=== PATIENT | female | born 1940 | race Caucasian/White ===

== ENCOUNTER 2025-02-13 10:28 | Inpatient (IN) | payer MEDICARE, SELFPAY ==
[2025-02-13 10:29] VITALS: BP 185/101; PULSE 66; TEMP 36.5; O2SAT 99; BMI 42.1
--- NOTE | 2025-02-13 10:40 | XR_ITS ---
The [address] [address] Patient Name: PIEDAD TA MRN: [id number] date: 1940 Sex: F Assigned Patient Location: ER Current Patient Location: Accession/Order Number: [id number] Exam Date: 02/13/2025 10:50 Report Date: 02/13/2025 11:28 At the request of: DERICK KIM DO Procedure: XR elbow LT min 3V CLINICAL DATA: Patient fell today. Pain, bruising and deformity at the left shoulder. LEFT SHOULDER - 2 views COMPARISON: None AP and Y views were obtained. Evaluation is slightly limited by large body habitus and positioning. The bony structures are osteopenic. A comminuted displaced fracture is seen at the head/neck of the humerus. There is no obvious dislocation. There is mild degenerative change at the acromioclavicular joint. No soft tissue abnormalities are seen. XR/XR shoulder LT min 2V IMPRESSION: PROXIMAL HUMERUS FRACTURE. BILATERAL HUMERUS - 2 views each COMPARISON: None AP and lateral views were obtained. Assessment is slightly limited by large body habitus. On the right, no fracture or dislocation is identified. On the left, there is a comminuted displaced fracture at the head/neck of the humerus. The remainder of the left humerus is intact. There is no obvious dislocation. Degenerative change is present at the acromioclavicular joint on both sides. No soft tissue abnormalities are seen. IMPRESSION: COMMINUTED DISPLACED PROXIMAL LEFT HUMERUS FRACTURE. NO ACUTE BONY FINDINGS ON THE RIGHT. LEFT ELBOW - 3 views COMPARISON: None AP, lateral and oblique views were obtained. No acute fracture or dislocation is identified. Minor soft tissue calcification is seen near at the radial humeral joint. There is no elbow effusion or significant soft tissue swelling. IMPRESSION: NO ACUTE BONY INJURY. Impression dictated by: Henny Wheatley M.D. 02/13/2025 11:28 AM Dictation Location: [facility] Electronically authenticated by: [id number] Y Date: 02/13/2025 11:28
--- NOTE | 2025-02-13 10:40 | XR_ITS ---
The [place] [id number] Patient Name: PIEDAD TA MRN: [id number] date: 1940 Sex: F Assigned Patient Location: ER Current Patient Location: ER Accession/Order Number: [id number] Exam Date: 02/13/2025 10:50 Report Date: 02/13/2025 11:21 At the request of: DERICK KIM DO Procedure: XR chest 1V AP CHEST: CLINICAL HISTORY: Patient fell this morning. Deformity and bruising at the left shoulder. COMPARISON: None Assessment is slightly limited by patient's large body habitus. The heart is at least borderline enlarged. The lungs, as visualized are clear. No focal consolidation, sizable effusion or pneumothorax is seen. A displaced left proximal humerus fracture is visualized. XR/XR chest 1V IMPRESSION: BORDERLINE CARDIOMEGALY. NO DEFINITE ACUTE PULMONARY FINDINGS. LEFT PROXIMAL HUMERUS FRACTURE. Impression dictated by: Henny Wheatley M.D. 02/13/2025 11:21 AM Dictation Location: [facility] Electronically authenticated by: [id number] Y Date: 02/13/2025 11:21
--- NOTE | 2025-02-13 10:40 | XR_ITS ---
The [address] [address] Patient Name: PIEDAD TA MRN: [id number] date: 1940 Sex: F Assigned Patient Location: ER Current Patient Location: Accession/Order Number: [id number] Exam Date: 02/13/2025 10:50 Report Date: 02/13/2025 11:28 At the request of: DERICK KIM DO Procedure: XR elbow LT min 3V CLINICAL DATA: Patient fell today. Pain, bruising and deformity at the left shoulder. LEFT SHOULDER - 2 views COMPARISON: None AP and Y views were obtained. Evaluation is slightly limited by large body habitus and positioning. The bony structures are osteopenic. A comminuted displaced fracture is seen at the head/neck of the humerus. There is no obvious dislocation. There is mild degenerative change at the acromioclavicular joint. No soft tissue abnormalities are seen. XR/XR humerus FIGUEROA IMPRESSION: PROXIMAL HUMERUS FRACTURE. BILATERAL HUMERUS - 2 views each COMPARISON: None AP and lateral views were obtained. Assessment is slightly limited by large body habitus. On the right, no fracture or dislocation is identified. On the left, there is a comminuted displaced fracture at the head/neck of the humerus. The remainder of the left humerus is intact. There is no obvious dislocation. Degenerative change is present at the acromioclavicular joint on both sides. No soft tissue abnormalities are seen. IMPRESSION: COMMINUTED DISPLACED PROXIMAL LEFT HUMERUS FRACTURE. NO ACUTE BONY FINDINGS ON THE RIGHT. LEFT ELBOW - 3 views COMPARISON: None AP, lateral and oblique views were obtained. No acute fracture or dislocation is identified. Minor soft tissue calcification is seen near at the radial humeral joint. There is no elbow effusion or significant soft tissue swelling. IMPRESSION: NO ACUTE BONY INJURY. Impression dictated by: Henny Wheatley M.D. 02/13/2025 11:28 AM Dictation Location: [facility] Electron[facility] authenticated by: [id number] Y Date: 02/13/2025 11:28
--- NOTE | 2025-02-13 10:40 | XR_ITS ---
The [address] [address] Patient Name: PIEDAD TA MRN: [id number] date: 1940 Sex: F Assigned Patient Location: ER Current Patient Location: Accession/Order Number: [id number] Exam Date: 02/13/2025 10:50 Report Date: 02/13/2025 11:28 At the request of: DERICK KIM DO Procedure: XR elbow LT min 3V CLINICAL DATA: Patient fell today. Pain, bruising and deformity at the left shoulder. LEFT SHOULDER - 2 views COMPARISON: None AP and Y views were obtained. Evaluation is slightly limited by large body habitus and positioning. The bony structures are osteopenic. A comminuted displaced fracture is seen at the head/neck of the humerus. There is no obvious dislocation. There is mild degenerative change at the acromioclavicular joint. No soft tissue abnormalities are seen. XR/XR elbow LT min 3V IMPRESSION: PROXIMAL HUMERUS FRACTURE. BILATERAL HUMERUS - 2 views each COMPARISON: None AP and lateral views were obtained. Assessment is slightly limited by large body habitus. On the right, no fracture or dislocation is identified. On the left, there is a comminuted displaced fracture at the head/neck of the humerus. The remainder of the left humerus is intact. There is no obvious dislocation. Degenerative change is present at the acromioclavicular joint on both sides. No soft tissue abnormalities are seen. IMPRESSION: COMMINUTED DISPLACED PROXIMAL LEFT HUMERUS FRACTURE. NO ACUTE BONY FINDINGS ON THE RIGHT. LEFT ELBOW - 3 views COMPARISON: None AP, lateral and oblique views were obtained. No acute fracture or dislocation is identified. Minor soft tissue calcification is seen near at the radial humeral joint. There is no elbow effusion or significant soft tissue swelling. IMPRESSION: NO ACUTE BONY INJURY. Impression dictated by: Henny Wheatley M.D. 02/13/2025 11:28 AM Dictation Location[facility] Electron[facility] authenticated by: [id number] Y Date: 02/13/2025 11:28
[2025-02-13 10:50] VITALS: PULSE 66; O2SAT 99
[2025-02-13] MEDS: MORPHINE SULFATE 4 MG/ML VIAL IV (12:23)
--- NOTE | 2025-02-13 12:25 | ED_ITS ---
HPI HPI - General Adult General Chief complaint: Extremity Injury, Upper Stated complaint: SHOULDER INJURY Time Seen by Provider: 02/13/25 10:34 Source: patient Mode of arrival: ambulance History of Present Illness HPI narrative: Patient is an 84-year-old female presenting to the emergency department for evaluation of left arm injury. Patient states she tripped and fell in the bathroom earlier today. She landed on her left shoulder and has had persistent pain since then. Other than pain in left shoulder, she has mild pain in the right arm. She denies any other injuries. She denies hitting her head or lo sing consciousness. She denies any neck or back pain. No chest pain or shortness of breath. No abdominal pain, nausea, or vomiting. No numbness/tingling/weakness in the upper extremities. She is not on anticoagulation. Patient lives at home with her . She uses a walker to get around. Related Data Allergies Allergy/AdvReac Type Severity Reaction Status Date / Time Penicillins Allergy Mild Unknown Verified 02/13/25 11:41 cefuroxime Allergy Unknown Verified 02/13/25 11:41 ciprofloxacin (From Cipro) Allergy Unknown Verified 02/13/25 11:41 lisinopril Allergy Unknown Verified 02/13/25 11:41 nitrofurantoin Allergy Unknown Verified 02/13/25 11:41 Sulfa (Sulfonamide Allergy Unknown Verified 02/13/25 11:41 Antibiotics) Opioid HPI Opioid Management Most Recent Opioid Data: Last Pain Scale 8 Today, 12:23 Last ED Pain Assessment Today, 10:50 Last MAR Pain Assessment Today, 12:23 Review of Systems ROS Status of ROS 10 or more systems reviewed and unremark able except as noted in history and below PFSH PFSH Social History Little interest or pleasure in doing things: not at all Feeling down, depressed, or hopeless: not at all Exam Narrative Exam Narrative: CONSTITUTIONAL: Patient appears to be in moderate amount of pain. She is awake and alert and answering questions appropriately. SKIN: Was warm and dry. HEAD: Atraumatic, normocephalic EYES: Sclerae white. EARS, NOSE, THROAT: Moist oral mucosa. RESPIRATORY: Clear to auscultation bilaterally, no wheezes, crackles, or stridor, no use of accessory muscles CARDIOVASCULAR: Normal rate and regular rhythm. There is no S3, S4, murmur, rub. 2+ radial pulses bilaterally. GASTROINTESTINAL: Abdomen is soft, nondistended, nontender. MUSCULOSKELETAL: There is tenderness to palpation at the left proximal humerus. Limited range of motion of the left shoulder secondary to pain. Full range of motion of the left elbow/wrist/fingers. No bony tenderness of the elbow, radius/ulna/wrist bilaterally. Able to make an okay sign, peace sign, and cross her fingers on the left. No tenderness at the lower extremities/hips/pelvis. No T/C/L-spine tenderness to NEUROLOGIC: Patient is awake and alert. Good strength and sensation to light touch in the bilateral upper extremities. Good sensation over the deltoids bilaterally. Constitutional Vital Signs, click to edit/add: Last Vital Signs Temp 97.7 F 02/13/25 10:29 Pulse 66 02/13/25 10:50 Resp 18 02/13/25 10:29 BP 185/101 H 02/13/25 10:29 Pulse Ox 99 02/13/25 10:50 O2 Del Method Room Air 02/13/25 10:50 Course Vital Signs Vital signs: Vital Signs Temperature 97.7 F 02/13/25 10:29 Pulse Rate 66 02/13/25 10:29 Respiratory Rate 18 02/13/25 10:29 Blood Pressure 185/101 H 02/13/25 10:29 Pulse Oximetry 99 02/13/25 10:29 Oxygen Delivery Method Room Air 02/13/25 10:29 Temperature 97.7 F 02/13/25 10:29 Pulse Rate 66 02/13/25 10:50 Respiratory Rate 18 02/13/25 10:29 Blood Pressure 185/101 H 02/13/25 10:29 Pulse Oximetry 99 02/13/25 10:50 Oxygen Delivery Method Room Air 02/13/25 10:50 Medical Decision Making MDM Narrative Medical decision making narrative: Patient is a 84-year-old female presenting to the emergency department for evaluation of left shoulder injury s/p mechanical fall from standing height earlier today. Vital signs are significant for hypertension, likely secondary to pain. She is afebrile and hemodynamically stable. Examination is notable, however is notable for tenderness palpation of the left proximal humerus. She is neurovascularly intact distal to the injury. She has limited range of motion left upper extremity secondary to pain. She has no other acute injuries. Differential diagnose includes left proximal humerus fracture, left shoulder dislocation, right humerus fracture, left elbow contusion, or other osseous abnormalities. X-rays were obtained. She was given 4 mg IV morphine for pain. Chest x-ray independently reviewed/interpreted by myself demonstrated no acute cardiopulmonary process. X-rays of the left elbow, shoulder, and humerus demonstrated comminuted displaced proximal left humerus fracture. X-rays of the right humerus demonstrate no acute osseous abnormalities. It appears that the patient suffered from a left proximal humerus fracture without any other identifiable injuries. Given that she is elderly and uses a walker at baseline, I did offer her admission to the hospital for placement to a subacute rehab. However, the patient adamantly declines and would rather go home. I did explain that her broken arm is going to severely limit her ability to achieve ADLs. Additionally, given that she is a walker, she is a fall risk. Despite the risks of going home, she remains firm that she is not placed into rehab. Her sons are at the bedside, who is a part of this shared decision making conversation. They state that if the patient is starting to have difficulty taking care of herself at home that they will reach out to their PCP for placement to a [facility]. At this time, the patient was placed in a sling and swath for immobilization. She is instructed to follow-up with orthopedic surgery clinic within 1 week for further care - though she mentioned twice that she does not want surgery performed on her arm. Return precautions were given including any new or concerning symptoms. Patient understands and agrees to the plan. FINAL IMPRESSION: #Acute left proximal humerus fracture DISPOSITION: Discharged home CONDITION: Fair Imaging Data left humerus xray: Attestation: I personally reviewed and interpreted this imaging study as follows: Radiologist's impression: ITS Impressions Chest X-Ray 02/13/25 10:40 IMPRESSION: BORDERLINE CARDIOMEGALY. NO DEFINITE ACUTE PULMONARY FINDINGS. LEFT PROXIMAL HUMERUS FRACTURE. Impression dictated by: Henny Wheatley M.D. 02/13/2025 11:21 AM Dictation Location: [employer] Electronically authenticated by: [id number] Y Date: 02/13/2025 11:21 Elbow X-Ray 02/13/25 10:40 IMPRESSION: PROXIMAL HUMERUS FRACTURE. BILATERAL HUMERUS - 2 views each COMPARISON: None AP and lateral views were obtained. Assessment is slightly limited by large body habitus. On the right, no fracture or dislocation is identified. On the left, there is a comminuted displaced fracture at the head/neck of the humerus. The remainder of the left humerus is intact. There is no obvious dislocation. Degenerative change is present at the acromioclavicular joint on both sides. No soft tissue abnormalities are seen. IMPRESSION: COMMINUTED DISPLACED PROXIMAL LEFT HUMERUS FRACTURE. NO ACUTE BONY FINDINGS ON THE RIGHT. LEFT ELBOW - 3 views COMPARISON: None AP, lateral and oblique views were obtained. No acute fracture or dislocation is identified. Minor soft tissue calcification is seen near at the radial humeral joint. There is no elbow effusion or significant soft tissue swelling. IMPRESSION: NO ACUTE BONY INJURY. Impression dictated by: Henny Wheatley M.D. 02/13/2025 11:28 AM Dictation Location: [employer] Electronically authenticated by: [id number] Y Date: 02/13/2025 11:28 Humerus X-Ray 02/13/25 10:40 IMPRESSION: PROXIMAL HUMERUS FRACTURE. BILATERAL HUMERUS - 2 views each COMPARISON: None AP and lateral views were obtained. Assessment is slightly limited by large body habitus. On the right, no fracture or dislocation is identified. On the left, there is a comminuted displaced fracture at the head/neck of the humerus. The remainder of the left humerus is intact. There is no obvious dislocation. Degenerative change is present at the acromioclavicular joint on both sides. No soft tissue abnormalities are seen. IMPRESSION: COMMINUTED DISPLACED PROXIMAL LEFT HUMERUS FRACTURE. NO ACUTE BONY FINDINGS ON THE RIGHT. LEFT ELBOW - 3 views COMPARISON: None AP, lateral and oblique views were obtained. No acute fracture or dislocation is identified. Minor soft tissue calcification is seen near at the radial humeral joint. There is no elbow effusion or significant soft tissue swelling. IMPRESSION: NO ACUTE BONY INJURY. Impression dictated by: Henny Wheatley M.D. 02/13/2025 11:28 AM Dictation Location: [employer] Electronically authenticated by: [id number] Y Date: 02/13/2025 11:28 Shoulder X-Ray 02/13/25 10:40 IMPRESSION: PROXIMAL HUMERUS FRACTURE. BILATERAL HUMERUS - 2 views each COMPARISON: None AP and lateral views were obtained. Assessment is slightly limited by large body habitus. On the right, no fracture or dislocation is identified. On the left, there is a comminuted displaced fracture at the head/neck of the humerus. The remainder of the left humerus is intact. There is no obvious dislocation. Degenerative change is present at the acromioclavicular joint on both sides. No soft tissue abnormalities are seen. IMPRESSION: COMMINUTED DISPLACED PROXIMAL LEFT HUMERUS FRACTURE. NO ACUTE BONY FINDINGS ON THE RIGHT. LEFT ELBOW - 3 views COMPARISON: None AP, lateral and oblique views were obtained. No acute fracture or dislocation is identified. Minor soft tissue calcification is seen near at the radial humeral joint. There is no elbow effusion or significant soft tissue swelling. IMPRESSION: NO ACUTE BONY INJURY. Impression dictated by: Henny Wheatley M.D. 02/13/2025 11:28 AM Dictation Location: [employer] Electronically authenticated by: [id number] Y Date: 02/13/2025 11:28 Discharge Plan Discharge Chief Complaint: Extremity Injury, Upper Clinical Impression: Closed left humeral fracture Patient Disposition: Home, Self-Care Time of Disposition Decision: 12:13 Condition: Fair Mode of Transportation: Private Vehicle Print Language: German Instructions: Arm Fracture in Adults (ED), How to Use a Sling (ED) Referrals: Cayden Banda DO [Physician, Orthopedics] - 1 week JESSICA STOCK [Primary Care Provider, Family Practice] - 1 week
[2025-02-13 13:06] VITALS: BP 179/84; PULSE 68; O2SAT 97
--- NOTE | 2025-02-13 13:06 | PM.IMHP1 ---
Internal Medicine - H&P: HPI History of Present Illness Chief complaint: SHOULDER INJURY Narrative: Miss Sprague is an 84-year-old female with a past medical history notable for diabetes and hypertension who presents to the hospital today with a chief complaint of left shoulder pain. Earlier this morning the patient was attempting to stand up in the bathroom and change her underwear, she lost balance while doing this and subsequently fell onto her knees and then down to her left arm. She felt pain immediately. She was separately brought to emergency room. She denied losing consciousness or hitting her head while she fell, she does not have a history of falls. She is from home alone with her son who does help out a little bit but she is fairly independent as well. Review of Systems ROS Status of ROS 10 or more systems reviewed and unremarkable except as noted in history and below PFSH PFSH Social History Little interest or pleasure in doing things: not at all Feeling down, depressed, or hopeless: not at all Meds Home Medications and Allergies Home Medications ?Medication ?Instructions ?Recorded ?Confirmed ?Type citalopram 40 mg tablet 40 mg PO HS 02/13/25 02/13/25 History furosemide 40 mg tablet 40 mg PO DAILY 02/13/25 02/13/25 History glipizide 10 mg tablet 10 mg PO DAILY 02/13/25 02/13/25 History indapamide 2.5 mg tablet 2.5 mg PO DAILY 02/13/25 02/13/25 History insulin glargine 100 unit/mL (3 38 unit subcut HS 02/13/25 02/13/25 History mL) subcutaneous pen (Lantus Solostar U-100 Insulin) meloxicam 7.5 mg tablet 7.5 mg PO BID 02/13/25 02/13/25 History metformin 1,000 mg tablet 1,000 mg PO BID 02/13/25 02/13/25 History montelukast 10 mg tablet 10 mg PO HS 02/13/25 02/13/25 History potassium chloride 20 mEq 20 meq PO DAILY 02/13/25 02/13/25 History tablet,extended release(part/cryst) propranolol 20 mg tablet 20 mg PO BID 02/13/25 02/13/25 History Allergies Allergy/AdvReac Type Severity Reaction Status Date / Time Penicillins Allergy Mild Unknown Verified 02/13/25 11:41 cefuroxime Allergy Unknown Verified 02/13/25 11:41 ciprofloxacin (From Cipro) Allergy Unknown Verified 02/13/25 11:41 lisinopril Allergy Unknown Verified 02/13/25 11:41 nitrofurantoin Allergy Unknown Verified 02/13/25 11:41 Sulfa (Sulfonamide Allergy Unknown Verified 02/13/25 11:41 Antibiotics) Exam Narrative Exam Narrative: General: Awake and alert, no acute distress HEENT: Normocephalic, atraumatic, no scleral icterus noted Lungs: Clear to auscultation bilaterally Cardiac: Regular rate and rhythm, no murmurs appreciated GI: Soft, nontender, regular bowel sounds. Extremities: Active and passive range of motion intact throughout her bilateral lower extremities and right upper extremity. The right upper extremity does have some hematomas noted already, she has pain directly over the lateral aspect of the shoulder. She is neurovascularly intact distal to the fracture. Neuro: Cranial nerves II through XII intact, no focal deficits noted Skin: No rashes or lesions, no signs of jaundice Constitutional Vital Signs, click to edit/add: Last Vital Signs Temp 97.7 F 02/13/25 10:29 Pulse 66 02/13/25 10:50 Resp 18 02/13/25 10:29 BP 185/101 H 02/13/25 10:29 Pulse Ox 99 02/13/25 10:50 O2 Del Method Room Air 02/13/25 10:50 Assessment and Plan Assessment and Plan (1) Closed left humeral fracture: Assessment and Plan: ? Admit to the hospital, inpatient status, no telemetry ? Pain control with Tylenol, [place], morphine ? Bowel regimen with sennosides nightly scheduled ? PT OT ? Patient was fairly independent at home prior to this mechanical fall, she did not lose consciousness and denies hitting her head. She will likely require SNF upon discharge for a safe disposition. ? Orthopedic surgery was consulted ?This is likely a nonop management however if there is a surgical intervention the patient is currently declining any surgeries. They are okay with being evaluated by the surgery though for completeness sake for discussion on long-term outcomes of this. (2) Fall: Assessment and Plan: See above
--- NOTE | 2025-02-13 13:19 | SWNOTE1 ---
SW received a message from physician that pt will be admitted and need placement at SNF. SW to speak with pt and family.
--- NOTE | 2025-02-13 13:40 | SWNOTE1 ---
SW went down to speak with pt and pt's family. Pt's son and were in waiting area. Pt's other son came to waiting area as well. ADILIA did discuss SNF with all of them. They are all in agreement for pt to go to rehab for a short time. Prior to this fall pt was ambulating with walker and pt's also stated she had a wheelchair. ADILIA provided them with a lsit from [employer]are[employer] with star ratings. They initially wanted [facility], but [facility] does not have rehab anymore, only assisted living. They would like SW to look in to [facility]. If [facility] has no beds, then they would like one of the facilities in [place]. SW to check with [facility] and get back to family. ADILIA called [facility], but Katar[facility] or [facility] did not answer. ADILIA emailed both of them. Katarzyna did reply and they do have opening. SW to send referral.
--- NOTE | 2025-02-13 13:55 | SWNOTE1 ---
Referral sent to [facility]. Referral included face sheet, ED note, H&P, case management report, nursing notes, diagnostic imaging, and med list. SW to send PT/OT once evaluated.
[2025-02-13 14:31] VITALS: BP 137/64; PULSE 76; TEMP 36.4; O2SAT 93; BMI 46.4
--- NOTE | 2025-02-13 14:42 | PC.NURSE ---
bedside nursing report given to [facility] RNs. all questions answered.
--- NOTE | 2025-02-13 14:54 | SWNOTE1 ---
[facility] is able to accept and will start precert once they have PT/OT.
[2025-02-13 15:18] VITALS: BMI 10.0
[2025-02-13] MEDS: SENNOSIDES 8.6 MG TABLET PO (15:19)
[2025-02-13] MEDS: OXYCODONE HCL/ACETAMINOPHEN 5MG/325MG 1 TAB PO ×2 (15:19→22:40)
--- NOTE | 2025-02-13 15:31 | SWNOTE1 ---
PT/OT completed evals. SW faxed evals to Delvin at [facility] and they will submit to insurance and start precert today.
[2025-02-13] MEDS: METFORMIN HCL 500 MG TABLET 1000 MG PO (16:23)
[2025-02-13 19:42] VITALS: BP 108/57; PULSE 73; TEMP 36.4; O2SAT 90
[2025-02-13] MEDS: INSULIN GLARGINE 300 UNIT/3 ML INSULN.PEN 38 UNIT SQ (21:28)
[2025-02-13] MEDS: PROPRANOLOL HCL 20 MG TABLET PO (21:28)
[2025-02-13] MEDS: CITALOPRAM HYDROBROMIDE 20 MG TABLET 40 MG PO (21:28)
[2025-02-13] MEDS: MONTELUKAST SODIUM 10 MG TABLET PO (21:28)
[2025-02-14 04:00] VITALS: BP 121/71; PULSE 70; TEMP 36.7; O2SAT 90
[2025-02-14] MEDS: OXYCODONE HCL/ACETAMINOPHEN 5MG/325MG 1 TAB PO ×2 (05:51→21:15)
[2025-02-14 07:52] VITALS: BP 103/44; PULSE 71; TEMP 36.6; O2SAT 90
[2025-02-14] MEDS: GLIPIZIDE 5 MG TAB.ER.24 10 MG PO (09:05)
[2025-02-14] MEDS: SENNOSIDES 8.6 MG TABLET PO ×3 (09:05→21:12)
[2025-02-14] MEDS: METFORMIN HCL 500 MG TABLET 1000 MG PO (09:05)
--- NOTE | 2025-02-14 11:04 | PT.DAILY ---
Physical Therapy Daily Note PT Daily Note/Assess Start: 02/14/25 10:58 Freq: Status: Active Protocol: Document 02/14/25 10:30 YANDY (Rec: 02/14/25 11:03 KURTISHUHERNAN [id number]) Physical Therapy Daily Note/Assessment Time In/Time Out Time In 10:29 Time Out 10:54 Subjective Subjective Pain 4/10 in L shoulder reports that nursing was able to just get sling adjusted just right so pain is decreased and she is more comfortable. Willing to work with PT. Therapeutic Exercise Time Therapeutic Exercise 10 Minutes (minutes) Therapeutic Exercise 1 Units Therapeutic Exercise Treatment Therapeutic Exercise Supine exercises with isometrics, AAROM and AROM 10 Treatment reps each to improve strength. Therapeutic Activity Time Therapeutic Activity 15 Minutes (minutes) Therapeutic Activity 1 Units Therapeutic Activity Treatment Bed Mobility Ability Maximum Assist Therapeutic Activity Attempted to sit EOB 2x with max assist x1, patient Comments works hard but is unable to safely get to edge of bed with max assist x1. with position of bed and max assist of patient was able to work on coming up into unsupported long sitting with 5 sec hold 7x. Max assist to re-position patient post RX. Total Physical Therapy Time Total Therapy 25 Minutes Total Physical 2 Therapy Units Summary Daily Note Summary Patient works hard with PT. Requires max assist due to weakness and NWB to L UE with increased pain during activity. Completed B LE strengthening program with tolerance of 10 reps each. Patient will benefit from SNF stay at [place] to regain strength and learn how to safely transfer allowing her to return to [facility].
--- NOTE | 2025-02-14 12:09 | P.PN_ITS ---
Progress Note: Subjective Subjective Interval history: This patient was admitted yesterday by my colleague. She had come to the ER with a left-sided proximal humerus fracture. Originally she wanted to go home. She was not agreeable to SNF placement. But her family members talked her into it. The patient and her family members admit that she is looking a lot better today. Pain has been manageable. She had a hard night and did not sleep because the sling got caught underneath her and so her arm was in a strange position. But the sling is been put back into normal position today. She can wiggle her fingers and has sensation and motion intact throughout the left arm. Her family explains that at home she uses a wheeled walker that she drives with both hands. She has limited mobility at home but with some assistance from the family they can get her from the bedroom to the bathroom and to the kitchen. She does use a lift chair. She got some gluteal irritation on the bottom of her skin in both gluteal region she believes from scooting herself on the lift chair at home. They had been seeing dermatology. Dermatology apparently had told the family members to put coconut oil on these areas. Last week she was in the dermatology office and it seems like she has some skin lesions that will need to be removed next week. She also got an unspecified vascular surgery procedure on the veins in her legs in [place] about a week ago. Her BMI is 46.4. Her age is advanced at 84. She has very limited mobility at home at baseline due to all of this. Therefore hospital stay for stabilization of the pain and getting her on a stable pain and bowel regimen is appropriate and she does require a assisted facility until the left arm is healed and she can do her activities of daily living again. Exam Narrative Exam Narrative: General: In bed. Head of bed elevated about 60 degrees. Looking around. Once her family members do most of the talking. Cardio: Auscultating anteriorly I do not hear any rubs or gallops. Heart rate is regular. Pulmonary: Auscultating anteriorly her lung sounds are clear. Respirations are calm and easy. GI: Abdomen soft, normal bowel sounds to auscultation throughout. Lower extremities: She has some dry skin on her legs but these little areas that are about 1 or 2 mm of blisters that the family members were taking her to dermatology for look better, most likely due to leg elevation. Left arm: There is some bruising around the left shoulder. She can wiggle her fingers. Wrist and elbow do not seem to have any pain. Constitutional Vital Signs, click to edit/add: Last Vital Signs Temp 97.9 F 02/14/25 07:52 Pulse 71 02/14/25 07:52 Resp 20 02/14/25 07:52 BP 103/44 L 02/14/25 07:52 Pulse Ox 90 L 02/14/25 07:52 O2 Del Method Room Air 02/14/25 07:52 Progress Note: A&P Assessment and Plan (1) Closed left humeral fracture: Qualifiers: Encounter type: subsequent encounter Humerus Location: proximal Fracture morphology: other fracture Fracture alignment: nondisplaced Fracture healing: with routine healing Qualified Code(s): S42.295D - Other nondisplaced fracture of upper end of left humerus, subsequent encounter for fracture with routine healing (2) Fall: Qualifiers: Encounter type: subsequent encounter Qualified Code(s): W19.XXXD - Unspecified fall, subsequent encounter (3) BMI 45.0-49.9, adult: (4) Diabetes mellitus: Qualifiers: Diabetes mellitus type: type 2 Diabetes mellitus watermaster insulin use: without [place] [facility] use Diabetes mellitus complication status: without complication Qualified Code(s): E11.9 - Type 2 diabetes mellitus without complications (5) Hypertension: Qualifiers: Hypertension type: primary hypertension Qualified Code(s): I10 - Essential (primary) hypertension (6) Anxiety: (7) Impaired mobility and ADLs: Plan Closed left proximal humerus fracture. Mechanical fall at home. BMI 46.4. Diabetes mellitus type 2. Impaired activities of daily living. Stage II pressure ulcers on both gluteus gisselle region. Plan: Ongoing hospital care with the inpatient status. Physical therapy did see the patient today. I discussed today with the patient and family I want her on calcium and vitamin D and vitamin C for bone healing Starting strong bowel regimen with Metamucil and medium strength stimulant laxatives to prevent constipation. Checking a set of routine labs. Urinary Catheter Management Urinary Catheter Management Pure Wick: Cath placed during this visit: yes Urethral indwelling: No Insertion date: 02/14/25 Insertion time: 05:00
[2025-02-14 12:36] LABS: Hematocrit 32.3 % (36.0-48.0); Hemoglobin 10.6 g/dL (12.0-16.0); Immature Granulocytes Abs Auto 0.06 10^3/uL (0.00-0.03); Immature Granulocytes Pct Auto 0.5 % (0.0-0.5); Lymphocytes Absolute Auto 4.0 10^3/uL (1.2-3.8); Mean Corpuscular HGB Conc 32.8 g/dL (29.9-35.2); Mean Corpuscular Hemoglobin 30.4 pg (26.7-34.0); Mean Corpuscular Volume 92.6 fL (81.0-99.0); Platelet Count 162 10^3/uL (150-450); Red Blood Count 3.49 10^6/uL (4.20-5.40); White Blood Count 12.1 10^3/uL (4.0-11.0)
[2025-02-14 12:53] LABS: INR 0.99; Partial Thromboplastin Time 25.6 sec (22.3-36.2); Prothrombin Time 10.5 sec (9.0-11.6)
[2025-02-14 12:54] LABS: Alanine Aminotransferase 15 U/L (14-59); Albumin Globulin Ratio 0.7; Albumin Level 2.7 g/dL (3.4-5.0); Alkaline Phosphatase 54 U/L (46-116); Anion Gap 15.0; Aspartate Amino Transferase 16 U/L (15-37); Blood Urea Nitrogen 65.0 mg/dL (7.0-18.0); Calcium 9.0 mg/dL (8.5-10.1); Carbon Dioxide 24.1 mmol/L (21.0-32.0); Chloride 101 mmol/L (98-107); Estimated GFR (African America 19 (>=60 mL/min/1.73m^2); Estimated GFR (Non-African Ame 16 (>=60 mL/min/1.73m^2); Globulin 3.8 g/dL; Glucose 164 mg/dL (74-106); Potassium 5.1 mmol/L (3.5-5.1); Sodium 135 mmol/L (136-145); Total Protein 6.5 g/dL (6.4-8.2)
[2025-02-14 13:24] LABS: Iron 78.0 ug/dL (50.0-170.0); Percent Iron Saturation 26.9 %; Total Iron Binding Capacity 290.0 ug/dL (250.0-450.0)
[2025-02-14 13:48] LABS: Ferritin 66.0 ng/mL (8.0-252.0); Folate 15.40 ng/mL (8.60-58.90)
[2025-02-14 15:16] VITALS: BP 110/53; PULSE 82; TEMP 36.8; O2SAT 90
[2025-02-14] MEDS: ASCORBIC ACID 500 MG TABLET PO (17:12)
[2025-02-14] MEDS: CALCIUM CARBONATE 600 MG/VITAMIN D3 400 IU TABLET 1 TAB PO (17:12)
[2025-02-14 19:49] VITALS: BP 139/81; PULSE 78; TEMP 36.8; O2SAT 92
[2025-02-14] MEDS: INSULIN GLARGINE 300 UNIT/3 ML INSULN.PEN 38 UNIT SQ (21:10)
[2025-02-14] MEDS: PROPRANOLOL HCL 20 MG TABLET PO (21:11)
[2025-02-14] MEDS: PSYLLIUM SUGAR FREE 5.8 GM POWDER PACKET PO (21:11)
[2025-02-14] MEDS: CITALOPRAM HYDROBROMIDE 20 MG TABLET 40 MG PO (21:11)
[2025-02-14] MEDS: ENOXAPARIN SODIUM 30 MG/0.3 ML SYRINGE SUBQ (21:11)
[2025-02-14] MEDS: MONTELUKAST SODIUM 10 MG TABLET PO (21:12)
[2025-02-15 04:00] VITALS: BP 107/63; PULSE 72; TEMP 36.4; O2SAT 90
[2025-02-15] MEDS: SENNOSIDES 8.6 MG TABLET PO (05:27)
[2025-02-15 08:00] VITALS: BP 110/73; PULSE 74; TEMP 36.7; O2SAT 90
[2025-02-15] MEDS: PSYLLIUM SUGAR FREE 5.8 GM POWDER PACKET PO (09:11)
[2025-02-15] MEDS: PROPRANOLOL HCL 20 MG TABLET PO (09:11)
[2025-02-15] MEDS: CALCIUM CARBONATE 600 MG/VITAMIN D3 400 IU TABLET 1 TAB PO (09:11)
[2025-02-15] MEDS: ENOXAPARIN SODIUM 30 MG/0.3 ML SYRINGE SUBQ (09:11)
[2025-02-15] MEDS: GLIPIZIDE 5 MG TAB.ER.24 10 MG PO (09:11)
[2025-02-15] MEDS: METFORMIN HCL 500 MG TABLET 1000 MG PO (09:11)
[2025-02-15] MEDS: ASCORBIC ACID 500 MG TABLET PO (09:11)
--- NOTE | 2025-02-15 11:31 | PM.DS1 ---
DS: Providers Provider Date of admission: 02/13/25 14:18 Primary care physician: JESSICA STOCK Admitting clinician: ADRIANA COREAS Attending physician on admission: ADRIANA COREAS Consults: 02/13/25 12:58 Consult to Orthopedic Surgery Routine Consulting Provider: Cayden Banda Reason For Exam: Reason for consultation: proximal humerus fx Occupational Therapy Eval and Treat Routine Reason for consultation: proximal humerus fx Physical Therapy Eval and Treat Routine Reason for consultation: proximal humerus fx Attending physician on discharge: DEX PROCTOR Discharging clinician: DEX PROCTOR Anticipated date of discharge: 02/15/25 DS: Diagnosis Discharge Diagnosis (1) Closed left humeral fracture: Qualifiers: Encounter type: subsequent encounter Fracture alignment: nondisplaced Fracture healing: with routine healing Fracture morphology: other fracture Humerus Location: proximal Qualified Code(s): S42.295D - Other nondisplaced fracture of upper end of left humerus, subsequent encounter for fracture with routine healing (2) Fall: Qualifiers: Encounter type: subsequent encounter Qualified Code(s): W19.XXXD - Unspecified fall, subsequent encounter (3) BMI 45.0-49.9, adult: (4) Diabetes mellitus: Qualifiers: Diabetes mellitus complication status: without complication 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 She came to the ER and was found to have a comminuted displaced fracture of the head/neck of the humerus. In the ER if first she did not want to be admitted to the hospital and she wanted to go home. However she has a number of things that make getting her activities of daily living accomplished particularly challenging. Her weight is 115 kg. Her BMI is 46.4 kg she normally ambulates with a wheeled walker at home that she drives with both arms. She will be nonweightbearing of the left upper extremity until this fracture is healed. So eventually with the help of her family members a decision was made to place her in the hospital. For the first 24 hours in the hospital she had a tremendous amount of left shoulder pain and did need IV opiates. Ice was used. The patient was able to gradually improve this on to oral oxycodone. She had physical therapy and Occupational Therapy evaluations. On laboratory testing she was found to have pretty severe vitamin D deficiency with vitamin D very low at 7.5. Her hemoglobin A1c is fairly good for her age and condition at 7.2. Over the weekend of February 14 the paperwork to go through for her to be able to go to a fpc facility. She will need multimodal physical therapy and Occupational Therapy, and office based orthopedic follow-up. She is being discharged to the fpc facility on a bone healing protocol of calcium, vitamin D, and vitamin C and also a bowel regimen with Senokot and use of to prevent constipation. DS: Summary Status at Discharge Functional status at discharge: bed bound Overall status at discharge: patient is progressing back to baseline Time Spent with Patient Time attestation: Total time spent providing and/or coordinating discharge services: 33 minutes. - KL. Time spent: greater than 30 minutes Exam Narrative Exam Narrative: General: In bed. Head of bed elevated at about 60 degrees. Left shoulder: Sling is in place. Moderate amount of edema from bruising deeper in the shoulders present. She is able to wiggle her left fingers and has sensation and motor intact in her left hand. Lower extremities: Sleeve compression vices are on and in good position bilaterally. No cords or calves are soreness in the area behind her knees on both of her legs. Cardiac: Regular rate and rhythm. No murmurs. Pulmonary: Clear to auscultation anteriorly. Respirations calm and easy. No wheezing. GI: Abdomen soft, normal bowel sounds to auscultation. Constitutional Vital Signs, click to edit/add: Last Vital Signs Temp 98.1 F 02/15/25 08:00 Pulse 74 02/15/25 08:00 Resp 16 02/15/25 08:00 BP 110/73 02/15/25 08:00 Pulse Ox 90 L 02/15/25 08:00 O2 Del Method Room Air 02/15/25 08:00 DS: Data Data Completed and Pending Labs on day of discharge: Labs from last 24 hours 02/14/25 12:23 WBC 12.1 H RBC 3.49 L Hgb 10.6 L Hct 32.3 L MCV 92.6 MCH 30.4 MCHC 32.8 RDW 13.2 Plt Count 162 MPV 9.5 Neut % (Auto) 51.6 Lymph % (Auto) 33.1 [place] % (Auto) 11.4 Eos % (Auto) 2.6 Baso % (Auto) 0.8 Neut # (Auto) 6.3 Lymph # (Auto) 4.0 H [place] # (Auto) 1.4 H Eos # (Auto) 0.3 Baso # (Auto) 0.1 Abs Immat Gran (auto) 0.06 H Imm/Tot Granulo (auto) 0.5 PT 10.5 INR 0.99 APTT 25.6 Sodium 135 L Potassium 5.1 Chloride 101 Carbon Dioxide 24.1 Anion Gap 15.0 BUN 65.0 H Creatinine 2.84 H Est GFR ( Amer) 19 L Est GFR (Non-Af Amer) 16 L BUN/Creatinine Ratio 22.9 Glucose 164 H Estimat Average Glucose 160 Hemoglobin A1c 7.2 H Calcium 9.0 Iron 78.0 TIBC 290.0 % Saturation 26.9 Ferritin 66.0 Total Bilirubin 0.6 AST 16 ALT 15 Alkaline Phosphatase 54 Total Protein 6.5 Albumin 2.7 L Globulin 3.8 Albumin/Globulin Ratio 0.7 Vitamin D Level 7.5 Folate 15.40 Discharge Plan Discharge Disposition: er SNF Condition: Good Plan of Treatment: Turn and reposition Q 2 hours. Monitor bilateral gluteal wounds, pressure injuries (from home) stage II. Shoulder sling to left arm. Ice pack to left shoulder PRN. Physical Therapy Eval and Treat Occupational Therapy Eval and Treat Obtain X-Rays of the left shoulder and left humerus in 10 days. Obtain orthopedic Surgery office appointment. Pt has appointments with dermatology: likely on February 19. Discharge Medications: New acetaminophen [Tylenol] 325 mg Tablet 650 mg PO Q4H PRN (Reason: Pain) Qty: 0 0RF sennosides-docusate sodium [Senna Plus] 8.6-50 mg Tablet 1 tab-cap PO TID Qty: 90 0RF ascorbic acid (vitamin C) [Vitamin C] 500 mg Tablet 500 mg PO BIDWM Qty: 0 0RF enoxaparin 30 mg/0.3 mL Syringe 30 mg subcut BID 28 Days Qty: 0 0RF calcium carbonate-vitamin D3 600 mg-10 mcg (400 unit) Tablet 1 tab PO BIDWM Qty: 0 0RF psyllium husk (bulk) 100 % Powder 1 ea PO QD Qty: 1000 0RF oxycodone 5 mg tablet 5 mg PO Q4H PRN (Reason: left shoulder pain) 5 Days Qty: 20 0RF Rx Instructions: Further refills while at the [facility] are to come from the SNF providers. cholecalciferol (vitamin D3) 62.5 mcg (2,500 unit) capsule 62.5 mcg PO BIDWM 28 Days Qty: 28 0RF Continued citalopram 40 mg tablet 40 mg PO HS furosemide 40 mg tablet 40 mg PO DAILY glipizide 10 mg tablet 10 mg PO DAILY insulin glargine [Lantus Solostar U-100 Insulin] 100 unit/mL (3 mL) insulin pen 38 unit SUBCUT HS meloxicam 7.5 mg tablet 7.5 mg PO BID metformin 1,000 mg tablet 1,000 mg PO BID indapamide 2.5 mg tablet 2.5 mg PO DAILY montelukast 10 mg tablet 10 mg PO HS potassium chloride 20 mEq tablet,ER particles/crystals 20 meq PO DAILY propranolol 20 mg tablet 20 mg PO BID Print Language: Korean Activity Restrictions/Additional Instructions: Turn and reposition Q 2 hours. Monitor bilateral gluteal wounds, pressure injuries (from home) stage II. Shoulder sling to left arm. Ice pack to left shoulder PRN. Physical Therapy Eval and Treat Occupational Therapy Eval and Treat Obtain X-Rays of the left shoulder and left humerus in 10 days. Obtain orthopedic Surgery office appointment. Pt has appointments with dermatology: likely on February 19. Forms: Portal Instructions
[2025-02-15] MEDS: OXYCODONE HCL/ACETAMINOPHEN 5MG/325MG 1 TAB PO (13:00)
--- NOTE | 2025-02-16 12:50 | SWNOTE1 ---
Pt was approved to go to [facility] on 02/15/25. ADILIA received a message from Reshma at [employer] requesting SW complete HENS 7000/PASRR. SW completed 7000 online.
[2025-02-16 13:08] LABS: Vitamin B12 150 pg/mL (232-1245)
== END 2025-02-15 15:55 | DRG 563 ==
LOC: ER 12:57 → MS 14:25
PROVIDERS: Hospitalist; Admitting Provider Internal Medicine; Emergency Provider Student in an Organized Health Care Education/Training Program; PCP Family Medicine; Visit Provider Internal Medicine
DX: S42.202A Unspecified fracture of upper end of left humerus, initial encounter for closed fracture (principal); Z68.42 Body mass index [BMI] 45.0-49.9, adult; W01.0XXA Fall on same level from slipping, tripping and stumbling without subsequent striking against object, initial encounter; Y92.002 Bathroom of unspecified non-institutional (private) residence as the place of occurrence of the external cause; Z79.84 Long term (current) use of oral hypoglycemic drugs; Z79.4 Long term (current) use of insulin; Z79.899 Other long term (current) drug therapy; F41.9 Anxiety disorder, unspecified; L89.322 Pressure ulcer of left buttock, stage 2; L89.312 Pressure ulcer of right buttock, stage 2; E11.22 Type 2 diabetes mellitus with diabetic chronic kidney disease; I12.9 Hypertensive chronic kidney disease with stage 1 through stage 4 chronic kidney disease, or unspecified chronic kidney disease; N18.32 Chronic kidney disease, stage 3b; E55.9 Vitamin D deficiency, unspecified; E66.01 Morbid (severe) obesity due to excess calories
CPT/HCPCS: 36415; 71045; 73030; 73060; 73080; 80053; 82306; 82607; 82728; 82746; 82948; 83036; 83540; 83550; 85025; 85610; 85730; 96374; 97110; 97162; 97166; 97530; 99285; J1650; J2270

== ENCOUNTER 2025-02-16 16:45 | Inpatient (IN) | payer MEDICARE, SELFPAY ==
[2025-02-16] VITALS (17 sets, daily range): BP systolic 125–155; BP diastolic 74–78; PULSE 67–87; TEMP 36.5–37.1; O2SAT 91–96; BMI 43.9; BMI 47.3
--- NOTE | 2025-02-16 16:57 | ECG_ITS ---
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
--- NOTE | 2025-02-16 17:00 | ED.GENADUL1 ---
HPI HPI - General Adult General Chief complaint: Recheck/Abnormal Lab/Rx Stated complaint: ABNORMAL LABS Time Seen by Provider: 02/16/25 16:52 Source: patient Mode of arrival: ambulance Limitations: no limitations History of Present Illness HPI narrative: 84-year-old female presents to the emergency department for abnormal blood tests. She had fallen on February 13 and had fractured her proximal humerus. She was admitted to the hospital and 2 days later, yesterday she was discharged to [facility]. Today she had blood work performed and her reported BUN is 83, creatinine 3.7, and potassium 6.0. She was sent here for this issue. She does not seem to have any complaints other than this ongoing pain in her left shoulder from the fracture from 3 days ago. She states her appetite has not been good but she has been drinking liquids. She admits that she could drink more. Related Data Home Medications ?Medication ?Instructions ?Recorded ?Confirmed citalopram 40 mg tablet 40 mg PO HS 02/13/25 02/16/25 furosemide 40 mg tablet 40 mg PO DAILY 02/13/25 02/16/25 glipizide 10 mg tablet 10 mg PO DAILY 02/13/25 02/16/25 indapamide 2.5 mg tablet 2.5 mg PO DAILY 02/13/25 02/16/25 insulin glargine 100 unit/mL (3 38 unit subcut HS 02/13/25 02/16/25 mL) subcutaneous pen (Lantus Solostar U-100 Insulin) meloxicam 7.5 mg tablet 7.5 mg PO BID 02/13/25 02/16/25 metformin 1,000 mg tablet 1,000 mg PO BID 02/13/25 02/16/25 montelukast 10 mg tablet 10 mg PO HS 02/13/25 02/16/25 potassium chloride 20 mEq 20 meq PO DAILY 02/13/25 02/16/25 tablet,extended release(part/cryst) propranolol 20 mg tablet 20 mg PO BID 02/13/25 02/16/25 psyllium husk (bulk) 100 % powder 2.6 ea PO QD 02/16/25 02/16/25 Previous Rx's ?Medication ?Instructions ?Recorded acetaminophen 325 mg tablet 650 mg (2 x 325 mg) PO Q4H PRN 02/14/25 (Tylenol) Pain #0 tabs ascorbic acid (vitamin C) 500 mg 500 mg PO BIDWM #0 tabs 02/14/25 tablet (Vitamin C) calcium 600 mg (as 1 tab PO BIDWM #0 tabs 02/14/25 carbonate)-vitamin D3 10 mcg (400 unit) tablet enoxaparin 30 mg/0.3 mL 30 mg (0.3 mL) subcut BID 28 days 02/14/25 subcutaneous syringe #0 mL oxycodone 5 mg tablet 5 mg PO Q4H PRN left shoulder pain 02/14/25 5 days #20 tabs sennosides 8.6 mg-docusate sodium 1 tab-cap PO TID #90 tabs 02/14/25 50 mg tablet (Senna Plus) cholecalciferol (vitamin D3) 62.5 62.5 mcg PO BIDWM 28 days #28 caps 02/15/25 mcg (2,500 unit) capsule Allergies Allergy/AdvReac Type Severity Reaction Status Date / Time Penicillins Allergy Mild Unknown Verified 02/13/25 11:41 cefuroxime Allergy Unknown Verified 02/13/25 11:41 ciprofloxacin (From Cipro) Allergy Unknown Verified 02/13/25 11:41 lisinopril Allergy Unknown Verified 02/13/25 11:41 nitrofurantoin Allergy Unknown Verified 02/13/25 11:41 Sulfa (Sulfonamide Allergy Unknown Verified 02/13/25 11:41 Antibiotics) Opioid HPI Opioid Management Most Recent Opioid Data: Last Pain Scale 4 Today, 16:47 Last Pain Assessment 02/13/25, 15:00 Last ED Pain Assessment 02/13/25, 10:50 Last MAR Pain Assessment 02/13/25, 12:23 Last ORT Total Score 0 02/13/25, 14:31 Last ORT Risk Category Low Risk 02/13/25, 14:31 Review of Systems ROS Narrative A ten point review of systems is negative except as noted above. PFSH PFSH Social History Highest level of school completed/degree received: 12th grade, no diploma Little interest or pleasure in doing things: not at all Feeling down, depressed, or hopeless: not at all Exam Narrative Exam Narrative: Nurses note and vital signs reviewed and patient is not hypoxic. General: The patient appears well and in no apparent distress. Patient is resting comfortably on cart. Skin: Warm, dry, no pallor noted. There is no rash noted. Head: Normocephalic, atraumatic Eye: Normal conjunctiva, no drainage Ears, Nose, Mouth, and Throat: oral mucosa is moist. Nares patent. Cardiovascular: Regular Rate and Rhythm Respiratory: Patient is in no distress, no accessory muscle use, lungs are clear to auscultation, no wheezing, rales or rhonchi Back: non-tender GI: Obese and nontender Musculoskeletal: Left arm is in a sling Neurological: A&O x4, normal speech Psychiatric: Cooperative Constitutional Vital Signs, click to edit/add: Last Vital Signs Temp 98.7 F 02/16/25 16:47 Pulse 74 02/16/25 18:20 Resp 24 H 02/16/25 18:20 BP 155/74 H 02/16/25 16:49 Pulse Ox 95 02/16/25 18:20 O2 Del Method Room Air 02/16/25 16:47 Course Vital Signs Vital signs: Vital Signs Temperature 98.7 F 02/16/25 16:47 Pulse Rate 87 02/16/25 16:47 Respiratory Rate 20 02/16/25 16:47 Blood Pressure 155/74 H 02/16/25 16:47 Pulse Oximetry 96 02/16/25 16:47 Oxygen Delivery Method Room Air 02/16/25 16:47 Temperature 98.7 F 02/16/25 16:47 Pulse Rate 74 02/16/25 18:20 Respiratory Rate 24 H 02/16/25 18:20 Blood Pressure 155/74 H 02/16/25 16:49 Pulse Oximetry 95 02/16/25 18:20 Oxygen Delivery Method Room Air 02/16/25 16:47 Medical Decision Making MDM Narrative Medical decision making narrative: Labs are reviewed and discussed with Dr. Carrillo. The patient will be admitted for IV hydration. Treatment diagnosis and disposition were discussed with the patient. The potassium will likely improv with IV fluids. Differential Diagnosis Differential Diagnosis: Acute kidney injury, hyperkalemia Lab Data Lab results reviewed: Yes I reviewed the patient's lab results Labs: Lab Results 02/16/25 Range/Units 17:04 WBC 13.5 H (4.0-11.0) 10^3/uL RBC 3.11 L (4.20-5.40) 10^6/uL Hgb 9.8 L (12.0-16.0) g/dL Hct 28.6 L (36.0-48.0) % MCV 92.0 (81.0-99.0) fL MCH 31.5 (26.7-34.0) pg MCHC 34.3 (29.9-35.2) g/dL RDW 13.2 (11.0-15.0) % Plt Count 159 (150-450) 10^3/uL MPV 9.8 (9.5-13.5) fL Seg Neuts % (Manual) 62.0 (43.0-75.0) Lymphocytes % (Manual) 26.0 (20.5-60.0) % Monocytes % (Manual) 10.0 (1.7-12.0) % Eosinophils % (Manual) 2.0 (0.9-7.0) % Basophils % (Manual) 0.0 L (0.2-2.0) % Neutrophils # (Manual) 8.37 H (1.4-6.5) 10^3/uL Lymphocytes # (Manual) 3.51 (1.20-3.80) 10^3/uL Monocytes # (Manual) 1.35 H (0.30-0.80) 10^3/uL Eosinophils # (Manual) 0.27 (0.00-0.70) 10^3/uL Basophils # (Manual) 0.00 (0.00-0.10) 10^3/uL Sodium 133 L (136-145) mmol/L Potassium 5.4 H (3.5-5.1) mmol/L Chloride 100 (98-107) mmol/L Carbon Dioxide 24.0 (21.0-32.0) mmol/L Anion Gap 14.4 BUN 93.0 H* (7.0-18.0) mg/dL Creatinine 4.04 H (0.55-1.02) mg/dL Est GFR ( Amer) 13 L (>=60 mL/min/1.73m^2) Est GFR (Non-Af Amer) 11 L (>=60 mL/min/1.73m^2) BUN/Creatinine Ratio 23.0 Glucose 150 H (74-106) mg/dL Calcium 8.7 (8.5-10.1) mg/dL ECG Data Attestation: I personally reviewed and interpreted this ECG as follows: (EKG on my interpretation shows sinus rhythm with rate of 69 and no acute change. No hyperacute T waves present) Discharge Plan Discharge Chief Complaint: Recheck/Abnormal Lab/Rx Clinical Impression: Acute kidney injury Patient Disposition: Admitted As Inpatient Time of Disposition Decision: 18:38 Condition: Fair
[2025-02-16 17:16] LABS: Hematocrit 28.6 % (36.0-48.0); Hemoglobin 9.8 g/dL (12.0-16.0); Mean Corpuscular HGB Conc 34.3 g/dL (29.9-35.2); Mean Corpuscular Hemoglobin 31.5 pg (26.7-34.0); Mean Corpuscular Volume 92.0 fL (81.0-99.0); Platelet Count 159 10^3/uL (150-450); Red Blood Count 3.11 10^6/uL (4.20-5.40); White Blood Count 13.5 10^3/uL (4.0-11.0)
[2025-02-16] MEDS: 0.9 % SODIUM CHLORIDE 1,000 ML 125 ML IV (17:18)
[2025-02-16 17:22] LABS: Anion Gap 14.4; Calcium 8.7 mg/dL (8.5-10.1); Carbon Dioxide 24.0 mmol/L (21.0-32.0); Chloride 100 mmol/L (98-107); Estimated GFR (African America 13 (>=60 mL/min/1.73m^2); Estimated GFR (Non-African Ame 11 (>=60 mL/min/1.73m^2); Glucose 150 mg/dL (74-106); Potassium 5.4 mmol/L (3.5-5.1); Sodium 133 mmol/L (136-145)
[2025-02-16 17:24] LABS: Blood Urea Nitrogen 93.0 mg/dL (7.0-18.0)
[2025-02-16 17:48] LABS: Basophils Abs Manual 0.00 10^3/uL (0.00-0.10); Basophils Percent Manual 0.0 % (0.2-2.0); Eosinophils Absolute Manual 0.27 10^3/uL (0.00-0.70); Eosinophils Percent Manual 2.0 % (0.9-7.0); Lymphocytes Absolute Manual 3.51 10^3/uL (1.20-3.80); Lymphocytes Percent Manual 26.0 % (20.5-60.0); Monocytes Absolute Manual 1.35 10^3/uL (0.30-0.80); Monocytes Percent Manual 10.0 % (1.7-12.0); Segmented Neut Absolute Manual 8.37 10^3/uL (1.4-6.5); Segmented Neutrophils % Manual 62.0 (43.0-75.0)
--- NOTE | 2025-02-16 19:56 | US_ITS ---
The [address] [address] Patient Name: PIEDAD TA MRN: [id number] date: 1940 Sex: F Assigned Patient Location: [place] Current Patient Location: [place] Accession/Order Number: [id number] Exam Date: 02/16/2025 20:56 Report Date: 02/17/2025 11:01 At the request of: CARLOS SMITH MD Procedure: US renal BI BILATERAL RENAL AND BLADDER ULTRASOUND CLINICAL HISTORY: WILLIAM r/o obstructive uropathy COMPARISON: None Assessment is slightly limited by large body habitus. Estimation of renal size is approximately 10.8 cm on the right and 9.7 cm on the left. No shadowing calculi or hydronephrosis are identified. No renal mass lesions were imaged. There is no perinephric fluid. The urinary bladder is partially distended with a volume of 182 mL. No contour or intraluminal abnormalities are seen. US/US renal BI IMPRESSION: NO OBSTRUCTIVE UROPATHY. Impression dictated by: Henny Wheatley M.D. 02/17/2025 11:01 AM Dictation Location: [place] [address] Electronically authenticated by: [id number] Y Date: 02/17/2025 11:01
--- NOTE | 2025-02-16 20:19 | XR_ITS ---
The [address] [address] Patient Name: PIEDAD TA MRN: [id number] date: 1940 Sex: F Assigned Patient Location: [place] Current Patient Location: Accession/Order Number: [id number] Exam Date: 02/16/2025 20:40 Report Date: 02/17/2025 11:00 At the request of: CARLOS SMITH MD Procedure: XR humerus LT LEFT HUMERUS - 2 views CLINICAL HISTORY: Follow up humerus fracture COMPARISON: 02/13/2025 Portable AP and lateral views were obtained. There is osteopenia. There is redemonstration of a comminuted , displaced fracture at the head/neck of the humerus. Appearance is similar to the prior when allowing for differences in positioning. There is no obvious dislocation. Degenerative changes are seen at the shoulder. XR/XR humerus LT IMPRESSION: PROXIMAL HUMERUS FRACTURE, PROBABLY NOT SIGNIFICANTLY CHANGED WHEN ALLOWING FOR DIFFERENCES IN POSITIONING Impression dictated by: Henny Wheatley M.D. 02/17/2025 11:00 AM Dictation Location: [facility] Electronically authenticated by: [id number] Y Date: 02/17/2025 11:00
[2025-02-16] MEDS: 0.9 % SODIUM CHLORIDE 1,000 ML 75 ML IV (21:28)
[2025-02-16] MEDS: SODIUM ZIRCONIUM CYCLOSILICATE 10 GM POWD.PACK PO (21:29)
[2025-02-16] MEDS: METOPROLOL TARTRATE 25 MG TABLET 12.5 MG PO (21:30)
[2025-02-16] MEDS: HEPARIN SODIUM (PORCINE) 5,000 UNIT/ML VIAL 5000 UNIT SUBQ (21:31)
[2025-02-16] MEDS: MONTELUKAST SODIUM 10 MG TABLET PO (21:31)
[2025-02-16] MEDS: CITALOPRAM HYDROBROMIDE 20 MG TABLET 10 MG PO (21:31)
[2025-02-16] MEDS: OXYCODONE HCL 5 MG TABLET 2.5 MG PO (22:31)
--- NOTE | 2025-02-16 23:57 | PC.NURSE ---
Depressed ST Noted
[2025-02-17] VITALS (19 sets, daily range): BP systolic 129–159; BP diastolic 47–80; PULSE 70–87; TEMP 36.4–37.1; O2SAT 90–93
[2025-02-17 05:42] LABS: Hematocrit 27.7 % (36.0-48.0); Hemoglobin 9.2 g/dL (12.0-16.0); Immature Granulocytes Abs Auto 0.07 10^3/uL (0.00-0.03); Immature Granulocytes Pct Auto 0.7 % (0.0-0.5); Lymphocytes Absolute Auto 2.1 10^3/uL (1.2-3.8); Mean Corpuscular HGB Conc 33.2 g/dL (29.9-35.2); Mean Corpuscular Hemoglobin 30.9 pg (26.7-34.0); Mean Corpuscular Volume 93.0 fL (81.0-99.0); Platelet Count 154 10^3/uL (150-450); Red Blood Count 2.98 10^6/uL (4.20-5.40); White Blood Count 10.6 10^3/uL (4.0-11.0)
[2025-02-17] MEDS: HEPARIN SODIUM (PORCINE) 5,000 UNIT/ML VIAL 5000 UNIT SUBQ ×3 (05:52→21:55)
[2025-02-17 06:00] LABS: Alanine Aminotransferase 15 U/L (14-59); Albumin Globulin Ratio 0.6; Albumin Level 2.4 g/dL (3.4-5.0); Alkaline Phosphatase 48 U/L (46-116); Anion Gap 16.7; Aspartate Amino Transferase 22 U/L (15-37); Calcium 8.4 mg/dL (8.5-10.1); Carbon Dioxide 22.1 mmol/L (21.0-32.0); Chloride 101 mmol/L (98-107); Estimated GFR (African America 15 (>=60 mL/min/1.73m^2); Estimated GFR (Non-African Ame 12 (>=60 mL/min/1.73m^2); Globulin 3.9 g/dL; Glucose 116 mg/dL (74-106); Potassium 4.8 mmol/L (3.5-5.1); Sodium 135 mmol/L (136-145); Total Protein 6.3 g/dL (6.4-8.2)
[2025-02-17 06:17] LABS: Blood Urea Nitrogen 85.0 mg/dL (7.0-18.0)
[2025-02-17] MEDS: OXYCODONE HCL 5 MG TABLET 2.5 MG PO ×2 (06:37→17:48)
--- NOTE | 2025-02-17 08:00 | ECG_ITS ---
[facility] Test Date: 2025-02-17 Pat Name: PIEDAD TA Department: Room: 2171 Gender: Female Tong Carrier: SNEHA: 1940 Requested By: [id number] Order Number: [id number] Reading MD: ALONDRA COLLINS Measurements Intervals [place] Rate: 77 P: 72 DC: 213 QRS: 38 QRSD: 92 T: 87 QT: 410 QTc: 464 Interpretive Statements SINUS RHYTHM WITH FIRST DEGREE AV BLOCK WITH OCCASIONAL VENTRICULAR PREMATURE COMPLEXES Septal infarct age indeterminate LOW QRS VOLTAGE IN PRECORDIAL LEADS [QRS DEFLECTION < 1.0 mV IN CHEST LEADS] NONSPECIFIC ST & T-WAVE ABNORMALITY Compared to ECG 02/16/2025 16:54:46 Ventricular premature complex(es) now present Septal infarct age indeterminate now present First degree AV block now present Low QRS voltage now present T-wave abnormality now present ST (T wave) deviation no longer present Electronically Signed On 02-19-2025 13:32:29 EDT by ALONDRA COLLINS
[2025-02-17] MEDS: METOPROLOL TARTRATE 25 MG TABLET 12.5 MG PO ×2 (08:33→21:52)
[2025-02-17] MEDS: CYANOCOBALAMIN 1,000 MCG/ML VIAL 1000 MCG IM (08:33)
[2025-02-17] MEDS: CHOLECALCIFEROL (VITAMIN D3) 125 MCG/5,000 UNIT TABLET 62.5 MCG PO ×2 (08:33→16:52)
[2025-02-17] MEDS: 0.9 % SODIUM CHLORIDE 1,000 ML 75 ML IV (08:34)
[2025-02-17 09:01] LABS: Glucose Urine UA NEGATIVE (NEGATIVE)
--- NOTE | 2025-02-17 09:05 | CM.NOTE ---
Rounds made with Dr. Carrillo, discussed with pt reason for hospital admission and plan of care. No discharge today.
[2025-02-17 09:07] LABS: Cast Seen? NONE SEEN #/LPF (NONE SEEN); Crystals Seen? None Seen #/HPF (None Seen); Urine Culture Indicated YES-FRMC
--- NOTE | 2025-02-17 09:16 | SWNOTE1 ---
Pt came from [facility], she is a precert to return.
--- NOTE | 2025-02-17 10:09 | SWNOTE1 ---
SW stopped in to speak with pt in room. Nurse in room as well, pt just got done working with physical therapy. Pt was at [facility] skilled, only for a day. SW did ask if her plan was to return to [facility]? Pt voiced that is her plan. SW attempted to review IMM form with pt, but pt started falling asleep. SW to stop back in room later today to see if family is present.
--- NOTE | 2025-02-17 10:16 | SWNOTE1 ---
SW received email from Katarzyna at [facility] and family did not pay to hold her bed. They will try to get her back in, depending on bed situation.
--- NOTE | 2025-02-17 10:17 | CM.NOTE ---
Called Dr. Emerson's office for recent lab work and H&P. Awaiting fax. Spoke with pt's son regarding questions about pt's return to [facility]. Family has decided not to hold bed at [facility] d/t expense. Updated SW on family decision.
--- NOTE | 2025-02-17 11:13 | CM.NOTE ---
Lab work received from primary PCP and given to Dr. Carrillo.
--- NOTE | 2025-02-17 11:17 | SWNOTE1 ---
Important Message from [employer] reviewed and discussed with patient's 2 sons, Meir and Eliazar. They verbalized understanding and Meir signed the form. Original given to Meir and copy placed in patient?s chart.
--- NOTE | 2025-02-17 11:17 | SWNOTE1 ---
ADILIA met with pt's 2 sons, Meir and Eliazar. They spoke to Katarzyna at [facility] yesterday evening in regards to holding the bed. They decided to not pay to hold the bed as it was too expensive. Meir and Eliazar would like pt to return to [facility] if possible, pt would like to return as well. Pt is not ready for discharge today. SW to speak with Katarzyna and let her know that no discharge today, but possibly in the next few days.
--- NOTE | 2025-02-17 12:27 | CA_ITS ---
Patient Name: PIEDAD TA MR#: [id number] : 1940 Exam Date: 02/17/2025 Ordering Doctor: CARLOS SMITH ECHOCARDIOGRAM REPORT PROCEDURE: CA ECHO DOPPLER COMPLETE INDICATIONS: Assess function COMPARISON: None. DESCRIPTION: COMPLETE ECHOCARDIOGRAM Real-time transthoracic echocardiography with 2D, M-mode, spectral and color flow Doppler performed. QUALITY: Technical quality was limited due to patient condition and suboptimal positioning. LEFT VENTRICLE: Normal chamber size. Sigmoid septum. Left ventricular wall thickness is increased. LV EF: Global left ventricular systolic function is difficult to assess but appears preserved; visually estimated ejection fraction is 55%. Unable to assess regional wall motion abnormality; consider contrast study for better delineation of endocardial borders. DIASTOLIC: Grade 2 diastolic dysfunction. E/E' suggests volume overload. ATRIAL SEPTUM: Inadequately seen. LEFT ATRIUM: Moderate dilatation. RIGHT ATRIUM: Mild dilatation. RIGHT VENTRICLE: Normal chamber size. Normal right ventricular systolic function. TRICUSPID VALVE: Normal mobility and thickness. No stenosis with mild to moderate regurgitation. Moderate pulmonary hypertension. RVSP 53mmHg. MITRAL VALVE: Moderately thickened with decreased mobility. Mild mitral valve stenosis. Severe mitral annular calcification. Trivial mitral regurgitation. MVA 2.0cm2, mean gradient 4 mmHg. Gradients likely overestimated due to volume overload. AORTIC VALVE: Normal trileaflet appearance. Mildly calcified aortic valve with diminished mobility. Doppler velocity suggests mild aortic valve stenosis. DVI 0.48, Vmax 2.56 m/s, peak/mean gradients 26/15mmHg. Mild aortic regurgitation. AORTIC ROOT: Normal diameter and appearance. PULMONIC VALVE: Normal thickness and mobility. No stenosis. No regurgitation. PERICARDIUM: No evidence of pericardial effusion. IVC: Mild dilatation. Measuring 2.2cm with no collapse. CONCLUSION: 1. Global left ventricular systolic function is difficult to assess but appears preserved; visually estimated ejection fraction is 55% 2. Normal right ventricular size and systolic function 3. Grade 2 diastolic dysfunction 4. E/E' suggests volume overload 5. Biatrial dilatation 6. Mild to moderate tricuspid regurgitation 7. Moderately elevated right ventricular systolic pressure; RVSP 53 mmHg 8. Mild mitral valve stenosis 9. Mild aortic valve stenosis; mild aortic valve regurgitation Adult Echocardiography Procedure Report Left Ventricle LVEDD (3.7 - 5.6 cm): 4.26 cm LVESD (2.2 - 4.0 cm): 2.93 cm LVIVS thickness (0.6 - 1.2 cm): 1.73 cm LVPW thickness (0.5 - 1.0 cm): 1.08 cm e': 0.05 m/s E - e': 28.09 LVOT Max Gradient: 6.09 mm[Hg] LVOT Area (cm2): 1.23 m/s Peak Velocity (LVOT): 1.23 m/s Mean Velocity (LVOT): 0.85 m/s LVOT Diameter 2.18 cm Left Ventricular Ejection Fraction: 55.03 % Left Atrium LA Volume Index (2D A2C): 47.63 ml/m2 Left Atrium Systolic Dimension: 4.11 cm Mitral Valve MV E to A Ratio: 0.89 Mitral Valve A-Wave Peak Velocity: 1.44 m/s Mitral Valve E-Wave Peak Velocity: 1.28 m/s Right Ventricle RV Internal Diastolic Dimension: 2.62 cm Aorta AO Root Diam: 2.99 cm Ascending Ao Diam: 3.33 cm Aortic Valve AoV Area (Peak Ray): 1.81 cm2, 1.81 cm2 AoV Area (VTI): 1.54 cm2, 1.54 cm2 Peak Velocity(Antegrade Flow): 2.56 m/s Peak Gradient(Antegrade Flow): 26.13 mm[Hg] Mean Velocity(Antegrade Flow): 1.83 m/s Mean Gradient(Antegrade Flow): 15.18 mm[Hg] Velocity Time Integral: 62.37 cm Tricuspid Valve Peak Velocity (Regurgitant Flow): 3.08 m/s, 3.14 m/s, 2.71 m/s Pulmonic Valve Peak Velocity: 0.85 m/s Peak Gradient: 3.26 mm[Hg], 2.53 mm[Hg] Right Atrium Right Atrium Systolic Pressure: 74.80 ml, 74.80 ml Dictated by: Lexa Herrera M.D. on 02/17/2025 at 17:17 Approved by: Lexa Herrera M.D. on 02/17/2025 at 17:24
--- NOTE | 2025-02-17 12:36 | SWNOTE1 ---
ADILIA reached out to Delvin at and they would like SW to send referral over and they will start precert. SW to send referral once H&P completed.
--- NOTE | 2025-02-17 12:38 | PM.HP ---
HPI H&P: HPI History of Present Illness Chief complaint: labs, WILLIAM, Narrative: Mrs. Sprague is an 84-year-old female who was discharged to the [place] [facility] ago after she had suffered a left proximal humeral fracture and recommended to have skilled care. Patient also was noted to have kidney failure. Unknown duration. Routine blood work done at the nursing facility showed that creatinine had increased and that her potassium is elevated above 6. She was sent to the emergency room for an evaluation. Potassium was 5.4, BUN was 93 and creatinine was 4.4. Prior to discharge her BUN was 65 and the creatinine was 2.84 patient denies any other symptoms. Opioid HPI Opioid Management Most Recent Pain and Opioid Data: Last Pain Scale 5 Today, 08:44 Last Pain Assessment 02/16/25, 21:00 Last ED Pain Assessment 02/13/25, 10:50 Last MAR Pain Assessment 02/13/25, 12:23 Last ORT Total Score 0 02/16/25, 19:44 Last ORT Risk Category Low Risk 02/16/25, 19:44 Review of Systems ROS Narrative Weakness, fatigue, loss of energy, no chest pain, no shortness of breath. No cough or congestion PFSH PFSH Medical History (Updated 02/17/25 @ 12:42 by Joy Carrillo MD) Skin cancer ?C44.90 - Unspecified malignant neoplasm of skin, unspecified (ICD-10) Surgical History (Updated 02/16/25 @ 19:58 by Chhaya Solomon, [place]) Hx of fusion of cervical spine ?Z98.1 - Arthrodesis status (ICD-10) Hx of cholecystectomy ?Z90.49 - Acquired absence of other specified parts of digestive tract (ICD-10) Hx of left mastectomy ?Z90.12 - Acquired absence of left breast and nipple (ICD-10) Family History (Updated 02/16/25 @ 19:59 by Chhaya Solomon RN) Father Family history of COPD (chronic obstructive pulmonary disease) Mother Family history of COPD (chronic obstructive pulmonary disease) Social History (Updated 02/16/25 @ 20:00 by Chhaya Solomon, [place]) Within the past year, how often did you have a drink containing alcohol: never Score interpretation: A score less than 3 is consistent with normal alcohol consumption. Smoking status: Never smoker Non-prescribed substance use: denies use Known occupational exposures/hazards: No Highest level of school completed/degree received: 12th grade, no diploma Are you now , , , , never or living with a partner: In a typical week, how many times do you talk on the telephone with family, friends, or neighbors: 3 or more times per week How often do you get together with friends or relatives: 3 or more times per week Little interest or pleasure in doing things: not at all Feeling down, depressed, or hopeless: not at all Feel stressed/tense/nervous/anxious/difficulty sleeping: not at all Do you think of yourself as: straight/heterosexual Gender Identity: male Meds Home Medications and Allergies Home Medications ?Medication ?Instructions ?Recorded ?Confirmed ?Type citalopram 40 mg tablet 40 mg PO HS 02/13/25 02/16/25 History furosemide 40 mg tablet 40 mg PO DAILY 02/13/25 02/16/25 History glipizide 10 mg tablet 10 mg PO DAILY 02/13/25 02/16/25 History indapamide 2.5 mg tablet 2.5 mg PO DAILY 02/13/25 02/16/25 History insulin glargine 100 unit/mL (3 38 unit subcut HS 02/13/25 02/16/25 History mL) subcutaneous pen (Lantus Solostar U-100 Insulin) meloxicam 7.5 mg tablet 7.5 mg PO BID 02/13/25 02/16/25 History metformin 1,000 mg tablet 1,000 mg PO BID 02/13/25 02/16/25 History montelukast 10 mg tablet 10 mg PO HS 02/13/25 02/16/25 History potassium chloride 20 mEq 20 meq PO DAILY 02/13/25 02/16/25 History tablet,extended release(part/cryst) propranolol 20 mg tablet 20 mg PO BID 02/13/25 02/16/25 History acetaminophen 325 mg tablet 650 mg (2 x 325 mg) PO Q4H PRN 02/14/25 02/16/25 Rx (Tylenol) Pain #0 tabs ascorbic acid (vitamin C) 500 mg 500 mg PO BIDWM #0 tabs 02/14/25 02/16/25 Rx tablet (Vitamin C) calcium 600 mg (as 1 tab PO BIDWM #0 tabs 02/14/25 02/16/25 Rx carbonate)-vitamin D3 10 mcg (400 unit) tablet enoxaparin 30 mg/0.3 mL 30 mg (0.3 mL) subcut BID 28 days 02/14/25 02/16/25 Rx subcutaneous syringe #0 mL oxycodone 5 mg tablet 5 mg PO Q4H PRN left shoulder pain 02/14/25 02/16/25 Rx 5 days #20 tabs sennosides 8.6 mg-docusate sodium 1 tab-cap PO TID #90 tabs 02/14/25 02/16/25 Rx 50 mg tablet (Senna Plus) cholecalciferol (vitamin D3) 62.5 62.5 mcg PO BIDWM 28 days #28 caps 02/15/25 02/16/25 Rx mcg (2,500 unit) capsule psyllium husk (bulk) 100 % powder 2.6 ea PO QD 02/16/25 02/16/25 History nystatin 100,000 unit/gram topical 1 applic topical BID 02/17/25 02/17/25 History powder Allergies Allergy/AdvReac Type Severity Reaction Status Date / Time Penicillins Allergy Mild Unknown Verified 02/13/25 11:41 cefuroxime Allergy Unknown Verified 02/13/25 11:41 ciprofloxacin (From Cipro) Allergy Unknown Verified 02/13/25 11:41 lisinopril Allergy Unknown Verified 02/13/25 11:41 nitrofurantoin Allergy Unknown Verified 02/13/25 11:41 Sulfa (Sulfonamide Allergy Unknown Verified 02/13/25 11:41 Antibiotics) Exam Narrative Exam Narrative: [pt is awake and alert. oriented to place, time and person, video-based HEENT: [place] conjunctiva and NL buccal mucosa Neck: Supple, no tenderness Endocrine: No Thyromegaly. Vascular: No JVD or carotid bruit. Lymphatic: No cervical lymphadenopathy. Chest: CTA no DTP. Heart RRR, no extra sound or murmur. Abd: Soft, no tenderness, no rebound and no rigidity. Increase abd girth therefore clinically I could not exclude the possibility of intra abd mass or organomegaly. Extremities: Left arm is in a sling. Patient has +2 pitting edema in both legs from the knee down to the ankle Neuro: Awake, oriented to place and person. Able to answer simple questions. Unable to answer complex questions. Unable to engage in complex conversation. Able to lift upper legs against gravity but unable to support her body []] Constitutional Vital Signs, click to edit/add: Last Vital Signs Temp 97.6 F 02/17/25 11:15 Pulse 74 02/17/25 11:51 Resp 16 02/17/25 11:15 BP 131/72 02/17/25 11:15 Pulse Ox 92 L 02/17/25 11:15 O2 Del Method Room Air 02/17/25 07:56 Results Labs Labs: Short CBC 02/16/25 02/17/25 Range/Units 17:04 05:30 WBC 13.5 H 10.6 (4.0-11.0) 10^3/uL Hgb 9.8 L 9.2 L (12.0-16.0) g/dL Hct 28.6 L 27.7 L (36.0-48.0) % Plt Count 159 154 (150-450) 10^3/uL BMP 02/16/25 02/17/25 17:04 05:30 Sodium 133 L 135 L Potassium 5.4 H 4.8 Chloride 100 101 Carbon Dioxide 24.0 22.1 BUN 93.0 H* 85.0 H* Creatinine 4.04 H 3.50 H Glucose 150 H 116 H Calcium 8.7 8.4 L Liver Function 02/17/25 Range/Units 05:30 Total Bilirubin 0.8 (0.2-1.0) mg/dL AST 22 (15-37) U/L ALT 15 (14-59) U/L Alkaline Phosphatase 48 (46-116) U/L Albumin 2.4 L (3.4-5.0) g/dL Urine 02/17/25 Range/Units 08:45 Urine Color Lt. yellow (YELLOW) Urine Clarity Clear (CLEAR) Urine pH 6.0 (5.0-9.0) Ur Specific [place] 1.010 (1.005-1.025) Urine Protein 30 A (NEG/TRACE) mg/dL Urine Glucose (UA) Negative (NEGATIVE) mg/dL Assessment and Plan Assessment and Plan (1) Acute kidney injury: (2) Vitamin D deficiency: (3) Impaired mobility and ADLs: (4) Hypertension: Qualifiers: Hypertension type: primary hypertension Qualified Code(s): I10 - Essential (primary) hypertension (5) Diabetes mellitus: Qualifiers: Diabetes mellitus type: type 2 Diabetes mellitus jail insulin use: without jail use Diabetes mellitus complication status: without complication Qualified Code(s): E11.9 - Type 2 diabetes mellitus without complications (6) Closed left humeral fracture: Qualifiers: Encounter type: subsequent encounter Fracture alignment: nondisplaced Fracture healing: with routine healing Fracture morphology: other fracture Humerus Location: proximal Qualified Code(s): S42.295D - Other nondisplaced fracture of upper end of left humerus, subsequent encounter for fracture with routine healing (7) B12 deficiency: (8) CKD (chronic kidney disease): (9) Edema: (10) Anemia: Plan Acute kidney failure with hyperkalemia Her BUN was 93, potassium 5.4 and creatinine 4.04. Prior to discharge on 02/14, her BUN was 65, creatinine 2.84 and a potassium 5.1 No old kidney function available in the system. I was able to get record from [facility] showing that her creatinine was 1.38 in 2020 and record from [facility] showing that her creatinine 1.12 in November 2023. Certainly there is significant deterioration of kidney function compared to baseline creatinine of 1.12 in 2023 Patient receiving Lasix, Mobic, metformin and potassium I held offensive medication plan I started patient on IV fluid infusion I requested renal ultrasound rule out obstructive uropathy and that came back negative I requested the bladder scan rule out urinary retention Avoid further nephrotoxic drug use Her UA is bland. No significant RBC or proteinuria to suspect acute glomerulonephritis Edema in both legs. Likely caused by low albumin level and third spacing Requested venous study rule out DVT specifically given her diminished mobility over the last several weeks I also requested echocardiogram rule out any diastolic dysfunction. Left proximal humeral fracture. Patient was sent on sling to follow-up with orthopedic. Requested repeat x-ray which showed no change from before. Requested orthopedic consultation to evaluate her fracture type and provide further advice and recommendation relative to operative versus nonoperative approach Diabetes. Patient had been on insulin, glipizide and metformin Given the significant decline in her kidney function I would avoid using sulfonylurea and metformin. I discontinued both. I significantly reduced the long-acting insulin dose to prevent hypoglycemia and started patient on sliding scale coverage Recent A1c was 7.4. B12 and vitamin D deficiency I started patient on B12 and vitamin D supplementation Anemia, no evidence of acute blood loss. Could be related to B12 deficiency. I started patient on B12 supplementation. Could be related to CKD. Patient may benefit from erythropoietin if her hemoglobin drops below 8.5. Her folate level was acceptable. Iron study did not show any significant iron deficiency. Patient will likely require to have anemia workup to be done in the outpatient setting to be handled by PCP in collaboration with other needed outpatient providers. This may include but not limited to EGD, colonoscopy, referral to see hematology and other needed age-appropriate cancer screening. Functional cognitive impairment. Unknown baseline state Suspected that patient may have a degree of neurodegenerative disorder, senile degeneration of the brain versus vascular dementia Consider imaging of the brain. Nonacute. Functional decline could be related to advanced age, morbid obesity, osteoarthritis and lower extremities edema putting patient in a vicious cycle of declining activity level leading to worsening functional decline. PT OT eval and treatment. Chronic medical conditions not listed above, incidental findings seen on labs and imaging. These would need to be addressed. Could be addressed when time and condition are appropriate. Could be addressed in the outpatient setting by PCP collaboration with other needed outpatient providers.
--- NOTE | 2025-02-17 13:08 | PM.EN ---
Event Note Event Note: Advance care planning and goals of care discussion. Conversation lasted for about 20 minutes. I had a meeting with her 2 sons Rossana I provided them information about her disease, prognosis, expectation and trajectory. I answered all of their questions Furthermore we discussed her living well and wishes. I explained in simple terms the process of CPR in case of a cardiac or respiratory arrest. I explained in layman's terms the difference between full code, CCA and CC. Both sons stated that they want everything to be done for their mom in terms of resuscitative effort. Full code at this time based on patient's wishes as relayed to me by her 2 sons
--- NOTE | 2025-02-17 14:15 | SWNOTE1 ---
SW faxed PT and H&P to Delvin at [facility] for precert.
[2025-02-17] MEDS: CALCIUM ACETATE 667 MG CAPSULE 1334 MG PO (16:52)
[2025-02-17] MEDS: CITALOPRAM HYDROBROMIDE 20 MG TABLET 10 MG PO (21:53)
[2025-02-17] MEDS: MONTELUKAST SODIUM 10 MG TABLET PO (21:54)
[2025-02-17] MEDS: INSULIN ASPART 300 UNIT/3 ML PEN SUBQ (21:58)
[2025-02-18] VITALS (17 sets, daily range): BP systolic 125–144; BP diastolic 69–80; PULSE 71–89; TEMP 36.4–37.4; O2SAT 90–93
[2025-02-18] MEDS: OXYCODONE HCL 5 MG TABLET 2.5 MG PO ×2 (05:18→13:48)
[2025-02-18] MEDS: HEPARIN SODIUM (PORCINE) 5,000 UNIT/ML VIAL 5000 UNIT SUBQ ×3 (05:20→22:18)
[2025-02-18 06:02] LABS: Anion Gap 15.9; Calcium 8.6 mg/dL (8.5-10.1); Carbon Dioxide 22.9 mmol/L (21.0-32.0); Chloride 100 mmol/L (98-107); Estimated GFR (African America 19 (>=60 mL/min/1.73m^2); Estimated GFR (Non-African Ame 16 (>=60 mL/min/1.73m^2); Glucose 114 mg/dL (74-106); Potassium 4.8 mmol/L (3.5-5.1); Sodium 134 mmol/L (136-145)
[2025-02-18 06:19] LABS: Blood Urea Nitrogen 77.0 mg/dL (7.0-18.0)
--- NOTE | 2025-02-18 07:55 | CM.NOTE ---
Rounds made with Dr. Carrillo, discussed plan of care and AM labs with pt. No discharge today.
--- NOTE | 2025-02-18 09:09 | P.PN_ITS ---
Progress Note: Subjective Subjective Interval history: Uneventful night. No chest pain or palpitation. No confusion or disorientation. No fever or chills. No nausea or vomiting. Exam Narrative Exam Narrative: [pt is awake and alert. oriented to place, time and person, video-based HEENT: Elizabeth conjunctiva and NL buccal mucosa Neck: Supple, no tenderness Endocrine: No Thyromegaly. Vascular: No JVD or carotid bruit. Lymphatic: No cervical lymphadenopathy. Chest: CTA no DTP. Heart RRR, no extra sound or murmur. Abd: Soft, no tenderness, no rebound and no rigidity. Increase abd girth therefore clinically I could not exclude the possibility of intra abd mass or organomegaly. Extremities: Left arm is in a sling. Patient has +2 pitting edema in both legs from the knee down to the ankle Neuro: Awake, oriented to place and person. Able to answer simple questions. Unable to answer complex questions. Unable to engage in complex conversation. Able to lift upper legs against gravity but unable to support her body []] Constitutional Vital Signs, click to edit/add: Last Vital Signs Temp 98.2 F 02/18/25 07:39 Pulse 85 02/18/25 08:00 Resp 18 02/18/25 07:39 BP 144/80 H 02/18/25 07:39 Pulse Ox 92 L 02/18/25 07:39 O2 Del Method Room Air 02/18/25 07:39 Progress Note: Objective Labs Labs: [facility] 02/18/25 05:11 Sodium 134 L Potassium 4.8 Chloride 100 Carbon Dioxide 22.9 BUN 77.0 H* Creatinine 2.84 H Glucose 114 H Calcium 8.6 Progress Note: A&P Assessment and Plan (1) Acute kidney injury: (2) Vitamin D deficiency: (3) Impaired mobility and ADLs: (4) Hypertension: Qualifiers: Hypertension type: primary hypertension Qualified Code(s): I10 - Essential (primary) hypertension (5) Diabetes mellitus: Qualifiers: Diabetes mellitus type: type 2 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 Diabetes mellitus complication status: without complication Qualified Code(s): E11.9 - Type 2 diabetes mellitus without complications (6) Closed left humeral fracture: Qualifiers: Encounter type: subsequent encounter Fracture alignment: nondisplaced Fracture healing: with routine healing Fracture morphology: other fracture Humerus Location: proximal Qualified Code(s): S42.295D - Other nondisplaced fracture of upper end of left humerus, subsequent encounter for fracture with routine healing (7) B12 deficiency: (8) CKD (chronic kidney disease): (9) Edema: (10) Anemia: Plan Acute kidney failure with hyperkalemia Her BUN was 93, potassium 5.4 and creatinine 4.04. Prior to discharge on 02/14, her BUN was 65, creatinine 2.84 and a potassium 5.1 No old kidney function available in the system. I was able to get record from [facility] showing that her creatinine was 1.38 in 2020 and record from [facility] showing that her creatinine 1.12 in November 2023. Certainly there is significant deterioration of kidney function compared to baseline creatinine of 1.12 in 2023 Patient receiving Lasix, Mobic, metformin and potassium I held offensive medication plan I started patient on IV fluid infusion I requested renal ultrasound rule out obstructive uropathy and that came back negative I requested the bladder scan rule out urinary retention Avoid further nephrotoxic drug use Her UA is bland. No significant RBC or proteinuria to suspect acute g lomerulonephritis Edema in both legs. Likely caused by low albumin level and third spacing Requested venous study rule out DVT specifically given her diminished mobility over the last several weeks. Ultrasound is negative for DVT. 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 This came back positive for diastolic heart failure Diastolic heart failure. Patient had received IV fluid infusion on presentation due to WILLIAM. Blood pressure had improved. Hold off on additional IV fluid infusion to prevent fluid overload or pulmonary edema specifically given her low albumin level Left proximal humeral fracture. Patient was sent on sling to follow-up with orthopedic. Requested repeat x-ray which showed no change from before. Requested orthopedic consultation to evaluate her fracture type and provide further advice and recommendation relative to operative versus nonoperative approach I was informed that Dr. Banda looked at the imaging and recommending nonoperative approach. Continue sling and follow-up with Dr. Banda in the outpatient setting Diabetes. Patient had been on insulin, glipizide and metformin Given the significant decline in her kidney function I would avoid using sulfonylurea and metformin. I discontinued both. I significantly reduced the long-acting insulin dose to prevent hypoglycemia and started patient on sliding scale coverage Recent A1c was 7.4. B12 and vitamin D deficiency I started patient on B12 and vitamin D supplementation Anemia, no evidence of acute blood loss. Could be related to B12 deficiency. I started patient on B12 supplementation. Could be related to CKD. Patient may benefit from erythropoietin if her hemoglobin drops below 8.5. Her folate level was acceptable. Iron study did not show any significant iron deficiency. Patient will likely require to have anemia workup to be done in the outpatient setting to be handled by PCP in collaboration with other needed outpatient providers. This may include but not limited to EGD, colonoscopy, referral to see hematology and other needed age-appropriate cancer screening. Functional cognitive impairment. I had discussed this with her 2 sons yesterday Meir and Robb. Both stated that mom is not far from baseline in terms of her cognition and function Suspected that patient may have a degree of neurodegenerative disorder, senile degeneration of the brain versus vascular dementia Consider imaging of the brain. Nonacute. Functional decline could be related to advanced age, morbid obesity, osteoarthritis and lower extremities edema putting patient in a vicious cycle of declining activity level leading to worsening functional decline. PT OT eval and treatment. Patient will go back to a skilled facility on discharge Chronic medical conditions not listed above, incidental findings seen on labs and imaging. These would need to be addressed. Could be addressed when time and condition are appropriate. Could be addressed in the outpatient setting by PCP collaboration with other needed outpatient providers. Urinary Catheter Management Urinary Catheter Management Pure Wick: Cath placed during this visit: no
[2025-02-18] MEDS: SENNOSIDES/DOCUSATE SODIUM 1 TAB TABLET PO (09:23)
[2025-02-18] MEDS: CALCIUM ACETATE 667 MG CAPSULE 1334 MG PO ×3 (09:24→17:26)
[2025-02-18] MEDS: METOPROLOL TARTRATE 25 MG TABLET 12.5 MG PO ×2 (09:25→22:16)
[2025-02-18] MEDS: CHOLECALCIFEROL (VITAMIN D3) 125 MCG/5,000 UNIT TABLET 62.5 MCG PO ×2 (09:27→17:23)
[2025-02-18] MEDS: 0.9 % SODIUM CHLORIDE 1,000 ML 60 ML IV (09:30)
[2025-02-18] MEDS: INSULIN GLARGINE 300 UNIT/3 ML INSULN.PEN 15 UNIT SQ (09:30)
--- NOTE | 2025-02-18 09:51 | PC.NURSE ---
bladder scan completed, 817ml read Dr. Carrillo notified
--- NOTE | 2025-02-18 10:36 | SWNOTE1 ---
ADILIA stopped in and spoke with pt and her 2 sons in room. SW let them know pt is not going to be discharged today, but precert to return to [facility] has been started. They did request to speak with Dr. Carrillo for a medical update if possible. SW to send message to Dr. Carrillo. ADILIA let Reshma at [facility] know that pt is not medically stable for discharge today.
--- NOTE | 2025-02-18 11:56 | PT.DAILY ---
Physical Therapy Daily Note PT Daily Note/Assess Start: 02/17/25 10:46 Freq: Status: Active Protocol: Document 02/18/25 11:48 [id number] (Rec: 02/18/25 11:56 [id number]) Physical Therapy Daily Note/Assessment Time In/Time Out Time In 11:15 Time Out 11:45 Pain In Pain N/A Pain Out Pain N/A Subjective Subjective Supine upon arrival. Asks to use bed garces. Therapeutic Activity Time Therapeutic Activity 23 Minutes (minutes) Therapeutic Activity 1 Units Therapeutic Activity Treatment Bed Mobility Ability Maximum Assist,2 Person Assist Chair Transfer Moderate Assist Ability Therapeutic Activity S-S rolling to place bed garces - MaxA+2. Uncomfortable on Comments bed garces. Agrees to attempt bedside commode for comfort . S-S roll off of bed garces MaxA+2. Supine>sit MaxA+2 to advance bilat LE and trunk - avoiding L UE. Pt sits EOB 3 min to get bearings. c/o min dizziness today. Sit> stand to hemicane with ModA. Attempts to pivot to BS commode but unable to advance R foot. Bed is unlocked and commode is brought behind her. SIt>stand from commode to hemicane ModA. Static standing while pericare is performed by nursing and cream is applied. Commode is removed and bed is brought under her. Pt sits EOB 4 min to converse and to regain bearings - pt anxious and is advised to take deep breaths in through nose and out through mouth. Pt seems to calm down. Performs sit>supine with MaxA+2. Pt left under OT care. Total Physical Therapy Time Total Therapy 23 Minutes Total Physical 1 Therapy Units Summary Daily Note Summary Increased assistance needed for transfers today. Unable to advance feet with side stepping/pivot. Pt has an understandable fear of falling.
[2025-02-18] MEDS: CYANOCOBALAMIN 1,000 MCG/ML VIAL 1000 MCG IM (12:27)
[2025-02-18] MEDS: INSULIN ASPART 300 UNIT/3 ML PEN SUBQ ×3 (12:33→22:18)
[2025-02-18] MEDS: ACETAMINOPHEN 325 MG TABLET 650 MG PO (13:40)
--- NOTE | 2025-02-18 14:23 | SWNOTE1 ---
SW faxed Progress note, PT/OT, vitals, labs, and diagnostic imaging to Sidney at [facility] for precert.
--- NOTE | 2025-02-18 16:05 | PC.NURSE ---
patient assisted into chair with the claudia garcia
[2025-02-18] MEDS: CITALOPRAM HYDROBROMIDE 20 MG TABLET 10 MG PO (22:17)
[2025-02-18] MEDS: MONTELUKAST SODIUM 10 MG TABLET PO (22:18)
[2025-02-19] VITALS (19 sets, daily range): BP systolic 131–157; BP diastolic 58–81; PULSE 69–88; TEMP 36.7–37.1; O2SAT 91–94
[2025-02-19 06:19] LABS: Hematocrit 27.1 % (36.0-48.0); Hemoglobin 9.3 g/dL (12.0-16.0); Mean Corpuscular HGB Conc 34.3 g/dL (29.9-35.2); Mean Corpuscular Hemoglobin 31.3 pg (26.7-34.0); Mean Corpuscular Volume 91.2 fL (81.0-99.0); Platelet Count 194 10^3/uL (150-450); Red Blood Count 2.97 10^6/uL (4.20-5.40); White Blood Count 10.2 10^3/uL (4.0-11.0)
[2025-02-19 06:37] LABS: Anion Gap 14.9; Blood Urea Nitrogen 69.0 mg/dL (7.0-18.0); Calcium 8.7 mg/dL (8.5-10.1); Carbon Dioxide 23.5 mmol/L (21.0-32.0); Chloride 99 mmol/L (98-107); Estimated GFR (African America 24 (>=60 mL/min/1.73m^2); Estimated GFR (Non-African Ame 20 (>=60 mL/min/1.73m^2); Glucose 158 mg/dL (74-106); Potassium 4.4 mmol/L (3.5-5.1); Sodium 133 mmol/L (136-145)
[2025-02-19] MEDS: HEPARIN SODIUM (PORCINE) 5,000 UNIT/ML VIAL 5000 UNIT SUBQ ×3 (06:48→21:06)
--- NOTE | 2025-02-19 08:20 | CM.NOTE ---
Rounds made with Dr. Carrillo, discussed plan of care with pt. No discharge today, BUN and Creat continue to trend down. Pt will discharge to [facility] when medically stable.
--- NOTE | 2025-02-19 09:00 | CM.NOTE ---
Dr. Carrillo given pt's urine culture positive for E-coli.
[2025-02-19] MEDS: CYANOCOBALAMIN 1,000 MCG/ML VIAL 1000 MCG IM (09:08)
[2025-02-19] MEDS: CHOLECALCIFEROL (VITAMIN D3) 125 MCG/5,000 UNIT TABLET 62.5 MCG PO ×2 (09:08→16:37)
[2025-02-19] MEDS: CALCIUM ACETATE 667 MG CAPSULE 1334 MG PO (09:10)
[2025-02-19] MEDS: METOPROLOL TARTRATE 25 MG TABLET 12.5 MG PO ×2 (09:10→21:06)
[2025-02-19] MEDS: INSULIN GLARGINE 300 UNIT/3 ML INSULN.PEN 15 UNIT SQ (09:14)
--- NOTE | 2025-02-19 10:07 | PM.ORCN ---
History of Present Illness HPI Consult date: 02/19/25 Consult reason: fracture Chief complaint: labs, WILLIAM, Narrative: Carlita is a 84 year old female who sustained a left proximal humerus fracture. Pain in left shoulder only. No numbness or tingling. No systemic symptoms. Lives at home with . 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 Smoking status: Never smoker Non-prescribed substance use: denies use Known occupational exposures/hazards: No Highest level of school completed/degree received: 12th grade, no diploma Are you now , , , , never or living with a partner: In a typical week, how many times do you talk on the telephone with family, friends, or neighbors: 3 or more times per week How often do you get together with friends or relatives: 3 or more times per week Little interest or pleasure in doing things: not at all Feeling down, depressed, or hopeless: not at all Feel stressed/tense/nervous/anxious/difficulty sleeping: not at all Do you think of yourself as: straight/heterosexual Gender Identity: male Meds Home Medications and Allergies Home Medications ?Medication ?Instructions ?Recorded ?Confirmed ?Type citalopram 40 mg tablet 40 mg PO HS 02/13/25 02/16/25 History furosemide 40 mg tablet 40 mg PO DAILY 02/13/25 02/16/25 History glipizide 10 mg tablet 10 mg PO DAILY 02/13/25 02/16/25 History indapamide 2.5 mg tablet 2.5 mg PO DAILY 02/13/25 02/16/25 History insulin glargine 100 unit/mL (3 38 unit subcut HS 02/13/25 02/16/25 History mL) subcutaneous pen (Lantus Solostar U-100 Insulin) meloxicam 7.5 mg tablet 7.5 mg PO BID 02/13/25 02/16/25 History metformin 1,000 mg tablet 1,000 mg PO BID 02/13/25 02/16/25 History montelukast 10 mg tablet 10 mg PO HS 02/13/25 02/16/25 History potassium chloride 20 mEq 20 meq PO DAILY 02/13/25 02/16/25 History tablet,extended release(part/cryst) propranolol 20 mg tablet 20 mg PO BID 02/13/25 02/16/25 History acetaminophen 325 mg tablet 650 mg (2 x 325 mg) PO Q4H PRN 02/14/25 02/16/25 Rx (Tylenol) Pain #0 tabs ascorbic acid (vitamin C) 500 mg 500 mg PO BIDWM #0 tabs 02/14/25 02/16/25 Rx tablet (Vitamin C) calcium 600 mg (as 1 tab PO BIDWM #0 tabs 02/14/25 02/16/25 Rx carbonate)-vitamin D3 10 mcg (400 unit) tablet enoxaparin 30 mg/0.3 mL 30 mg (0.3 mL) subcut BID 28 days 02/14/25 02/16/25 Rx subcutaneous syringe #0 mL oxycodone 5 mg tablet 5 mg PO Q4H PRN left shoulder pain 02/14/25 02/16/25 Rx 5 days #20 tabs sennosides 8.6 mg-docusate sodium 1 tab-cap PO TID #90 tabs 02/14/25 02/16/25 Rx 50 mg tablet (Senna Plus) cholecalciferol (vitamin D3) 62.5 62.5 mcg PO BIDWM 28 days #28 caps 02/15/25 02/16/25 Rx mcg (2,500 unit) capsule psyllium husk (bulk) 100 % powder 2.6 ea PO QD 02/16/25 02/16/25 History nystatin 100,000 unit/gram topical 1 applic topical BID 02/17/25 02/17/25 History powder Allergies Allergy/AdvReac Type Severity Reaction Status Date / Time Penicillins Allergy Mild Unknown Verified 02/13/25 11:41 cefuroxime Allergy Unknown Verified 02/13/25 11:41 ciprofloxacin (From Cipro) Allergy Unknown Verified 02/13/25 11:41 lisinopril Allergy Unknown Verified 02/13/25 11:41 nitrofurantoin Allergy Unknown Verified 02/13/25 11:41 Sulfa (Sulfonamide Allergy Unknown Verified 02/13/25 11:41 Antibiotics) Exam Narrative Exam Narrative: Left shoulder with diffuse tenderness. Pain with diffuse ROM. NVI Constitutional Vital Signs, click to edit/add: Last Vital Signs Temp 98.7 F 02/19/25 07:45 Pulse 80 02/19/25 09:54 Resp 20 02/19/25 07:45 BP 157/81 H 02/19/25 07:45 Pulse Ox 91 L 02/19/25 07:45 O2 Del Method Room Air 02/19/25 07:45 Results Labs Labs: Abnormal lab results 02/18/25 02/18/25 02/18/25 Range/Units 11:29 16:36 21:20 RBC (4.20-5.40) 10^6/uL Hgb (12.0-16.0) g/dL Hct (36.0-48.0) % Sodium (136-145) mmol/L BUN (7.0-18.0) mg/dL Creatinine (0.55-1.02) mg/dL Est GFR ( Amer) (>=60 mL/min/1.73m^2) Est GFR (Non-Af Amer) (>=60 mL/min/1.73m^2) Glucose (74-106) mg/dL POC Glucose 162 H 207 H 219 H (74-106) mg/dL 02/19/25 Range/Units 05:32 RBC 2.97 L (4.20-5.40) 10^6/uL Hgb 9.3 L (12.0-16.0) g/dL Hct 27.1 L (36.0-48.0) % Sodium 133 L (136-145) mmol/L BUN 69.0 H (7.0-18.0) mg/dL Creatinine 2.31 H (0.55-1.02) mg/dL Est GFR ( Amer) 24 L (>=60 mL/min/1.73m^2) Est GFR (Non-Af Amer) 20 L (>=60 mL/min/1.73m^2) Glucose 158 H (74-106) mg/dL POC Glucose (74-106) mg/dL H & H 02/16/25 02/17/25 02/19/25 Range/Units 17:04 05:30 05:32 Hgb 9.8 L 9.2 L 9.3 L (12.0-16.0) g/dL Hct 28.6 L 27.7 L 27.1 L (36.0-48.0) % All other labs normal. 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 Patient wants to treat without surgery. Sling for comfort. ROM starting around 4 weeks. F/u in office in 4-6 weeks for repeat xray and PT order Qualifiers: Encounter type: subsequent encounter Fracture alignment: nondisplaced Fracture healing: with routine healing Fracture morphology: other fracture Humerus Location: proximal Qualified Code(s): S42.295D - Other nondisplaced fracture of upper end of left humerus, subsequent encounter for fracture with routine healing (7) B12 deficiency: (8) CKD (chronic kidney disease): (9) Edema: (10) Anemia:
--- NOTE | 2025-02-19 11:26 | SWNOTE1 ---
ADILIA received an email from Katarzyna at [facility] and pt is approved to go skilled. Pt is not medically stable for discharge today. ADILIA let Katarzyna and Reshma at [facility] know that pt is not stable for discharge today, but possibly tomorrow. Katarzyna did respond to ADILIA email and she stated she is reaching out to the son about a bed hold since pt is lingering. ADILIA stopped in to speak with pt. Pt's and son are in room. Pt's son voiced he just spoke to his brother, Meir, and he spoke with [facility] and they are going to give her one more day and if no discharge tomorrow then they will have to pay to hold the bed. ADILIA did let pt, pt's , and pt's son know that her insurance did approved her to go today and that approval is good through the . ADILIA advised if she does not discharge tomorrow, then we will see if [facility] can restart precert or if we need to look at other facilities. Pt and family in agreement. ADILIA to call pt's other son Meir. (There are 4 sons and 1 daughter). ADILIA called Meir and updated him. He has spoke to [facility] already. ADILIA did let him know that the approval is good through tomorrow. He is in agreement that if she is not medically stable for discharge tomorrow, they can look at other facilities if needed. There first choice would be [facility] if pt can not get in to [facility].
--- NOTE | 2025-02-19 11:32 | P.PN_ITS ---
Progress Note: Subjective Subjective Interval history: Uneventful night. No chest pain or palpitation. No confusion or disorientation. No fever or chills. No nausea or vomiting. Exam Narrative Exam Narrative: [pt is awake and alert. oriented to place, time and person, video-based HEENT: [place] conjunctiva and NL buccal mucosa Neck: Supple, no tenderness Endocrine: No Thyromegaly. Vascular: No JVD or carotid bruit. Lymphatic: No cervical lymphadenopathy. Chest: CTA no DTP. Heart RRR, no extra sound or murmur. Abd: Soft, no tenderness, no rebound and no rigidity. Increase abd girth therefore clinically I could not exclude the possibility of intra abd mass or organomegaly. Extremities: Left arm is in a sling. Patient has +2 pitting edema in both legs from the knee down to the ankle Neuro: Awake, oriented to place and person. Able to answer simple questions. Unable to answer complex questions. Unable to engage in complex conversation. Able to lift upper legs against gravity but unable to support her body []] Patient has centimeter size stage II ulceration on both side of the gluteal area. No infection. No pus. Constitutional Vital Signs, click to edit/add: Last Vital Signs Temp 98.7 F 02/19/25 07:45 Pulse 80 02/19/25 09:54 Resp 20 02/19/25 07:45 BP 157/81 H 02/19/25 07:45 Pulse Ox 91 L 02/19/25 07:45 O2 Del Method Room Air 02/19/25 07:45 Progress Note: Objective Labs Labs: Short CBC 02/19/25 Range/Units 05:32 WBC 10.2 (4.0-11.0) 10^3/uL Hgb 9.3 L (12.0-16.0) g/dL Hct 27.1 L (36.0-48.0) % Plt Count 194 (150-450) 10^3/uL BMP 02/19/25 05:32 Sodium 133 L Potassium 4.4 Chloride 99 Carbon Dioxide 23.5 BUN 69.0 H Creatinine 2.31 H Glucose 158 H Calcium 8.7 Progress Note: A&P Assessment and Plan (1) Acute kidney injury: (2) Vitamin D deficiency: (3) Impaired mobility and ADLs: (4) Hypertension: Qualifiers: Hypertension type: primary hypertension Qualified Code(s): I10 - Essential (primary) hypertension (5) Diabetes mellitus: Qualifiers: Diabetes mellitus type: type 2 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: without detention use Diabetes mellitus complication status: without complication Qualified Code(s): E11.9 - Type 2 diabetes mellitus without complications (6) Closed left humeral fracture: Qualifiers: Encounter type: subsequent encounter Fracture alignment: nondisplaced Fracture healing: with routine healing Fracture morphology: other fracture Humerus Location: proximal Qualified Code(s): S42.295D - Other nondisplaced fracture of upper end of left humerus, subsequent encounter for fracture with routine healing (7) B12 deficiency: (8) CKD (chronic kidney disease): (9) Edema: (10) Anemia: Plan Acute kidney failure with hyperkalemia and hyperphosphatemia Resolution of hyperkalemia and hyperphosphatemia Much improved WILLIAM. Her BUN was 93, potassium 5.4 and creatinine 4.04. Prior to discharge on 02/14, her BUN was 65, creatinine 2.84 and a potassium 5.1 No old kidney function available in the system. I was able to get record from [facility] showing that her creatinine was 1.38 in 2020 and record from [email or web address] showing that her creatinine 1.12 in November 2023. Certainly there is significant deterioration of kidney function compared to baseline creatinine of 1.12 in 2023 Patient receiving Lasix, Mobic, metformin and potassium I held offensive medication plan I started patient on IV fluid infusion I requested renal ultrasound rule out obstructive uropathy and that came back negative I requested the bladder scan rule out urinary retention Avoid further nephrotoxic drug use Her UA is bland. No significant RBC or proteinuria to suspect acute glomerulonephritis Edema in both legs. Likely caused by low albumin level and third spacing Requested venous study rule out DVT specifically given her diminished mobility over the last several weeks. Ultrasound is negative for DVT. 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 This came back positive for diastolic heart failure Diastolic heart failure. Patient had received IV fluid infusion on presentation due to WILLIAM. Blood pressure had improved. Hold off on additional IV fluid infusion to prevent fluid overload or pulmonary edema specifically given her low albumin level Left proximal humeral fracture. Patient was sent on sling to follow-up with orthopedic. Requested repeat x-ray which showed no change from before. Requested orthopedic consultation to evaluate her fracture type and provide further advice and recommendation relative to operative versus nonoperative approach I was informed that Dr. Banda looked at the imaging and recommending nonoperative approach. Continue sling and follow-up with Dr. Banda in the outpatient setting Diabetes. Patient had been on insulin, glipizide and metformin Given the significant decline in her kidney function I would avoid using sulfonylurea and metformin. I discontinued both. I significantly reduced the long-acting insulin dose to prevent hypoglycemia and started patient on sliding scale coverage Recent A1c was 7.4. Bacteriuria. UA does not show significant cystitis or UTI. Patient is at risk having urinary infection. You cultures positive for 100,000 E. coli and 10,000 Pseudomonas I started patient on Levaquin to 50 mg daily. Unknown allergy to Cipro B12 and vitamin D deficiency I started patient on B12 and vitamin D supplementation Anemia, no evidence of acute blood loss. Could be related to B12 deficiency. I started patient on B12 supplementation. Could be related to CKD. Patient may benefit from erythropoietin if her hemoglobin drops below 8.5. Her folate level was acceptable. Iron study did not show any significant iron deficiency. Patient will likely require to have anemia workup to be done in the outpatient setting to be handled by PCP in collaboration with other needed outpatient providers. This may include but not limited to EGD, colonoscopy, referral to see hematology and other needed age-appropriate cancer screening. Functional cognitive impairment. I had discussed this with her 2 sons yesterday Meir and Robb. Both stated that mom is not far from baseline in terms of her cognition and function Suspected that patient may have a degree of neurodegenerative disorder, senile degeneration of the brain versus vascular dementia Consider imaging of the brain. Nonacute. Functional decline could be related to advanced age, morbid obesity, osteoarthritis and lower extremities edema putting patient in a vicious cycle of declining activity level leading to worsening functional decline. PT OT eval and treatment. Patient will go back to a skilled facility on discharge Chronic medical conditions not listed above, incidental findings seen on labs and imaging. These would need to be addressed. Could be addressed when time and condition are appropriate. Could be addressed in the outpatient setting by PCP collaboration with other needed outpatient providers. Likely discharge to the snf tomorrow Urinary Catheter Management Urinary Catheter Management Pure Wick: Cath placed during this visit: no Urethral: Cath placed during this visit: yes Urethral indwelling: No Insertion date: 02/18/25 Insertion time: 10:14
[2025-02-19] MEDS: INSULIN ASPART 300 UNIT/3 ML PEN SUBQ ×3 (11:33→21:07)
[2025-02-19] MEDS: LEVOFLOXACIN 500 MG TABLET 250 MG PO (11:58)
--- NOTE | 2025-02-19 13:13 | SWNOTE1 ---
ADILIA faxed updated physician note, PT/OT, nursing notes, vitals, and labs to [facility] at [place].
--- NOTE | 2025-02-19 13:56 | CM.NOTE ---
2nd Important Message From Medicare discussed with pt, pt denies any questions or concerns.
--- NOTE | 2025-02-19 17:21 | PC.NURSE ---
Pt describes feeling pressure in her bladder
[2025-02-19] MEDS: ACETAMINOPHEN 325 MG TABLET 650 MG PO (18:49)
[2025-02-19] MEDS: CITALOPRAM HYDROBROMIDE 20 MG TABLET 10 MG PO (21:06)
[2025-02-19] MEDS: MONTELUKAST SODIUM 10 MG TABLET PO (21:06)
[2025-02-20] VITALS (11 sets, daily range): BP systolic 132–156; BP diastolic 71–84; PULSE 67–83; TEMP 36.4–36.6; O2SAT 91–95
[2025-02-20] MEDS: HEPARIN SODIUM (PORCINE) 5,000 UNIT/ML VIAL 5000 UNIT SUBQ (05:18)
[2025-02-20 06:15] LABS: Anion Gap 12.6; Blood Urea Nitrogen 58.0 mg/dL (7.0-18.0); Calcium 8.7 mg/dL (8.5-10.1); Carbon Dioxide 25.4 mmol/L (21.0-32.0); Chloride 100 mmol/L (98-107); Estimated GFR (African America 31 (>=60 mL/min/1.73m^2); Estimated GFR (Non-African Ame 25 (>=60 mL/min/1.73m^2); Glucose 193 mg/dL (74-106); Potassium 4.0 mmol/L (3.5-5.1); Sodium 134 mmol/L (136-145)
--- NOTE | 2025-02-20 08:05 | CM.NOTE ---
Rounds made with Dr. Carrillo, pt will discharge to [facility] for skilled therapy.
[2025-02-20] MEDS: INSULIN GLARGINE 300 UNIT/3 ML INSULN.PEN 15 UNIT SQ (08:23)
[2025-02-20] MEDS: INSULIN ASPART 300 UNIT/3 ML PEN SUBQ ×2 (08:23→12:05)
[2025-02-20] MEDS: LEVOFLOXACIN 500 MG TABLET 250 MG PO (08:24)
[2025-02-20] MEDS: METOPROLOL TARTRATE 25 MG TABLET 12.5 MG PO (08:24)
[2025-02-20] MEDS: CHOLECALCIFEROL (VITAMIN D3) 125 MCG/5,000 UNIT TABLET 62.5 MCG PO (08:24)
--- NOTE | 2025-02-20 09:21 | P.DS_ITS ---
DS: Providers Provider Date of admission: 02/16/25 19:14 Primary care physician: JESSICA STOCK Consults: 02/16/25 19:56 Occupational Therapy Eval and Treat Routine Reason for consultation: Weakness Physical Therapy Eval and Treat Routine Reason for consultation: Weakness 02/17/25 12:27 Consult to Orthopedics Routine Consulting Provider: Keon Mcpherson Reason for consultation: Proximal humeral fx 02/17/25 12:34 Occupational Therapy Eval and Treat Routine Reason for consultation: Weakness Physical Therapy Eval and Treat Routine Reason for consultation: Weakness DS: Diagnosis Discharge Diagnosis (1) Acute kidney injury: (2) Vitamin D deficiency: (3) Impaired mobility and ADLs: (4) Hypertension: Qualifiers: Hypertension type: primary hypertension Qualified Code(s): I10 - Essential (primary) hypertension (5) Diabetes mellitus: Qualifiers: Diabetes mellitus type: type 2 Diabetes mellitus long-term insulin use: without backup operator use Diabetes mellitus complication status: without complication Qualified Code(s): E11.9 - Type 2 diabetes mellitus without complications (6) Closed left humeral fracture: Qualifiers: Encounter type: subsequent encounter Fracture alignment: nondisplaced Fracture healing: with routine healing Fracture morphology: other fracture Humerus Location: proximal Qualified Code(s): S42.295D - Other nondisplaced fracture of upper end of left humerus, subsequent encounter for fracture with routine healing (7) B12 deficiency: (8) CKD (chronic kidney disease): (9) Edema: (10) Anemia: Plan As listed above, below and others that are not listed DS: Summary Hospital Course Hospital Course: Mrs. Sprague is an 84-year-old female who was [facility] for further evaluation and treatment of worsening kidney failure and hyperkalemia. Acute kidney failure with hyperkalemia and hyperphosphatemia, resolved Her BUN was 93, potassium 5.4 and creatinine 4.04. Prior to discharge on 02/14, her BUN was 65, creatinine 2.84 and a potassium 5.1 No old kidney function available in the system. I was able to get record from [facility] showing that her creatinine was 1.38 in 2020 and record from [facility] showing that her creatinine 1.12 in November 2023. Certainly there is significant deterioration of kidney function compared to baseline creatinine of 1.12 in 2023 Patient receiving Lasix, Mobic, metformin and potassium I held offensive medication plan I started patient on IV fluid infusion I requested renal ultrasound rule out obstructive uropathy and that came back negative I requested the bladder scan rule out urinary retention. Patient retained more than 1000 mL of urine after trial Alegre removal therefore Alegre catheter was reinserted back. Avoided further nephrotoxic drug use Her UA is bland. No significant RBC or proteinuria to suspect acute glomerulonephritis Patient has baseline CKD. Baseline creatinine is around 1.4. Patient will be started on gentle diuresis to keep her in euvolemic state. I requested that [facility]entiary providers order a BMP every Sunday and for 2 weeks to monitor her kidney function, electrolytes. If stable reduce frequency to weekly BMP. I requested that [facility]itentiary providers adjust her diuretics and BP meds to keep her systolic between 140 and 155 and to keep her in euvolemic state. Edema in both legs. Likely caused by low albumin level and third spacing Requested venous study rule out DVT specifically given her diminished mobility over the last several weeks. Ultrasound is negative for DVT. 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 This came back positive for diastolic heart failure Patient will be started on gentle diuresis. I recommended that penitentiary repeat venous study of the legs in 7 days to exclude progression of superficial vein thrombosis into the deep system. Meanwhile I will discharge the patient on pharmacological DVT prophylaxis. Urinary retention More than 400 mL retention. Alegre catheter was inserted for a few days. Alegre catheter was removed unfortunately patient continues to retain. Last check was 1000 mL. Alegre catheter was reinserted. Patient will be started on Flomax. Patient will be arranged to follow-up with urology team. 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 I instructed penitentiary providers to have another Alegre catheter removal trial in 7 to 10 days and to continue to check bladder scan post Alegre removal to ensure that patient is not retaining further. Diastolic heart failure. Patient had received IV fluid infusion on presentation due to WILLIAM. Blood pressure had improved. Hold off on additional IV fluid infusion to prevent fluid overload or pulmonary edema specifically given her low albumin level Discharge patient on gentle diuresis Left proximal humeral fracture. Patient was sent on sling to follow-up with orthopedic. Requested repeat x-ray which showed no change from before. Requested orthopedic consultation to evaluate her fracture type and provide further advice and recommendation relative to operative versus nonoperative approach Patient was seen by Dr. Banda who recommended nonoperative approach. Continue sling, gentle range of motion exercises. Diabetes. Patient had been on insulin, glipizide and metformin Given the significant decline in her kidney function I would avoid using sulfonylurea and metformin. I discontinued both. I significantly reduced the long-acting insulin dose to prevent hypoglycemia and started patient on sliding scale coverage Recent A1c was 7.4. Bacteriuria. UA does not show significant cystitis or UTI. Patient is at risk having urinary infection. You cultures positive for 100,000 E. coli and 10,000 Pseudomonas I started patient on Levaquin to 50 mg daily. Unknown allergy to Cipro Patient had received Levaquin without any adverse reaction. B12 and vitamin D deficiency I started patient on B12 and vitamin D supplementation Anemia, no evidence of acute blood loss. Could be related to B12 deficiency. I started patient on B12 supplementation. Could be related to CKD. Patient may benefit from erythropoietin if her hemoglobin drops below 8.5. Her folate level was acceptable. Iron study did not show any significant iron deficiency. Patient will likely require to have anemia workup to be done in the outpatient setting to be handled by PCP in collaboration with other needed outpatient providers. This may include but not limited to EGD, colonoscopy, referral to see hematology and other needed age-appropriate cancer screening. Functional cognitive impairment. I had discussed this with her 2 sons yesterday Meir and Robb. Both stated that mom is not far from baseline in terms of her cognition and function Suspected that patient may have a degree of neurodegenerative disorder, senile degeneration of the brain versus vascular dementia Consider imaging of the brain. Nonacute. Functional decline could be related to advanced age, morbid obesity, osteoarthritis and lower extremities edema putting patient in a vicious cycle of declining activity level leading to worsening functional decline. PT OT eval and treatment. Patient will go back to a skilled facility on discharge Chronic medical conditions not listed above, incidental findings seen on labs and imaging. These would need to be addressed. Could be addressed when time and condition are appropriate. Could be addressed in the outpatient setting by PCP collaboration with other needed outpatient providers. I had discussed her case with her 3 sons and almost on a daily basis. Patient has multiple complex medical issues as listed above and others that are not listed. All appear to be stable. I do not have any clear or strong clinical justification to extend inpatient hospitalization. Patient however will require close and frequent monitoring as well as additional work-up, investigation and therapeutic intervention that could take place from this point on post discharge. That is to prevent relapse, decompensation, rehospitalization and other medical implications. I instructed patient to ask her primary care doctor to obtain [facility] record entirely to address abnormalities seen on labs and imaging that I have and have not addressed during this hospitalization, follow-up on pending blood work, imaging and pathology is if available and to follow-up on needed medical care in the outpatient setting. Time Spent with Patient Time attestation: Total time spent providing and/or coordinating discharge services: Exam Narrative Exam Narrative: [pt is awake and alert. oriented to place, time and person, video-based HEENT: [place] conjunctiva and NL buccal mucosa Neck: Supple, no tenderness Endocrine: No Thyromegaly. Vascular: No JVD or carotid bruit. Lymphatic: No cervical lymphadenopathy. Chest: CTA no DTP. Heart RRR, no extra sound or murmur. Abd: Soft, no tenderness, no rebound and no rigidity. Increase abd girth therefore clinically I could not exclude the possibility of intra abd mass or organomegaly. Extremities: Left arm is in a sling. Patient has +1 pitting edema in both legs from the knee down to the ankle Neuro: Awake, oriented to place and person. Able to answer simple questions. Unable to answer complex questions. Unable to engage in complex conversation. Able to lift upper legs against gravity but unable to support her body []] Patient has centimeter size stage II ulceration on both side of the gluteal area. No infection. No pus. Constitutional Vital Signs, click to edit/add: Last Vital Signs Temp 97.8 F 02/20/25 07:39 Pulse 82 02/20/25 07:57 Resp 18 02/20/25 07:39 BP 156/84 H 02/20/25 07:39 Pulse Ox 95 02/20/25 07:39 O2 Del Method Room Air 02/20/25 07:39 DS: Data Data Completed and Pending Labs on day of discharge: Labs from last 24 hours 02/20/25 02/20/25 07:42 05:43 Sodium 134 L Potassium 4.0 Chloride 100 Carbon Dioxide 25.4 Anion Gap 12.6 BUN 58.0 H Creatinine 1.89 H Est GFR ( Amer) 31 L Est GFR (Non-Af Amer) 25 L BUN/Creatinine Ratio 30.7 Glucose 193 H Calcium 8.7 POC Glucose 185 H Discharge Plan Discharge Disposition: Xfer SNF Condition: Fair Discharge Medications: New oxycodone 5 mg Tablet 2.5 mg PO Q4H PRN (Reason: left shoulder pain) Qty: 15 0RF levofloxacin 250 mg tablet 250 mg PO DAILY 7 Days Qty: 7 0RF Rx Instructions: Patient is not allergic to Levaquin. She had received a dose without any reaction tamsulosin [Flomax] 0.4 mg capsule 0.4 mg PO DAILY Qty: 30 0RF metoprolol tartrate 25 mg tablet 12.5 mg PO TID Qty: 60 0RF citalopram [Celexa] 10 mg tablet 10 mg PO DAILY Qty: 30 0RF docusate sodium 100 mg Capsule 100 mg PO BID PRN (Reason: Constipation) Qty: 0 0RF sennosides-docusate sodium [Senna Plus] 8.6-50 mg Tablet 1 tab PO QD PRN (Reason: Constipation) Qty: 0 0RF cyanocobalamin (vitamin B-12) 1,000 mcg/mL Solution 1,000 mcg IM Q30D Qty: 0 0RF acetaminophen [Tylenol] 325 mg Tablet 650 mg PO Q6H PRN (Reason: Pain or fever) Qty: 0 0RF Insta-Glucose (with dextrin) 24 gram/31 gram Gel 31 g PO Q15M PRN (Reason: Hypoglycemia) Qty: 0 0RF Glucagon Emergency Kit (human) 1 mg Recon Soln 1 mg IV Q15M PRN (Reason: Hypoglycemia) Qty: 0 0RF insulin aspart U-100 [Novolog FlexPen U-100 Insulin] 100 unit/mL (3 mL) Insulin Pen 2 - 10 unit subcut ACHS Qty: 0 0RF enoxaparin 40 mg/0.4 mL Syringe 40 mg subcut QD Qty: 0 0RF Continued furosemide 40 mg tablet 40 mg PO DAILY montelukast 10 mg tablet 10 mg PO HS calcium carbonate-vitamin D3 600 mg-10 mcg (400 unit) Tablet 1 tab PO BIDWM Qty: 0 0RF psyllium husk (bulk) 100 % Powder 2.6 ea PO QD Rx Instructions: 2.6 GRAMS ONCE DAILY Changed insulin glargine [Lantus Solostar U-100 Insulin] 100 unit/mL (3 mL) insulin pen 22 unit SUBCUT HS Qty: 22 0RF cholecalciferol (vitamin D3) 62.5 mcg (2,500 unit) capsule 62.5 mcg PO DAILY 28 Days Qty: 28 0RF Discontinued citalopram 40 mg tablet 40 mg PO HS glipizide 10 mg tablet 10 mg PO DAILY Patient Comments: EXTENDED RELEASE meloxicam 7.5 mg tablet 7.5 mg PO BID metformin 1,000 mg tablet 1,000 mg PO BID indapamide 2.5 mg tablet 2.5 mg PO DAILY potassium chloride 20 mEq tablet,ER particles/crystals 20 meq PO DAILY propranolol 20 mg tablet 20 mg PO BID acetaminophen [Tylenol] 325 mg Tablet 650 mg PO Q4H PRN (Reason: Pain) Qty: 0 0RF sennosides-docusate sodium [Senna Plus] 8.6-50 mg Tablet 1 tab-cap PO TID Qty: 90 0RF ascorbic acid (vitamin C) [Vitamin C] 500 mg Tablet 500 mg PO BIDWM Qty: 0 0RF enoxaparin 30 mg/0.3 mL Syringe 30 mg subcut BID 28 Days Qty: 0 0RF oxycodone 5 mg tablet 5 mg PO Q4H PRN (Reason: left shoulder pain) 5 Days Qty: 20 0RF Rx Instructions: Further refills while at the SNF are to come from the SNF providers. nystatin 100,000 unit/gram powder 1 applic TOPICAL BID Print Language: Irish Activity Restrictions/Additional Instructions: I may not have addressed or treated all of your medical illnesses or the abnormal blood work or imaging studies during this hospitalization. Please ask your primary care provider to obtain [facility] records entirely to follow up on all of the abnormal physical, laboratory, and imaging findings that I have not addressed. Please return back to the emergency room or seek medical attention if your symptoms worsen or return. For penitentiary providers Please titrate her diuretics and blood pressure medications to keep systolic between 140 and 155 and to keep patient in euvolemic state. Please monitor her electrolytes and kidney function test. I would recommend BMP every Sunday and for 2 weeks then BMP weekly. Please arrange for patient to follow-up with Orthopedic team and urology as listed in the follow-up section. Keep left arm in a sling. Gentle range of motion exercises involving the shoulder, elbow and wrist at the nursing facility. Please trial Alegre removal in 7 to 10 days Please bladder scan after Alegre removal every shift for 48 hours to make sure that the patient is not retaining Please reinsert Alegre catheter if the patient retains more than 350 mL post Alegre removal. Please arrange for patient to have repeat lower extremities venous study in 10 days to ensure that the superficial thrombosis did not progress into the deep venous system Check her blood sugar 3 times a day before meals. Communicate with her penitentiary providers if her blood sugar is under 100 or above 300 on 2 consecutive checks. Communicate with her penitentiary provider if you have any questions about your diabetes medications. Signs of a low blood sugar include sweating, racing heart, dizziness and/or weakness. Check her blood sugar if she is having any of the symptoms. Discharging you from [facility] does not mean that your medical care ends here and now. You may still need additional monitoring, work up, investigation, and treatment plan to be handled from this point on by out patient providers including your primary care provider and specialists. For any medication question, please contact your retail pharmacist or your primary care provider. Thank you. Grinder Lap/Project Management Professional Instructions: Discharge to [facility] skilled Forms: Portal Instructions Referrals: Cayden Banda DO [Physician, Orthopedics] Referral Note: Regarding left humeral fracture Torsten Rollins MD [Physician, Urology] Referral Note: Regarding urinary retention JESSICA STOCK [Primary Care Provider, Family Practice] Follow Up Appointments: Dr Banda At the [place] office in the [facility] ph#[phone] Feb @11:15
--- NOTE | 2025-02-20 09:22 | SWNOTE1 ---
Pt will be discharged to [facility] today skilled. SW to set up transport once discharge orders are in.
--- NOTE | 2025-02-20 09:50 | SWNOTE1 ---
ADILIA faxed dc med rec and dc summary to [facility] at [place].
[2025-02-20] MEDS: ENOXAPARIN SODIUM 40 MG/0.4 ML SYRINGE SUBQ (10:26)
--- NOTE | 2025-02-20 10:27 | CM.NOTE ---
CRF completed and Dr. Carrillo signed, CRF then given to SW to set up discharge and transportation.
--- NOTE | 2025-02-20 11:33 | SWNOTE1 ---
Pt is stable for discharge today and will be going to [facility]. ADILIA did speak with nurse and pt can go by wheelchair. ADILIA called trips and set up transportation for 4:15-4:45. ADILIA let nurse know time and also Katarzyna at [facility] the time of transport. SW stopped in pt's room and pt's son Meir was in room. ADILIA let both pt and Meir know time of transport. Meir voiced appreciation for all the help from everyone at the hospital. Pt is returning to [facility]. ADILIA faxed over dc med rec and dc summary to Delvin at [facility]. ADILIA took packet to the floor for nurse.
[2025-02-20] MEDS: ACETAMINOPHEN 325 MG TABLET 650 MG PO (13:29)
--- NOTE | 2025-02-20 17:21 | PC.NURSE ---
Report called Lisa at [facility].
--- NOTE | 2025-02-23 08:52 | CM.NOTE ---
Dr. Carrillo aware of pt's final urine culture and susceptibility.
--- NOTE | 2025-02-24 14:32 | SWNOTE1 ---
ADILIA reached out to Reshma at [facility] in regards to discharge information on patient. ADILIA did ask yesterday 02/23/25, if the admitting nurse did see all the information on page 7 and 8 of the discharge summary? The same information was also located in the discharge packet as well that was sent with pt. Reshma did reply back today and stated the nurse has advised Reshma that all documents were seen and being addressed. ADILIA also reminded Reshma of follow up apt with Dr. Banda on February 26 at 11:15 at [facility].
== END 2025-02-20 17:20 | DRG 683 ==
LOC: ER 19:09 → MS 19:20
PROVIDERS: Admitting Provider Internal Medicine; Emergency Provider Emergency Medicine; PCP Family Medicine; Visit Provider Internal Medicine
DX: N17.9 Acute kidney failure, unspecified (principal); I13.0 Hypertensive heart and chronic kidney disease with heart failure and stage 1 through stage 4 chronic kidney disease, or unspecified chronic kidney disease; I82.812 Embolism and thrombosis of superficial veins of left lower extremity; Z68.42 Body mass index [BMI] 45.0-49.9, adult; I50.30 Unspecified diastolic (congestive) heart failure; E55.9 Vitamin D deficiency, unspecified; S42.295D Other nondisplaced fracture of upper end of left humerus, subsequent encounter for fracture with routine healing; W19.XXXD Unspecified fall, subsequent encounter; E53.8 Deficiency of other specified B group vitamins; E11.22 Type 2 diabetes mellitus with diabetic chronic kidney disease; R60.0 Localized edema; E87.5 Hyperkalemia; L89.152 Pressure ulcer of sacral region, stage 2; Z79.84 Long term (current) use of oral hypoglycemic drugs; Z79.4 Long term (current) use of insulin; E66.01 Morbid (severe) obesity due to excess calories; M19.90 Unspecified osteoarthritis, unspecified site; Z74.09 Other reduced mobility; N18.9 Chronic kidney disease, unspecified; Z85.828 Personal history of other malignant neoplasm of skin; Z98.1 Arthrodesis status; Z90.49 Acquired absence of other specified parts of digestive tract; Z90.12 Acquired absence of left breast and nipple; Z79.899 Other long term (current) drug therapy; E83.39 Other disorders of phosphorus metabolism; R82.71 Bacteriuria; R33.9 Retention of urine, unspecified; R82.79 Other abnormal findings on microbiological examination of urine; B96.20 Unspecified Escherichia coli [E. coli] as the cause of diseases classified elsewhere
CPT/HCPCS: 36415; 51702; 51798; 73060; 76775; 80048; 80053; 81001; 82948; 84100; 85007; 85025; 85027; 87086; 87088; 87186; 93005; 93306; 93970; 97110; 97163; 97165; 97530; 99285; J1644; J1650; J3420

== ENCOUNTER 2025-03-12 11:03 | Outpatient (OUT) | payer MEDICARE, SELFPAY ==
--- NOTE | 2025-03-12 | XR_ITS ---
[facility] [place] [id number] Patient Name: PIEDAD TA MRN: [id number] date: 1940 Sex: F Assigned Patient Location: [facility] Current Patient Location: [facility] Accession/Order Number: [id number] Exam Date: 03/12/2025 11:15 Report Date: 03/12/2025 11:50 At the request of: RAS LACEY DO Procedure: XR shoulder LT min 2V LEFT SHOULDER - 3 views CLINICAL HISTORY: Follow-up left proximal humerus fracture S4 COMPARISON: 02/16/2025 and 02/13/2025 AP, Y and Grashey views were obtained. There is osteopenia. A comminuted displaced fracture is again seen at the proximal humerus. There is apex medial angulation. This is probably not significantly changed when allowing for differences in patient positioning. No dislocation is seen. There is degenerative change at the acromioclavicular joint. There is mild subcutaneous edema. XR/XR shoulder LT min 2V IMPRESSION: COMMINUTED DISPLACED PROXIMAL HUMERUS FRACTURE, PROBABLY NOT SIGNIFICANTLY CHANGED WHEN ALLOWING FOR DIFFERENCES IN PATIENT POSITIONING. Impression dictated by: Henny Wheatley M.D. 03/12/2025 11:50 AM Dictation Location: [place] [address] Electronically authenticated by: [id number] Y Date: 03/12/2025 11:50
--- OUTSIDE RECORDS SUMMARY | 2025-03-12 11:05 | XMS_ITS | Encounter Summary ---
Author Organization [facility] Healthcare Address [address] [place] [address] Care Team Providers Care Rope Twisting Machine Operator Name Role Phone Ben Emerson MD Primary Care Provider [phone] Encounter Details Date Type Department Care Team (Late st Contact Info) Description 03/04/2025 Abstract [facility] [address] [place] [phone] Unallocated, [facility] Provider, [address] [place] [address] Social History Tobacco Use Types Packs/Day Years Used Date Smoking Tobacco: Never Smokeless Tobacco: Never Comments Unknown Sex and Gender Information Value Date Recorded Sex Assigned at Not on file Legal Sex Female 11:01 PM EDT Gender Identity Not on file Sexual Orientation Not on file documented as of this encounter Plan of Treatment Not on file documented as of this encounter Visit Diagnoses Not on filedocumented in this encounter Care Teams Rope Twisting Machine Operator Relationship Specialty Start Date End Date Ben Emerson MD [address] [place] [address] PCP - General Family Medicine 04/02/24 documented as of this encounter
--- OUTSIDE RECORDS SUMMARY | 2025-03-12 11:05 | XMS_ITS | Clinical Summary ---
Author Organization [employer] tem Address [facility] [id number] [address] [place] [address] Care Team Providers Care Arm Rest Builder Name Role Phone Sreedhar Emerson Briana ROOT Primary Care Provider Allergies Active Allergy Reactions Criticality Noted Date Comments Atorvastatin Other (See Comments) 04/02/2024 Cefuroxime Other (See Comments) 04/02/2024 Ciprofloxacin Other (See Comments) 04/02/2024 Ezetimibe 04/02/2024 Ipratropium-Albuterol 07/16/2024 Levofloxacin 04/02/2024 Lisinopril Other (See Comments) 04/02/2024 Nitrofurantoin Other (See Comments) 04/02/2024 Penicillins Other (See Comments) 04/02/2024 Rosuvastatin 04/02/2024 Sulfa (Sulfonamide Antibiotics) 04/02/2024 Other Reaction(s): Unknown Medications glipiZIDE (GLUCOTROL) 10 mg tablet Take 1 tablet (10 mg total) by mouth in the morning and 1 tablet (10 mg total) in the evening. Take before meals. 04/12/2021 Active meloxicam (MOBIC) 7.5 mg tablet Take 1 tablet (7.5 mg total) by mouth in the morning. 04/15/2021 Active indapamide (LOZOL) 2.5 mg tablet Take 1 tablet (2.5 mg total) by mouth daily. 02/18/2021 Active metFORMIN (GLUCOPHAGE) 1000 mg tablet Take 1 tablet (1,000 mg total) by mouth in the morning and 1 tablet (1,000 mg total) in the evening. Take with meals. 10/23/2022 Active citalopram (CeleXA) 40 mg tablet Take 1 tablet (40 mg total) by mouth in the morning. Active propranoloL (INDERAL) 20 mg tablet Take 1 tablet (20 mg total) by mouth in the morning and 1 tablet (20 mg total) before bedtime. 07/11/2022 Active montelukast (SINGULAIR) 10 mg tablet Take 1 tablet (10 mg total) by mouth nightly. 09/02/2021 Active insulin glargine (LANTUS SOLOSTAR U-100 INSULIN) 100 unit/mL (3 mL) insulin pen Inject 38 Units under the skin nightly. 04/11/2021 Active furosemide (LASIX) 40 mg tablet Take 1 tablet (40 mg total) by mouth daily. 07/11/2022 Active potassium chloride (KLOR-CON M20) 20 MEQ CR tablet Take 1 tablet (20 mEq total) by mouth in the morning. 03/03/2024 Active ALPRAZolam (XANAX) 0.25 mg tablet Take 2 tablets (0.5 mg total) by mouth nightly as needed for anxiety. 02/15/2022 Active Immunizations Immunization Administration Dates Next Due Tdap 07/16/2024 Social History Tobacco Use Types Packs/Day Years Used Date Smoking Tobacco: Never Smokeless Tobacco: Never Tobacco Cessation:Counseling Given: Not Answered Childcare Answer Date Recorded Childcare Unknown 06/20/2020 Employment Answer Date Recorded Employment Unknown 06/20/2020 Hunger Screening Answer Date Recorded Within the past 12 months we worried whether our food would run out before we got money to buy more. Never True 07/16/2024 Within the past 12 months th e food we bought just didn't last and we didn't have money to get more. Never True 07/16/2024 Purpose - Life Answer Date Recorded Purpose and direction in life Unknown Comments Unknown Sex and Gender Information Value Date Recorded Sex Assigned at Not on file Legal Sex Female 11:24 AM EDT Gender Identity Not on file Sexual Orientation Not on file Last Filed Vital Signs Vital Sign Reading Time Taken Comments Blood Pressure 155/64 07/16/2024 10:44 AM EST Pulse 76 07/16/2024 10:44 AM EST Temperature 36.9 C (98.4 F) 07/16/2024 8:58 AM EST Respiratory Rate 20 07/16/2024 10:44 AM EST Oxygen Saturation 98% 07/16/2024 10:44 AM EST Inhaled Oxygen Concentration - - Weight 121 kg (266 lb 11.2 oz) 07/16/2024 8:58 A M EST Height 154.9 cm (5' 1 ) 07/16/2024 8:58 AM EST Body Mass Index 50.39 07/16/2024 8:58 AM EST Plan of Treatment Health Maintenance Due Date Last Done Comments Depression Screening 1952 Zoster (Shingles) Vaccine (1 of 2) 09/21/1989 Fall Risk Screening 09/21/2004 COVID-19 Vaccine (2024- season) 02/09/202506/2020, 08/12/2020 Influenza Vaccine 02/09/2025 Tobacco Screening 07/16/2025 07/16/2024 DTaP,Tdap and Td Vaccines (2 - Td or Tdap) 07/16/2034 07/16/2024 Medical Devices Not on file Insurance [employer] Care Teams Arm Rest Builder Relationship Specialty Start Date End Date Sreedhar Emerson DO [address] [place] [address] PCP - General Family Medicine 07/16/24
== END 2025-03-12 11:04 | disposition home or self-care (01) ==
LOC: RAD 11:03
PROVIDERS: PCP Family Medicine; Visit Provider Physician Assistant
DX: S42.202D Unspecified fracture of upper end of left humerus, subsequent encounter for fracture with routine healing (principal)
CPT/HCPCS: 73030

== ENCOUNTER 2025-04-16 07:29 | Outpatient (OUT) | payer MEDICARE, SELFPAY ==
--- NOTE | 2025-04-16 | XR_ITS ---
[place] [id number] Patient Name: PIEDAD TA MRN: [id number] date: 1940 Sex: F Assigned Patient Location: [facility] Current Patient Location: [facility] Accession/Order Number: [id number] Exam Date: 04/16/2025 11:04 Report Date: 04/16/2025 12:27 At the request of: RAS LACEY DO Procedure: XR shoulder LT min 2V LEFT SHOULDER - - 3 views CLINICAL HISTORY: S4 Closed fracture of left proximal humerus COMPARISON: 03/12/2025 FINDINGS: Left humeral head neck fracture with mild comminution. Slight medial subluxation of the neck with respect to the head. No glenohumeral dislocation. Moderate severe degenerative changes glenohumeral joint and zwwi-rt-dtohircm degenerative changes of the acromioclavicular joint. Left apex is clear. XR/XR shoulder LT min 2V IMPRESSION: Evolving healing of the comminuted head and neck fracture. Moderate severe degenerative changes glenohumeral joint without evidence of dislocation Impression dictated by: Don Latif M.D. 04/16/2025 12:27 PM Dictation Location: [place] [address] Electronically authenticated by: [id number] Y Date: 04/16/2025 12:27
--- OUTSIDE RECORDS SUMMARY | 2025-04-16 07:34 | XMS_ITS | Encounter Summary ---
Author Organization [facility] Address [address] [place] [address] Care Team Providers Care Griddle Cook Name Role Phone Ben Emerson MD Primary Care Provider [phone] Encounter Details DateTypeDepartmentCare Team (Latest Contact Info)Rafeqrgsdmb69/23/2025Telephone [facility] [address] [place] [address] Berry Thacker PA [address] [place] [address] Social History Tobacco UseTypesPacks/DayYears UsedDateSmoking Tobacco: NeverSmokeless Tobacco: NeverCommentsUnknownSex and Gender InformationValueDate RecordedSex Assigned at BirthNot on fileLegal MkdYqyzam96/15/2023 11:01 PM EDTGender IdentityNot on fileSexual OrientationNot on filedocumented as of this encounter Miscellaneous Notes * Telephone Encounter - BUD Mendoza - 04/03/2025 12:48 PM EDT Spoke to pt and results of xray were given. Pt states she is getting good relief from inj. She was grateful for call. * Telephone Encounter - TAMIKO Whelan - 04/02/2025 3:52 PM EDT Please notify Carlita, that her Xray shows arthritis as expected, but no obvious fracture .. See how she is doing since her injection.. thank you. documented in this encounter Plan of Treatment Not on file documented as of this encounter Visit Diagnoses Not on filedocumented in this encounter Care Teams Team MemberRelationshipSpecialtyStart DateEnd Date Ben Emerson MD [address] [place] [address] PCP - GeneralFamily Ytkixwer65/23/24documented as of this encounter
--- OUTSIDE RECORDS SUMMARY | 2025-04-16 07:34 | XMS_ITS | Clinical Summary ---
Author Organization [facility] Address [address] [place] [address] Care Team Providers Care Special Agent Secret Service Name Role Phone Ben Emerson MD Primary Care Provider [phone] Allergies Active AllergyReactionsCriticalityNoted DateCommentsAtorvastatinUnknown 04/02/20240511XegrbzjicpExbadyz90/23/6460ZhpodwkmeporhMxzeubv36/23/2024Ezetimibe 04/02/20243814Qtkmfqhmvwcl27/23/3526VrtptzokroNauhxwb91/23/2024NitrofurantoinUnknown 04/02/20246054PjtlwazxemqBuclfut61/23/5804Qzrsktrfsgsb70/23/2024Sulfa Antibiotics 04/02/2024 Other Reaction(s): Unknown Medications MedicationSigDispense QuantityRefillsLast FilledStart DateEnd DateStatus Blood Glucose Monitoring Suppl (Accu-Chek Guide) w/Device kit 05/02/2023ctive citalopram (CeleXA) 40 MG tablet Take 40 mg by mouth DailyActive Continuous Glucose [employer] (FreeStyle Corey 3 [place]) device USE THREE TIMES DAILY10/27/2023ctive Continuous Glucose Sensor (FreeStyle Corey 3 Sensor) [facility] 03/30/2024ctive furosemide (Lasix) 40 MG tablet 1 tab(s), Oral, Daily, # 90 tab(s), 3 Refill(s), Pharmacy: [facility], TAKE 1 TABLET EVERY DAY, 152.4, cm, 03/29/23 14:44:00 EDT, Height 07/30/2023ctive glipiZIDE (Glucotrol) 10 MG tablet 1 tab(s), PO, Daily, # 90 tab(s), 3 Refill(s), patient has supply at home (Rx), 152.4, cm, 02/27/2412:58:00 EDT, Height, 115, kg, 02/27/24 13:04:00 EDT, Weight Vlnlnb9402/27/2024ctive Accu-Chek Guide test strip 10/15/2023ctive indapamide (Lozol) 2.5 MG tablet 1 (one) time each day at the same timeActive Lantus SoloStar 100 UNIT/ML pen See Instructions, Instructions: INJECT 34 UNITS UNDER THE SKIN ONCE DAILY, # 45 mL, 3 Refill(s), patient has supply at home (Rx), 152.4, cm, 12/07/23 8:51:00 EDT, Height, 113.4, kg, 12/07/23 8:58:00 EDT, Weight Yovcmp1612/07/2023ctive meloxicam (Mobic) 7.5 MG tablet 1 (one) time each day at the same timeActive metFORMIN (Glucophage) 1000 MG tablet 1 tab(s), Oral, BID, # 180 tab(s), 3 Refill(s), Pharmacy: [facility] Mail Delivery, TAKE 1TABLET TWICE DAILY, 152.4, cm, 03/29/23 14:44:00 EDT, Height, 115.9, kg, 10/25/23 9:54:00 EDT, Weight Mxkyyv6011/19/2023ctive montelukast (Singulair) 10 MG tablet 1 tab(s), Oral, qPM, # 90 tab(s), 3 Refill(s), Pharmacy: [facility] Mail Delivery, TAKE 1 TABLET EVERY EVENING, 152.4, cm, 03/29/23 14:44:00 EDT, Efebdd5110/15/2023ctive KLOR-CON 20 MEQ ER tablet Take 20 mEq by mouth Daily03/03/2024ctive traMADol (Ultram) 50 MG tablet TAKE 1 TABLET BY MOUTH EVERY 8 HOURS (30 DAY SUPPLY)03/28/2024ctiveHospital, Clinic, or Other Facility Administered MedicationOrdered DoseRouteFrequencyStart DateEnd DateStatus methylPREDNISolone acetate (DEPO-Medrol) injection 40 mg Indications:Arthritis of left knee40 mgIXOnce PRN Gjlsjwleq27 Ended Active Problems No known active problems Encounters DateTypeDepartmentCare FzitPrfuivcapvq43/23/2025Telephone [facility] [address] [place] [phone] Berry Thacker PA 04/01/2025 11:00 AM EDTOffice Visit [facility] [address] [place] [address] Berry Thacker PA Acute pain of left knee (Primary Dx); Arthritis of left knee04/01/2025amboo flowsheet [facility] [address] [place] [address] Berry Thacker PA 04/01/20250591Dlkbpb41/24/2025bstract [facility] [address] [place] [phone] Unallocated, Curt Lozada MD from Last 3 Months Social History Tobacco UseTypesPacks/DayYears UsedDateSmoking Tobacco: NeverSmokeless Tobacco: Never Tobacco Cessation:Counseling Given: Not Answered CommentsUnknownSex and Gender InformationValueDate RecordedSex Assigned at BirthNot on fileLegal IweGdybus50/15/2023 11:01 PM EDTGender IdentityNot on fileSexual OrientationNot on file Last Filed Vital Signs Vital SignReadingTime TakenCommentsBlood Pressure--Pulse--Temperature-- Respiratory Rate--Oxygen Saturation--Inhaled Oxygen Concentration--Ydhkyo331 kg (225 lb)04/02/2024 1:03 PM QBAEcrasb851.5 cm (5' 2 )04/02/2024 1:03 PM EDTBody Mass Index41.151 1:03 PM EDT Plan of Treatment Health MaintenanceDue DateLast DoneCommentsPneumococcal Vaccine: 65+ Years (2 of 2 - PCV)COVID-19 Vaccine (3 - season)2025 09/09/2020, 08/12/2020Influenza Vaccine (#1)2025 Procedures Procedure NamePriorityDate/TimeAssociated DiagnosisCommentsPR ARTHROCENTESIS ASPIR&/INJ MAJOR JT/BURSA W/O AGOigxxku67/22/2025 11:21 AM EDT Arthritis of left knee from Last 3 Months Results * ID ARTHROCENTESIS ASPIR&/INJ MAJOR JT/BURSA W/O US (04/01/2025 11:21 AM EDT) Narrative Berry Thacker PA - 04/01/2025 11:21 AM EDT TAMIKO Whelan 04/01/2025 12:50 PM L Inj/Asp: L knee on 04/01/2025 11:21 AM Indications: pain Details: 22 G needle, anterolateral approach Medications: 40 mg methylPREDNISolone acetate 40 MG/ML Outcome: tolerated well, no immediate complications UTILIZING ASEPTIC TECHNIQUE PT GIVEN INJECTION IN LEFT KNEE, NEUROVASC INTACT S/P INJ, TOLERATED WELL Procedure, treatment alternatives, risks and benefits explained, specific risks discussed. Consent was given by the patient. Authorizing ProviderResult TypeResult StatusMatthew Richmond Thacker PAIN CLINIC/BEDSIDE ORDERABLESFinal Result from Last 3 Months Insurance Care Teams Team MemberRelationshipSpecialtyStart DateEnd Date Ben Emerson MD [employer] [place] [address] PCP - GeneralFamily Hymzxxlm40/23/24
--- OUTSIDE RECORDS SUMMARY | 2025-04-16 07:34 | XMS_ITS | Clinical Summary ---
Author Organization [employer] tem Address [id number] [address] [place] [address] Care Team Providers Care Phone Specialist Name Role Phone Sreedhar Emerson Primary Care Provider [phone] Allergies Active AllergyReactionsCriticalityNoted DateCommentsAtorvastatinOther (See Comments)04/02/2024efuroximeOther (See Comments)04/02/2024iprofloxacinOther (See Comments)04/02/20243376Jqkjvfdjm67/23/2024Ipratropium-Sjruikjls39/05/2025 Aajexshznokf45/23/2024LisinoprilOther (See Comments)04/02/2024Nitrofurantoin Other (See Comments)04/02/2024enicillinsOther (See Comments)04/02/2024 Kypoiumhvqwi49/23/2024Sulfa (Sulfonamide Antibiotics)04/02/2024 Other Reaction(s): Unknown Medications MedicationSigDispense QuantityRefillsLast FilledStart DateEnd DateStatus glipiZIDE (GLUCOTROL) 10 mg tablet Take 1 tablet (10 mg total) by mouth in the morning and 1 tablet (10 mg total) in the evening. Takebefore meals.04/12/2021ctive meloxicam (MOBIC) 7.5 mg tablet Take 1 tablet (7.5 mg total) by mouth in the morning.04/15/2021ctive indapamide (LOZOL) 2.5 mg tablet Take 1 tablet (2.5 mg total) by mouth daily.02/18/2021ctive metFORMIN (GLUCOPHAGE) 1000 mg tablet Take 1 tablet (1,000 mg total) by mouth in the morning and 1 tablet (1,000 mg total) in the evening. Take with meals.10/23/2022ctive citalopram (CeleXA) 40 mg tablet Take 1 tablet (40 mg total) by mouth in the morning.Active propranoloL (INDERAL) 20 mg tablet Take 1 tablet (20 mg total) by mouth in the morning and 1 tablet (20 mg total) before bedtime.07/11/2022ctive montelukast (SINGULAIR) 10 mg tablet Take 1 tablet (10 mg total) by mouth nightly.09/02/2021ctive insulin glargine (LANTUS SOLOSTAR U-100 INSULIN) 100 unit/mL (3 mL) insulin pen Inject 38 Units under the skin nightly.04/11/2021ctive furosemide (LASIX) 40 mg tablet Take 1 tablet (40 mg total) by mouth daily.07/11/2022ctive potassium chloride (KLOR-CON M20) 20 MEQ CR tablet Take 1 tablet (20 mEq total) by mouth in the morning.03/03/2024ctive ALPRAZolam (XANAX) 0.25 mg tablet Take 2 tablets (0.5 mg total) by mouth nightly as needed for anxiety.02/15/2022 Active Immunizations ImmunizationAdministration DatesNext OckJiwf2607/16/2024 Social History Tobacco UseTypesPacks/DayYears UsedDateSmoking Tobacco: NeverSmokeless Tobacco: Never Tobacco Cessation:Counseling Given: Not Answered ChildcareAnswerDate FnjcyljoPogbqveigTifxigi08/10/2021mploymentAnswerDate ZhkwnvdeQirwjbygmySxopbmo40/10/2021Hunger ScreeningAnswerDate RecordedWithin the past 12 months we worried whether our food would run out before we got money to buy more.Never True07/16/2024Within the past 12 months the food we bought just didn't last and we didn't have money to get more.Never True07/16/2024Purpose - LifeAnswerDate RecordedPurpose and direction in ajdgDvnlyxm54/11/2021 CommentsUnknownSex and Gender InformationValueDate RecordedSex Assigned at Not on fileLegal QpfMeduxm19/06/2015 11:24 AM EDTGender IdentityNot on file Sexual OrientationNot on file Last Filed Vital Signs Vital SignReadingTime TakenCommentsBlood Iddntufd961/64007/16/2024 10:44 AM EST Mgkhy229207/16/2024 10:44 AM VZXNpbrcczrzdt19.9 ??C (98.4 ??F)07/16/2024 8:58 AM ESTRespiratory Lzet923307/16/2024 10:44 AM ESTOxygen Sdkuljczep16%07/16/2024 10:44 AM ESTInhaled Oxygen Concentration--Pwiejx825 kg (266 lb 11.2 oz)07/16/2024 8:58 AM XHRWgxuju502.9 cm (5' 1 )07/16/2024 8:58 AM ESTBody Mass Index50.39007/16/2024 8:58 AM EST Plan of Treatment Health MaintenanceDue DateLast DoneCommentsDepression Ugoiytuxw16/13/1952Zoster (Shingles) Vaccine (1 of 2)09/21/1989Fall Risk Hdfekwqod15/13/2005RSV ( or age 60+ yrs) (1 - 1-dose 75+ series)09/21/2014COVID-19 Vaccine ( - season)/06/2020, 08/12/2020Influenza Ybyxcgk1002/09/2025Tobacco Fhralolca21DTaP,Tdap and Td Vaccines (2 - Td or Tdap) Medical Devices Not on file Insurance * Guarantor: Carlita Sprague TypeRelation to PatientDate of BirthPhone Billing AddressPersonal/RdgtobSkhn33/13/1941 [employer] [place] [address] Care Teams Team MemberRelationshipSpecialtyStart DateEnd Date Sreedhar Emerson DO [address] [place] [address] [facility]
== END 2025-04-16 07:30 | disposition home or self-care (01) ==
LOC: RAD 07:29
PROVIDERS: PCP Family Medicine; Visit Provider Physician Assistant
DX: S42.202D Unspecified fracture of upper end of left humerus, subsequent encounter for fracture with routine healing (principal)
CPT/HCPCS: 73030

== ENCOUNTER 2025-05-11 15:00 | Inpatient (IN) | payer MEDICARE, SELFPAY ==
[2025-05-11] VITALS (19 sets, daily range): BP systolic 143–163; BP diastolic 81–112; PULSE 65–89; TEMP 33; O2SAT 89–100; BMI 40.2; BMI 51.4
--- NOTE | 2025-05-11 15:03 | ECG_ITS ---
The [facility] Test Date: 2025-05-11 Pat Name: PIEDAD TA Department: Room: - Gender: Female Sustainable Design Coordinator: : 1940 Requested By: [id number] Order Number: [id number] Reading MD: Favio López Measurements Intervals [place] Rate: 80 P: 28 [place]: 262 QRS: 52 QRSD: 94 T: 224 QT: 386 QTc: 421 Interpretive Statements 1100 Sinus rhythm 2231 First degree AV block [address] depression 4564 Twave abnormality, possible lateral ischemia 4664 Twave abnormality, possible inferior ischemia 9150 abnormal ECG Compared to ECG 02/17/2025 04:55:56 ST (T wave) deviation now more significant inferolateral leads Possible ischemia now present PVCs no longer present Electronically Signed On 05-11-2025 15:56:51 EST by Favio López
--- NOTE | 2025-05-11 15:03 | XR_ITS ---
The [place] [id number] Patient Name: PIEDAD TA MRN: [id number] date: 1940 Sex: F Assigned Patient Location: ED.MAIN Current Patient Location: ED.MAIN Accession/Order Number: [id number] Exam Date: 05/11/2025 15:30 Report Date: 05/11/2025 16:07 At the request of: CORY SHEPHERD MD Procedure: XR chest 1V Single view chest: CLINICAL HISTORY: sob COMPARISON: Chest 02/13/2025 FINDINGS: Cardiomegaly with vascular congestion and small bilateral pleural effusions which have progressed since the prior study. No pneumothorax or free air. XR/XR chest 1V IMPRESSION: WORSENING CHF FINDINGS. Impression dictated by: Song Pruett Jr., DCharleenOCharleen 05/11/2025 4:07 PM Dictation Location: [place] [address] Electronically authenticated by: [id number] Y Date: 05/11/2025 16:07
--- OUTSIDE RECORDS SUMMARY | 2025-05-11 15:18 | XMS_ITS | Clinical Summary ---
Author Organization [facility] Address [address] [place] [address] Care Team Providers Care Manager Fast Food Name Role Phone Ben Emerson MD Primary Care Provider [phone] Allergies Active AllergyReactionsCriticalityNoted DateCommentsAtorvastatinUnknown 04/02/20247138YsondguxviYktvxtu75/23/1014FvlcexcwcsyntCcpywvj99/23/2024Ezetimibe 04/02/20246331Nqxbjiqpguyb77/23/3795EvlxielewvPjjiuzr76/23/2024NitrofurantoinUnknown 04/02/20246220NnrjcmkjelwPbqktki85/23/1601Rxytgbrkgagd95/23/2024Sulfa Antibiotics 04/02/2024 Other Reaction(s): Unknown Medications MedicationSigDispense QuantityRefillsLast FilledStart DateEnd DateStatus Blood Glucose Monitoring Suppl (Accu-Chek Guide) w/Device kit 05/02/2023ctive citalopram (CeleXA) 40 MG tablet Take 40 mg by mouth DailyActive Continuous Glucose Horseradish Grinder (FreeStyle Corey 3 [place]) device USE THREE TIMES DAILY10/27/2023ctive Continuous Glucose Sensor (FreeStyle Corey 3 Sensor) [facility] [place]/30/[place]24ctive furosemide (Lasix) 40 MG tablet 1 tab(s), Oral, Daily, # 90 tab(s), 3 Refill(s), Pharmacy: [facility], TAKE 1 TABLET EVERY DAY, 152.4, cm, 03/29/23 14:44:00 EDT, Height 07/30/2023ctive glipiZIDE (Glucotrol) 10 MG tablet 1 tab(s), PO, Daily, # 90 tab(s), 3 Refill(s), patient has supply at home (Rx), 152.4, cm, 02/27/2412:58:00 EDT, Height, 115, kg, 02/27/24 13:04:00 EDT, Weight Epqjwd9802/27/2024ctive Accu-Chek Guide test strip 10/15/2023ctive indapamide (Lozol) 2.5 MG tablet 1 (one) time each day at the same timeActive Lantus SoloStar 100 UNIT/ML pen See Instructions, Instructions: INJECT 34 UNITS UNDER THE SKIN ONCE DAILY, # 45 mL, 3 Refill(s), patient has supply at home (Rx), 152.4, cm, 12/07/23 8:51:00 EDT, Height, 113.4, kg, 12/07/23 8:58:00 EDT, Weight Xhepnb0712/07/2023ctive meloxicam (Mobic) 7.5 MG tablet 1 (one) time each day at the same timeActive metFORMIN (Glucophage) 1000 MG tablet 1 tab(s), Oral, BID, # 180 tab(s), 3 Refill(s), Pharmacy: [facility], TAKE 1TABLET TWICE DAILY, 152.4, cm, 03/29/23 14:44:00 EDT, Height, 115.9, kg, 10/25/23 9:54:00 EDT, Weight Rdeeke9411/19/2023ctive montelukast (Singulair) 10 MG tablet 1 tab(s), Oral, qPM, # 90 tab(s), 3 Refill(s), Pharmacy: [facility], TAKE 1 TABLET EVERY EVENING, 152.4, cm, 03/29/23 14:44:00 EDT, Vixrud1810/15/2023ctive KLOR-CON 20 MEQ ER tablet Take 20 mEq by mouth Daily03/03/2024ctive traMADol (Ultram) 50 MG tablet TAKE 1 TABLET BY MOUTH EVERY 8 HOURS (30 DAY SUPPLY)03/28/2024ctive Active Problems No known active problems Encounters DateTypeDepartmentCare XrzyUwaiiloswab89/23/2025Telephone [facility] [address] [place] [address] Berry Thacker PA 04/01/2025 11:00 AM EDTOffice Visit [facility] [address] [place] [address] Berry Thacker PA Acute pain of left knee (Primary Dx); Arthritis of left knee04/01/2025amboo flowsheet [facility] [address] [place] [address] eBrry Thacker PA 04/01/20253378Cxspbt51/24/2025bstract [facility] [address] [place] [address] Unallocated, [facility] 3 Months Social History Tobacco UseTypesPacks/DayYears UsedDateSmoking Tobacco: NeverSmokeless Tobacco: Never Tobacco Cessation:Counseling Given: Not Answered CommentsUnknownSex and Gender InformationValueDate RecordedSex Assigned at BirthNot on fileLegal IuxQkhrgi56/15/2023 11:01 PM EDTGender IdentityNot on fileSexual OrientationNot on file Last Filed Vital Signs Vital SignReadingTime TakenCommentsBlood Pressure--Pulse--Temperature-- Respiratory Rate--Oxygen Saturation--Inhaled Oxygen Concentration--Jstmsh726 kg (225 lb)04/02/2024 1:03 PM USBWvdfas486.5 cm (5' 2 )04/02/2024 1:03 PM EDTBody Mass Index41.151 1:03 PM EDT Plan of Treatment Health MaintenanceDue DateLast DoneCommentsPneumococcal Vaccine: 65+ Years (2 of 2 - PCV)COVID-19 Vaccine (3 - season)2025 09/09/2020, 08/12/2020Influenza Vaccine (#1)2025 Procedures Procedure NamePriorityDate/TimeAssociated DiagnosisCommentsPR ARTHROCENTESIS ASPIR&/INJ MAJOR JT/BURSA W/O ZPCvhhslj97/22/2025 11:21 AM EDT Arthritis of left knee from Last 3 Months Results * AR ARTHROCENTESIS ASPIR&/INJ MAJOR JT/BURSA W/O US (04/01/2025 [...] Team MemberRelationshipSpecialtyStart DateEnd Date Ben Emerson MD [address] [place], [place] [id number] [facility] Idbalihl56/23/24
--- OUTSIDE RECORDS SUMMARY | 2025-05-11 15:18 | XMS_ITS | Clinical Summary ---
Author Organization [facility] Address [id number] [address] [place] [address] Care Team Providers Care Profile Shaper Operator Name Role Phone Sreedhar Emerson Primary Care Provider [phone] Allergies Active AllergyReactionsCriticalityNoted DateCommentsAtorvastatinOther (See Comments)04/02/2024efuroximeOther (See Comments)04/02/2024iprofloxacinOther (See Comments)04/02/20248950Nlbuyeion48/23/2024Ipratropium-Qozipwqne75/05/2025 Fwpulrpqtmlk49/23/2024LisinoprilOther (See Comments)04/02/2024Nitrofurantoin Other (See Comments)04/02/2024enicillinsOther (See Comments)04/02/2024 Yaltkimeygfj71/23/2024Sulfa (Sulfonamide Antibiotics)04/02/2024 Other Reaction(s): Unknown Medications MedicationSigDispense [...] needed for anxiety.02/15/2022 Active Immunizations ImmunizationAdministration DatesNext PesYbqn7907/16/2024 Social History Tobacco UseTypesPacks/DayYears UsedDateSmoking Tobacco: NeverSmokeless Tobacco: Never Tobacco Cessation:Counseling Given: Not Answered ChildcareAnswerDate TtbevmivVthqkeukjNzonoiu95/10/2021mploymentAnswerDate MhgverjdWlvdqnqocgNvbnwyx35/10/2021Hunger ScreeningAnswerDate RecordedWithin the past 12 months we worried whether our food would run out before we got money to buy more.Never True07/16/2024Within the past 12 months the food we bought just didn't last and we didn't have money to get more.Never True07/16/2024Purpose - LifeAnswerDate RecordedPurpose and direction in igubXczxrkq12/11/2021 CommentsUnknownSex and Gender InformationValueDate RecordedSex Assigned at Not on fileLegal AbiZxmbyb07/06/2015 11:24 AM EDTGender IdentityNot on file Sexual OrientationNot on file Last Filed Vital Signs Vital SignReadingTime TakenCommentsBlood Ygrwdzll035/64007/16/2024 10:44 AM EST Zqsdh095707/16/2024 10:44 AM UGRKwrbgxkacks88.9 ??C (98.4 ??F)07/16/2024 8:58 AM ESTRespiratory Tgkq518007/16/2024 10:44 AM ESTOxygen Wyjtpquvts06%07/16/2024 10:44 AM ESTInhaled Oxygen Concentration--Ttznnr263 kg (266 lb 11.2 oz)07/16/2024 8:58 AM TQLTsouud900.9 cm (5' 1 )07/16/2024 8:58 AM ESTBody Mass Index50.39007/16/2024 8:58 AM EST Plan of Treatment Health MaintenanceDue DateLast DoneCommentsDepression Tffjrecsx69/13/1952Zoster (Shingles) Vaccine (1 of 2)09/21/1989Fall Risk Spaotzfjt03/13/2005RSV ( or age 60+ yrs) (1 - 1-dose 75+ series)09/21/2014COVID-19 Vaccine ( - season)/06/2020, 08/12/2020Influenza Ejoqrxh1802/09/2025Tobacco Czstnwsgc01DTaP,Tdap and Td Vaccines (2 - Td or Tdap) Medical Devices Not on file Insurance * Guarantor: Carlita Sprague TypeRelation to PatientDate of BirthPhone Billing AddressPersonal/EzaqhuGvdj57/13/1941 [facility] [place] [address] Care Teams Team MemberRelationshipSpecialtyStart DateEnd Date Sreedhar Emerson DO [address] [place] [address] [facility]
[2025-05-11 15:46] LABS: Hematocrit 38.5 % (36.0-48.0); Hemoglobin 12.2 g/dL (12.0-16.0); Immature Granulocytes Abs Auto 0.04 10^3/uL (0.00-0.03); Immature Granulocytes Pct Auto 0.6 % (0.0-0.5); Lymphocytes Absolute Auto 1.1 10^3/uL (1.2-3.8); Mean Corpuscular HGB Conc 31.7 g/dL (29.9-35.2); Mean Corpuscular Hemoglobin 29.8 pg (26.7-34.0); Mean Corpuscular Volume 94.1 fL (81.0-99.0); Platelet Count 103 10^3/uL (150-450); Red Blood Count 4.09 10^6/uL (4.20-5.40); White Blood Count 7.1 10^3/uL (4.0-11.0)
[2025-05-11 15:50] LABS: SARS-CoV-2 Ag NEGATIVE (NEGATIVE)
[2025-05-11 15:52] LABS: INR 0.99; Prothrombin Time 10.4 sec (9.0-11.6)
[2025-05-11 15:55] LABS: Magnesium 2.0 mg/dL (1.8-2.4)
[2025-05-11 15:56] LABS: Alanine Aminotransferase 25 U/L (14-59); Albumin Globulin Ratio 0.6; Albumin Level 2.6 g/dL (3.4-5.0); Alkaline Phosphatase 88 U/L (46-116); Anion Gap 10.6; Aspartate Amino Transferase 26 U/L (15-37); Blood Urea Nitrogen 40.0 mg/dL (7.0-18.0); Calcium 8.7 mg/dL (8.5-10.1); Carbon Dioxide 29.6 mmol/L (21.0-32.0); Chloride 102 mmol/L (98-107); Estimated GFR (African America 44 (>=60 mL/min/1.73m^2); Estimated GFR (Non-African Ame 36 (>=60 mL/min/1.73m^2); Globulin 4.1 g/dL; Glucose 338 mg/dL (74-106); Potassium 4.2 mmol/L (3.5-5.1); Sodium 138 mmol/L (136-145); Total Protein 6.7 g/dL (6.4-8.2)
[2025-05-11 16:01] LABS: NT Pro B Type Natriuretic Pept 570.0 pg/mL (<=1800.0)
--- NOTE | 2025-05-11 16:04 | ED.GENADUL1 ---
HPI HPI - General Adult General Chief complaint: Shortness of Breath/Dyspnea Stated complaint: Shortness of Breath Time Seen by Provider: 05/11/25 15:02 Source: patient Mode of arrival: ambulance Limitations: no limitations History of Present Illness HPI narrative: Ms. Sprague is a 84 years old female with history of hypertension diabetes as well as diastolic heart failure on previous presentation, brought to us by the EMS after her son called because she has been short of breath for the last 24 hours and especially this morning, the patient herself is not providing us with a lot of history except for the shortness of breath, there is no fever chills no abdominal or chest pain, the patient chronically wears Unna boots but over the last almost 1 week it was removed by home health care and she did had some blister on her left foot as well as her right leg which the right leg right now has a dressing on and the foot blister is obvious on presentation, The patient on arrival of the EMS was found to be in the upper 80s saturating at room air, she was placed on nasal cannula 3 L and right now saturating 90 % Related Data Home Medications ?Medication ?Instructions ?Recorded ?Confirmed furosemide 40 mg tablet 40 mg PO DAILY 02/13/25 05/11/25 montelukast 10 mg tablet 10 mg PO HS 02/13/25 05/11/25 psyllium husk (bulk) 100 % powder 2.6 ea PO QD 02/16/25 02/16/25 alprazolam 0.25 mg tablet mg 05/11/25 blood-glucose sensor (FreeStyle 05/11/25 05/11/25 Corey 3 Sensor device) citalopram 40 mg tablet mg 05/11/25 glipizide 10 mg tablet mg 05/11/25 insulin glargine U-300 conc 300 unit subcut 05/11/25 unit/mL (1.5 mL) subcutaneous pen (Toujeo SoloStar U-300 Insulin) nystatin 100,000 unit/gram topical topical 05/11/25 powder potassium chloride 20 mEq meq PO 05/11/25 tablet,extended release(part/cryst) Previous Rx's ?Medication ?Instructions ?Recorded calcium 600 mg (as 1 tab PO BIDWM #0 tabs 02/14/25 carbonate)-vitamin D3 10 mcg (400 unit) tablet acetaminophen 325 mg tablet 650 mg (2 x 325 mg) PO Q6H PRN 02/20/25 (Tylenol) Pain or fever #0 tabs cholecalciferol (vitamin D3) 62.5 62.5 mcg PO DAILY 28 days #28 caps 02/20/25 mcg (2,500 unit) capsule citalopram 10 mg tablet (Celexa) 10 mg PO DAILY #30 tabs 02/20/25 cyanocobalamin (vitamin B-12) 1,000 mcg IM Q30D #0 mL 02/20/25 1,000 mcg/mL injection solution vasoefjf-gdfjnrg-zxzjsao 24 31 g PO Q15M PRN Hypoglycemia #0 02/20/25 gram/31 gram oral gel grams (Insta-Glucose (with dextrin)) docusate sodium 100 mg capsule 100 mg PO BID PRN Constipation #0 02/20/25 caps enoxaparin 40 mg/0.4 mL 40 mg (0.4 mL) subcut QD #0 mL 02/20/25 subcutaneous syringe glucagon 1 mg solution for 1 mg IV Q15M PRN Hypoglycemia #0 ea 02/20/25 injection (Glucagon Emergency Kit) insulin aspart U-100 100 unit/mL 2 - 10 unit (0.02 - 0.1 mL) subcut 02/20/25 (3 mL) subcutaneous pen (Novolog ACHS #0 mL FlexPen U-100 Insulin aspart) insulin glargine 100 unit/mL (3 22 unit (0.22 mL) subcut HS #22 mL 02/20/25 mL) subcutaneous pen (Lantus Solostar U-100 Insulin) levofloxacin 250 mg tablet 250 mg PO DAILY 7 days #7 tabs 02/20/25 metoprolol tartrate 25 mg tablet 12.5 mg (1/2 x 25 mg) PO TID #60 02/20/25 tabs oxycodone 5 mg tablet 2.5 mg (1/2 x 5 mg) PO Q4H PRN 02/20/25 left shoulder pain #15 tabs sennosides 8.6 mg-docusate sodium 1 tab PO QD PRN Constipation #0 02/20/25 50 mg tablet (Senna Plus) tabs tamsulosin 0.4 mg capsule (Flomax) 0.4 mg PO DAILY #30 caps 02/20/25 Allergies Allergy/AdvReac Type Severity Reaction Status Date / Time Penicillins Allergy Mild Unknown Verified 05/11/25 15:09 cefuroxime Allergy Unknown Verified 05/11/25 15:09 ciprofloxacin (From Cipro) Allergy Unknown Verified 05/11/25 15:09 lisinopril Allergy Unknown Verified 05/11/25 15:09 nitrofurantoin Allergy Unknown Verified 05/11/25 15:09 Sulfa (Sulfonamide Allergy Unknown Verified 05/11/25 15:09 Antibiotics) Opioid HPI Opioid Management Most Recent Opioid Data: Last Pain Scale 4 02/20/25, 14:39 Last Pain Intensity 4 02/20/25, 14:39 Last ORT Total Score 0 02/16/25, 19:44 Last ORT Risk Category Low Risk 02/16/25, 19:44 Review of Systems ROS Status of ROS 10 or more systems reviewed and unremarkable except as noted in history and below [facility] Medical History (Updated 05/11/25 @ 16:21 by Regina Laird MD) Skin cancer ?C44.90 - Unspecified malignant neoplasm of skin, unspecified (ICD-10) Surgical History (Updated 02/16/25 @ 19:58 by Chhaya Solomon, [place]) Hx of fusion of cervical spine ?Z98.1 - Arthrodesis status (ICD-10) Hx of cholecystectomy ?Z90.49 - Acquired absence of other specified parts of digestive tract (ICD-10) Hx of left mastectomy ?Z90.12 - Acquired absence of left breast and nipple (ICD-10) Family History (Updated 02/16/25 @ 19:59 by Chhaya Solomon, [place]) Father Family history of COPD (chronic obstructive pulmonary disease) Mother Family history of COPD (chronic obstructive pulmonary disease) Social History (Updated 02/16/25 @ 20:00 by Chhaya Solomon, RN) Within the past year, how often did you have a drink containing alcohol: never Score interpretation: A score less than 3 is consistent with normal alcohol consumption. Smoking status: Never smoker Non-prescribed substance use: denies use Known occupational exposures/hazards: No Highest level of school completed/degree received: 12th grade, no diploma Are you now , , , , never or living with a partner: In a typical week, how many times do you talk on the telephone with family, friends, or neighbors: 3 or more times per week How often do you get together with friends or relatives: 3 or more times per week Little interest or pleasure in doing things: not at all Feeling down, depressed, or hopeless: not at all Feel stressed/tense/nervous/anxious/difficulty sleeping: not at all Do you think of yourself as: straight/heterosexual Gender Identity: male Exam Narrative Exam Narrative: Nurses notes and vital signs reviewed and patient is not hypoxic. General: Well-appearing and in no apparent distress. Skin: Warm, dry, no pallor noted. No rash. Head: Normocephalic, atraumatic. Neck: Supple, non-tender. Cardiovascular: Regular Rate and Rhythm without murmur, gallop or rub. Respiratory: No accessory muscle use or respiratory distress. Lungs there is distant breathing sounds with crackles heard in both lung luther at the bases, and rhonchi heard in the upper lung luther Musculoskeletal: normal ROM, no calf or popliteal tenderness, there is a large abrasion like ulcer on the right leg mostly up just above the lateral malleolus, measuring almost 5 x 7 cm, there is another bullous on the dorsum of the left foot that measuring 5 x 12 cm filled with fluid. Does not look infected and is not tender There is at least 1+ pitting edema bilaterally GI: Abdomen is soft, distended due to obesity, normal bowel sounds. No masses appreciated. No tenderness to palpation. No rebound, guarding, or rigidity noted. Neurological: A&O x alert oriented x 1 no cranial nerve dysfunction observed. Constitutional Vital Signs, click to edit/add: Last Vital Signs Pulse 85 05/11/25 15:03 Resp 22 H 05/11/25 15:03 BP 160/112 H 05/11/25 15:03 Pulse Ox 90 L 05/11/25 15:11 O2 Del Method Room Air 05/11/25 15:11 O2 Flow Rate 2 05/11/25 15:11 Course Vital Signs Vital signs: Vital Signs Pulse Rate 85 05/11/25 15:03 Respiratory Rate 22 H 05/11/25 15:03 Blood Pressure 160/112 H 05/11/25 15:03 Pulse Oximetry 89 L 05/11/25 15:03 Oxygen Delivery Method Room Air 05/11/25 15:03 Pulse Rate 85 05/11/25 15:03 Respiratory Rate 22 H 05/11/25 15:03 Blood Pressure 160/112 H 05/11/25 15:03 Pulse Oximetry 90 L 05/11/25 15:11 Oxygen Delivery Method Room Air 05/11/25 15:11 Oxygen Delivery Flow Rate 2 05/11/25 15:11 Medical Decision Making MDM Narrative Medical decision making narrative: The patient EKG in the ER showing sinus rhythm with a heart rate of [address] elevation seen on EKG Her presentation is concerning mostly of CHF exacerbation especially with the bilateral leg edema the congestion and the crackles in both lung luther and hypoxemia on room air in addition to the blisters of fluid in her left lower extremity The patient initially had a CBC and chemistry that showed no acute significant pathology and no leukocytosis Chest x-ray shows an obvious CHF exacerbation picture but the patient did not have any documented echo done in our hospital The patient was started on Lasix 40 mg IV after we make sure that the potassium is within normal The patient troponin is negative Patient case discussed with the hospitalist on-call and he agreed on admission and the patient family as well had the plan discussed with them Lab Data Labs: Lab Results 05/11/25 05/11/25 Range/Units 15:15 15:28 WBC 7.1 (4.0-11.0) 10^3/uL RBC 4.09 L (4.20-5.40) 10^6/uL Hgb 12.2 (12.0-16.0) g/dL Hct 38.5 (36.0-48.0) % MCV 94.1 (81.0-99.0) fL MCH 29.8 (26.7-34.0) pg MCHC 31.7 (29.9-35.2) g/dL RDW 14.6 (11.0-15.0) % Plt Count 103 L (150-450) 10^3/uL MPV 10.4 (9.5-13.5) fL Neut % (Auto) 74.4 (43.0-75.0) % Lymph % (Auto) 15.2 L (20.5-60.0) % [place] % (Auto) 8.5 (1.7-12.0) % Eos % (Auto) 0.9 (0.9-7.0) % Baso % (Auto) 0.4 (0.2-2.0) % Neut # (Auto) 5.3 (1.4-6.5) 10^3/uL Lymph # (Auto) 1.1 L (1.2-3.8) 10^3/uL [place] # (Auto) 0.6 (0.3-0.8) 10^3/uL Eos # (Auto) 0.1 (0.0-0.7) 10^3/uL Baso # (Auto) 0.0 (0.0-0.1) 10^3/uL Abs Immat Gran (auto) 0.04 H (0.00-0.03) 10^3/uL Imm/Tot Granulo (auto) 0.6 H (0.0-0.5) % PT 10.4 (9.0-11.6) sec INR 0.99 Sodium 138 (136-145) mmol/L Potassium 4.2 (3.5-5.1) mmol/L Chloride 102 (98-107) mmol/L Carbon Dioxide 29.6 (21.0-32.0) mmol/L Anion Gap 10.6 BUN 40.0 H (7.0-18.0) mg/dL Creatinine 1.38 H (0.55-1.02) mg/dL Est GFR ( Amer) 44 L (>=60 mL/min/1.73m^2) Est GFR (Non-Af Amer) 36 L (>=60 mL/min/1.73m^2) BUN/Creatinine Ratio 29.0 Glucose 338 H (74-106) mg/dL Calcium 8.7 (8.5-10.1) mg/dL Magnesium 2.0 (1.8-2.4) mg/dL Total Bilirubin 0.4 (0.2-1.0) mg/dL AST 26 (15-37) U/L ALT 25 (14-59) U/L Alkaline Phosphatase 88 (46-116) U/L Troponin I High Sens 49.7 (4.0-51.3) pg/mL NT-Pro-B Natriuret Pep 570.0 (<=1800.0) pg/mL Total Protein 6.7 (6.4-8.2) g/dL Albumin 2.6 L (3.4-5.0) g/dL Globulin 4.1 g/dL Albumin/Globulin Ratio 0.6 Influenza Type A Ag Negative Influenza Type B Ag Negative SARS-CoV-2 Ag (CV2AG) Negative (NEGATIVE) Discharge Plan Discharge Chief Complaint: Shortness of Breath/Dyspnea Clinical Impression: Acute congestive heart failure Prescriptions / Home Meds: No Action furosemide 40 mg tablet 40 mg PO DAILY montelukast 10 mg tablet 10 mg PO HS calcium carbonate-vitamin D3 600 mg-10 mcg (400 unit) Tablet 1 tab PO BIDWM Qty: 0 0RF psyllium husk (bulk) 100 % Powder 2.6 ea PO QD Rx Instructions: 2.6 GRAMS ONCE DAILY acetaminophen [Tylenol] 325 mg Tablet 650 mg PO Q6H PRN (Reason: Pain or fever) Qty: 0 0RF cyanocobalamin (vitamin B-12) 1,000 mcg/mL Solution 1,000 mcg IM Q30D Qty: 0 0RF docusate sodium 100 mg Capsule 100 mg PO BID PRN (Reason: Constipation) Qty: 0 0RF Glucagon Emergency Kit (human) 1 mg Recon Soln 1 mg IV Q15M PRN (Reason: Hypoglycemia) Qty: 0 0RF enoxaparin 40 mg/0.4 mL Syringe 40 mg subcut QD Qty: 0 0RF insulin aspart U-100 [Novolog FlexPen U-100 Insulin] 100 unit/mL (3 mL) Insulin Pen 2 - 10 unit subcut ACHS Qty: 0 0RF Insta-Glucose (with dextrin) 24 gram/31 gram Gel 31 g PO Q15M PRN (Reason: Hypoglycemia) Qty: 0 0RF sennosides-docusate sodium [Senna Plus] 8.6-50 mg Tablet 1 tab PO QD PRN (Reason: Constipation) Qty: 0 0RF oxycodone 5 mg Tablet 2.5 mg PO Q4H PRN (Reason: left shoulder pain) Qty: 15 0RF levofloxacin 250 mg tablet 250 mg PO DAILY 7 Days Qty: 7 0RF Rx Instructions: Patient is not allergic to Levaquin. She had received a dose without any reaction tamsulosin [Flomax] 0.4 mg capsule 0.4 mg PO DAILY Qty: 30 0RF cholecalciferol (vitamin D3) 62.5 mcg (2,500 unit) capsule 62.5 mcg PO DAILY 28 Days Qty: 28 0RF metoprolol tartrate 25 mg tablet 12.5 mg PO TID Qty: 60 0RF citalopram [Celexa] 10 mg tablet 10 mg PO DAILY Qty: 30 0RF insulin glargine [Lantus Solostar U-100 Insulin] 100 unit/mL (3 mL) insulin pen 22 unit SUBCUT HS Qty: 22 0RF citalopram 40 mg tablet glipizide 10 mg tablet alprazolam 0.25 mg tablet potassium chloride 20 mEq tablet,ER particles/crystals PO nystatin 100,000 unit/gram powder TOPICAL (DME) FreeStyle Corey 3 Sensor Device MISCELLANEOUS insulin glargine U-300 conc [Toujeo SoloStar U-300 Insulin] 300 unit/mL (1.5 mL) insulin pen SUBCUT Print Language: Czech Referrals: JESSICA STOCK [Primary Care Provider, Family Practice] - 1 week
[2025-05-11] MEDS: FUROSEMIDE 40 MG/4 ML VIAL IVP (17:14)
[2025-05-11 17:37] LABS: Glucose Urine UA 500 mg/dL (NEGATIVE)
--- NOTE | 2025-05-11 17:41 | PHOTOS ---
rt carlos rivera
--- NOTE | 2025-05-11 17:41 | PHOTOS ---
left foot blister
[2025-05-11 17:46] LABS: Cast Seen? NONE SEEN #/LPF (NONE SEEN); Crystals Seen? None Seen #/HPF (None Seen); Urine Culture Indicated YES-FRMC
--- NOTE | 2025-05-11 19:03 | CT_ITS ---
[address] [address] Patient Name: PIEDAD TA MRN: [id number] date: 1940 Sex: F Assigned Patient Location: Current Patient Location: Accession/Order Number: [id number] Exam Date: 05/11/2025 19:30 Report Date: 05/11/2025 20:44 At the request of: CARLOS SMITH MD Procedure: CT angio chest CTA chest CLINICAL DATA: Hypoxia, elevated d-dimer, rule out pulmonary embolism. TECHNIQUE: Intravenous contrast-enhanced CT angiography of the chest was performed. Axial, sagittal, coronal, and 3D-dimensional reconstructions were created and reviewed. These CT exams were performed using one or more of the following dose reduction techniques: Automated exposure control, adjustment of the mA and/or kV according to patient size, or use of iterative reconstruction technique. COMPARISON: None. FINDINGS: Chest: Mediastinum:Cardiomegaly. No pericardial effusion. No bulky mediastinal or hilar adenopathy. No evidence of central, or lobar pulmonary artery embolism. Distal branches are less than optimally evaluated due to the atelectasis and effusions. Lungs:Moderate size effusions. Bibasilar areas of compressive atelectasis. No pneumothorax. Groundglass opacity likely interstitial and alveolar edema. Abd: Noncontributory.[ Soft tissues/Bones: Multilevel degenerative changes. Anasarca. CT/CT angio chest IMPRESSION: CHF findings with moderate-sized effusions and compressive atelectasis. Cardiomegaly with coronary disease. Negative for Central to lobar pulmonary embolism. Impression dictated by: Don Latif M.D. 05/11/2025 8:44 PM Dictation Location: [place] [address] Electronically authenticated by: [id number] Y Date: 05/11/2025 20:44
[2025-05-11] MEDS: LEVOFLOXACIN 500 MG TABLET PO (21:24)
[2025-05-11] MEDS: ENOXAPARIN SODIUM 30 MG/0.3 ML SYRINGE SUBQ (21:24)
[2025-05-11] MEDS: INSULIN ASPART 300 UNIT/3 ML PEN SUBQ (21:25)
[2025-05-11] MEDS: INSULIN GLARGINE 300 UNIT/3 ML INSULN.PEN 25 UNIT SQ (21:26)
[2025-05-11] MEDS: ALPRAZOLAM 1 MG TABLET PO (23:18)
[2025-05-11] MEDS: CILASTATIN SODIUM IV (23:19)
[2025-05-11] MEDS: IMIPENEM IV (23:19)
[2025-05-11] MEDS: SODIUM CHLORIDE 0.9% IV (23:19)
[2025-05-11 23:42] LABS: Lactate/Lactic Acid 1.4 mmol/L (0.4-2.0)
[2025-05-12] VITALS (21 sets, daily range): BP systolic 120–150; BP diastolic 68–76; PULSE 61–94; TEMP 25.5–36.4; O2SAT 92–97
[2025-05-12 05:52] LABS: Hematocrit 33.7 % (36.0-48.0); Hemoglobin 10.8 g/dL (12.0-16.0); Immature Granulocytes Abs Auto 0.03 10^3/uL (0.00-0.03); Immature Granulocytes Pct Auto 0.5 % (0.0-0.5); Lymphocytes Absolute Auto 1.4 10^3/uL (1.2-3.8); Mean Corpuscular HGB Conc 32.0 g/dL (29.9-35.2); Mean Corpuscular Hemoglobin 29.8 pg (26.7-34.0); Mean Corpuscular Volume 93.1 fL (81.0-99.0); Platelet Count 107 10^3/uL (150-450); Red Blood Count 3.62 10^6/uL (4.20-5.40); White Blood Count 6.3 10^3/uL (4.0-11.0)
[2025-05-12 06:06] LABS: Anion Gap 8.4; Blood Urea Nitrogen 37.0 mg/dL (7.0-18.0); Calcium 8.5 mg/dL (8.5-10.1); Carbon Dioxide 29.0 mmol/L (21.0-32.0); Chloride 104 mmol/L (98-107); Estimated GFR (African America 49 (>=60 mL/min/1.73m^2); Estimated GFR (Non-African Ame 40 (>=60 mL/min/1.73m^2); Glucose 126 mg/dL (74-106); Magnesium 1.8 mg/dL (1.8-2.4); Potassium 4.4 mmol/L (3.5-5.1); Sodium 137 mmol/L (136-145)
--- NOTE | 2025-05-12 08:00 | ECG_ITS ---
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: : 1940 Requested By: [id number] Order Number: [id number] Reading MD: PAULINA GARCIA Measurements Intervals [place] Rate: 83 P: 53 IA: 238 QRS: 22 QRSD: 105 T: 166 QT: 375 QTc: 443 Interpretive Statements SINUS RHYTHM WITH FIRST DEGREE AV BLOCK POSSIBLE ANTERIOR MYOCARDIAL INFARCTION [30 ms Q WAVE IN V3/V4, OR R < 0.2 mV IN V4], PROBABLY OLD MODERATE T-WAVE ABNORMALITY, CONSIDER LATERAL ISCHEMIA [-0.1+ mV T WAVE IN I/aVL/V5/V6] Compared to ECG 05/11/2025 15:25:15 Myocardial infarct finding now present T-wave abnormality now present ST (T wave) deviation no longer present Possible ischemia still present Electronically Signed On 05-12-2025 6:57:43 EST by PAULINA GARCIA
--- NOTE | 2025-05-12 09:15 | CM.NOTE ---
Rounds made with Dr. Carrillo, discussed with pt and son diagnosis and plan of care. No discharge today, pt inpatient status. Pt will get dose of IV lasix this am, graves intact for close monitoring of output.
[2025-05-12] MEDS: FUROSEMIDE 40 MG/4 ML VIAL IVP (09:23)
[2025-05-12] MEDS: IMIPENEM/CILASTATIN SODIUM 500 MG in 0.9 % SODIUM CHLORIDE 100 ML 200 MG IV ×2 (10:32→22:53)
--- NOTE | 2025-05-12 11:23 | PM.HP ---
HPI H&P: HPI History of Present Illness Chief complaint: Shortness of Breath, ACUTE CONGESTIVE HEART FAILUR Narrative: Mrs. Sprague is a 84-year-old female who came in with shortness of breath. Shortness of breath for the last few days. The dyspnea on exertion. Progressive weakness and fatigue. No fever or chills. No chest pain or palpitation. No abdominal pain. Patient was found to be hypoxic and tachypneic. No nausea or vomiting. No altered mentation just progressive weakness and fatigue. Patient is able to take few steps according to her son. Otherwise patient has a wheelchair and walker. Opioid HPI Opioid Management Most Recent Pain and Opioid Data: Last Pain Scale 0 Today, 11:18 Last Pain Intensity 4 02/20/25, 14:39 Last Pain Assessment Today, 11:18 Last ORT Total Score 0 05/11/25, 18:03 Last ORT Risk Category Low Risk 05/11/25, 18:03 Review of Systems ROS Status of ROS 10 or more systems reviewed and unremarkable except as noted in history and below PFSH PFS Medical History (Updated 05/12/25 @ 11:27 by Joy Carrillo MD) Morbidly obese ?E66.01 - Morbid (severe) obesity due to excess calories (ICD-10) Skin cancer ?C44.90 - Unspecified malignant neoplasm of skin, unspecified (ICD-10) Surgical History (Updated 02/16/25 @ 19:58 by Chhaya Solomon, [place]) Hx of fusion of cervical spine ?Z98.1 - Arthrodesis status (ICD-10) Hx of cholecystectomy ?Z90.49 - Acquired absence of other specified parts of digestive tract (ICD-10) Hx of left mastectomy ?Z90.12 - Acquired absence of left breast and nipple (ICD-10) Family History (Updated 02/16/25 @ 19:59 by Chhaya Solomon RN) Father Family history of COPD (chronic obstructive pulmonary disease) Mother Family history of COPD (chronic obstructive pulmonary disease) Social History (Updated 02/16/25 @ 20:00 by Chhaya Solomon, [place]) Within the past year, how often did you have a drink containing alcohol: never Score interpretation: A score less than 3 is consistent with normal alcohol consumption. Smoking status: Never smoker Non-prescribed substance use: denies use Known occupational exposures/hazards: No Highest level of school completed/degree received: 12th grade, no diploma Are you now , , , , never or living with a partner: In a typical week, how many times do you talk on the telephone with family, friends, or neighbors: 3 or more times per week How often do you get together with friends or relatives: 3 or more times per week Little interest or pleasure in doing things: not at all Feeling down, depressed, or hopeless: not at all Feel stressed/tense/nervous/anxious/difficulty sleeping: not at all Do you think of yourself as: straight/heterosexual Gender Identity: male Meds Home Medications and Allergies Home Medications ?Medication ?Instructions ?Recorded ?Confirmed ?Type furosemide 40 mg tablet 40 mg PO DAILY 02/13/25 05/11/25 History montelukast 10 mg tablet 10 mg PO HS 02/13/25 05/11/25 History calcium 600 mg (as 1 tab PO BIDWM #0 tabs 02/14/25 05/11/25 Rx carbonate)-vitamin D3 10 mcg (400 unit) tablet psyllium husk (bulk) 100 % powder 2.6 ea PO QD 02/16/25 05/11/25 History citalopram 10 mg tablet (Celexa) 10 mg PO DAILY #30 tabs 02/20/25 05/11/25 Rx cyanocobalamin (vitamin B-12) 1,000 mcg IM Q30D #0 mL 02/20/25 05/11/25 Rx 1,000 mcg/mL injection solution docusate sodium 100 mg capsule 100 mg PO BID PRN Constipation #0 02/20/25 05/11/25 Rx caps glucagon 1 mg solution for 1 mg IV Q15M PRN Hypoglycemia #0 ea 02/20/25 05/11/25 Rx injection (Glucagon Emergency Kit) insulin aspart U-100 100 unit/mL 2 - 10 unit (0.02 - 0.1 mL) subcut 02/20/25 05/11/25 Rx (3 mL) subcutaneous pen (Novolog ACHS #0 mL FlexPen U-100 Insulin aspart) insulin glargine 100 unit/mL (3 22 unit (0.22 mL) subcut HS #22 mL 02/20/25 05/11/25 Rx mL) subcutaneous pen (Lantus Solostar U-100 Insulin) sennosides 8.6 mg-docusate sodium 1 tab PO QD PRN Constipation #0 02/20/25 05/11/25 Rx 50 mg tablet (Senna Plus) tabs tamsulosin 0.4 mg capsule (Flomax) 0.4 mg PO DAILY #30 caps 02/20/25 05/11/25 Rx alprazolam 0.25 mg tablet 0.25 mg PO BID PRN anxiety 05/11/25 05/11/25 History blood-glucose sensor (FreeStyle 05/11/25 05/11/25 History Corey 3 Sensor device) glipizide 10 mg tablet 10 mg PO BID 05/11/25 05/11/25 History nystatin 100,000 unit/gram topical 1 applic topical BID 05/11/25 05/11/25 History powder potassium chloride 20 mEq 20 meq PO .QD 05/11/25 05/11/25 History tablet,extended release(part/cryst) metoprolol tartrate 25 mg tablet 25 mg PO TID 05/12/25 05/12/25 History Allergies Allergy/AdvReac Type Severity Reaction Status Date / Time Penicillins Allergy Mild Unknown Verified 05/11/25 15:09 cefuroxime Allergy Unknown Verified 05/11/25 15:09 ciprofloxacin (From Cipro) Allergy Unknown Verified 05/11/25 15:09 lisinopril Allergy Unknown Verified 05/11/25 15:09 nitrofurantoin Allergy Unknown Verified 05/11/25 15:09 Sulfa (Sulfonamide Allergy Unknown Verified 05/11/25 15:09 Antibiotics) Exam Narrative Exam Narrative: Patient is sitting in bed, morbidly obese. Patient is visibly tachypneic. Visible anasarca. Extensive edema involving her upper and lower extremities as well as abdominal wall. Patient is on oxygen. Respiratory is about 24. Chest exam revealed bilateral crackles and diminished breath sound. Heart is regular. Abdomen is soft. Increased abdominal girth therefore clinically I could not exclude the possibility of intra-abdominal mass organomegaly. Upper and lower extremities showed extensive +2 pitting edema proximally and distally. Patient is awake. Able to answer questions. Patient is weak. Unable to sit up or stand up on her own and that seems to be chronic and progressive. Constitutional Vital Signs, click to edit/add: Last Vital Signs Temp 97.6 F 05/12/25 11:18 Pulse 92 H 05/12/25 11:18 Resp 18 05/12/25 11:18 BP 150/72 H 05/12/25 11:18 Pulse Ox 92 L 05/12/25 11:18 O2 Del Method Nasal Cannula 05/12/25 11:18 O2 Flow Rate 1 05/12/25 11:18 Results Labs Labs: Short CBC 05/11/25 05/12/25 Range/Units 15:15 05:35 WBC 7.1 6.3 (4.0-11.0) 10^3/uL Hgb 12.2 10.8 L (12.0-16.0) g/dL Hct 38.5 33.7 L (36.0-48.0) % Plt Count 103 L 107 L (150-450) 10^3/uL BMP 05/11/25 05/12/25 15:15 05:35 Sodium 138 137 Potassium 4.2 4.4 Chloride 102 104 Carbon Dioxide 29.6 29.0 BUN 40.0 H 37.0 H Creatinine 1.38 H 1.26 H Glucose 338 H 126 H Calcium 8.7 8.5 Liver Function 05/11/25 Range/Units 15:15 Total Bilirubin 0.4 (0.2-1.0) mg/dL AST 26 (15-37) U/L ALT 25 (14-59) U/L Alkaline Phosphatase 88 (46-116) U/L Albumin 2.6 L (3.4-5.0) g/dL Urine 05/11/25 Range/Units 17:00 Urine Color Lt. yellow (YELLOW) Urine Clarity Sl cloudy (CLEAR) Urine pH 6.0 (5.0-9.0) Ur Specific [place] 1.010 (1.005-1.025) Urine Protein 100 A (NEG/TRACE) mg/dL Urine Glucose (UA) 500 A (NEGATIVE) mg/dL Assessment and Plan Assessment and Plan (1) Acute congestive heart failure: (2) Anasarca: Plan Extensive anasarca. Extensive edema involving her upper and lower extremities as well abdominal wall. Hypoxic respiratory failure secondary to above. Patient is at risk of PE therefore I ordered a CT of the chest and that came back negative for PE but positive for interstitial edema and pleural effusion. Low albumin causing low hydrostatic pressure and third spacing. Diastolic heart failure based on recent echocardiogram. I have accepted to admit patient to the medical floor. Telemetry monitoring. Given her diminished mobility and obesity she is at risk having DVT and PE. CT of the chest is negative for PE. Ordered lower extremity ultrasound rule out DVT. I gave patient 2 doses of Lasix intravenously. I would start her on Lasix drip 5 mg an hour Recent echocardiogram was completed last 2 months ago. No indication or justification to repeat echo. EF was normal. Patient had pulmonary hypertension. RVSP is 53. She had mild mitral and aortic stenosis as well as aortic regurgitation. UTI Recent urine culture came back positive for E. coli and Pseudomonas Requested urine and blood culture. I start patient on meropenem to cover both organisms Diabetes with hyperglycemia Recent A1c 7.2. I started patient on long-acting Lantus as well as sliding scale with the meal insulin. Titrate insulin to keep blood sugar between 125 and 180. Functional impairment according to the son, patient has a wheelchair and a walker. Recently she has been working with therapy team and was able to take a few steps Significant functional disability that would likely require skilled care or long-term residential living. CKD stage III borderline stage IV. Baseline creatinine is 1.8 and GFR in the upper 20s lower 30s. Continue to monitor electrolytes and kidney function while getting diuresis. Anemia, no evidence of acute blood loss. Patient will likely require to have anemia workup to be done in the outpatient setting to be handled by PCP in collaboration with other needed outpatient providers. This may include but not limited to EGD, colonoscopy, referral to see hematology and other needed age-appropriate cancer screening. DVT prophylax Lovenox Chronic, subacute medical conditions not listed above, abnormal labs and imaging, incidental findings seen on labs and or imaging. These would need to be addressed. Could be addressed later on or in the outpatient setting by PCP collaboration with other needed outpatient providers when time and condition are appropriate. Goals of care discussion and advance care planing I talked to patient about her wishes. Specifically I talked her about resuscitative effort in case of a cardiac and respiratory arrest. Patient stated that she wants everything to be done including chest compressions, shocks and life support Although I believe that her prognosis is poor, I would honor her wishes and keep her CODE STATUS full code. Spent about 1 hour and CC evaluation and management of this patient. Discussed her case with her son at the bedside. Urinary Catheter Management Urinary Catheter Management Urethral: Cath placed during this visit: yes Urethral indwelling: No Insertion date: 05/11/25 Insertion time: 17:10
[2025-05-12] MEDS: METOLAZONE 2.5 MG TABLET 5 MG PO (11:53)
[2025-05-12] MEDS: ACETAMINOPHEN 325 MG TABLET 650 MG PO (11:53)
[2025-05-12] MEDS: FUROSEMIDE 400 MG in 0.9 % SODIUM CHLORIDE 160 ML IV (11:53)
[2025-05-12] MEDS: ALPRAZOLAM 0.25 MG TABLET PO ×2 (11:54→21:24)
--- NOTE | 2025-05-12 14:17 | SWNOTE1 ---
SW spoke to pt's son in [facility], pt's nurse present for some of conversation as well. Pt lives at home with her and 2 of her sons. Pt's baseline is to [facility] transfer at home. Pt has a walker at home. Pt's son did let us know that she went to [place], but felt she only received 45 mins of therapy per day and that she was a karan lift over at [place]. Family did not feel she was ready for discharge, but her insurance cut her and the out of pocket cost to keep her there was too much. Pt does have [facility] coming in to the home. Pt has therapy and nursing. SW did ask at end of conversation if the plan was for pt to return home? Pt's son was not sure at this time. Pt does have 4 sons and 1 daughter. SW to speak with pt.
--- NOTE | 2025-05-12 14:25 | SWNOTE1 ---
ADILIA did call [facility] and spoke with Amy. Amy confirmed that pt is current with them. ADILIA to send updates.
--- NOTE | 2025-05-12 14:31 | SWNOTE1 ---
Updates faxed to [facility]. Updates included face sheet, ED note, physician note, and labs.
--- NOTE | 2025-05-12 14:39 | CM.NOTE ---
Important Message From Medicare discussed with pt, pt verbalizes understanding and signs paper. Original given to pt and copy placed in pt's chart.
[2025-05-12] MEDS: METOPROLOL TARTRATE 25 MG TABLET 12.5 MG PO ×2 (14:54→21:24)
--- NOTE | 2025-05-12 15:23 | SWNOTE1 ---
Pt was sleeping when SW attempted to see her. SW to stop back by later today or tomorrow morning.
[2025-05-12] MEDS: CALCIUM CARBONATE 600 MG/VITAMIN D3 400 IU TABLET 1 TAB PO (17:56)
[2025-05-12 20:00] LABS: Anion Gap 6.5; Blood Urea Nitrogen 39.0 mg/dL (7.0-18.0); Calcium 8.6 mg/dL (8.5-10.1); Carbon Dioxide 31.5 mmol/L (21.0-32.0); Chloride 103 mmol/L (98-107); Estimated GFR (African America 44 (>=60 mL/min/1.73m^2); Estimated GFR (Non-African Ame 36 (>=60 mL/min/1.73m^2); Glucose 88 mg/dL (74-106); Potassium 5.0 mmol/L (3.5-5.1); Sodium 136 mmol/L (136-145)
[2025-05-12] MEDS: POTASSIUM CHLORIDE 10 MEQ ER TABLET PO (21:23)
[2025-05-12] MEDS: MONTELUKAST SODIUM 10 MG TABLET PO (21:24)
[2025-05-12] MEDS: ENOXAPARIN SODIUM 30 MG/0.3 ML SYRINGE SUBQ (21:24)
[2025-05-13] VITALS (24 sets, daily range): BP systolic 109–152; BP diastolic 60–88; PULSE 52–92; TEMP 35.9–36.6; O2SAT 93–98
[2025-05-13 05:36] LABS: Hematocrit 35.4 % (36.0-48.0); Hemoglobin 11.3 g/dL (12.0-16.0); Mean Corpuscular HGB Conc 31.9 g/dL (29.9-35.2); Mean Corpuscular Hemoglobin 29.7 pg (26.7-34.0); Mean Corpuscular Volume 93.2 fL (81.0-99.0); Platelet Count 115 10^3/uL (150-450); Red Blood Count 3.80 10^6/uL (4.20-5.40); White Blood Count 8.0 10^3/uL (4.0-11.0)
[2025-05-13] MEDS: PANTOPRAZOLE SODIUM 40 MG TABLET.DR PO (05:53)
[2025-05-13] MEDS: METOPROLOL TARTRATE 25 MG TABLET 12.5 MG PO ×3 (05:53→21:57)
[2025-05-13] MEDS: ACETAMINOPHEN 325 MG TABLET 650 MG PO ×2 (05:55→14:30)
[2025-05-13 05:59] LABS: Anion Gap 8.4; Blood Urea Nitrogen 40.0 mg/dL (7.0-18.0); Calcium 8.8 mg/dL (8.5-10.1); Carbon Dioxide 30.5 mmol/L (21.0-32.0); Chloride 103 mmol/L (98-107); Estimated GFR (African America 45 (>=60 mL/min/1.73m^2); Estimated GFR (Non-African Ame 37 (>=60 mL/min/1.73m^2); Glucose 69 mg/dL (74-106); Potassium 4.9 mmol/L (3.5-5.1); Sodium 137 mmol/L (136-145)
--- NOTE | 2025-05-13 08:00 | CM.NOTE ---
Rounds made with Dr. Carrillo, discussed plan of care with pt. No discharge today, continue diuresing.
[2025-05-13] MEDS: TAMSULOSIN HCL 0.4 MG CAPSULE PO (08:46)
[2025-05-13] MEDS: POTASSIUM CHLORIDE 10 MEQ ER TABLET PO ×2 (08:46→20:55)
[2025-05-13] MEDS: CALCIUM CARBONATE 600 MG/VITAMIN D3 400 IU TABLET 1 TAB PO ×2 (08:46→18:19)
[2025-05-13] MEDS: CITALOPRAM HYDROBROMIDE 20 MG TABLET 10 MG PO (08:46)
--- NOTE | 2025-05-13 08:58 | P.PN_ITS ---
Progress Note: Subjective Subjective Interval history: Patient is feeling well. Less short of breath. Less tachypneic. No chest pain. Exam Narrative Exam Narrative: Patient is sitting in bed, morbidly obese. Patient is visibly tachypneic. Visible anasarca. Extensive edema involving her upper and lower extremities as well as abdominal wall. Patient is on oxygen. Respiratory is about 24. Chest exam revealed bilateral crackles and diminished breath sound. Heart is regular. Abdomen is soft. Increased abdominal girth therefore clinically I could not exclude the possibility of intra-abdominal mass organomegaly. Upper and lower extremities showed extensive +2 pitting edema proximally and distally. Patient is awake. Able to answer questions. Patient is weak. Unable to sit up or stand up on her own and that seems to be chronic and progressive. Constitutional Vital Signs, click to edit/add: Last Vital Signs Temp 97.8 F 05/13/25 08:08 Pulse 61 05/13/25 08:08 Resp 18 05/13/25 08:08 BP 113/60 05/13/25 08:08 Pulse Ox 97 05/13/25 08:08 O2 Del Method Nasal Cannula 05/13/25 08:08 O2 Flow Rate 2 05/13/25 08:08 Progress Note: Objective Labs Labs: Short CBC 05/13/25 Range/Units 04:41 WBC 8.0 (4.0-11.0) 10^3/uL Hgb 11.3 L (12.0-16.0) g/dL Hct 35.4 L (36.0-48.0) % Plt Count 115 L (150-450) 10^3/uL BMP 05/12/25 05/13/25 19:48 04:41 Sodium 136 137 Potassium 5.0 4.9 Chloride 103 103 Carbon Dioxide 31.5 30.5 BUN 39.0 H 40.0 H Creatinine 1.39 H 1.35 H Glucose 88 69 L Calcium 8.6 8.8 Progress Note: A&P Assessment and Plan (1) Acute congestive heart failure: (2) Anasarca: Plan Pulmonary edema Extensive anasarca. Extensive edema involving her upper and lower extremities as well abdominal wall. Hypoxic respiratory failure secondary to above. Patient is at risk of PE therefore I ordered a CT of the chest and that came back negative for PE but positive for interstitial edema and pleural effusion. Low albumin causing low hydrostatic pressure and third spacing. Diastolic heart failure based on recent echocardiogram. 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 I have accepted to admit patient to the medical floor. Telemetry monitoring. Given her diminished mobility and obesity she is at risk having DVT and PE. CT of the chest is negative for PE. Ordered lower extremity ultrasound rule out DVT. Positive for PTV and GSV I gave patient 2 doses of Lasix intravenously. I would start her on Lasix drip 5 mg an hour. So far, patient is 1700 mL negative balance. Recent echocardiogram was completed last 2 months ago. No indication or justification to repeat echo. EF was normal. Patient had pulmonary hypertension. RVSP is 53. She had mild mitral and aortic stenosis as well as aortic regurgitation. UTI Recent urine culture came back positive for E. coli and Pseudomonas Requested urine and blood culture. I start patient on meropenem to cover both organisms Positive troponin, no chest pain. No ST elevation or depression on EKG. Suspected that patient may have underlying CAD but no clinical evidence of ACS at this time. Requested cardiac consultation. 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 Not resolved since February Patient is at risk having progression into proximal and or abdominal DVT and/or PE. Started patient on Eliquis treatment Diabetes with hyperglycemia Recent A1c 7.2. I started patient on long-acting Lantus as well as sliding scale with the meal insulin. Titrate insulin to keep blood sugar between 125 and 180. Functional impairment according to the son, patient has a wheelchair and a walker. Recently she has been working with therapy team and was able to take a few steps Significant functional disability that would likely require skilled care or long-term residential living. CKD stage III borderline stage IV. Baseline creatinine is 1.8 and GFR in the upper 20s lower 30s. Continue to monitor electrolytes and kidney function while getting diuresis. Anemia, no evidence of acute blood loss. Patient will likely require to have anemia workup to be done in the outpatient setting to be handled by PCP in collaboration with other needed outpatient providers. This may include but not limited to EGD, colonoscopy, referral to see hematology and other needed age-appropriate cancer screening. DVT prophylax Lovenox Chronic, subacute medical conditions not listed above, abnormal labs and imag ing, incidental findings seen on labs and or imaging. These would need to be addressed. Could be addressed later on or in the outpatient setting by PCP collaboration with other needed outpatient providers when time and condition are appropriate. Goals of care discussion and advance care planing completed on 05/12. I talked to patient about her wishes. Specifically I talked her about resuscitative effort in case of a cardiac and respiratory arrest. Patient stated that she wants everything to be done including chest compressions, shocks and life support Although I believe that her prognosis is poor, I would honor her wishes and keep her CODE STATUS full code. Urinary Catheter Management Urinary Catheter Management Urethral: Cath placed during this visit: yes Urethral indwelling: No Insertion date: 05/11/25 Insertion time: 17:10
--- NOTE | 2025-05-13 09:15 | SWNOTE1 ---
Pt is not being discharged today. SW faxed physician note from today and lab work to [facility].
[2025-05-13] MEDS: ALBUMIN HUMAN 25 GM/100 ML PREMIX IV (09:52)
[2025-05-13] MEDS: APIXABAN 5 MG TABLET PO ×2 (09:52→20:55)
[2025-05-13] MEDS: IMIPENEM/CILASTATIN SODIUM 500 MG in 0.9 % SODIUM CHLORIDE 100 ML 200 MG IV ×2 (12:23→23:33)
--- NOTE | 2025-05-13 14:26 | CM.NOTE ---
Manuel mitchellt sent to Dr. Carrillo of final urine culture with susceptibility.
--- NOTE | 2025-05-13 14:31 | SWNOTE1 ---
ADILIA faxed updates to [facility]. Updates included physician note from today and labs.
--- NOTE | 2025-05-13 15:47 | DIETREC ---
Recommend 237 mL Ensure Plus BID to supplement inadequate meal intakes.
--- NOTE | 2025-05-13 16:54 | PC.NURSE ---
Verbal consent obtained from patient after speaking with the patient and the son.
[2025-05-13] MEDS: FUROSEMIDE 400 MG in 0.9 % SODIUM CHLORIDE 160 ML IV (17:26)
--- NOTE | 2025-05-13 17:27 | P.CACN_ITS ---
<Statement entered by LETTY BINGHAM - 05/13/25 20:16> This documentation has been reviewed and approved. History of Present Illness History of Present Illness Consult date: 05/13/25 Requesting physician: Joy Carrillo Consult reason: congestive heart failure Chief complaint: Shortness of Breath, ACUTE CONGESTIVE HEART FAILUR Narrative: Patient is a 84 y/o F with known hx of HFpEF, HTN, HLD, diabetes, valvular heart disease, CKD, anemia who presented to [facility] with c/o worsening SOB and worsening leg swelling. Upon arrival she was hypoxic and evidence of fluid overload. She was started on IVP lasix which was switched to lasix gtt 5mg/hr yesterday afternoon. Since admission, she is net negative 845ml. She continues to c/o SOB, orthopnea, PND, LE edema. Denies c/o CP, dizziness/LH, palpitations, syncope. Sh e has mildly elevated troponin along with chronic LLE DVT. Review of Systems ROS Status of ROS 10 or more systems reviewed and unremark able except as noted in history and below Constitutional Reports: fatigue Respiratory Reports: shortness of breath Musculoskeletal Reports: extremity swelling [facility] Medical History (Updated 05/12/25 @ 11:27 by Joy Carrillo MD) Morbidly obese ?E66.01 - Morbid (severe) obesity due to excess calories (ICD-10) Skin cancer ?C44.90 - Unspecified malignant neoplasm of skin, unspecified (ICD-10) Surgical History (Updated 02/16/25 @ 19:58 by Chhaya Solomon RN) Hx of fusion of cervical spine ?Z98.1 - Arthrodesis status (ICD-10) Hx of cholecystectomy ?Z90.49 - Acquired absence of other specified parts of digestive tract (ICD- 10) Hx of left mastectomy ?Z90.12 - Acquired absence of left breast and nipple (ICD-10) Family History (Updated 02/16/25 @ 19:59 by Chhaya Solomon RN) Father Family history of COPD (chronic obstructive pulmonary disease) Mother Family history of COPD (chronic obstructive pulmonary disease) Social History (Updated 02/16/25 @ 20:00 by Chhaya Solomon RN) Within the past year, how often did you have a drink containing alcohol: never Score interpretation: A score less than 3 is consistent with normal alcohol consumption. Smoking status: Never smoker Non-prescribed substance use: denies use Known occupational exposures/hazards: No Highest level of school completed/degree received: 12th grade, no diploma Are you now , , , , never or living with a partner: In a typical week, how many times do you talk on the telephone with family, friends, or neighbors: 3 or more times per week How often do you get together with friends or relatives: 3 or more times per week Little interest or pleasure in doing things: not at all Feeling down, depressed, or hopeless: not at all Feel stressed/tense/nervous/anxious/difficulty sleeping: not at all Do you think of yourself as: straight/heterosexual Gender Identity: male Meds Home Medications and Allergies Home Medications ?Medication ?Instructions ?Recorded ?Confirmed ?Type furosemide 40 mg tablet 40 mg PO DAILY 02/13/2507/05 History montelukast 10 mg tablet 10 mg PO HS 02/13/25 5 History calcium 600 mg (as 1 tab PO BIDWM #0 tabs 02/1405/11/25 Rx carbonate)-vitamin D3 10 mcg (400 unit) tablet psyllium husk (bulk) 100 % powder 2.6 ea PO QD 5 05/11/25 History citalopram 10 mg tablet (Celexa) 10 mg PO DAILY #30 ta bs 02/20/25 05/11/25 Rx cyanocobalamin (vitamin B-12) 1,000 mcg IM Q30D #0 mL 02/20/25 05/11/25 Rx 1,000 mcg/mL injection solution docusate sodium 100 mg capsule 100 mg PO BID PRN Const ipation #0 02/20/25 05/11/25 Rx caps glucagon 1 mg solution for 1 mg IV Q15M PRN Hypoglycem ia #0 ea 02/20/25 05/11/25 Rx injection (Glucagon Emergency Kit) insulin aspart U-100 100 unit/mL 2 - 10 unit (0.02 - 0 .1 mL) subcut 02/20/25 05/11/25 Rx (3 mL) subcutaneous pen (Novolog ACHS #0 mL FlexPen U-100 Insulin aspart) insulin glargine 100 unit/mL (3 22 unit (0.22 mL) subc ut HS #22 mL 02/20/25 1 07/12/24 Rx mL) subcutaneous pen (Lantus Solostar U-100 Insulin) sennosides 8.6 mg-docusate sodium 1 tab PO QD PRN Cons tipation #0 02/20/25 05/11/25 Rx 50 mg tablet (Senna Plus) tabs tamsulosin 0.4 mg capsule (Flomax) 0.4 mg PO DAILY #30 caps 02/20/25 05/11/25 Rx alprazolam 0.25 mg tablet 0.25 mg PO BID PRN anxiety 1 07/12/24 05/11/25 History blood-glucose sensor (FreeStyle 05/11/25 05/11/25 His [facility] 3 Sensor device) glipizide 10 mg tablet 10 mg PO BID 05/11/25 History nystatin 100,000 unit/gram topical 1 applic topical BI D 05/11/25 05/11/25 History powder potassium chloride 20 mEq 20 meq PO .QD 05/11/2505/11 History tablet,extended release(part/cryst) metoprolol tartrate 25 mg tablet 25 mg PO TID 05/12/25 05/12/25 History Allergies Allergy/AdvReac Type Severity Reaction Status Date / Time Penicillins Allergy Mild Unknown Verified 05/11/25 15:09 cefuroxime Allergy Unknown Verified 05/11/25 15:09 ciprofloxacin (From Cipro) Allergy Unknown Verified 05/11/25 15:09 lisinopril Allergy Unknown Verified 05/11/25 15:09 nitrofurantoin Allergy Unknown Verified 05/11/25 15:09 Sulfa (Sulfonamide Allergy Unknown Verified 05/11/25 15:09 Antibiotics) Exam Constitutional Vital Signs, click to edit/add: Last Vital Signs Temp 96.7 F L 05/13/25 17:01 Pulse 58 L 05/13/25 17:01 Resp 22 H 05/13/25 17:01 BP 109/65 05/13/25 17:01 Pulse Ox 95 05/13/25 17:01 O2 Del Method Nasal Cannula 05/13/25 17:01 O2 Flow Rate 2 05/13/25 12:17 Common normals: oriented x3 General appearance: lethargic (easily arousable ) Nutritional appearance: obese HENMT Common normals: normocephalic and head/scalp atraumatic Eye Common normals: EOMs intact bilaterally and conjunctivae normal Neck & C-Spine Common normals: supple and no JVD (hard to assess JVD due to neck size) Respiratory Effort & inspection: uses accessory muscles and other (labored breathing) Auscultation: crackles Cardio Common normals: regular rate, regular rhythm, S1 normal heart sound and S2 normal heart sound Heart sounds: murmur GI Common normals: non-tender Inspection: anasarca present Bladder/kidney exam: catheter in place Extremity General: edema (+3 BLE edema extending up to abdomen ) Results Labs and Meds Lab results: CBC 05/13/25 Range/Units 04:41 WBC 8.0 (4.0-11.0) 10^3/uL RBC 3.80 L (4.20-5.40) 10^6/uL Hgb 11.3 L (12.0-16.0) g/dL Hct 35.4 L (36.0-48.0) % Plt Count 115 L (150-450) 10^3/uL Comprehensive Metabolic Panel 05/12/25 05/13/25 Range/Units 19:48 04:41 Sodium 136 137 (136-145) mmol/L Potassium 5.0 4.9 (3.5-5.1) mmol/L Chloride 103 103 (98-107) mmol/L Carbon Dioxide 31.5 30.5 (21.0-32.0) mmol/L BUN 39.0 H 40.0 H (7.0-18.0) mg/dL Creatinine 1.39 H 1.35 H (0.55-1.02) mg/dL Glucose 88 69 L (74-106) mg/dL Calcium 8.6 8.8 (8.5-10.1) mg/dL Intake and Output 05/13/25 05/13/25 05/13/25 07:59 15:59 23:59 Intake Total 1000 / 1073.875 73.875 / 1073.875 Output Total 1525 / 2425 400 / 400 Balance -1525 / -1745 600 / 673.875 73.875 / 673.875 Intake: Oral 800 / 800 IV 200 / 273.875 73.875 / 273.875 Albumin Human 25 gm In 100 ml @ 100 / 100 100 mls/hr IV ONCE ONE Rx#: [id number] Furosemide 400 mg In 0.9 % 73.875 / 73.875 Sodium Chloride 160 ml @ 5 MG/ HR 2.5 mls/hr IV CONT [facility] Rx#: [id number] Imipenem/Cilastatin Sodium 500 100 / 100 mg In 0.9 % Sodium Chloride 100 ml @ 200 mls/hr IV Q12H [facility] Rx #:[id number] Output: Urine 400 / 400 Urine Amount (Catheter) 1525 / 2425 Urethral 1525 / 2425 Other: CBI Fluid - Amount Instilled Urethral 100 CBI Fluid - Amount Drained Urethral 800 Assessment and Plan Assessment and Plan (1) Acute congestive heart failure: (2) Anasarca: Plan #Acute on chronic diastolic heart failure #Hypoxic respiratory failure secondary to HF -TTE 02/2025: EF preserved, grade 2 diastolic dysfunction, evidence of fluid overload, mild mitral stenosis, mild AR with mild , mild to mod TR -She is currently on lasix gtt 5mg/hr. She is net negative -845ml since admission. She remains fluid overloaded on exam and continues to have anasarca along with labored breathing. -Will increase lasix gtt to 10mg/hr. Consider switching to bumex if she contin ues to have poor response to gtt. -Closely monitor renal function and mag level while on gtt with labs q12 hrs. Replace e-lytes as needed to maintain K >4 and mag >2. -Add metolazone 5mg if needed for additional diuresis. -Once euvolemic and renal function stable, recommend discharging on lasix PO 40mg BID and add spironolactone 12.5mg daily with follow-up BMP in 1 week. Recent issues with UTI, can discuss addition of an SGLT2i as an outpatient. -Maintain 1.5L daily fliud allowance, daily weights, and low sodium diet. -F/u with cardiology in 1 week after discharge. #DVT -unresolved since February -Primary team started Eliquis #CKD -Continue to closely monitor renal function #Valvular heart disease -TTE 02/2025: EF preserved, grade 2 diastolic dysfunction, evidence of fluid overload, mild mitral stenosis, mild AR with mild , mild to mod TR -Recommend follow-up ECHO once euvolemic, can be done as an outpatient. Thank you for the consult, please let us know if any further questions or concerns. Chantel Wiley APRN-[facility] Cardiovascular Medicine
[2025-05-13 17:34] LABS: Anion Gap 4.7; Blood Urea Nitrogen 45.0 mg/dL (7.0-18.0); Calcium 8.7 mg/dL (8.5-10.1); Carbon Dioxide 34.3 mmol/L (21.0-32.0); Chloride 102 mmol/L (98-107); Estimated GFR (African America 31 (>=60 mL/min/1.73m^2); Estimated GFR (Non-African Ame 26 (>=60 mL/min/1.73m^2); Glucose 142 mg/dL (74-106); Potassium 5.0 mmol/L (3.5-5.1); Sodium 136 mmol/L (136-145)
[2025-05-13 18:00] LABS: Magnesium 1.9 mg/dL (1.8-2.4)
[2025-05-13] MEDS: INSULIN ASPART 300 UNIT/3 ML PEN SUBQ ×2 (18:15→18:19)
[2025-05-13] MEDS: LEVOFLOXACIN 500 MG TABLET PO (20:55)
[2025-05-13] MEDS: INSULIN GLARGINE 300 UNIT/3 ML INSULN.PEN 20 UNIT SQ (21:57)
[2025-05-13] MEDS: MONTELUKAST SODIUM 10 MG TABLET PO (21:57)
[2025-05-14] VITALS (22 sets, daily range): BP systolic 133–153; BP diastolic 65–82; PULSE 49–63; TEMP 35.2–35.8; O2SAT 92–97
[2025-05-14] MEDS: PANTOPRAZOLE SODIUM 40 MG TABLET.DR PO (06:08)
[2025-05-14] MEDS: METOPROLOL TARTRATE 25 MG TABLET 12.5 MG PO (06:08)
[2025-05-14 06:24] LABS: Anion Gap 8.0; Blood Urea Nitrogen 47.0 mg/dL (7.0-18.0); Calcium 9.1 mg/dL (8.5-10.1); Carbon Dioxide 30.9 mmol/L (21.0-32.0); Chloride 103 mmol/L (98-107); Estimated GFR (African America 30 (>=60 mL/min/1.73m^2); Estimated GFR (Non-African Ame 25 (>=60 mL/min/1.73m^2); Glucose 84 mg/dL (74-106); Potassium 4.9 mmol/L (3.5-5.1); Sodium 137 mmol/L (136-145)
[2025-05-14] MEDS: TAMSULOSIN HCL 0.4 MG CAPSULE PO (08:24)
[2025-05-14] MEDS: CITALOPRAM HYDROBROMIDE 20 MG TABLET 10 MG PO (08:24)
[2025-05-14] MEDS: CALCIUM CARBONATE 600 MG/VITAMIN D3 400 IU TABLET 1 TAB PO ×2 (08:24→17:44)
[2025-05-14] MEDS: POTASSIUM CHLORIDE 10 MEQ ER TABLET PO ×2 (08:25→22:01)
[2025-05-14] MEDS: APIXABAN 5 MG TABLET PO (08:25)
--- NOTE | 2025-05-14 08:40 | CM.NOTE ---
Dr. Carrillo rounded on pt, discussed plan of care with pt and RN. Continue diuresing as ordered. No discharge today.
--- NOTE | 2025-05-14 09:50 | P.PN_ITS ---
Progress Note: Subjective Subjective Interval history: Patient is feeling well. Less short of breath. Less tachypneic. No chest pain. Exam Narrative Exam Narrative: Patient is sitting in bed, morbidly obese. Patient is visibly tachypneic. Visible anasarca. Extensive edema involving her upper and lower extremities as well as abdominal wall. Patient is on oxygen. Respiratory is about 24. Chest exam some resolution of the revealed bilateral crackles and diminished breath sound. Heart is regular. Abdomen is soft. Increased abdominal girth therefore clinically I could not exclude the possibility of intra-abdominal mass organomegaly. Upper and lower extremities showed extensive +2 pitting edema proximally and distally. Patient is awake. Able to answer questions. Patient is weak. Unable to sit up or stand up on her own and that seems to be chronic and progressive. Constitutional Vital Signs, click to edit/add: Last Vital Signs Temp 96.5 F L 05/14/25 08:00 Pulse 57 L 05/14/25 08:00 Resp 18 05/14/25 08:00 BP 133/65 05/14/25 08:00 Pulse Ox 97 05/14/25 08:00 O2 Del Method Nasal Cannula 05/14/25 08:00 O2 Flow Rate 1 05/14/25 08:00 Common normals: oriented x3 General appearance: lethargic (easily arousable ) Nutritional appearance: obese HENMT Common normals: normocephalic and head/scalp atraumatic Eye Common normals: EOMs intact bilaterally and conjunctivae normal Neck & C-Spine Common normals: supple and no JVD (hard to assess JVD due to neck size) Respiratory Effort & inspection: uses accessory muscles and other (labored breathing) Auscultation: crackles Cardio Common normals: regular rate, regular rhythm, S1 normal heart sound and S2 normal heart sound Heart sounds: murmur GI Common normals: non-tender Inspection: anasarca present Bladder/kidney exam: catheter in place Extremity General: edema (+3 BLE edema extending up to abdomen ) Progress Note: Objective Labs Labs: [facility] 05/13/25 05/14/25 17:20 05:15 Sodium 136 137 Potassium 5.0 4.9 Chloride 102 103 Carbon Dioxide 34.3 H 30.9 BUN 45.0 H 47.0 H Creatinine 1.87 H 1.92 H Glucose 142 H 84 Calcium 8.7 9.1 Progress Note: A&P Assessment and Plan (1) Acute congestive heart failure: (2) Anasarca: Plan Pulmonary edema Extensive anasarca. Extensive edema involving her upper and lower extremities as well abdominal wall. Hypoxic respiratory failure secondary to above. Patient is at risk of PE therefore I ordered a CT of the chest and that came back negative for PE but positive for interstitial edema and pleural effusion. Low albumin causing low hydrostatic pressure and third spacing. Diastolic heart failure based on recent echocardiogram. Suspect cardiorenal disease. 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 I have accepted to admit patient to the medical floor. Telemetry monitoring. Given her diminished mobility, recent past history of lower extremities DVT, elevated D-dimer and obesity she is at risk having DVT and PE. CT of the chest is negative for PE. Ordered lower extremity ultrasound rule out DVT. Positive for PTV and GSV I gave patient 2 doses of Lasix intravenously. I would start her on Lasix drip 5 mg an hour. So far, patient is 1700 mL negative balance. Recent echocardiogram was completed last 2 months ago. No indication or justification to repeat echo. EF was normal. Patient had pulmonary hypertension. RVSP is 53. She had mild mitral and aortic stenosis as well as a ortic regurgitation. Continue Lasix drip Added Zaroxolyn daily UTI Blood cultures negative. Urine cultures positive for Klebsiella that is pansensitive Discontinue meropenem and start her on Levaquin. Patient is allergic to penicillin and cephalosporin. Positive troponin, no chest pain. No ST elevation or depression on EKG. Suspected that patient may have underlying CAD but no clinical evidence of ACS at this time. Requested cardiac consultation. 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 Not resolved since February Patient is at risk having progression into proximal and or abdominal DVT and/or PE. Started patient on Eliquis treatment. Eliquis dose has been adjusted due to age above 80 and creatinine above 1.5. Diabetes with hyperglycemia Recent A1c 7.2. I started patient on long-acting Lantus as well as sliding scale with the meal insulin. Titrate insulin to keep blood sugar between 125 and 180. Functional impairment according to the son, patient has a wheelchair and a walker. Recently she has been working with therapy team and was able to take a few steps Significant functional disability that would likely require skilled care or long-term residential living. CKD stage III borderline stage IV. Baseline creatinine is 1.8 and GFR in the upper 20s lower 30s. Patient has developed WILLIAM over the last 48 hours Patient continues to be fluid overloaded clinically. This WILLIAM could be related to ongoing cardiorenal disease WILLIAM could be related to abdominal compartment syndrome Rule out the possibility of obstructive uropathy. Requested CAT scan of the abdomen pelvis without contrast This could be related to contrast nephropathy. Patient had CT of the chest on May 11 given her hypoxemia, bedbound situation, elevated D-dimer and significant increased risk of PE specifically given her history of lower extremity DVT. Continue to monitor electrolytes and kidney function while getting diuresis. Anemia, no evidence of acute blood loss. Patient will likely require to have anemia workup to be done in the outpatient setting to be handled by PCP in collaboration with other needed outpatient providers. This may include but not limited to EGD, colonoscopy, referral to see hematology and other needed age-appropriate cancer screening. Chronic, subacute medical conditions not listed above, abnormal labs and imaging, incidental findings seen on labs and or imaging. These would need to be addressed. Could be addressed later on or in the outpatient setting by PCP collaboration with other needed outpatient providers when time and condition are appropriate. Goals of care discussion and advance care planing completed on 05/12. I talked to patient about her wishes. Specifically I talked her about resuscitative effort in case of a cardiac and respiratory arrest. Patient stated that she wants everything to be done including chest c ompressions, shocks and life support Although I believe that her prognosis is poor, I would honor her wishes and keep her CODE STATUS full code. I discussed her case with her and her son on 05/13 Urinary Catheter Management Urinary Catheter Management Urethral: Cath placed during this visit: yes Urethral indwelling: No Insertion date: 05/11/25 Insertion time: 17:10
--- NOTE | 2025-05-14 09:55 | CT_ITS ---
The [address] [address] Patient Name: PIEDAD TA MRN: [id number] date: 1940 Sex: F Assigned Patient Location: [place] Current Patient Location: [place] Accession/Order Number: [id number] Exam Date: 05/14/2025 10:42 Report Date: 05/14/2025 11:25 At the request of: CARLOS SMITH MD Procedure: CT abdomen pelvis wo con CT ABDOMEN AND PELVIS WITHOUT CONTRAST COMPARISON: Chest CT 05/11/2025 CLINICAL DATA: Swelling and retained fluid. Acute kidney injury. Spiral images were obtained through the abdomen and pelvis and all contrast. This CT exam was performed using one or more following dose reduction techniques: Automated exposure control, adjustment of the mA and/or kV according to patient size, or use of iterative reconstruction technique. Limited cuts through the lung bases show continued bilateral pleural effusions. There is also still lower lobe consolidation. The heart is at least borderline prominent. There is calcification at the mitral valve as well as coronary artery disease. Evaluation is slightly limited by lack of contrast, large body habitus and associated artifact. The gallbladder is surgically absent. There is no obvious biliary dilatation or common duct stones. No intrahepatic masses are noted. The spleen shows no abnormalities. The pancreas is atrophic. No adrenal nodularity is seen. Bilateral perinephric fibrofatty stranding is noted. No renal calculi or hydronephrosis are seen. There is atherosclerotic plaque involving the aorta, iliac and some of the visceral arteries. No ascites is identified. There is subcutaneous edema. No adenopathy is seen. The small bowel loops are not disproportionately distended. There is air within the colon as well as some stool, predominantly on the right. There are a few left-sided colonic diverticula. The bony structures are osteopenic. There is slight levoscoliotic curvature as well as multilevel degenerative changes at the spine with associated stenosis, severe at L3-4 and L4-5. Images through the pelvis show no dilated small bowel. The appendix is is not definitely seen. The distal colon is mostly decompressed. There is a small amount of rectal stool. There are additional colonic diverticula, without associated active inflammation. The uterus appears to be surgically absent. The urinary bladder contains a Alegre catheter is not adequately distended for evaluation. There is no ascites. There is subcutaneous edema. Additional atherosclerotic disease is visualized. CT/CT abdomen pelvis wo con IMPRESSION: CONTINUED BILATERAL PLEURAL EFFUSIONS WITH ADJACENT BASILAR CONSOLIDATION. NO BOWEL OR URINARY TRACT OBSTRUCTION. DIVERTICULOSIS. SUBCUTANEOUS EDEMA. Impression dictated by: Henny Wheatley M.D. 05/14/2025 11:25 AM Dictation Location: [place] [address] Electronically authenticated by: [id number] Y Date: 05/14/2025 11:25
[2025-05-14] MEDS: ALBUMIN HUMAN 25 GM/100 ML PREMIX IV (10:08)
[2025-05-14] MEDS: ALPRAZOLAM 0.25 MG TABLET PO (10:09)
[2025-05-14] MEDS: METOLAZONE 2.5 MG TABLET 5 MG PO (10:31)
--- NOTE | 2025-05-14 12:06 | W.ACP ---
Advance Care Planning Advance Care Planning Discussion Advance care planning discussion participants: patient and other family member Advance care planning discussion summary: Advance care planning and goals of care discussion. I had a 20 minutes conversation with the patient, her , her daughter and son at the bedside. I provided them information about her disease, prognosis, expectation and trajectory. I explained in simple terms the process of CPR including chest compressions, shocks, intubation life support. I explained in layman's terms the difference between full code, CCA and CC. I explained in basic terms the difference between aggressive versus comfort care approach. I answered all of their questions related to that. Conversation went [id number] between patient, her and her daughter. Patient ultimately decided against receiving any resuscitative effort in case of a cardiac and/or respiratory arrest. Her , her daughter and son are in agreement to respect and honor her wishes. Change her CODE STATUS to DNR CCA.
[2025-05-14] MEDS: ACETAMINOPHEN 325 MG TABLET 650 MG PO (13:35)
[2025-05-14] MEDS: FUROSEMIDE 400 MG in 0.9 % SODIUM CHLORIDE 160 ML IV (14:32)
[2025-05-14 16:34] LABS: Anion Gap 10.0; Blood Urea Nitrogen 47.0 mg/dL (7.0-18.0); Calcium 8.5 mg/dL (8.5-10.1); Carbon Dioxide 30.8 mmol/L (21.0-32.0); Chloride 99 mmol/L (98-107); Estimated GFR (African America 26 (>=60 mL/min/1.73m^2); Estimated GFR (Non-African Ame 21 (>=60 mL/min/1.73m^2); Glucose 135 mg/dL (74-106); Potassium 4.8 mmol/L (3.5-5.1); Sodium 135 mmol/L (136-145)
[2025-05-14] MEDS: INSULIN ASPART 300 UNIT/3 ML PEN SUBQ (17:45)
[2025-05-14] MEDS: METOLAZONE 2.5 MG TABLET 10 MG PO (18:53)
[2025-05-14] MEDS: APIXABAN 5 MG TABLET 2.5 MG PO (22:00)
[2025-05-14] MEDS: MONTELUKAST SODIUM 10 MG TABLET PO (22:01)
[2025-05-15] VITALS (24 sets, daily range): BP systolic 135–165; BP diastolic 65–86; PULSE 56–89; TEMP 34.7–36.3; O2SAT 89–96
[2025-05-15] MEDS: PANTOPRAZOLE SODIUM 40 MG TABLET.DR PO (05:37)
[2025-05-15] MEDS: ALPRAZOLAM 0.25 MG TABLET PO ×2 (05:39→21:47)
[2025-05-15 05:49] LABS: Anion Gap 14.3; Blood Urea Nitrogen 50.0 mg/dL (7.0-18.0); Calcium 9.0 mg/dL (8.5-10.1); Carbon Dioxide 27.6 mmol/L (21.0-32.0); Chloride 98 mmol/L (98-107); Estimated GFR (African America 23 (>=60 mL/min/1.73m^2); Estimated GFR (Non-African Ame 19 (>=60 mL/min/1.73m^2); Glucose 80 mg/dL (74-106); Potassium 4.9 mmol/L (3.5-5.1); Sodium 135 mmol/L (136-145)
[2025-05-15 05:58] LABS: Hematocrit 32.5 % (36.0-48.0); Hemoglobin 10.7 g/dL (12.0-16.0); Mean Corpuscular HGB Conc 32.9 g/dL (29.9-35.2); Mean Corpuscular Hemoglobin 30.1 pg (26.7-34.0); Mean Corpuscular Volume 91.5 fL (81.0-99.0); Platelet Count 95 10^3/uL (150-450); Red Blood Count 3.55 10^6/uL (4.20-5.40); White Blood Count 7.0 10^3/uL (4.0-11.0)
[2025-05-15 06:04] LABS: Alanine Aminotransferase 15 U/L (14-59); Albumin Globulin Ratio 0.8; Albumin Level 2.9 g/dL (3.4-5.0); Alkaline Phosphatase 69 U/L (46-116); Aspartate Amino Transferase 21 U/L (15-37); Globulin 3.5 g/dL; Thyroid Stimulating Hormone 5.146 uIU/mL (0.358-3.740); Total Protein 6.4 g/dL (6.4-8.2)
--- NOTE | 2025-05-15 08:00 | CM.NOTE ---
Rounds made with Dr. Carrillo, discussed with pt plan of care. No discharge today. PT will evaluate pt today for discharge planning. Continue treatment as ordered.
[2025-05-15] MEDS: METOLAZONE 2.5 MG TABLET 5 MG PO ×2 (08:32→21:45)
[2025-05-15] MEDS: CITALOPRAM HYDROBROMIDE 20 MG TABLET 10 MG PO (08:32)
[2025-05-15] MEDS: APIXABAN 5 MG TABLET 2.5 MG PO ×2 (08:32→21:45)
[2025-05-15] MEDS: POTASSIUM CHLORIDE 10 MEQ ER TABLET PO ×2 (08:33→21:44)
[2025-05-15] MEDS: CALCIUM CARBONATE 600 MG/VITAMIN D3 400 IU TABLET 1 TAB PO ×2 (08:33→17:09)
--- NOTE | 2025-05-15 10:01 | PM.PN ---
Progress Note: Subjective Subjective Interval history: Patient is feeling well. Less short of breath. Less tachypneic. No chest pain. Patient in fact is off oxygen at this time. Exam Narrative Exam Narrative: Patient is sitting in bed, morbidly obese. Patient is visibly tachypneic. Visible anasarca. Extensive edema involving her upper and lower extremities as well as abdominal wall. Patient is on oxygen. Respiratory is about 24. Chest exam some resolution of the revealed bilateral crackles and diminished breath sound. Heart is regular. Abdomen is soft. Increased abdominal girth therefore clinically I could not exclude the possibility of intra-abdominal mass organomegaly. Abdominal wall edema noted. Upper and lower extremities showed extensive +2 pitting edema proximally and distally. Patient is awake. Able to answer questions. Patient is weak. Unable to sit up or stand up on her own and that seems to be chronic and progressive. Constitutional Vital Signs, click to edit/add: Last Vital Signs Temp 94.7 F L 05/15/25 07:23 Pulse 74 05/15/25 09:56 Resp 18 05/15/25 07:23 BP 158/75 H 05/15/25 07:23 Pulse Ox 93 L 05/15/25 08:49 O2 Del Method Room Air 05/15/25 08:49 O2 Flow Rate 1 05/14/25 20:38 Common normals: oriented x3 General appearance: lethargic (easily arousable ) Nutritional appearance: obese HENCA Common normals: normocephalic and head/scalp atraumatic Eye Common normals: EOMs intact bilaterally and conjunctivae normal Neck & C-Spine Common normals: supple and no JVD (hard to assess JVD due to neck size) Respiratory Effort & inspection: uses accessory muscles and other (labored breathing) Auscultation: crackles Cardio Common normals: regular rate, regular rhythm, S1 normal heart sound and S2 normal heart sound Heart sounds: murmur GI Common normals: non-tender Inspection: anasarca present Bladder/kidney exam: catheter in place Extremity General: edema (+3 BLE edema extending up to abdomen ) Progress Note: Objective Labs Labs: Short CBC 05/15/25 Range/Units 04:50 WBC 7.0 (4.0-11.0) 10^3/uL Hgb 10.7 L (12.0-16.0) g/dL Hct 32.5 L (36.0-48.0) % Plt Count 95 L (150-450) 10^3/uL BMP 05/14/25 05/15/25 16:10 04:50 Sodium 135 L 135 L Potassium 4.8 4.9 Chloride 99 98 Carbon Dioxide 30.8 27.6 BUN 47.0 H 50.0 H Creatinine 2.21 H 2.40 H Glucose 135 H 80 Calcium 8.5 9.0 Liver Function 05/15/25 Range/Units 04:50 Total Bilirubin 0.6 (0.2-1.0) mg/dL Direct Bilirubin 0.1 (0.0-0.2) mg/dL AST 21 (15-37) U/L ALT 15 (14-59) U/L Alkaline Phosphatase 69 (46-116) U/L Albumin 2.9 L (3.4-5.0) g/dL Progress Note: A&P Assessment and Plan (1) Acute congestive heart failure: (2) Anasarca: Plan Pulmonary edema Extensive anasarca. Extensive edema involving her upper and lower extremities as well abdominal wall. Hypoxic respiratory failure secondary to above. Patient is at risk of PE therefore I ordered a CT of the chest and that came back negative for PE but positive for interstitial edema and pleural effusion. Low albumin causing low hydrostatic pressure and third spacing. Diastolic heart failure based on recent echocardiogram. Suspect cardiorenal disease. 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 I have accepted to admit patient to the medical floor. Telemetry monitoring. Given her diminished mobility, recent past and confirmed history of lower extremities DVT, elevated D-dimer and obesity she is at risk having PE. CT of the chest is negative for PE. Ordered lower extremity ultrasound rule out DVT. Positive for PTV and GSV Patient has not made significant of urine output over the first to 3 days of admission but last 24 hours she is made more urine. Continue Lasix drip for the sake of relieving her significant fluid overload and respiratory failure. Hopefully we will make some progress on the pleural effusion. At some point, patient may need diagnostic and/or therapeutic thoracentesis. Currently she is on room air. 93%. UTI Blood cultures negative. Urine cultures positive for Klebsiella that is pansensitive Discontinue meropenem and start her on Levaquin. Patient is allergic to penicillin and cephalosporin. Positive troponin, no chest pain. No ST elevation or depression on EKG. Suspected that patient may have underlying CAD but no clinical evidence of ACS at this time. Requested cardiac consultation. 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 Not resolved since February Patient is at risk having progression into proximal and or abdominal DVT and/or PE. Started patient on Eliquis treatment. Eliquis dose has been adjusted due to age above 80 and creatinine above 1.5. Diabetes with hyperglycemia Recent A1c 7.2. I started patient on long-acting Lantus as well as sliding scale with the meal insulin. Titrate insulin to keep blood sugar between 125 and 180. Functional impairment according to the son, patient has a wheelchair and a walker. Recently she has been working with therapy team and was able to take a few steps Significant functional disability that would likely require skilled care or long-term residential living. CKD stage III borderline stage IV. Baseline creatinine is 1.8 - 2.5 and GFR in the upper 20s lower 30s. Patient has developed WILLIAM over the last 48 hours Patient continues to be fluid overloaded clinically. This WILLIAM could be related to ongoing cardiorenal disease WILLIAM could be related to abdominal compartment syndrome. CT scan does not show significant ascites only subcutaneous edema. Rule out the possibility of obstructive uropathy. Requested CAT scan of the abdomen pelvis without contrast. CAT scan does not show any obstructive uropathy. This could be related to contrast nephropathy. Patient had CT of the chest on May 11 given her hypoxemia, bedbound situation, elevated D-dimer and significant increased risk of PE specifically given her history of lower extremity DVT. Continue to monitor electrolytes and kidney function while getting diuresis. The degree of worsening creatinine elevation has slowed down. Her urine output has increased. Acceptable rise of creatinine level for the sake of achieving euvolemic state and relieve her respiratory compromise. Anemia, no evidence of acute blood loss. Patient will likely require to have anemia workup to be done in the outpatient setting to be handled by PCP in collaboration with other needed outpatient providers. This may include but not limited to EGD, colonoscopy, referral to see hematology and other needed age-appropriate cancer screening. Chronic, subacute medical conditions not listed above, abnormal labs and imaging, incidental findings seen on labs and or imaging. These would need to be addressed. Could be addressed later on or in the outpatient setting by PCP collaboration with other needed outpatient providers when time and condition are appropriate. Goals of care discussion and advance care planing completed on 05/12 and on 05/14. Patient opted against resuscitative effort. She is DNR CCA. I discussed her case with her and her son on 05/13 and on 05/14 with her son and her daughter at the bedside as well. Prognostication Her prognosis is poor given her advanced age in the setting of cardio, pulmonary and renal disease as well as significant decline in her functional status Urinary Catheter Management Urinary Catheter Management Urethral: Cath placed during this visit: yes Urethral indwelling: No Insertion date: 05/11/25 Insertion time: 17:10
[2025-05-15] MEDS: INSULIN ASPART 300 UNIT/3 ML PEN SUBQ ×3 (11:41→21:45)
--- NOTE | 2025-05-15 11:41 | SWNOTE1 ---
SW spoke to Cayden in Physical therapy and at this time recommendation of SNF. SW to speak with pt and family in room.
--- NOTE | 2025-05-15 12:26 | SWNOTE1 ---
SW stopped in pt's room, no family present. Nurse came in room as well as she had questions for pt. Pt is alert and oriented, knew where she was, month, year, name, and birthdate. SW let her know the recommendations of pt going to rehab for a short time to get her strength built back up. Pt voiced she really does not want to go. SW asked permission to call her son and asked which son to call. Pt would like SW to call Meir. SW called pt's son Meir. SW let him know the recommendations of pt returning to rehab for a short time to get stronger. Meir voiced the family has been discussing and they feel she would benefit from returning to [facility] for a short time to get stronger. He stated they all want her home, but feel she really needs some rehab. Meir stated [facility] is first choice and [facility] is second. SW to update the patient. SW stopped back in pt's room and pt's daughter in room. SW let both pt and daughter know that SW spoke to Meir and he is really encouraging pt to return to rehab for a little bit. Daughter in agreement as well. Pt did agree and stated fine she will go. Pt is in agreement to return to [facility] skilled. SW let pt and daughter know that SW is checking if they have an opening. If they do, we will have to wait and see if her insurance will approve some more rehab days. They voiced understanding and no further questions. ADILIA sent email to Katarzyna at [facility] to see if they have openings. Katarzyna responded that they do have openings for SNF. Referral sent to [facility]. Referral included face sheet, ED note, H&P, provider notes, case management report, nursing notes, diagnostic imaging, med list, DNR order, and PT notes.
[2025-05-15] MEDS: FUROSEMIDE 400 MG in 0.9 % SODIUM CHLORIDE 160 ML IV (12:58)
--- NOTE | 2025-05-15 13:03 | SWNOTE1 ---
ADILIA received email back from Katarzyna at [facility] and they are able to accept. Katarzyna will start precert. ADILIA to completed PASRR and will take packet to the floor prior to SW leaving.
--- NOTE | 2025-05-15 13:19 | SWNOTE1 ---
ADILIA completed PASRR online and sent the results to Katarzyna at [facility].
--- NOTE | 2025-05-15 13:27 | SWNOTE1 ---
SW stopped in pt's room. Pt's daughter, one son, and other family member were in room. Pt was sleeping in chair. ADILIA advised pt's family that [facility] accepted and will start precert. SW let them know we will have to wait for approval from insurance, and that there is always a chance for the pt to deny. Pt's family also let SW know that pt is switching to [facility] in June. Pt's son did voice frustrations with the insurance last time and her getting cut. SW did let son know that the insurance will be the same this time and only approve her for so long and then cut her. Pt's daughter did ask her brother about Medicaid. He stated she did not qualify for Medicaid. At this time they have no further questions for ADILIA.
--- NOTE | 2025-05-15 13:37 | CM.NOTE ---
2nd Important Message From Medicare discussed with pt, pt denies questions or concerns.
[2025-05-15 16:27] LABS: Anion Gap 11.5; Blood Urea Nitrogen 51.0 mg/dL (7.0-18.0); Calcium 8.9 mg/dL (8.5-10.1); Carbon Dioxide 31.0 mmol/L (21.0-32.0); Chloride 98 mmol/L (98-107); Estimated GFR (African America 23 (>=60 mL/min/1.73m^2); Estimated GFR (Non-African Ame 19 (>=60 mL/min/1.73m^2); Glucose 163 mg/dL (74-106); Potassium 4.5 mmol/L (3.5-5.1); Sodium 136 mmol/L (136-145)
[2025-05-15] MEDS: MONTELUKAST SODIUM 10 MG TABLET PO (21:44)
[2025-05-15] MEDS: LEVOFLOXACIN 500 MG TABLET PO (21:44)
[2025-05-15] MEDS: INSULIN GLARGINE 300 UNIT/3 ML INSULN.PEN 20 UNIT SQ (21:46)
--- NOTE | 2025-05-15 22:00 | PC.NURSE ---
Patient sitting in recliner. Attempted to get patient into bed but patient refused stating she was more comfortable in chair. Attempted to educate patient about benefits of getting into bed to relieve pressure on bottom and prop feet up. Patient still refused. Bilateral legs propped up on stacks of pillow and call light within reach
[2025-05-16] VITALS (21 sets, daily range): BP systolic 132–156; BP diastolic 72–90; PULSE 65–99; TEMP 34.3–36.3; O2SAT 90–95
--- NOTE | 2025-05-16 03:46 | PHOTOS ---
left foot blister
--- NOTE | 2025-05-16 04:23 | PC.NURSE ---
Blister on patients left foot opened. Cleaned with normal saline, A$D ointment applied, telfa pad, ABD, and wrapped with curlex. Patient denies pain. Photo obtained
[2025-05-16] MEDS: PANTOPRAZOLE SODIUM 40 MG TABLET.DR PO (05:45)
[2025-05-16 07:02] LABS: Anion Gap 10.6; Blood Urea Nitrogen 54.0 mg/dL (7.0-18.0); Calcium 9.1 mg/dL (8.5-10.1); Carbon Dioxide 32.8 mmol/L (21.0-32.0); Chloride 98 mmol/L (98-107); Estimated GFR (African America 22 (>=60 mL/min/1.73m^2); Estimated GFR (Non-African Ame 18 (>=60 mL/min/1.73m^2); Glucose 101 mg/dL (74-106); Potassium 4.4 mmol/L (3.5-5.1); Sodium 137 mmol/L (136-145)
[2025-05-16] MEDS: POTASSIUM CHLORIDE 10 MEQ ER TABLET PO ×2 (09:39→21:54)
[2025-05-16] MEDS: APIXABAN 5 MG TABLET 2.5 MG PO ×2 (09:39→21:54)
[2025-05-16] MEDS: METOLAZONE 2.5 MG TABLET 5 MG PO (09:39)
[2025-05-16] MEDS: CALCIUM CARBONATE 600 MG/VITAMIN D3 400 IU TABLET 1 TAB PO ×2 (09:39→17:18)
[2025-05-16] MEDS: CITALOPRAM HYDROBROMIDE 20 MG TABLET 10 MG PO (09:40)
--- NOTE | 2025-05-16 10:34 | PT.DAILY ---
Physical Therapy Daily Note PT Daily Note/Assess Start: 05/16/25 10:22 Freq: Status: Active Protocol: Document 05/16/25 10:22 [id number] (Rec: 05/16/25 10:34 [id number]) Physical Therapy Daily Note/Assessment Time In/Time Out Time In 09:42 Time Out 10:06 Pain In Pain Level 1 Pain Out Pain Level 1 Subjective Subjective Patient received in bed w/ warming blanket. Nursing states she may receive PT if she is agreeable. Patient is agreeable to participate with physical therapy. Patient states her pain to the L hip. Therapeutic Exercise Time Therapeutic Exercise 9 Minutes (minutes) Therapeutic Exercise 1 Units Therapeutic Exercise Treatment Therapeutic Exercise FIGUEROA LE A/AAROM @ 10 reps for: ankle pumps, quad and Treatment glut sets, SLR, hip ABD, modified heel slides. All ther ex performed to increase FIGUEROA LE strength to improve functional mobility. Therapeutic Activity Time Therapeutic Activity 15 Minutes (minutes) Therapeutic Activity 1 Units Therapeutic Activity Treatment Bed Mobility Ability Maximum Assist,3 or More Person Assist Therapeutic Activity Supine to modified R SL to R sit is MAX A +2. Verbal Comments cues to utilized L arm to reach for R bed rail to assist with bed mobility. Patient sat edge of bed with FIGUEROA UE support, tight grasp specifically with L hand on edge of bed. Initially patient with L posterior lean . Worked on weight shifting front/back and side to side. Verbal cues for breathing secondary to SOB. With progression of reaching R UE to opposite side tapping a target to improve trunk righting reactions and then to L UE as well. Patient is then able to sit without additional support in upright neutral position. Patient is MAX A +3 to return to supine and position in bed. Patient was provided call nickerson and left in care of nursing. Total Physical Therapy Time Total Therapy 24 Minutes Total Physical 2 Therapy Units Summary Daily Note Summary Patient with L side and posterior lean initially with transfer into sitting. Patient is apprehensive and experiences SOB, w/ verbal cues for breathing technique patient is able to breath easier. Patient would benefit from HH to address functional deficits for return to PLOF.
--- NOTE | 2025-05-16 10:54 | PM.PN ---
Progress Note: Subjective Subjective Interval history: Patient is feeling well. Less short of breath for sure. Less tachypneic. No chest pain. Patient in fact is off oxygen at this time. Less swelling in her arms and legs. Exam Narrative Exam Narrative: Patient is sitting in bed, morbidly obese. Patient appears to be much more comfortable than admission state Patient is visibly tachypneic. Visible anasarca. Extensive edema involving her upper and lower extremities as well as abdominal wall. Patient is on oxygen. Respiratory is about 24. Chest exam significant resolution of the revealed bilateral crackles and diminished breath sound. Heart is regular. Abdomen is soft. Increased abdominal girth therefore clinically I could not exclude the possibility of intra-abdominal mass organomegaly. Abdominal wall edema noted. Noticeable improvement of the upper and lower extremities showed extensive +2 pitting edema proximally and distally. Patient is awake. Able to answer questions. Patient is weak. Unable to sit up or stand up on her own and that seems to be chronic and progressive. Constitutional Vital Signs, click to edit/add: Last Vital Signs Temp 93.7 F L 05/16/25 08:00 Pulse 85 05/16/25 10:10 Resp 18 05/16/25 08:00 BP 143/88 H 05/16/25 08:00 Pulse Ox 95 05/16/25 08:00 O2 Del Method Room Air 05/16/25 08:00 O2 Flow Rate 1 05/14/25 20:38 Common normals: oriented x3 General appearance: lethargic (easily arousable ) Nutritional appearance: obese HENPR Common normals: normocephalic and head/scalp atraumatic Eye Common normals: EOMs intact bilaterally and conjunctivae normal Neck & C-Spine Common normals: supple and no JVD (hard to assess JVD due to neck size) Respiratory Effort & inspection: uses accessory muscles and other (labored breathing) Auscultation: crackles Cardio Common normals: regular rate, regular rhythm, S1 normal heart sound and S2 normal heart sound Heart sounds: murmur GI Common normals: non-tender Inspection: anasarca present Bladder/kidney exam: catheter in place Extremity General: edema (+3 BLE edema extending up to abdomen ) Progress Note: Objective Labs Labs: BMP 05/15/25 05/16/25 16:14 05:40 Sodium 136 137 Potassium 4.5 4.4 Chloride 98 98 Carbon Dioxide 31.0 32.8 H BUN 51.0 H 54.0 H Creatinine 2.41 H 2.50 H Glucose 163 H 101 Calcium 8.9 9.1 Progress Note: A&P Assessment and Plan (1) Acute congestive heart failure: (2) Anasarca: Plan Pulmonary edema Extensive anasarca. Extensive edema involving her upper and lower extremities as well abdominal wall. Hypoxic respiratory failure secondary to above. Patient is at risk of PE therefore I ordered a CT of the chest and that came back negative for PE but positive for interstitial edema and pleural effusion. Low albumin causing low hydrostatic pressure and third spacing. Diastolic heart failure based on recent echocardiogram. Suspect cardiorenal disease. 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 I have accepted to admit patient to the medical floor. Telemetry monitoring. Given her diminished mobility, recent past and confirmed history of lower extremities DVT, elevated D-dimer and obesity she is at risk having PE. CT of the chest is negative for PE. Ordered lower extremity ultrasound rule out DVT. Positive for PTV and GSV Patient has not made significant of urine output over the first to 3 days of admission but last 48 hours she is made more urine. Continue Lasix drip for the sake of relieving her significant fluid overload and respiratory failure. So far patient is 7 L negative balance. Most of the output have been over the last 48 hours. Hopefully we will make some progress on the pleural effusion. At some point, patient may need diagnostic and/or therapeutic thoracentesis. Currently she is on room air. 93%. UTI Blood cultures negative. Urine cultures positive for Klebsiella that is pansensitive Discontinued meropenem and start her on Levaquin. Patient is allergic to penicillin and cephalosporin. Positive troponin, no chest pain. No ST elevation or depression on EKG. Suspected that patient may have underlying CAD but no clinical evidence of ACS at this time. 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 Not resolved since February Patient is at risk having progression into proximal and or abdominal DVT and/or PE. Started patient on Eliquis treatment. Eliquis dose has been adjusted due to age above 80 and creatinine above 1.5. Diabetes with hyperglycemia Recent A1c 7.2. I started patient on long-acting Lantus as well as sliding scale with the meal insulin. Titrate insulin to keep blood sugar between 125 and 180. Functional impairment according to the son, patient has a wheelchair and a walker. Recently she has been working with therapy team and was able to take a few steps Significant functional disability that would likely require skilled care or long-term residential living. CKD stage III borderline stage IV. Baseline creatinine is 1.8 - 2.5 and GFR in the upper 20s lower 30s. Patient has developed WILLIAM over the last 72 hours Patient continues to be fluid overloaded clinically. (Improved over the last 2 days ) This WILLIAM could be related to ongoing cardiorenal disease WILLIAM could be related to abdominal compartment syndrome. CT scan does not show significant ascites only subcutaneous edema. Rule out the possibility of obstructive uropathy. CAT scan does not show any obstructive uropathy. This could be related to contrast nephropathy. Patient had CT of the chest on May 11 given her hypoxemia, bedbound situation, elevated D-dimer and significant increased risk of PE specifically given her history of lower extremity DVT. Continue to monitor electrolytes and kidney function while getting diuresis. The degree of worsening creatinine elevation has slowed down significantly. Her urine output has increased noticeably. Acceptable rise of creatinine level for the sake of achieving euvolemic state and relieve her respiratory compromise. Anemia, no evidence of acute blood loss. Patient will likely require to have anemia workup to be done in the outpatient setting to be handled by PCP in collaboration with other needed outpatient providers. This may include but not limited to EGD, colonoscopy, referral to see hematology and other needed age-appropriate cancer screening. Chronic, subacute medical conditions not listed above, abnormal labs and imaging, incidental findings seen on labs and or imaging. These would need to be addressed. Could be addressed later on or in the outpatient setting by PCP collaboration with other needed outpatient providers when time and condition are appropriate. Goals of care discussion and advance care planing completed on 05/12 and on 05/14. Patient opted against resuscitative effort. She is DNR CCA. I discussed her case with her and her son on 05/13 and on 05/14 with her son and her daughter at the bedside as well. Prognostication Her prognosis is poor given her advanced age in the setting of cardio, pulmonary and renal disease as well as significant decline in her functional status Urinary Catheter Management Urinary Catheter Management Urethral: Cath placed during this visit: yes Urethral indwelling: No Insertion date: 05/11/25 Insertion time: 17:10
--- NOTE | 2025-05-16 11:43 | PM.EN ---
Event Note Event Note: I had a meeting with her , son and daughter. I gave them update on her condition, status and treatment plan. Family is very satisfied with the care that 3 days receiving here at [facility].
[2025-05-16] MEDS: FUROSEMIDE 400 MG in 0.9 % SODIUM CHLORIDE 160 ML IV (12:21)
--- NOTE | 2025-05-16 13:53 | PC.NURSE ---
Marcelle called and Shanon stated that since you were unavailable to do the peer to peer that they denied her. The next step is a fast appeal through the [facility] department opt 3.
--- NOTE | 2025-05-16 16:31 | PC.NURSE ---
[employer] Developer called Marcelle for fast appeal spoke to Rhonda at approximately [phone] Carrillo aware
--- NOTE | 2025-05-16 16:34 | PC.NURSE ---
Dr. Carrillo stated via [facility] [employer] I called 3-4 times around 1030-11. Every time I press option 1 it takes me to peer to peer option then says than the message says: we are open M-F. If you call after hour or holiday please leave a measaage
[2025-05-16] MEDS: INSULIN ASPART 300 UNIT/3 ML PEN SUBQ ×2 (17:15→21:55)
[2025-05-16] MEDS: ALPRAZOLAM 0.25 MG TABLET PO (18:36)
[2025-05-16] MEDS: MONTELUKAST SODIUM 10 MG TABLET PO (21:53)
[2025-05-16] MEDS: INSULIN GLARGINE 300 UNIT/3 ML INSULN.PEN 20 UNIT SQ (21:54)
[2025-05-17] VITALS (22 sets, daily range): BP systolic 115–150; BP diastolic 64–81; PULSE 58–107; TEMP 34.8–36.4; O2SAT 88–96
[2025-05-17] MEDS: PANTOPRAZOLE SODIUM 40 MG TABLET.DR PO (06:01)
[2025-05-17 07:09] LABS: Anion Gap 12.1; Blood Urea Nitrogen 58.0 mg/dL (7.0-18.0); Calcium 9.8 mg/dL (8.5-10.1); Carbon Dioxide 36.0 mmol/L (21.0-32.0); Chloride 95 mmol/L (98-107); Estimated GFR (African America 22 (>=60 mL/min/1.73m^2); Estimated GFR (Non-African Ame 18 (>=60 mL/min/1.73m^2); Glucose 109 mg/dL (74-106); Potassium 4.1 mmol/L (3.5-5.1); Sodium 139 mmol/L (136-145)
--- NOTE | 2025-05-17 09:01 | XR_ITS ---
[address] [address] Patient Name: PIEDAD TA MRN: [id number] date: 1940 Sex: F Assigned Patient Location: [place] Current Patient Location: [place] Accession/Order Number: [id number] Exam Date: 05/17/2025 11:10 Report Date: 05/17/2025 11:43 At the request of: CARLOS SMITH MD Procedure: XR chest 1V PA CHEST: CLINICAL HISTORY: CHF, comparison to last COMPARISON: 05/11/2025 Stable Cardiomegaly with vascular congestion and small to moderate-sized bilateral pleural effusions. Bibasilar atelectasis. No pneumothorax or free air.. XR/XR chest 1V IMPRESSION: CHF FINDINGS WITH SMALL TO MODERATE-SIZED EFFUSIONS. FINDINGS APPEAR SIMILAR PRIOR EXAM. Impression dictated by: Don Latif M.D. 05/17/2025 11:43 AM Dictation Location: [place] [address] Electronically authenticated by: [id number] Date: 05/17/2025 11:43
--- NOTE | 2025-05-17 09:04 | PM.PN ---
Progress Note: Subjective Subjective Interval history: Patient is feeling well. Less short of breath for sure. Less tachypneic. No chest pain. Patient in fact is off oxygen at this time. Less swelling in her arms and legs. Exam Narrative Exam Narrative: Patient is sitting in bed, morbidly obese. Patient appears to be much more comfortable than admission state Patient is visibly tachypneic. Visible anasarca. Extensive edema involving her upper and lower extremities as well as abdominal wall. Patient is on oxygen. Respiratory is about 24. Chest exam significant resolution of the revealed bilateral crackles and diminished breath sound. Heart is regular. Abdomen is soft. Increased abdominal girth therefore clinically I could not exclude the possibility of intra-abdominal mass organomegaly. Abdominal wall edema noted. Noticeable improvement of the upper and lower extremities showed extensive +2 pitting edema proximally and distally. Patient is awake. Able to answer questions. Patient is weak. Unable to sit up or stand up on her own and that seems to be chronic and progressive. Constitutional Vital Signs, click to edit/add: Last Vital Signs Temp 94.7 F L 05/17/25 07:52 Pulse 75 05/17/25 08:00 Resp 20 05/17/25 07:52 BP 141/81 05/17/25 07:52 Pulse Ox 95 05/17/25 07:52 O2 Del Method Room Air 05/17/25 07:52 O2 Flow Rate 1 05/14/25 20:38 Common normals: oriented x3 General appearance: lethargic (easily arousable ) Nutritional appearance: obese HENSD Common normals: normocephalic and head/scalp atraumatic Eye Common normals: EOMs intact bilaterally and conjunctivae normal Neck & C-Spine Common normals: supple and no JVD (hard to assess JVD due to neck size) Respiratory Effort & inspection: uses accessory muscles and other (labored breathing) Auscultation: crackles Cardio Common normals: regular rate, regular rhythm, S1 normal heart sound and S2 normal heart sound Heart sounds: murmur GI Common normals: non-tender Inspection: anasarca present Bladder/kidney exam: catheter in place Extremity General: edema (+3 BLE edema extending up to abdomen ) Progress Note: Objective Labs Labs: [facility] 05/17/25 06:04 Sodium 139 Potassium 4.1 Chloride 95 L Carbon Dioxide 36.0 H BUN 58.0 H Creatinine 2.51 H Glucose 109 H Calcium 9.8 Progress Note: A&P Assessment and Plan (1) Acute congestive heart failure: (2) Anasarca: Plan Pulmonary edema Extensive anasarca. Extensive edema involving her upper and lower extremities as well abdominal wall. Hypoxic respiratory failure secondary to above. Patient is at risk of PE therefore I ordered a CT of the chest and that came back negative for PE but positive for interstitial edema and pleural effusion. Low albumin causing low hydrostatic pressure and third spacing. Diastolic heart failure based on recent echocardiogram. Cardiorenal disease. 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 I have accepted to admit patient to the medical floor. Telemetry monitoring. Given her diminished mobility, recent past and confirmed history of lower extremities DVT, elevated D-dimer and obesity she is at risk having PE. CT of the chest is negative for PE. Ordered lower extremity ultrasound rule out DVT. Positive for PTV and GSV Patient has not made significant of urine output over the first to 3 days of admission but last 72 hours she is made more urine. So far patient is 11 L negative balance. Most of the output have been over the last 72 hours. Hopefully we will make some progress on the pleural effusion. At some point, patient may need diagnostic and/or therapeutic thoracentesis. Currently she is on room air. 93%. Changing diuretics from Lasix drip to oral Lasix with Zaroxolyn UTI Blood cultures negative. Urine cultures positive for Klebsiella that is pansensitive Discontinued meropenem and start her on Levaquin. Switching Levaquin to doxycycline to cover lower extremities cellulitis Lower extremities dermatitis versus cellulitis. Change antibiotic to doxycycline. Positive troponin, no chest pain. No ST elevation or depression on EKG. Suspected that patient may have underlying CAD but no clinical evidence of ACS at this time. 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 Not resolved since February Patient is at risk having progression into proximal and or abdominal DVT and/or PE. Started patient on Eliquis treatment. Eliquis dose has been adjusted due to age above 80 and creatinine above 1.5. Diabetes with hyperglycemia Recent A1c 7.2. I started patient on long-acting Lantus as well as sliding scale with the meal insulin. Titrate insulin to keep blood sugar between 125 and 180. Functional impairment according to the son, patient has a wheelchair and a walker. Recently she has been working with therapy team and was able to take a few steps Significant functional disability that would likely require skilled care or long-term residential living. CKD stage III borderline stage IV. Baseline creatinine is 1.8 - 2.5 and GFR in the upper 20s lower 30s. Patient has developed WILLIAM over the last 72 hours Patient continues to be fluid overloaded clinically. (Improved over the last 4 days ) This WILLIAM could be related to ongoing cardiorenal disease WILLIAM could be related to abdominal compartment syndrome. CT scan does not show significant ascites only subcutaneous edema. Rule out the possibility of obstructive uropathy. CAT scan does not show any obstructive uropathy. This could be related to contrast nephropathy. Patient had CT of the chest on May 11 given her hypoxemia, bedbound situation, elevated D-dimer and significant increased risk of PE specifically given her history of lower extremity DVT. Continue to monitor electrolytes and kidney function while getting diuresis. The degree of worsening creatinine elevation has slowed down significantly. Her urine output has increased noticeably. Switching Lasix drip to oral Lasix 40 mg twice a day and Zaroxolyn 5 mg twice a day. Acceptable rise of creatinine level for the sake of achieving euvolemic state and relieve her respiratory compromise. Anemia, no evidence of acute blood loss. Patient will likely require to have anemia workup to be done in the outpatient setting to be handled by PCP in collaboration with other needed outpatient providers. This may include but not limited to EGD, colonoscopy, referral to see hematology and other needed age-appropriate cancer screening. Chronic, subacute medical conditions not listed above, abnormal labs and imaging, incidental findings seen on labs and or imaging. These would need to be addressed. Could be addressed later on or in the outpatient setting by PCP collaboration with other needed outpatient providers when time and condition are appropriate. Goals of care discussion and advance care planing completed on 05/12 and on 05/14. Patient opted against resuscitative effort. She is DNR CCA. I discussed her case with her and her son on 05/13 and on 05/14 with her son and her daughter at the bedside as well. Prognostication Her prognosis is poor given her advanced age in the setting of cardio, pulmonary and renal disease as well as significant decline in her functional status Urinary Catheter Management Urinary Catheter Management Urethral: Cath placed during this visit: yes Urethral indwelling: No Insertion date: 05/11/25 Insertion time: 17:10
[2025-05-17] MEDS: APIXABAN 5 MG TABLET 2.5 MG PO ×2 (10:23→21:53)
[2025-05-17] MEDS: CALCIUM CARBONATE 600 MG/VITAMIN D3 400 IU TABLET 1 TAB PO ×2 (10:23→17:12)
[2025-05-17] MEDS: FUROSEMIDE 40 MG TABLET PO ×2 (10:23→21:53)
[2025-05-17] MEDS: METOLAZONE 2.5 MG TABLET 5 MG PO (10:23)
[2025-05-17] MEDS: CITALOPRAM HYDROBROMIDE 20 MG TABLET 10 MG PO (10:24)
[2025-05-17] MEDS: POTASSIUM CHLORIDE 10 MEQ ER TABLET PO ×2 (10:24→21:53)
[2025-05-17] MEDS: DOXYCYCLINE HYCLATE 100 MG in 0.9 % SODIUM CHLORIDE 100 ML IV ×2 (10:27→22:05)
[2025-05-17] MEDS: ACETAMINOPHEN 325 MG TABLET 650 MG PO (15:37)
[2025-05-17] MEDS: INSULIN ASPART 300 UNIT/3 ML PEN SUBQ (17:12)
[2025-05-17] MEDS: MONTELUKAST SODIUM 10 MG TABLET PO (21:53)
[2025-05-17] MEDS: ALPRAZOLAM 0.25 MG TABLET PO (21:54)
[2025-05-17] MEDS: INSULIN GLARGINE 300 UNIT/3 ML INSULN.PEN 20 UNIT SQ (22:07)
[2025-05-18] VITALS (22 sets, daily range): BP systolic 118–167; BP diastolic 65–93; PULSE 63–95; TEMP 35.9–37; O2SAT 91–96
[2025-05-18 05:31] LABS: Hematocrit 39.3 % (36.0-48.0); Hemoglobin 13.1 g/dL (12.0-16.0); Mean Corpuscular HGB Conc 33.3 g/dL (29.9-35.2); Mean Corpuscular Hemoglobin 29.8 pg (26.7-34.0); Mean Corpuscular Volume 89.3 fL (81.0-99.0); Platelet Count 116 10^3/uL (150-450); Red Blood Count 4.40 10^6/uL (4.20-5.40); White Blood Count 7.5 10^3/uL (4.0-11.0)
[2025-05-18 05:48] LABS: Anion Gap 11.2; Blood Urea Nitrogen 59.0 mg/dL (7.0-18.0); Calcium 10.0 mg/dL (8.5-10.1); Carbon Dioxide 38.2 mmol/L (21.0-32.0); Chloride 94 mmol/L (98-107); Estimated GFR (African America 22 (>=60 mL/min/1.73m^2); Estimated GFR (Non-African Ame 18 (>=60 mL/min/1.73m^2); Glucose 116 mg/dL (74-106); Potassium 4.4 mmol/L (3.5-5.1); Sodium 139 mmol/L (136-145)
[2025-05-18] MEDS: ACETAMINOPHEN 325 MG TABLET 650 MG PO ×3 (06:15→17:43)
[2025-05-18] MEDS: PANTOPRAZOLE SODIUM 40 MG TABLET.DR PO (06:15)
[2025-05-18] MEDS: CALCIUM CARBONATE 600 MG/VITAMIN D3 400 IU TABLET 1 TAB PO ×2 (09:01→17:42)
[2025-05-18] MEDS: CITALOPRAM HYDROBROMIDE 20 MG TABLET 10 MG PO (09:01)
[2025-05-18] MEDS: POTASSIUM CHLORIDE 10 MEQ ER TABLET PO ×2 (09:01→21:44)
[2025-05-18] MEDS: APIXABAN 5 MG TABLET 2.5 MG PO ×2 (09:01→21:44)
[2025-05-18] MEDS: FUROSEMIDE 40 MG TABLET PO ×2 (09:01→21:44)
[2025-05-18] MEDS: METOLAZONE 2.5 MG TABLET 5 MG PO (09:01)
[2025-05-18] MEDS: DOXYCYCLINE HYCLATE 100 MG in 0.9 % SODIUM CHLORIDE 100 ML IV ×2 (09:05→21:43)
[2025-05-18] MEDS: 0.9 % SODIUM CHLORIDE 250 ML 10 ML IV (09:06)
--- NOTE | 2025-05-18 09:16 | SWNOTE1 ---
W received an email from Katarzyna at [facility] and pt's insurance is denying her for SNF. It is documented in the chart that Iveth Rodriguez, med/surge preparation supervisor [employer], completed a fast appeal over the weekend and Dr. Carrillo was notified of this. ADILIA reached out to Katarzyna and updated her with this information and requested that Katarzyna look in to the fast appeal to see if insurance is still denying?
--- NOTE | 2025-05-18 09:20 | CM.NOTE ---
Rounds made with Dr. Urbano, discussed plan of care with pt and son. Pt was denied for skilled therapy at discharge, Dr. Urbano explained about expedited appeal. Pt and son verbalize understanding. CM will start appeal for skilled therapy today.
--- NOTE | 2025-05-18 10:15 | CM.NOTE ---
PATRICIA called insurance company regarding appeal. Expedited appeal started by PATRICIA, [employer] now has 24 hours to respond with decision. Updated Dr. Urbano.
--- NOTE | 2025-05-18 11:01 | P.IMPN_ITS ---
Progress Note: A&P Assessment and Plan (1) Acute congestive heart failure: (2) Anasarca: Plan Pulmonary edema Extensive anasarca. Extensive edema involving her upper and lower extremities as well abdominal wall. Hypoxic respiratory failure secondary to above. Patient is at risk of PE therefore I ordered a CT of the chest and that came back negative for PE but positive for interstitial edema and pleural effusion. Low albumin causing low hydrostatic pressure and third spacing. Diastolic heart failure based on recent echocardiogram. Cardiorenal disease. 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 I have accepted to admit patient to the medical floor. Telemetry monitoring. Given her diminished mobility, recent past and confirmed history of lower extremities DVT, elevated D-dimer and obesity she is at risk having PE. CT of the chest is negative for PE. Ordered lower extremity ultrasound rule out DVT. Positive for PTV and GSV Patient has not made significant of urine output over the first to 3 days of admission but last 72 hours she is made more urine. So far patient is 11 L negative balance. Most of the output have been over the last 72 hours. Hopefully we will make some progress on the pleural effusion. At some point, patient may need diagnostic and/or therapeutic thoracentesis. Currently she is on room air. 93%. Changing diuretics from Lasix drip to oral Lasix with Zaroxolyn UTI Blood cultures negative. Urine cultures positive for Klebsiella that is pansensitive Discontinued meropenem and start her on Levaquin. Switching Levaquin to doxycycline to cover lower extremities cellulitis Lower extremities dermatitis versus cellulitis. Change antibiotic to doxycycline. Positive troponin, no chest pain. No ST elevation or depression on EKG. Suspected that patient may have underlying CAD but no clinical evidence of ACS at this time. 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 Not resolved since February Patient is at risk having progression into proximal and or abdominal DVT and/or PE. Started patient on Eliquis treatment. Eliquis dose has been adjusted due to age above 80 and creatinine above 1.5. Diabetes with hyperglycemia Recent A1c 7.2. I started patient on long-acting Lantus as well as sliding scale with the meal insulin. Titrate insulin to keep blood sugar between 125 and 180. Functional impairment according to the son, patient has a wheelchair and a walker. Recently she has been working with therapy team and was able to take a few steps Significant functional disability that would likely require skilled care or long-term residential living. CKD stage III borderline stage IV. Baseline creatinine is 1.8 - 2.5 and GFR in the upper 20s lower 30s. Patient has developed WILLIAM over the last 72 hours Patient continues to be fluid overloaded clinically. (Improved over the last 4 days ) This WILLIAM could be related to ongoing cardiorenal disease WILLIAM could be related to abdominal compartment syndrome. CT scan does not show significant ascites only subcutaneous edema. Rule out the possibility of obstructive uropathy. CAT scan does not show any obstructive uropathy. This could be related to contrast nephropathy. Patient had CT of the chest on May 11 given her hypoxemia, bedbound situation, elevated D-dimer and significant increased risk of PE specifically given her history of lower extremity DVT. Continue to monitor electrolytes and kidney function while getting diuresis. The degree of worsening creatinine elevation has slowed down significantly. Her urine output has increased noticeably. Switching Lasix drip to oral Lasix 40 mg twice a day and Zaroxolyn 5 mg twice a day. Acceptable rise of creatinine level for the sake of achieving euvolemic state and relieve her respiratory compromise. Anemia, no evidence of acute blood loss. Patient will likely require to have anemia workup to be done in the outpatient setting to be handled by PCP in collaboration with other needed outpatient providers. This may include but not limited to EGD, colonoscopy, referral to see hematology and other needed age-appropriate cancer screening. Chronic, subacute medical conditions not listed above, abnormal labs and imaging, incidental findings seen on labs and or imaging. These would need to be addressed. Could be addressed later on or in the outpatient setting by PCP collaboration with other needed outpatient providers when time and condition are appropriate. Goals of care discussion and advance care planing completed on 05/12 and on 05/14. Patient opted against resuscitative effort. She is DNR [facility]. 05/18/2025 patient continues with good IV diuresis. Her respiratory status is improved. Unfortunately she was denied to go for SNF. Will try a peer to peer today. She continues to be on p.o. Lasix 40 mg twice daily as well as p.o. metolazone 5 mg p.o. daily. Discussed the plan with the patient and her son at bedside. Answered all their questions. Internal Medicine - PN: Subj Subjective Interval history: Patient continues to feel better today. She is accompanied by her son in the room. States that her shortness of breath is better. Leg swelling is also bet ter. She was having breakfast. No issues overnight. Vital stable. Creatinine still around 2.54. Patient getting good amount of urine. Exam Narrative Exam Narrative: Patient is sitting in bed, morbidly obese. Patient is not in acute distress, she is chronically ill-appearing obviously however sitting up in chair having breakfast Visible anasarca. Extensive edema involving her upper and lower extremities as well as abdominal wall. Patient is on oxygen. Respiratory is about 24. Chest exam: Decreased bilateral air entry with bilateral crackles with no wheezes. Saturating 95% on room air. Does have desaturation when she moving however she is not in visible tachypnea, increased work of breathing, or using clinical training specialist muscles. Obviously abdominal wall for breathing Heart is regular, normal S1-S2, no murmur Abdomen is soft. No signs of acute abdomen. Extremities: Improvement of the upper and lower extremities showed extensive +2 pitting edema proximally and distally. Patient is awake. Able to answer questions, following commands Patient is weak especially lower extremities but no focal deficits. Unable to sit up or stand up on her own and that seems to be chronic and progressive. Constitutional Vital Signs, click to edit/add: Last Vital Signs Temp 97.7 F 05/18/25 08:12 Pulse 82 05/18/25 09:58 Resp 18 05/18/25 08:12 BP 160/71 H 05/18/25 08:12 Pulse Ox 91 L 05/18/25 08:12 O2 Del Method Room Air 05/18/25 08:12 O2 Flow Rate 1 05/14/25 20:38 Internal Medicine - PN: Obj Da Labs Labs: Laboratory Results - last 24 hr 05/15/25 05/17/25 05/17/25 04:50 11:22 17:08 WBC RBC Hgb Hct MCV MCH MCHC RDW Plt Count MPV Sodium Potassium Chloride Carbon Dioxide Anion Gap BUN Creatinine Est GFR ( Amer) Est GFR (Non-Af Amer) BUN/Creatinine Ratio Glucose Calcium Cortisol AM Sample 16.3 POC Glucose 94 176 H 05/17/25 05/18/25 21:43 05:16 WBC 7.5 RBC 4.40 Hgb 13.1 Hct 39.3 MCV 89.3 MCH 29.8 MCHC 33.3 RDW 14.9 Plt Count 116 L MPV 10.0 Sodium 139 Potassium 4.4 Chloride 94 L Carbon Dioxide 38.2 H Anion Gap 11.2 BUN 59.0 H Creatinine 2.54 H Est GFR ( Amer) 22 L Est GFR (Non-Af Amer) 18 L BUN/Creatinine Ratio 23.2 Glucose 116 H Calcium 10.0 Cortisol AM Sample POC Glucose 133 H Urinary Catheter Management Urinary Catheter Management Urethral: Cath placed during this visit: yes Urethral indwelling: No Insertion date: 05/11/25 Insertion time: 17:10
[2025-05-18] MEDS: ALPRAZOLAM 0.25 MG TABLET PO (11:59)
--- NOTE | 2025-05-18 12:15 | PT.DAILY ---
Physical Therapy Daily Note PT Daily Note/Assess Start: 05/16/25 10:22 Freq: Status: Active Protocol: Document 05/18/25 11:46 [id number] (Rec: 05/18/25 12:15 [id number] No Response) Physical Therapy Daily Note/Assessment Time In/Time Out Time In 11:14 Time Out 11:32 Pain In Pain Level 0 Pain Out Pain Level 5 Subjective Subjective Patient received seated in chair at beside. Mehnaz lift sling under patient. Per nursing, patient has been in chair since last night. Patient son and present initially and then excused themselves. Patient agreeable to participate with PT. Therapeutic Exercise Time Therapeutic Exercise 18 Minutes (minutes) Therapeutic Exercise 1 Units Therapeutic Exercise Treatment Therapeutic Exercise Patient performed initial forward sitting from semi- Treatment reclined position with MIN A +2. Patient presents with posterior lean in sitting and relies heavily on FIGUEROA hands on arm rests to maintain seated upright position. Worked on trunk/core stability and strength with leaning back into chair and engaging abdominals for trunk flexion time 5 reps w/ CGA to MIN A +1. Last rep patient was able to complete with no assist or use of hands on arm rests. Patient does present with labored breathing when sitting up right and requires verbal cueing for breathing technique. Worked on trunk flexion and FIGUEROA side leaning w/ resistance for 5-10 reps. Patient performed trunk rotation and reaching across mid-line for tapping a target for 5 reps each. Patient utilizes 1 UE for support during trunk rotation due to increased posterior lean. Continued verbal cues for breathing during exertion. FIGUEROA LE ther ex for ankle pumps, LAQ's, side stepping, MRE for hip ABD/ADD time 10 reps. Patient with SOB, improves w/ verbal cues for breathing. Patient requires FIGUEROA UE support during LE ther ex due to posterior lean. Total Physical Therapy Time Total Therapy 18 Minutes Total Physical 1 Therapy Units Summary Daily Note Summary Patient presents with posterior trunk lean in upright sitting and requires 1-2 hands on chair arm rest to maintain upright seated posture due to weak core muscles. No R side lean present this date. Patient requires heavy verbal cues for breathing during exertion. Patient reports FIGUEROA heel pain at 5/10 post treatment w/ noted increased darkened skin color when in dependent position for ther ex. Patient would benefit from SNF to address functional weakness of core muscle and overall decreased function for return to PLOF for standing.
--- NOTE | 2025-05-18 13:49 | SWNOTE1 ---
CM completed the fast appeal with pt's insurance. Pt's insurance requested updates from today that show the need for SNF. SW faxed physician notes from the weekend and PT note from today to pt's insurance. The insurance did tell CM they have 24 hours to make final decision.
[2025-05-18] MEDS: MONTELUKAST SODIUM 10 MG TABLET PO (21:44)
[2025-05-18] MEDS: ZOLPIDEM TARTRATE 5 MG TABLET PO (23:08)
[2025-05-19] VITALS (9 sets, daily range): BP systolic 114–136; BP diastolic 63–64; PULSE 69–89; TEMP 36.1–36.2; O2SAT 90–94
[2025-05-19] MEDS: PANTOPRAZOLE SODIUM 40 MG TABLET.DR PO (05:42)
[2025-05-19 06:58] LABS: Hematocrit 38.5 % (36.0-48.0); Hemoglobin 12.9 g/dL (12.0-16.0); Immature Granulocytes Abs Auto 0.04 10^3/uL (0.00-0.03); Immature Granulocytes Pct Auto 0.4 % (0.0-0.5); Lymphocytes Absolute Auto 2.3 10^3/uL (1.2-3.8); Mean Corpuscular HGB Conc 33.5 g/dL (29.9-35.2); Mean Corpuscular Hemoglobin 30.1 pg (26.7-34.0); Mean Corpuscular Volume 89.7 fL (81.0-99.0); Platelet Count 142 10^3/uL (150-450); Red Blood Count 4.29 10^6/uL (4.20-5.40); White Blood Count 8.9 10^3/uL (4.0-11.0)
[2025-05-19 07:19] LABS: Alanine Aminotransferase 12 U/L (14-59); Albumin Globulin Ratio 0.6; Albumin Level 2.7 g/dL (3.4-5.0); Alkaline Phosphatase 76 U/L (46-116); Anion Gap 13.7; Aspartate Amino Transferase 29 U/L (15-37); Blood Urea Nitrogen 59.0 mg/dL (7.0-18.0); Calcium 9.7 mg/dL (8.5-10.1); Carbon Dioxide 33.2 mmol/L (21.0-32.0); Chloride 95 mmol/L (98-107); Estimated GFR (African America 23 (>=60 mL/min/1.73m^2); Estimated GFR (Non-African Ame 19 (>=60 mL/min/1.73m^2); Globulin 4.2 g/dL; Glucose 119 mg/dL (74-106); Magnesium 1.5 mg/dL (1.8-2.4); Potassium 4.9 mmol/L (3.5-5.1); Sodium 137 mmol/L (136-145); Total Protein 6.9 g/dL (6.4-8.2)
--- NOTE | 2025-05-19 08:00 | CM.NOTE ---
Important Message From medicare discussed with pt, no questions or concerns. Pt will discharge to skilled today.
--- NOTE | 2025-05-19 08:36 | CM.NOTE ---
[facility] [phone] called and stated the patient was approved for skilled therapy. SW notified and she will reach out to [facility].
[2025-05-19] MEDS: METOLAZONE 2.5 MG TABLET 5 MG PO (08:54)
[2025-05-19] MEDS: CITALOPRAM HYDROBROMIDE 20 MG TABLET 10 MG PO (08:54)
[2025-05-19] MEDS: APIXABAN 5 MG TABLET 2.5 MG PO (08:55)
[2025-05-19] MEDS: POTASSIUM CHLORIDE 10 MEQ ER TABLET PO (08:55)
[2025-05-19] MEDS: FUROSEMIDE 40 MG TABLET PO (08:55)
[2025-05-19] MEDS: ACETAMINOPHEN 325 MG TABLET 650 MG PO (08:55)
[2025-05-19] MEDS: ALPRAZOLAM 0.25 MG TABLET PO (08:55)
[2025-05-19] MEDS: CALCIUM CARBONATE 600 MG/VITAMIN D3 400 IU TABLET 1 TAB PO (08:55)
--- NOTE | 2025-05-19 09:01 | SWNOTE1 ---
ADILIA spoke with case management and she received a call from [employer] and the denial for SNF has been overturned and the insurance approved her for SNF. ADILIA emailed Katarzyna and Reshma at [facility] and updated them. Katarzyna asked for an auth number, but no number was provided. Katarzyna will let ADILIA know when they receive the auth number.
--- NOTE | 2025-05-19 09:15 | SWNOTE1 ---
ADILIA called [employer] back and spoke to a represntative. She did provide SW with an auth number, [id number] and the approval is for 7 days, next review date for SNF is 05/24. ADILIA emailed this information to Delvin at [place].
--- NOTE | 2025-05-19 09:35 | CM.NOTE ---
Rounds made with Dr. Urbano, pt will discharge to [facility] today for skilled therapy. Pt's son at bedside for update on plan of care. SW updated for discharge and will arrange transport and notify alf.
--- NOTE | 2025-05-19 09:55 | SWNOTE1 ---
SW received email from [facility] and they are ready for pt to come at anytime. SW to set up transport once discharge orders are in.
--- NOTE | 2025-05-19 10:18 | CM.NOTE ---
[facility] called to check on the patient and they were notified that she should be discharging to [facility] today if all goes well.
[2025-05-19] MEDS: MAGNESIUM SULFATE IN WATER 2 GM/50 ML PREMIX IV (10:23)
[2025-05-19] MEDS: DOXYCYCLINE HYCLATE 100 MG in 0.9 % SODIUM CHLORIDE 100 ML IV (10:24)
--- NOTE | 2025-05-19 11:04 | SWNOTE1 ---
ADILIA spoke with family and they would like pt to go by [facility], wheelchair transport. Pt is in agreement and does feel she can sit in a chair for that amount of time. ADILIA called trips and they will be here between 12-12:30. ADILIA notified Eric Chapin, pt's nurse, and pt's family of time. SW to send order once completed. PASRR completed on 05/15.
--- NOTE | 2025-05-19 11:18 | P.DS_ITS ---
DS: Providers Provider Date of admission: 05/11/25 17:30 Primary care physician: JESSICA EMERSON Consults: 05/13/25 08:54 Consult to Cardiology Routine Reason for consultation: Diastolic heart failure, positive troponin 05/15/25 Physical Therapy Eval and Treat Routine Reason for consultation: weakness Anticipated date of discharge: 05/19/25 DS: Diagnosis Discharge Diagnosis (1) Acute congestive heart failure: (2) Anasarca: Plan As above DS: Summary Hospital Course Hospital Course: Mrs. Sprague is a 84-year-old female who came in with shortness of breath. Shortness of breath for the last few days. The dyspnea on exertion. Progressive weakness and fatigue. No fever or chills. No chest pain or palpitation. No abdominal pain. Patient was found to be hypoxic and tachypneic. No nausea or vomiting. No altered mentation just progressive weakness and fatigue. Patient is able to take few steps according to her son. Otherwise patient has a wheelchair and walker. (1) Acute congestive heart failure: (2) Anasarca: Plan Pulmonary edema Extensive anasarca. Extensive edema involving her upper and lower extremities as well abdominal wall. Hypoxic respiratory failure secondary to above. Patient is at risk of PE therefore I ordered a CT of the chest and that came back negative for PE but positive for interstitial edema and pleural effusion. Low albumin causing low hydrostatic pressure and third spacing. Diastolic heart failure based on recent echocardiogram. Cardiorenal disease. 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 I have accepted to admit patient to the medical floor. Telemetry monitoring. Given her diminished mobility, recent past and confirmed history of lower extremities DVT, elevated D-dimer and obesity she is at risk having PE. CT of the chest is negative for PE. Ordered lower extremity ultrasound rule out DVT. Positive for PTV and GSV Patient has not made significant of urine output over the first to 3 days of admission but last 72 hours she is made more urine. So far patient is 11 L negative balance. Most of the output have been over the last 72 hours. Hopefully we will make some progress on the pleural effusion. At some point, patient may need diagnostic and/or therapeutic thoracentesis. Currently she is on room air. 93%. Changing diuretics from Lasix drip to oral Lasix with Zaroxolyn UTI Blood cultures negative. Urine cultures positive for Klebsiella that is pansensitive Discontinued meropenem and start her on Levaquin. Switching Levaquin to doxycycline to cover lower extremities cellulitis Lower extremities dermatitis versus cellulitis. Change antibiotic to doxycycline. Positive troponin, no chest pain. No ST elevation or depression on EKG. Suspected that patient may have underlying CAD but no clinical evidence of ACS at this time. 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 Not resolved since February Patient is at risk having progression into proximal and or abdominal DVT and/or PE. Started patient on Eliquis treatment. Eliquis dose has been adjusted due to age above 80 and creatinine above 1.5. Diabetes with hyperglycemia Recent A1c 7.2. I started patient on long-acting Lantus as well as sliding scale with the meal insulin. Titrate insulin to keep blood sugar between 125 and 180. Functional impairment according to the son, patient has a wheelchair and a walker. Recently she has been working with therapy team and was able to take a few steps Significant functional disability that would likely require skilled care or long-term residential living. CKD stage III borderline stage IV. Baseline creatinine is 1.8 - 2.5 and GFR in the upper 20s lower 30s. Patient has developed WILLIAM over the last 72 hours Patient continues to be fluid overloaded clinically. (Improved over the last 4 days ) This WILLIAM could be related to ongoing cardiorenal disease WILLIAM could be related to abdominal compartment syndrome. CT scan does not show significant ascites only subcutaneous edema. Rule out the possibility of obstructive uropathy. CAT scan does not show any obstructive uropathy. This could be related to contrast nephropathy. Patient had CT of the chest on May 11 given her hypoxemia, bedbound situation, elevated D-dimer and significant increased risk of PE specifically given her history of lower extremity DVT. Continue to monitor electrolytes and kidney function while getting diuresis. The degree of worsening creatinine elevation has slowed down significantly. Her urine output has increased noticeably. Switching Lasix drip to oral Lasix 40 mg twice a day and Zaroxolyn 5 mg twice a day. Acceptable rise of creatinine level for the sake of achieving euvolemic state and relieve her respiratory compromise. Anemia, no evidence of acute blood loss. Patient will likely require to have anemia workup to be done in the outpatient setting to be handled by PCP in collaboration with other needed outpatient providers. This may include but not limited to EGD, colonoscopy, referral to see hematology and other needed age-appropriate cancer screening. Chronic, subacute medical conditions not listed above, abnormal labs and imaging, incidental findings seen on labs and or imaging. These would need to be addressed. Could be addressed later on or in the outpatient setting by PCP collaboration with other needed outpatient providers when time and condition are appropriate. Goals of care discussion and advance care planing completed on 05/12 and on 05/14. Patient opted against resuscitative effort. She is DNR [facility]. 05/18/2025 patient continues with good IV diuresis. Her respiratory status is improved. Unfortunately she was denied to go for SNF. Will try a peer to peer today. She continues to be on p.o. Lasix 40 mg twice daily as well as p.o. metolazone 5 mg p.o. daily. Discussed the plan with the patient and her son at bedside. Answered all their questions. 05/19/2025 patient today continues to improve, fortunately she was approved for SNF stay. I will discharge her today. She will need another CMP in 1 week with close follow-up with her PCP. I discussed the case with her and her son at bedside. They are appreciative of our efforts Status at Discharge Overall status at discharge: patient is progressing back to baseline Time Spent with Patient Time attestation: Total time spent providing and/or coordinating discharge services: Time spent: greater than 30 minutes Exam Narrative Exam Narrative: Patient is sitting in bed, morbidly obese. Patient is not in acute distress, she is chronically ill-appearing obviously however sitting up in chair having breakfast Visible anasarca. Extensive edema involving her upper and lower extremities as well as abdominal wall. Patient is on oxygen. Respiratory is about 24. Chest exam: Decreased bilateral air entry with bilateral crackles with no wheezes. Saturating 95% on room air. Does have desaturation when she moving however she is not in visible tachypnea, increased work of breathing, or using architectural project manager muscles. Obviously abdominal wall for breathing Heart is regular, normal S1-S2, no murmur Abdomen is soft. No signs of acute abdomen. Extremities: Improvement of the upper and lower extremities showed extensive +2 pitting edema proximally and distally. Patient is awake. Able to answer questions, following commands Patient is weak especially lower extremities but no focal deficits. Unable to sit up or stand up on her own and that seems to be chronic and progressive. Constitutional Vital Signs, click to edit/add: Last Vital Signs Temp 97.0 F L 05/19/25 08:53 Pulse 85 05/19/25 09:51 Resp 20 05/19/25 08:53 BP 114/64 05/19/25 08:53 Pulse Ox 94 L 05/19/25 10:00 O2 Del Method Room Air 05/19/25 10:00 O2 Flow Rate 1 05/14/25 20:38 DS: Data Data Completed and Pending Labs on day of discharge: Labs from last 24 hours 05/19/25 05/18/25 05/18/25 06:46 20:57 16:14 WBC 8.9 RBC 4.29 Hgb 12.9 Hct 38.5 MCV 89.7 MCH 30.1 MCHC 33.5 RDW 15.1 H Plt Count 142 L MPV 10.1 Neut % (Auto) 57.4 Lymph % (Auto) 25.6 Kern % (Auto) 13.0 H Eos % (Auto) 3.0 Baso % (Auto) 0.6 Neut # (Auto) 5.1 Lymph # (Auto) 2.3 Kern # (Auto) 1.2 H Eos # (Auto) 0.3 Baso # (Auto) 0.1 Abs Immat Gran (auto) 0.04 H Imm/Tot Granulo (auto) 0.4 Sodium 137 Potassium 4.9 Chloride 95 L Carbon Dioxide 33.2 H Anion Gap 13.7 BUN 59.0 H Creatinine 2.47 H Est GFR ( Amer) 23 L Est GFR (Non-Af Amer) 19 L BUN/Creatinine Ratio 23.9 Glucose 119 H Calcium 9.7 Phosphorus 4.7 Magnesium 1.5 L Total Bilirubin 1.0 AST 29 ALT 12 L Alkaline Phosphatase 76 Total Protein 6.9 Albumin 2.7 L Globulin 4.2 Albumin/Globulin Ratio 0.6 POC Glucose 136 H 123 H 05/18/25 13:03 WBC RBC Hgb Hct MCV MCH MCHC RDW Plt Count MPV Neut % (Auto) Lymph % (Auto) Kern % (Auto) Eos % (Auto) Baso % (Auto) Neut # (Auto) Lymph # (Auto) Kern # (Auto) Eos # (Auto) Baso # (Auto) Abs Immat Gran (auto) Imm/Tot Granulo (auto) Sodium Potassium Chloride Carbon Dioxide Anion Gap BUN Creatinine Est GFR ( Amer) Est GFR (Non-Af Amer) BUN/Creatinine Ratio Glucose Calcium Phosphorus Magnesium Total Bilirubin AST ALT Alkaline Phosphatase Total Protein Albumin Globulin Albumin/Globulin Ratio POC Glucose 127 H Discharge Plan Discharge Disposition: Xfer SNF Condition: Good Discharge Medications: New furosemide 40 mg Tablet 40 mg PO BID 30 Days Qty: 60 0RF metolazone 2.5 mg Tablet See Rx Instructions .ROUTE .COMPLEX Qty: 30 0RF Rx Instructions: 5 mg orally on MWF (3 times a week) Eliquis 5 mg Tablet 2.5 mg PO BID 30 Days Qty: 30 0RF Continued montelukast 10 mg tablet 10 mg PO HS calcium carbonate-vitamin D3 600 mg-10 mcg (400 unit) Tablet 1 tab PO BIDWM Qty: 0 0RF psyllium husk (bulk) 100 % Powder 2.6 ea PO QD Rx Instructions: 2.6 GRAMS ONCE DAILY cyanocobalamin (vitamin B-12) 1,000 mcg/mL Solution 1,000 mcg IM Q30D Qty: 0 0RF docusate sodium 100 mg Capsule 100 mg PO BID PRN (Reason: Constipation) Qty: 0 0RF insulin aspart U-100 [Novolog FlexPen U-100 Insulin] 100 unit/mL (3 mL) Insulin Pen 2 - 10 unit subcut ACHS Qty: 0 0RF sennosides-docusate sodium [Senna Plus] 8.6-50 mg Tablet 1 tab PO QD PRN (Reason: Constipation) Qty: 0 0RF tamsulosin [Flomax] 0.4 mg capsule 0.4 mg PO DAILY Qty: 30 0RF citalopram [Celexa] 10 mg tablet 10 mg PO DAILY Qty: 30 0RF alprazolam 0.25 mg tablet 0.25 mg PO BID PRN (Reason: anxiety) potassium chloride 20 mEq tablet,ER particles/crystals 20 meq PO .QD nystatin 100,000 unit/gram powder 1 applic TOPICAL BID Changed metoprolol tartrate 25 mg tablet 12.5 mg PO DAILY Qty: 0 0RF insulin glargine [Lantus Solostar U-100 Insulin] 100 unit/mL (3 mL) insulin pen 20 unit SUBCUT HS Qty: 22 0RF Discontinued furosemide 40 mg tablet 40 mg PO DAILY Glucagon Emergency Kit (human) 1 mg Recon Soln 1 mg IV Q15M PRN (Reason: Hypoglycemia) Qty: 0 0RF glipizide 10 mg tablet 10 mg PO BID No Action (DME) FreeStyle Corey 3 Sensor Device MISCELLANEOUS Print Language: Ecuadorean 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 pulmonology will not make appointment until follow up with PCP. PCP should call for appointment with [facility] pulmonology. follow up pcp Dr Jessica Emerson @2:30 # [phone] [facility].
--- NOTE | 2025-05-19 11:29 | SWNOTE1 ---
SW sent dc med rec and dc summary to [facility]. SW took CRF to nurse and packet to the med/surge floor.
--- NOTE | 2025-05-19 11:48 | CM.NOTE ---
CRF updated for discharge to skilled.
--- NOTE | 2025-05-19 12:12 | PC.NURSE ---
report given to Kitty at [place].. all questions answered
== END 2025-05-19 12:03 | DRG 291 ==
LOC: ER 16:38 → MS 17:40
PROVIDERS: Admitting Provider Internal Medicine; Emergency Provider Emergency Medicine; PCP Family Medicine; Visit Provider Student in an Organized Health Care Education/Training Program
DX: I13.0 Hypertensive heart and chronic kidney disease with heart failure and stage 1 through stage 4 chronic kidney disease, or unspecified chronic kidney disease (principal); I50.33 Acute on chronic diastolic (congestive) heart failure; J96.01 Acute respiratory failure with hypoxia; N18.4 Chronic kidney disease, stage 4 (severe); N39.0 Urinary tract infection, site not specified; Z68.41 Body mass index [BMI] 40.0-44.9, adult; I82.502 Chronic embolism and thrombosis of unspecified deep veins of left lower extremity; N17.9 Acute kidney failure, unspecified; L03.119 Cellulitis of unspecified part of limb; E11.22 Type 2 diabetes mellitus with diabetic chronic kidney disease; E11.65 Type 2 diabetes mellitus with hyperglycemia; Z79.4 Long term (current) use of insulin; Z79.84 Long term (current) use of oral hypoglycemic drugs; R60.1 Generalized edema; D64.9 Anemia, unspecified; E66.01 Morbid (severe) obesity due to excess calories; J98.4 Other disorders of lung; R79.89 Other specified abnormal findings of blood chemistry; I27.20 Pulmonary hypertension, unspecified; I35.0 Nonrheumatic aortic (valve) stenosis; I08.0 Rheumatic disorders of both mitral and aortic valves; B96.1 Klebsiella pneumoniae [K. pneumoniae] as the cause of diseases classified elsewhere; Z88.0 Allergy status to penicillin; Z88.1 Allergy status to other antibiotic agents; Z66 Do not resuscitate; L30.9 Dermatitis, unspecified; Z98.1 Arthrodesis status; Z90.49 Acquired absence of other specified parts of digestive tract; Z90.12 Acquired absence of left breast and nipple; Z85.828 Personal history of other malignant neoplasm of skin
CPT/HCPCS: 36410; 36415; 36592; 51702; 71045; 71275; 74176; 80048; 80053; 80076; 81001; 82533; 82948; 83605; 83735; 83880; 84100; 84443; 84484; 85025; 85027; 85378; 85610; 87040; 87086; 87088; 87186; 87804; 87811; 93005; 93970; 94761; 96374; 97110; 97161; 97530; 99285; A6213; J0743; J1650; J1938; J3475; P9046; Q9967

== ENCOUNTER 2025-05-27 14:24 | Outpatient (OUT) | payer MEDICARE, SELFPAY ==
--- OUTSIDE RECORDS SUMMARY | 2025-05-27 13:40 | XMS_ITS | Encounter Summary ---
Author Organization [facility] Address [address] [place] [address] Care Team Providers Care Stucco Plasterer Name Role Phone Unavailable Primary Care Provider Unavailabl e Reason for Visit * ReasonCommentsFollow-upPatient is here today for a follow up [facility] admission. Change in appetite. Increased anxiety over dueto CHFHyperlipidemiaHypertension Congestive Heart FailureEdemaLeg/feet, hand/arm swellingFatigueIncreased sleeping a lotPalpitationsPalpitations/racing heart occasionallyValve Disorder Encounter Details DateTypeDepartmentCare Team (Latest Contact Info)Vslkgyfjngp75/17/2025 1:40 PM ESTOffice Visit [facility] [address] [place] [address] Favio López MD [address] [place] [address] Stage 3b chronic kidney disease (CMS/HCC) (Primary Dx); Chronic diastolic heart failure (CMS/HCC); Parkinson's disease without dyskinesia or fluctuating manifestations (CMS/HCC) Social History Tobacco UseTypesPacks/DayYears UsedDateSmoking Tobacco: NeverSmokeless Tobacco: Never Tobacco Cessation:Counseling Given: Not Answered CommentsUnknownSex and Gender InformationValueDate RecordedSex Assigned at GbfmxIqpjkp46/15/2025 4:45 PM ESTLegal UzaWysody76/20/2025 1:35 PM EDTGender QtdmiombZykdet69/15/2025 4:45 PM ESTSexual OrientationHeterosexual or Straight 05/25/2025 4:45 PM ESTdocumented as of this encounter Last Filed Vital Signs Vital SignReadingTime TakenCommentsBlood Rocyuigr20/5205/27/2025 1:41 PM EST Zuoqs110005/27/2025 1:41 PM ESTTemperature--Respiratory Rate--Oxygen Dvibrlugmh56% 05/27/2025 1:41 PM ESTInhaled Oxygen Concentration--Oqoybl221 kg (227 lb) 05/27/2025 1:41 PM BIVKgjskw136.5 cm (5' 2 )05/27/2025 1:41 PM ESTBody Mass Index41.5205/27/2025 1:41 PM ESTdocumented in this encounter Progress Notes * Favio López MD - 05/27/2025 1:40 PM EST Subjective Patient ID: Carlita Sprague is a 84 y.o. female who presents for Follow-up (Patient is here today fora follow up [facility] admission. Change in appetite. Increased anxiety over due to CHF), Hyperlipidemia, Hypertension, Congestive Heart Failure, Edema (Leg/feet, hand/arm swelling), Fatigue (Increased sleeping a lot), Palpitations (Palpitations/racing heart occasionally), and Valve Disorder. Good Recent admission to [facility] with CHF due to diastolic heart failure, acute. Has lost some weight and some of fluid gone. No SOB, CP, denies swelling. Doing therapy only time she walks Had fallen in February broke L arm and since hasn't moved around much due to inability to use walker Hyperlipidemia Pertinent negatives include no chest pain or shortness of breath. Hypertension Associated symptoms include palpitations. Pertinent negatives include no chest pain or shortness ofbreath. Congestive Heart Failure Associated symptoms include fatigue and palpitations. Pertinent negatives include no chest pain or shortness of breath. Edema Associated symptoms include fatigue and palpitations. Pertinent negative symptoms include no chest pain. Past medical history is significant for CHF. Fatigue Associated symptoms include fatigue. Pertinent negatives include no chest pain. Palpitations Pertinent negatives include no chest pain, dizziness or shortness of breath. Review of Systems Constitutional: Positive for fatigue. Respiratory: Negative for chest tightness and shortness of breath. Cardiovascular: Positive for palpitations. Negative for chest pain and leg swelling. Gastrointestinal: Negative for blood in stool. Genitourinary: Negative for hematuria. Neurological: Negative for dizziness. Shuffling walk Some confusion Today oriented to place, president and year Psychiatric/Behavioral: Positive for confusion. Objective Visit Vitals BP 92/52 (BP Location: Right wrist, Patient Position: Sitting) Pulse 60 Physical Exam Constitutional: Appearance: She is obese. HENT: Head: Normocephalic and atraumatic. Cardiovascular: Rate and Rhythm: Normal rate and regular rhythm. Pulses: Normal pulses. Heart sounds: Normal heart sounds. Pulmonary: Effort: Pulmonary effort is normal. Breath sounds: Normal breath sounds. Abdominal: Palpations: Abdomen is soft. Skin: General: Skin is warm and dry. Neurological: Mental Status: She is alert. Comments: Bradykinesia Slight cogwheel rigidity RUE Head tremor Assessment/Plan Mrs. Sprague has improved CHF, not currently pitting except in feet. I am concerned about neurologic findings which are consistent with Parkinson's disease. Will refer to neurology. With CKD, will check alb/Cr ratio and repeat K on metolazone and lasix Diagnosis Plan 1. Stage 3b chronic kidney disease (CMS/HCC) 2. Chronic diastolic heart failure (CMS/HCC) 3. Parkinson's disease without dyskinesia or fluctuating manifestations (CMS/HCC) No orders of the defined types were placed in this encounter. No results found for this or any previous visit (from the past 36 hours). No follow-ups on file. documented in this encounter Plan of Treatment DateTypeDepartmentCare Team (Latest Contact Info)Alxekgtwfyb45/14/2026 11:00 AM ESTOffice Visit [facility] [address] [place] [address] Chantel iWley, FIELDWORK COORDINATOR [address] [place] [phone] documented as of this encounter Visit Diagnoses Diagnosis Stage 3b chronic kidney disease (CMS/HCC)- Primary Chronic diastolic heart failure (CMS/HCC) Chronic diastolic heart failure Parkinson's disease without dyskinesia or fluctuating manifestations (CMS/HCC) documented in this encounter
--- OUTSIDE RECORDS SUMMARY | 2025-05-27 14:31 | XMS_ITS | Clinical Summary ---
Author Organization [facility] Address [address] [place] [address] Care Team Providers Care Obstetrics Gyn Name Role Phone Unavailable Primary Care Provider Unavailabl e Allergies No known active allergies Medications MedicationSigDispense QuantityRefillsLast FilledStart DateEnd DateStatus ALPRAZolam (Xanax) 0.25 mg tablet Take 0.25 mg by mouth two times daily.Active citalopram (CeleXA) 10 mg tablet Take 10 mg by mouth in the morning.04/06/2025tive cyanocobalamin (Vitamin B-12) 1,000 mcg tablet Take 1,000 mcg by mouth in the morning.Active docusate sodium (Colace) 100 mg capsule Take 100 mg by mouth two times daily.Active doxycycline (Adoxa) 100 mg tablet Take 100 mg by mouth two times daily. Take with a full glass of water and do not lie down for at least 30 minutes afterActive apixaban (Eliquis) 2.5 mg tablet Take 2.5 mg by mouth two times daily.Active furosemide (Lasix) 40 mg tablet Take 40 mg by mouth two times daily.Active Lantus Solostar U-100 Insulin 100 unit/mL (3 mL) injection pen Inject 38 Units under the skin in the morning.1Active metOLazone (Zaroxolyn) 2.5 mg tablet Take 5 mg by mouth in the morning. On Sunday, Sunday, Omrkuy825Active metoprolol succinate XL (Toprol-XL) 25 mg 24 hr tablet Take 25 mg by mouth in the morning.5Active montelukast (Singulair) 10 mg tablet Take 10 mg by mouth at bedtime.5Active potassium chloride CR (Klor-Con M20) 20 mEq ER tablet Take 20 mEq by mouth in the morning.4Active insulin aspart (NovoLOG PenFill U-100 Insulin) 100 unit/mL pen cartridge Inject 0.54 mL under the skin with breakfast, with lunch, and with evening meal. Discontinued Active Problems ProblemNoted DateDiagnosed DateArterial uzysffzzcqkzo80/12/2025rthritis of left knee05/22/2025sthmatic kkgrlmbepu18/12/5280Tgyepvhyscx22/12/2025ellulitis 05/22/2025ellulitis of toe05/22/2025hronic kidney iydmxdc1205/22/2025Decreased muscle tone05/22/2025Dependent edema05/22/20254880Hykhju15/12/2025Facial laceration 05/22/2025Generalized anxiety uqvnyygi97/12/2025Genu varum05/22/2025History of breast wztszy4705/22/2025History of UTI05/22/20259637Cxgwaypzajlvmn60/12/2025Insect bite wound05/22/2025Intention fcidqb6605/22/2025Irritable bowel orjkafbz67/12/2025 Knee pain05/22/2025Low back pain05/22/2025OAB (overactive bladder)05/22/2025 Peripheral nerve fghvlnz3605/22/2025Physical robqunrbqurgbq79/12/2025Pressure injury of sacral region of back05/22/2025Quadriceps cyizrrvd31/12/2025Rash 05/22/2025Shortness of pjpcko6605/22/2025Spinal stenosis of lumbar region 05/22/2025Tinea pedis05/22/2025Urinary fxbdilkrd76/12/2025Varicose veins of unspecified lower extremity with ulcer of ankle05/22/2025ute kidney injury 02/16/2025Stage 3b chronic kidney pwjsaja9302/16/20254554Aqbosza93/05/2025losed fracture of left proximal zbskbur7002/13/2025General nlkdjep0102/13/2025Hypertension 02/13/2025Vitamin D tjejexdlfv61/05/5317Wxos62/05/2025Diabetes mellitus 11/28/2023 Encounters DateTypeDepartmentCare LnwsQxquectfxni72/17/2025 1:40 PM ESTOffice Visit [facility] [address] [facility] [place] [address] Favio López MD Stage 3b chronic kidney disease (CMS/HCC) (Primary Dx); Chronic diastolic heart failure (CMS/HCC); Parkinson's disease without dyskinesia or fluctuating manifestations (CMS/HCC) 05/27/2025Orders Only [facility] [address] [place] [address] Frances Dietz MA Parkinson's disease without dyskinesia, unspecified whether manifestations fluctuate (CMS/HCC) (Primary Dx); Benign hypertensive heart disease with heart failure (CMS/HCC)from Last 3 Months Family History RelationNameStatusCommentsFatherDeceasedMotherDeceased Social History Tobacco UseTypesPacks/DayYears UsedDateSmoking Tobacco: NeverSmokeless Tobacco: Never Tobacco Cessation:Counseling Given: Not Answered CommentsUnknownSex and Gender InformationValueDate RecordedSex Assigned at OuvvpFxnyrr16/15/2025 4:45 PM ESTLegal PghWmyzwb71/20/2025 1:35 PM EDTGender AmbwpnqpWbunkq17/15/2025 4:45 PM ESTSexual OrientationHeterosexual or Straight 05/25/2025 4:45 PM EST Last Filed Vital Signs Vital SignReadingTime TakenCommentsBlood Fjafiyqv38/5205/27/2025 1:41 PM EST Gmktg367505/27/2025 1:41 PM ESTTemperature--Respiratory Rate--Oxygen Garraeowbd12% 05/27/2025 1:41 PM ESTInhaled Oxygen Concentration--Ogrtkx002 kg (227 lb) 05/27/2025 1:41 PM ASRVmsjrf829.5 cm (5' 2 )05/27/2025 1:41 PM ESTBody Mass Index41.5205/27/2025 1:41 PM EST Plan of Treatment DateTypeDepartmentCare Team (Latest Contact Info)Dtzwhwigcum27/14/2026 11:00 AM ESTOffice Visit [facility] [address] [place] [address] Chantel Wiley, GROUND WORKER [address] [place] [address] Health MaintenanceDue DateLast DoneCommentsDiabetes: Hemoglobin A1C1939 Medicare Annual Wellness (AWV)1939Diabetes: Retinopathy Screening 09/21/1949Depression Bfhkwymzd91/13/1952Diabetes: Urine Protein Screening 09/21/1958Zoster Vaccines (1 of 2)09/21/1989Fall Risk Szklitfeb00/13/2005 Pneumococcal Vaccine: 50+ Years (2 of 2 - PCV)COVID-19 Vaccine (3 - season)504/06/2020, 08/12/2020Influenza Vaccine (#1)2025dult Rgzgeev08/05/595869/10/2024HIB VaccinesAged OutNo longer eligible based on patient's age to complete this topicHPV VaccinesAged OutNo longer eligible based on patient's age to complete this topicIPV VaccinesAged OutNo longer eligible based on patient's age to complete this topicMeningococcal B VaccineAged OutNo longer eligible based on patient's age to complete this topicMeningococcal VaccineAged OutNo longer eligible based on patient's age to complete this topicRotavirus VaccinesAged OutNo longer eligible based on patient's age to complete this topic Insurance * Guarantor: Carlita Sprague TypeRelation to PatientDate of BirthPhone Billing AddressPersonal/NdkfdqRrsd50/13/1941 [facility] [place] [address]
--- OUTSIDE RECORDS SUMMARY | 2025-05-27 14:31 | XMS_ITS | Encounter Summary ---
Author Organization [facility] Address [address] [place] [address] Care Team Providers Care Rivet Tester Name Role Phone Unavailable Primary Care Provider Unavailabl e Reason for Referral * Consultation (Routine) - Pending ReviewSpecialtyDiagnoses / ProceduresReferred By ContactReferred To ContactNeurology Diagnoses Parkinson's disease without dyskinesia, unspecified whether manifestations fluctuate (CMS/HCC) Procedures [place] OFFICE/OUTPATIENT [facility] 60 MINUTES Favio López MD [address] [place] [address] Phone: tel: fax: [address] [address] Phone: tel: fax: Referral IDStatusReasonStart DateExpiration DateVisits RequestedVisits [id number] Review Specialty Services Required 51 Encounter Details DateTypeDepartmentCare Team (Latest Contact Info)Qmknrphzfcq40/17/2025Orders Only [facility] at [facility] [address] [place] [address] Frances Dietz MA Parkinson's disease without dyskinesia, unspecified whether manifestations fluctuate (CMS/HCC) (Primary Dx); Benign hypertensive heart disease with heart failure (CMS/HCC) Social History Tobacco UseTypesPacks/DayYears UsedDateSmoking Tobacco: NeverSmokeless Tobacco: NeverCommentsUnknownSex and Gender InformationValueDate RecordedSex Assigned at DubzaTbbazn38/15/2025 4:45 PM ESTLegal VzuLklwxy10/20/2025 1:35 PM EDTGender LrzngikcDyuohl77/15/2025 4:45 PM ESTSexual OrientationHeterosexual or Skbzldmh37/15/2025 4:45 PM ESTdocumented as of this encounter Plan of Treatment DateTypeDepartmentCare Team (Latest Contact Info)Bmewvliuxrk20/14/2026 11:00 AM ESTOffice Visit [facility] at [facility] [address] [place] [address] Chantel Wiley, MUFFLER MECHANIC [address] [place] [address] NameTypePriorityAssociated DiagnosesOrder ScheduleBasic metabolic panelLab Routine Benign hypertensive heart disease with heart failure (CMS/HCC) Expected: 05/27/2025 (Approximate), Expires: 05/27/2026Microalbumin, urine, randomLabRoutine Benign hypertensive heart disease with heart failure (CMS/HCC) Expected: 05/27/2025 (Approximate), Expires: 05/27/2026reatinine, urine, random LabRoutine Benign hypertensive heart disease with heart failure (CMS/HCC) Expected: 05/27/2025 (Approximate), Expires: 05/27/2026NameTypePriority Associated DiagnosesOrder ScheduleAmbulatory referral to NeurologyOutpatient ReferralRoutine Parkinson's disease without dyskinesia, unspecified whether manifestations fluctuate (CMS/HCC) Expected: 05/27/2025 (Approximate), Expires: 11/25/2025documented as of this encounter Visit Diagnoses Diagnosis Parkinson's disease without dyskinesia, unspecified whether manifestations fluctuate (CMS/HCC)- Primary Benign hypertensive heart disease with heart failure (CMS/HCC) documented in this encounter
--- OUTSIDE RECORDS SUMMARY | 2025-05-27 14:31 | XMS_ITS | Clinical Summary ---
Author Organization [facility] Address [address] [place] [address] Care Team Providers Care Career And Technology Education Teacher Name Role Phone Ben Emerson MD Primary Care Provider [phone] Allergies Active AllergyReactionsCriticalityNoted DateCommentsAtorvastatinUnknown 04/02/20248557SkzytmiigkRdhmgsw50/23/8682VujwthmtronzfHjwwhop38/23/2024Ezetimibe 04/02/20247021Wrqubdsyyibi19/23/0104CnuqbpegjjNfockdt81/23/2024NitrofurantoinUnknown 04/02/20241331HvvlnqwuyysQynnoyx80/23/4244Aqgckvpzltim59/23/2024Sulfa Antibiotics 04/02/2024 Other Reaction(s): Unknown Medications MedicationSigDispense QuantityRefillsLast FilledStart DateEnd DateStatus Blood Glucose Monitoring Suppl (Accu-Chek Guide) w/Device kit 05/02/2023ctive citalopram (CeleXA) 40 MG tablet Take 40 mg by mouth DailyActive Continuous Glucose Flexographic Press Set Up Operator (FreeStyle Corey 3 [place]) device USE THREE TIMES DAILY10/27/2023ctive Continuous Glucose Sensor (FreeStyle Corey 3 Sensor) [facility] 03/30/2024ctive furosemide (Lasix) 40 MG tablet 1 tab(s), Oral, Daily, # 90 tab(s), 3 Refill(s), Pharmacy: [facility], TAKE 1 TABLET EVERY DAY, 152.4, cm, 03/29/23 14:44:00 EDT, Height 07/30/2023ctive glipiZIDE (Glucotrol) 10 MG tablet 1 tab(s), PO, Daily, # 90 tab(s), 3 Refill(s), patient has supply at home (Rx), 152.4, cm, 02/27/2412:58:00 EDT, Height, 115, kg, 02/27/24 13:04:00 EDT, Weight Jfrkgq9702/27/2024ctive Accu-Chek Guide test strip 10/15/2023ctive indapamide (Lozol) 2.5 MG tablet 1 (one) time each day at the same timeActive Lantus SoloStar 100 UNIT/ML pen See Instructions, Instructions: INJECT 34 UNITS UNDER THE SKIN ONCE DAILY, # 45 mL, 3 Refill(s), patient has supply at home (Rx), 152.4, cm, 12/07/23 8:51:00 EDT, Height, 113.4, kg, 12/07/23 8:58:00 EDT, Weight Cmbwnb8112/07/2023ctive meloxicam (Mobic) 7.5 MG tablet 1 (one) time each day at the same timeActive metFORMIN (Glucophage) 1000 MG tablet 1 tab(s), Oral, BID, # 180 tab(s), 3 Refill(s), Pharmacy: [facility], TAKE 1TABLET TWICE DAILY, 152.4, cm, 03/29/23 14:44:00 EDT, Height, 115.9, kg, 10/25/23 9:54:00 EDT, Weight Ecnglh7311/19/2023ctive montelukast (Singulair) 10 MG tablet 1 tab(s), Oral, qPM, # 90 tab(s), 3 Refill(s), Pharmacy: [facility], TAKE 1 TABLET EVERY EVENING, 152.4, cm, 03/29/23 14:44:00 EDT, Lknygg3110/15/2023ctive KLOR-CON 20 MEQ ER tablet Take 20 mEq by mouth Daily03/03/2024ctive traMADol (Ultram) 50 MG tablet TAKE 1 TABLET BY MOUTH EVERY 8 HOURS (30 DAY SUPPLY)03/28/2024ctive Active Problems No known active problems Encounters DateTypeDepartmentCare VmrqUdaegqwnjyy32/23/2025Telephone [facility] [address] [place] [address] Berry Thacker PA 04/01/2025 11:00 AM EDTOffice Visit [facility] [address] [place] [address] Berry Thacker PA Acute pain of left knee (Primary Dx); Arthritis of left knee04/01/2025amboo flowsheet [facility] [address] [place] [address] Berry Thacker PA 04/01/20253518Njkvvy45/24/2025bstract [facility] [address] [place] [address] Unallocated, [facility] Last 3 Months Social History Tobacco UseTypesPacks/DayYears UsedDateSmoking Tobacco: NeverSmokeless Tobacco: Never Tobacco Cessation:Counseling Given: Not Answered CommentsUnknownSex and Gender InformationValueDate RecordedSex Assigned at BirthNot on fileLegal AxdNnbcoz34/15/2023 11:01 PM EDTGender IdentityNot on fileSexual OrientationNot on file Last Filed Vital Signs Vital SignReadingTime TakenCommentsBlood Pressure--Pulse--Temperature-- Respiratory Rate--Oxygen Saturation--Inhaled Oxygen Concentration--Gwebxh082 kg (225 lb)04/02/2024 1:03 PM FEOPhvovz981.5 cm (5' 2 )04/02/2024 1:03 PM EDTBody Mass Index41.151 1:03 PM EDT Plan of Treatment Health MaintenanceDue DateLast DoneCommentsPneumococcal Vaccine: 65+ Years (2 of 2 - PCV)COVID-19 Vaccine (3 - season)2025 09/09/2020, 08/12/2020Influenza Vaccine (#1)2025 Procedures Procedure NamePriorityDate/TimeAssociated DiagnosisCommentsPR ARTHROCENTESIS ASPIR&/INJ MAJOR JT/BURSA W/O MTRtohebv12/22/2025 11:21 AM EDT Arthritis of left knee from Last 3 Months Results * HI ARTHROCENTESIS ASPIR&/INJ MAJOR JT/BURSA W/O US (04/01/2025 [...] Team MemberRelationshipSpecialtyStart DateEnd Date Ben Emerson MD [address] [place], [place] [id number] [facility] - [facility] Qkycoapa81/23/24
--- OUTSIDE RECORDS SUMMARY | 2025-05-27 14:31 | XMS_ITS | Clinical Summary ---
Author Organization [facility] tem Address [facility] [place] [address] [place] [address] Care Team Providers Care Gas System Operator Name Role Phone Sreedhar Emerson DO Primary Care Provider + [phone] Allergies Active AllergyReactionsCriticalityNoted DateCommentsAtorvastatinOther (See Comments)04/02/2024efuroximeOther (See Comments)04/02/2024iprofloxacinOther (See Comments)04/02/20243906Xnrjftcmr41/23/2024Ipratropium-Unpiraubi67/05/2025 Xwtvtljkevgi90/23/2024LisinoprilOther (See Comments)04/02/2024Nitrofurantoin Other (See Comments)04/02/2024enicillinsOther (See Comments)04/02/2024 Yfcgvhxxdlyf97/23/2024Sulfa (Sulfonamide Antibiotics)04/02/2024 Other Reaction(s): Unknown Medications MedicationSigDispense [...] needed for anxiety.02/15/2022 Active Immunizations ImmunizationAdministration DatesNext GngIzml0107/16/2024 Social History Tobacco UseTypesPacks/DayYears UsedDateSmoking Tobacco: NeverSmokeless Tobacco: Never Tobacco Cessation:Counseling Given: Not Answered ChildcareAnswerDate ForjzmrvOzxjlhgygUxfebpn82/10/2021mploymentAnswerDate RxpfbckbLofwbryybeOmycpgq47/10/2021Hunger ScreeningAnswerDate RecordedWithin the past 12 months we worried whether our food would run out before we got money to buy more.Never True07/16/2024Within the past 12 months the food we bought just didn't last and we didn't have money to get more.Never True07/16/2024Purpose - LifeAnswerDate RecordedPurpose and direction in mfzeRfxjjfx05/11/2021 CommentsUnknownSex and Gender InformationValueDate RecordedSex Assigned at Not on fileLegal NpfIrrbbc81/06/2015 11:24 AM EDTGender IdentityNot on file Sexual OrientationNot on file Last Filed Vital Signs Vital SignReadingTime TakenCommentsBlood Hqmvfbme057/64007/16/2024 10:44 AM EST Shvrf635707/16/2024 10:44 AM UOUCoiidapkqag70.9 ??C (98.4 ??F)07/16/2024 8:58 AM ESTRespiratory Iwgm007607/16/2024 10:44 AM ESTOxygen Ajwokzutvp81%07/16/2024 10:44 AM ESTInhaled Oxygen Concentration--Nuscsy566 kg (266 lb 11.2 oz)07/16/2024 8:58 AM DXJFjsdrl796.9 cm (5' 1 )07/16/2024 8:58 AM ESTBody Mass Index50.39007/16/2024 8:58 AM EST Plan of Treatment DateTypeDepartmentCare Team (Latest Contact Info)Itnwqrjxqch63/14/2026 1:00 PM [facility]App[facility]ment [facility] [address] [place] [address] 07/02/2025 10:00 AM ESTAppointment [facility] [address] [facility] [place] [address] 07/02/2025 10:15 AM ESTAppointment [facility] [address] [place] [address] 07/02/2025 10:45 AM ESTAppointment [facility] [address] [place] [address] 07/02/2025 11:45 AM ESTAppointment [facility] [address] [facility] [place] [address] Health MaintenanceDue DateLast DoneCommentsDepression Ixbtfthbo25/13/1952Zoster (Shingles) Vaccine (1 of 2)09/21/1989Fall Risk Gpkkptdzo68/13/2005RSV ( or age 60+ yrs) (1 - 1-dose 75+ series)09/21/2014COVID-19 Vaccine (3 - 2024- season)504/06/2020, 08/12/2020Influenza Tlueqej8702/09/2025Tobacco Dvxawdout08DTaP,Tdap and Td Vaccines (2 - Td or Tdap) Medical Devices Not on file Insurance * Guarantor: Carlita Sprague TypeRelation to PatientDate of BirthPhone Billing AddressPersonal/PouzvbRmqv34/13/1941 [facility] [place] [address] Care Teams Team MemberRelationshipSpecialtyStart DateEnd Date Sreedhar Emerson DO [address] [place] [address] PCP - GeneralFamily Medicine07/16/24
[2025-05-27 15:12] LABS: Anion Gap 8.1; Calcium 11.2 mg/dL (8.5-10.1); Carbon Dioxide 39.7 mmol/L (21.0-32.0); Chloride 96 mmol/L (98-107); Estimated GFR (African America 19 (>=60 mL/min/1.73m^2); Estimated GFR (Non-African Ame 16 (>=60 mL/min/1.73m^2); Glucose 170 mg/dL (74-106); Potassium 3.8 mmol/L (3.5-5.1); Sodium 140 mmol/L (136-145)
[2025-05-27 15:43] LABS: Blood Urea Nitrogen 93.0 mg/dL (7.0-18.0)
== END 2025-05-27 14:25 | disposition home or self-care (01) ==
LOC: LAB 14:29
PROVIDERS: PCP Family Medicine; Visit Provider Internal Medicine Cardiovascular Disease
DX: I11.0 Hypertensive heart disease with heart failure (principal)
CPT/HCPCS: 36415; 80048; 82043; 82570

== ENCOUNTER 2025-05-30 16:00 | Inpatient (IN) | payer MEDICARE, SELFPAY ==
--- OUTSIDE RECORDS SUMMARY | 2025-05-26 23:59 | XMS_ITS | Continuity of Care Document ---
Author Organization [facility] nter Address [address] [place] [address]- Care Team Providers Care Mine Geologist Name Role Phone Sreedhar Emerson Primary Care Physician Encounter 05/26/25 - 05/26/25 [facility] [address] [place] [address]- Discharge Disposition: Home Attending Physician: Sreedhar Emerson DO Encounter Type: Outpatient Clinic Allergies, Adverse Reactions, Alerts SubstanceCriticalitySeverityReactionReaction SeverityStatusciprofloxacinActive cefuroximeActivenitrofurantoinActivelisinoprilActivealbuterol-ipratropiumActive levofloxacinActiveLipitorActivepenicillinsActivesulfa drugsActiveCrestorActive ZetiaActive Treatment Plan Future Appointments Future Scheduled Tests Laboratory* Urine Culture 05/04/25 * Comprehensive Metabolic Panel Standard 05/04/25 * CBC w/ Auto Diff 05/04/25 * Urinalysis 05/04/25 Radiology* NM Myocardial Spect Multi Rest/Stress 05/05/25 * XR Chest 2 Views 05/05/25 * US Echocardiogram Complete 05/05/25 * US Venous Insufficiency Bilat 10/22/24 * CV Stress ECG 05/05/25 Immunizations Given and Recorded VaccineDateStatusRefusal [id number] (COVID-19) mRNA-1273 vaccine09/09/20 EixduyjhSVAN-MwD-4 (COVID-19) mRNA-1273 vaccine08/12/20Recordedpneumococcal (PPSV23)04/22/15Recorded Medications ALPRAZolam 0.25 mg oral tablet See Instructions, Instructions: TAKE 1/2 TO 1 (ONE-HALF TO ONE) TABLET BY MOUTH TWICE DAILY 30 day supply, # 36 EA, 0 Refill(s), Pharmacy: [facility], TAKE 1/2 TO 1 (ONE-HALF TO ONE) TABLET BY MOUTH TWICE DAILY; 30 day supply, 152.4, cm, 07/23/24 9:20:00 EST, Height, 115, kg, 07/23/24 9:24:00 EST, Weight Dosing Start Date: 05/13/25 Status: Ordered Medication Dispense Status: Completed Quantity: 36.0 Unit: EA Total Allowed Fills: 1 Fills Dispensed: 0 ALPRAZolam 0.25 mg oral tablet See Instructions, Instructions: TAKE 1/2 TO 1 (ONE-HALF TO ONE) TABLET BY MOUTH TWICE DAILY, # 36 EA, 0 Refill(s), Pharmacy: [facility], TAKE 1/2 TO 1 (ONE-HALF TO ONE) TABLET BY MOUTH TWICE DAILY, 152.4, cm, 07/23/24 9:20:00 EST, Height, 115, kg, 07/23/24 9:24:00 EST, Weight Dosing Start Date: 05/04/25 Status: Ordered Medication Dispense Status: Completed Quantity: 36.0 Unit: EA Total Allowed Fills: 1 Fills Dispensed: 0 citalopram 40 mg oral tablet 1 tab(s), Oral, Daily, # 90 tab(s), 3 Refill(s), Pharmacy: [facility], Take 1 tablet by mouth once daily, 152.4, cm, 02/27/24 12:58:00 EDT, Height, 115, kg, 02/27/24 13:04:00 EDT, Weight Dosing Start Date: 07/03/24 Status: Ordered Medication Dispense Status: Completed Quantity: 90.0 Unit: tab(s) Total Allowed Fills: 1 Fills Dispensed: 0 Flomax 0.4 mg oral capsule 1 cap(s) ( 0.4 mg ), Oral, Daily, # 30 cap(s), 0 Refill(s), patient has supply at home (Rx) Start Date: 05/04/25 Status: Ordered Medication Dispense Status: Completed Quantity: 30.0 Unit: cap(s) Total Allowed Fills: 1 Fills Dispensed: 0 furosemide 40 mg oral tablet 1 tab(s), Oral, Daily, # 90 tab(s), 3 Refill(s), Pharmacy: [facility], TAKE 1 TABLET EVERY DAY, 152.4, cm, 07/23/24 9:20:00 EST, Height, 115, kg, 07/23/24 9:24:00 EST, Weight Dosing Start Date: 08/06/24 Status: Ordered Medication Dispense Status: Completed Quantity: 90.0 Unit: tab(s) Total Allowed Fills: 1 Fills Dispensed: 0 Lantus Solostar Pen 100 units/mL subcutaneous solution ( 25 unit(s) ), Subcutaneous, Daily, # 15 mL, 3 Refill(s), patient has supply at home (Rx), 152.4, cm, 07/23/24 9:20:00 EST, Height, 115, kg, 07/23/24 9:24:00 EST, Weight Dosing Start Date: 05/04/25 Status: Ordered Medication Dispense Status: Completed Quantity: 15.0 Unit: mL Total Allowed Fills: 4 Fills Dispensed: 0 Metoprolol Tartrate 25 mg oral tablet 1 tab(s) ( 25 mg ), Oral, TID, # 270 tab(s), 0 Refill(s), patient has supply at home (Rx) Start Date: 05/04/25 Status: Ordered Medication Dispense Status: Completed Quantity: 270.0 Unit: tab(s) Total Allowed Fills: 1 Fills Dispensed: 0 montelukast 10 mg oral tablet 1 tab(s), Oral, qPM, # 90 tab(s), 3 Refill(s), Pharmacy: [facility], TAKE 1 TABLET EVERY EVENING, 152.4, cm, 07/23/24 9:20:00 EST, Height, 115, kg, 07/23/24 9:24:00 EST, WeightDosing Start Date: 09/08/24 Status: Ordered Medication Dispense Status: Completed Quantity: 90.0 Unit: tab(s) Total Allowed Fills: 1 Fills Dispensed: 0 NovoLOG PenFill 100 units/mL injectable solution See Instructions, Instructions: per sliding scale - max 30 per day, # 10 mL, 0 Refill(s), Pharmacy:[facility], per sliding scale - max 30 per day, 152.4, cm, 07/23/24 9:20:00 EST, Height,115, kg, 07/23/24 9:24:00 EST, Weight Dosing Start Date: 04/11/25 Status: Ordered Medication Dispense Status: Completed Quantity: 10.0 Unit: mL Total Allowed Fills: 1 Fills Dispensed: 0 Problem List ConditionConfirmationCourseEffective DatesStatusHealth StatusInformantAnxiety ConfirmedActiveArterial insufficiencyConfirmedActiveAsthmatic bronchitis ConfirmedActiveBronchitisConfirmedActiveCandidosisConfirmedActiveCellulitis ConfirmedActiveCellulitis of third toe of left footConfirmedActiveCKD (chronic kidney disease)ConfirmedActiveCHF (congestive heart failure)ConfirmedActive Severe muscle deconditioningConfirmedActiveDependent edemaConfirmedActive Diabetes mellitus type 2ConfirmedActiveShortness of breathConfirmedActiveEczema ConfirmedActiveRashConfirmedActiveFacial lacerationConfirmedActiveGeneralized anxiety disorderConfirmedActiveHyperlipidemiaConfirmedActiveHypertension ConfirmedActiveBug biteConfirmedActiveIntention tremorConfirmedActiveIBS (irritable bowel syndrome)ConfirmedActiveLow back painConfirmedActivePeripheral neuropathyConfirmedActivePhysical deconditioningConfirmedActiveSacral decubitus ulcerConfirmedActiveQuadriceps weaknessConfirmedActiveSpinal stenosis of lumbar regionConfirmedActiveTinea pedisConfirmedActive Procedures ProcedureDateRelated DiagnosisBody SiteStatusEndovenous laser ablation of varicose vein of lower limb01/05/25CompletedEndovenous laser ablation of varicose veinCompletedCataract extraction06/25/1924DwtgfmuhbNwkzfujc1015Vpaghnuau [id number] of total dcodrpndapcw1156VqjeeoedmDfu feet Completedmastectomy (left)CompletedTendonitis of both dtvsjg5Sgyaxhyzt 1EVLT of right GSV 2Rt Social History Social History TypeResponseTobaccoNever tobacco user Tobacco Use:. SexSex RepresentationFemale (finding) Patient Care team information Care Team Personnel Name: Sreedhar Emerson DO Position: [facility] Physician Acute/ED/Clinic/Care Member Role: Primary Care Physician Address: [address] [place] [address] Telecom: Care Team Related Persons Name: ANURADHA TA Name: KEYON, ESTRADA Name: FANNIE TA Name: PIERRE TA Name: SATISH FLETCHER Insurance Providers Guarantor name: PIEDAD Dockery KEYON Health Plan Information #: 1 Payer: MEDICARE [employer] Payer Identifier: JOSIE Member Number: [id number] Group Number: [id number] Subscriber Identifier: [id number] Relationship to Subscriber: self Coverage Type: MEDICARE Coverage Verification Date: Telecom: [phone] Address: [address] Plan Information #: 2 Payer: MEDICARE [employer] Payer Identifier: JOSIE Member Number: [id number] Group Number: [id number] Subscriber Identifier: [id number] Relationship to Subscriber: self Coverage Type: MEDICARE Coverage Verification Date: Telecom: [phone] Address: [address]
--- OUTSIDE RECORDS SUMMARY | 2025-05-27 13:40 | XMS_ITS | Encounter Summary ---
Author Organization [facility] Address [address] [address] Care Team Providers Care Bridge Repairer Name Role Phone Unavailable Primary Care Provider Unavailabl e Reason for Visit * ReasonCommentsFollow-upPatient is here today for a follow up [facility] admission. Change in appetite. Increased anxiety over dueto CHFHyperlipidemiaHypertension Congestive Heart FailureEdemaLeg/feet, hand/arm swellingFatigueIncreased sleeping a lotPalpitationsPalpitations/racing heart occasionallyValve Disorder Encounter Details DateTypeDepartmentCare Team (Latest Contact Info)Wwnnmjlzeij31/17/2025 1:40 PM ESTOffice Visit [facility] [place] [address] [place] [address] Favio López MD [address] [place] [address] Stage 3b chronic kidney disease (CMS/HCC) (Primary Dx); Chronic diastolic heart failure (CMS/HCC); Parkinson's disease without dyskinesia or fluctuating manifestations (CMS/HCC) Social History Tobacco UseTypesPacks/DayYears UsedDateSmoking Tobacco: NeverSmokeless Tobacco: Never Tobacco Cessation:Counseling Given: Not Answered CommentsUnknownSex and Gender InformationValueDate RecordedSex Assigned at QllvtUwhzxk26/15/2025 4:45 PM ESTLegal OpdDiqlwc14/20/2025 1:35 PM EDTGender DvuxplrqIgvxxc67/15/2025 4:45 PM ESTSexual OrientationHeterosexual or Straight 05/25/2025 4:45 PM ESTdocumented as of this encounter Last Filed Vital Signs Vital SignReadingTime TakenCommentsBlood Osanztsp16/5205/27/2025 1:41 PM EST Jqvcj703505/27/2025 1:41 PM ESTTemperature--Respiratory Rate--Oxygen Xaxxxkscgo16% 05/27/2025 1:41 PM ESTInhaled Oxygen Concentration--Pwcpne572 kg (227 lb) 05/27/2025 1:41 PM PDJJzievv826.5 cm (5' 2 )05/27/2025 1:41 PM ESTBody Mass Index41.5205/27/2025 1:41 PM ESTdocumented in this encounter Progress Notes * Favio López MD - 05/27/2025 1:40 PM EST Subjective Patient ID: Carlita Sprague is a 84 y.o. female who presents for Follow-up (Patient is here today fora follow up [facility] admission. Change in appetite. Increased anxiety over due to CHF), Hyperlipidemia, Hypertension, Congestive Heart Failure, Edema (Leg/feet, hand/arm swelling), Fatigue (Increased sleeping a lot), Palpitations (Palpitations/racing heart occasionally), and Valve Disorder. Good Recent admission to [facility] with CHF due to diastolic heart failure, [...] Plan of Treatment DateTypeDepartmentCare Team (Latest Contact Info)Nxpszjipcob21/14/2026 11:00 AM ESTOffice Visit [facility] at [place] [address] [place] [address] Chantel Wiley, BREAKFAST BAR ATTENDANT [address] [place] [phone] documented as of this encounter Visit Diagnoses Diagnosis Stage 3b chronic kidney disease (CMS/HCC)- Primary Chronic diastolic heart failure (CMS/HCC) Chronic diastolic heart failure Parkinson's disease without dyskinesia or fluctuating manifestations (CMS/HCC) documented in this encounter
[2025-05-30] VITALS (47 sets, daily range): BP systolic 102–141; BP diastolic 48–74; PULSE 48–120; TEMP 32.8–34.5; O2SAT 93–99; BMI 40.9; BMI 38.5
--- NOTE | 2025-05-30 16:12 | CT_ITS ---
The [address] [address] Patient Name: PIEDAD TA MRN: [id number] date: 1940 Sex: F Assigned Patient Location: ER Current Patient Location: ED.MAIN Accession/Order Number: [id number] Exam Date: 05/30/2025 16:56 Report Date: 05/30/2025 17:12 At the request of: SUGAR HERNANDEZ MD Procedure: CT abdomen pelvis wo con CT ABDOMEN AND PELVIS WITHOUT INTRAVENOUS CONTRAST: CLINICAL HISTORY: Acute kidney injury, rule out obstruction COMPARISON: CT abdomen and pelvis 05/14/2025 TECHNIQUE: Spiral images were obtained through the abdomen and pelvis without intravenous contrast. This CT exam was performed using one or more following dose reduction techniques: Automated exposure control, adjustment of the mA and/or kV according to patient size, or use of iterative reconstruction technique. FINDINGS: Lung Bases: [No acute findings. Bibasilar atelectasis.] Organs:Suboptimal evaluation due to lack of IV contrast. Gallbladder has been removed. Liver spleen pancreas and adrenal glands appear unremarkable. Kidneys demonstrate no stone or hydronephrosis and abdominal aorta appears normal in caliber.[ GI: Stomach is grossly unremarkable. Small bowel appears nondilated. No acute colonic abnormality is seen.[Colonic diverticulosis. Pelvis:[Urinary bladder is grossly unremarkable. Uterus has been removed. Peritoneum/Retroperitoneum:No free air or free fluid or lymphadenopathy.[ Abd wall/Bones:No acute findings. Osseous structures demonstrate degenerative change.[ CT/CT abdomen pelvis wo con IMPRESSION: No acute findings. Impression dictated by: Song Pruett Jr., D.O. 05/30/2025 5:12 PM Dictation Location: [employer] Electronically authenticated by: [id number] Y Date: 05/30/2025 17:12
--- NOTE | 2025-05-30 16:13 | XR_ITS ---
[place] [id number] Patient Name: PIEDAD TA MRN: [id number] date: 1940 Sex: F Assigned Patient Location: ER Current Patient Location: ED.MAIN Accession/Order Number: [id number] Exam Date: 05/30/2025 16:31 Report Date: 05/30/2025 16:55 At the request of: SUGAR HERNANDEZ MD Procedure: XR chest 1V Single view chest: CLINICAL HISTORY: SOB COMPARISON: 05/17/2025 FINDINGS: The heart is normal in size. The lungs are clear. The pulmonary vasculature is normal. Mediastinum and hilar regions are unremarkable. No pleural effusions are seen. Visualized bones are intact. XR/XR chest 1V IMPRESSION: NO ACUTE PROCESS. Impression dictated by: Song Pruett Jr., D.O. 05/30/2025 4:55 PM Dictation Location: [place] [address] Electronically authenticated by: [id number] Y Date: 05/30/2025 16:55
--- NOTE | 2025-05-30 16:13 | ECG_ITS ---
The [facility] Test Date: 2025-05-30 Pat Name: PIEDAD TA Department: Room: - Gender: Female [place]: : 1940 Requested By: [id number] Order Number: [id number] Reading MD: LETTY BINGHAM M.D. Measurements Intervals [place] Rate: 53 P: 58 NC: 240 QRS: 49 QRSD: 122 T: 60 QT: 516 QTc: 499 Interpretive Statements 1100 Sinus rhythm 2231 First degree AV block 3434 Septal myocardial infarction, age undetermined [address] depression 4564 Twave abnormality, possible lateral ischemia 9150 abnormal ECG Compared to ECG 05/12/2025 05:23:52 No significant changes Electronically Signed On 05-31-2025 7:15:52 EST by LETTY BINGHAM M.D.
--- NOTE | 2025-05-30 16:14 | ED.GENADUL1 ---
HPI HPI - General Adult General Chief complaint: Recheck/Abnormal Lab/Rx Stated complaint: OTHER Time Seen by Provider: 05/30/25 16:09 Source: patient Mode of arrival: ambulance Limitations: no limitations History of Present Illness HPI narrative: 84-year-old female presented for abnormal blood work. Apparently her BUN has gone up. She does not seem to have any physical complaints right now. No further history is obtainable from the patient. Related Data Home Medications ?Medication ?Instructions ?Recorded ?Confirmed psyllium husk (bulk) 100 % powder 2.6 ea PO QD 02/16/25 05/30/25 alprazolam 0.25 mg tablet 0.25 mg PO BID 05/11/25 05/30/25 blood-glucose sensor (FreeStyle 05/11/25 05/11/25 Corey 3 Sensor device) nystatin 100,000 unit/gram topical 1 applic topical BID 05/11/25 05/30/25 powder potassium chloride 20 mEq 20 meq PO .QD 05/11/25 05/30/25 tablet,extended release(part/cryst) acetaminophen 325 mg tablet 325 mg PO Q4H 05/30/25 05/30/25 calcium 600 mg (as 1 tab PO Q12H 05/30/25 05/30/25 carbonate)-vitamin D3 10 mcg (400 unit) tablet cholecalciferol (vitamin D3) 25 1,000 unit PO QDAY 05/30/25 05/30/25 mcg (1,000 unit) chewable tablet (VitaJoy Daily D) furosemide 40 mg tablet 20 mg PO BID 05/30/25 05/30/25 insulin glargine 100 unit/mL (3 18 unit subcut HS 05/30/25 05/30/25 mL) subcutaneous pen (Lantus Solostar U-100 Insulin) melatonin 3 mg capsule 3 mg PO HS 05/30/25 05/30/25 nystatin 100,000 unit/gram topical 1 applic topical BID 05/30/25 05/30/25 powder peg 400-propylene glycol 0.4 %-0.3 2 drp ophthalmic (eye) Q8H 05/30/25 05/30/25 % eye drops (Systane (propylene glycol)) potassium chloride 10 mEq 10 meq PO .qhs 05/30/25 05/30/25 tablet,extended release (Klor-Con) Previous Rx's ?Medication ?Instructions ?Recorded citalopram 10 mg tablet (Celexa) 10 mg PO DAILY #30 tabs 02/20/25 cyanocobalamin (vitamin B-12) 1,000 mcg IM Q30D #0 mL 02/20/25 1,000 mcg/mL injection solution docusate sodium 100 mg capsule 100 mg PO BID PRN Constipation #0 02/20/25 caps insulin aspart U-100 100 unit/mL 2 - 10 unit (0.02 - 0.1 mL) subcut 02/20/25 (3 mL) subcutaneous pen (Novolog ACHS #0 mL FlexPen U-100 Insulin aspart) sennosides 8.6 mg-docusate sodium 1 tab PO QD PRN Constipation #0 02/20/25 50 mg tablet (Senna Plus) tabs tamsulosin 0.4 mg capsule (Flomax) 0.4 mg PO DAILY #30 caps 02/20/25 apixaban 5 mg tablet (Eliquis) 2.5 mg (1/2 x 5 mg) PO BID 30 days 05/19/25 #30 tabs metoprolol tartrate 25 mg tablet 12.5 mg (1/2 x 25 mg) PO DAILY #0 05/19/25 tabs Allergies Allergy/AdvReac Type Severity Reaction Status Date / Time Penicillins Allergy Mild Unknown Verified 05/11/25 15:09 cefuroxime Allergy Unknown Verified 05/11/25 15:09 ciprofloxacin (From Cipro) Allergy Unknown Verified 05/11/25 15:09 lisinopril Allergy Unknown Verified 05/11/25 15:09 nitrofurantoin Allergy Unknown Verified 05/11/25 15:09 Sulfa (Sulfonamide Allergy Unknown Verified 05/11/25 15:09 Antibiotics) Opioid HPI Opioid Management Most Recent Opioid Data: Last Pain Scale 5 05/19/25, 11:00 Last Pain Intensity 0 08, 11:46 Last ORT Total Score 0 05/11/25, 18:03 Last ORT Risk Category Low Risk 05/11/25, 18:03 Review of Systems ROS Narrative A ten point review of systems is negative except as noted above. [facility] Medical History (Updated 05/30/25 @ 17:35 by Saeid Apple MD) Morbidly obese ?E66.01 - Morbid (severe) obesity due to excess calories (ICD-10) Skin cancer ?C44.90 - Unspecified malignant neoplasm of skin, unspecified (ICD-10) Surgical History (Updated 02/16/25 @ 19:58 by Chhaya Solomon RN) Hx of fusion of cervical spine ?Z98.1 - Arthrodesis status (ICD-10) Hx of cholecystectomy ?Z90.49 - Acquired absence of other specified parts of digestive tract (ICD-10) Hx of left mastectomy ?Z90.12 - Acquired absence of left breast and nipple (ICD-10) Family History (Updated 02/16/25 @ 19:59 by Chhaya Solomon RN) Father Family history of COPD (chronic obstructive pulmonary disease) Mother Family history of COPD (chronic obstructive pulmonary disease) Social History (Updated 02/16/25 @ 20:00 by Chhaya Solomon RN) Within the past year, how often did you have a drink containing alcohol: never Score interpretation: A score less than 3 is consistent with normal alcohol consumption. Smoking status: Never smoker Non-prescribed substance use: denies use Known occupational exposures/hazards: No Highest level of school completed/degree received: 12th grade, no diploma Are you now , , , , never or living with a partner: In a typical week, how many times do you talk on the telephone with family, friends, or neighbors: 3 or more times per week How often do you get together with friends or relatives: 3 or more times per week Little interest or pleasure in doing things: not at all Feeling down, depressed, or hopeless: not at all Feel stressed/tense/nervous/anxious/difficulty sleeping: not at all Do you think of yourself as: straight/heterosexual Gender Identity: male Exam Narrative Exam Narrative: Nurses note and vital signs reviewed General:The patient appears in no apparent distress. Patient is resting comfortably on cart. Skin:Warm, dry, no pallor noted.There is no rash noted. Head:Normocephalic, atraumatic Eye: Normal conjunctiva, no drainage Ears, Nose, Mouth, and Throat: oral mucosa is moist. Nares patent. Cardiovascular:Regular Rate and Rhythm Respiratory:Patient is in no distress, no accessory muscle use, lungs are clear to auscultation, no wheezing, rales or rhonchi GI: Obese and nontender Musculoskeletal: Chronic swelling in both lower extremities Neurological: Awake and alert and oriented. She knows her name and the year and that she is in a hospital. She thought she was taken to a different hospital. Psychiatric:Cooperative Constitutional Vital Signs, click to edit/add: Last Vital Signs Temp 91.8 F L 05/30/25 17:15 Pulse 49 L 05/30/25 17:30 Resp 13 05/30/25 17:30 BP 141/49 05/30/25 16:31 Pulse Ox 97 05/30/25 17:30 O2 Del Method Room Air 05/30/25 16:06 Course Vital Signs Vital signs: Vital Signs Pulse Rate 99 H 05/30/25 16:06 Respiratory Rate 18 05/30/25 16:06 Blood Pressure 102/48 L 05/30/25 16:06 Pulse Oximetry 99 05/30/25 16:06 Oxygen Delivery Method Room Air 05/30/25 16:06 Temperature 91.8 F L 05/30/25 17:15 Pulse Rate 49 L 05/30/25 17:30 Respiratory Rate 13 05/30/25 17:30 Blood Pressure 141/49 05/30/25 16:31 Pulse Oximetry 97 05/30/25 17:30 Oxygen Delivery Method Room Air 05/30/25 16:06 Medical Decision Making MDM Narrative Medical decision making narrative: The patient has elevated BUN and creatinine, well above her baseline. [facility] but her numbers did not improve so she was sent here. I have ordered some slow IV fluids on her. Also of significance is her body temperature. Nursing staff found a rectal temperature of 91.8 and it was repeated, same result. Blood cultures and TSH were obtained. Results are pending. She is being admitted to the hospital. Treatment diagnosis and disposition were discussed with the patient and her family. Differential Diagnosis Differential Diagnosis: Acute kidney injury, dehydration Lab Data Lab results reviewed: Yes I reviewed the patient's lab results Labs: Lab Results 05/30/25 Range/Units 16:39 WBC 6.6 (4.0-11.0) 10^3/uL RBC 4.29 (4.20-5.40) 10^6/uL Hgb 12.8 (12.0-16.0) g/dL Hct 37.9 (36.0-48.0) % MCV 88.3 (81.0-99.0) fL MCH 29.8 (26.7-34.0) pg MCHC 33.8 (29.9-35.2) g/dL RDW 14.9 (11.0-15.0) % Plt Count 174 (150-450) 10^3/uL MPV 9.8 (9.5-13.5) fL Neut % (Auto) 58.5 (43.0-75.0) % Lymph % (Auto) 28.4 (20.5-60.0) % [place] % (Auto) 10.0 (1.7-12.0) % Eos % (Auto) 1.7 (0.9-7.0) % Baso % (Auto) 0.9 (0.2-2.0) % Neut # (Auto) 3.9 (1.4-6.5) 10^3/uL Lymph # (Auto) 1.9 (1.2-3.8) 10^3/uL [place] # (Auto) 0.7 (0.3-0.8) 10^3/uL Eos # (Auto) 0.1 (0.0-0.7) 10^3/uL Baso # (Auto) 0.1 (0.0-0.1) 10^3/uL Abs Immat Gran (auto) 0.03 (0.00-0.03) 10^3/uL Imm/Tot Granulo (auto) 0.5 (0.0-0.5) % Sodium 136 (136-145) mmol/L Potassium 3.6 (3.5-5.1) mmol/L Chloride 91 L (98-107) mmol/L Carbon Dioxide 36.3 H (21.0-32.0) mmol/L Anion Gap 12.3 BUN 91.0 H* (7.0-18.0) mg/dL Creatinine 2.32 H (0.55-1.02) mg/dL Est GFR ( Amer) 24 L (>=60 mL/min/1.73m^2) Est GFR (Non-Af Amer) 20 L (>=60 mL/min/1.73m^2) BUN/Creatinine Ratio 39.2 Glucose 163 H (74-106) mg/dL Calcium 10.7 H (8.5-10.1) mg/dL Troponin I High Sens 33.0 (4.0-51.3) pg/mL Imaging Data Chest x-ray: Radiologist's impression: ITS Impressions Abdomen/Pelvis CT 05/30/25 16:12 IMPRESSION: No acute findings. Impression dictated by: Song Pruett Jr., D.O. 05/30/2025 5:12 PM Dictation Location: [employer] Electronically authenticated by: [id number] Y Date: 05/30/2025 17:12 Chest X-Ray 05/30/25 16:13 IMPRESSION: NO ACUTE PROCESS. Impression dictated by: Song Pruett Jr., D.O. 05/30/2025 4:55 PM Dictation Location: [employer] Electronically authenticated by: [id number] Y Date: 05/30/2025 16:55 ECG Data Attestation: I personally reviewed and interpreted this ECG as follows: (EKG on my interpretation shows sinus rhythm with first-degree AV block at a rate of 53) Critical Care Time Critical Care Time Critical Care Time: Yes Total Critical Care Time: 35 Attestation: Due to the high probability of sudden and clinically significant deterioration in the patient's condition he/she required the highest level of my preparedness to intervene urgently I provided critical care time including documentation time, medication orders and management, reevaluation, vital sign assessment, ordering and reviewing of lab tests, ordering and reviewing of x-ray studies, and admission orders. Aggregate critical care time is 35 minutes including only time during which I was engaged in work directly related to his/her care and did not include time spent treating other patients simultaneously. Discharge Plan Discharge Chief Complaint: Recheck/Abnormal Lab/Rx Clinical Impression: Acute kidney injury, Hypothermia Patient Disposition: Admitted As Inpatient Time of Disposition Decision: 17:34 Condition: Fair
--- OUTSIDE RECORDS SUMMARY | 2025-05-30 16:38 | XMS_ITS | Clinical Summary ---
Author Organization [facility] Address [address] [place] [address] Care Team Providers Care Management Development Specialist Name Role Phone Ben Emerson MD Primary Care Provider Allergies Active AllergyReactionsCriticalityNoted DateCommentsAtorvastatinUnknown 04/02/20242917WblqkjjsbzWacfdxy92/23/0793ErmomcwbcmqduZdvmtrk54/23/2024Ezetimibe 04/02/20247339Wyjkfmzouowm60/23/7025AxunwwfdiqOcjvthi98/23/2024NitrofurantoinUnknown 04/02/20241160UcfhgywriekJnzcemj45/23/4423Izxdajqxucjf89/23/2024Sulfa Antibiotics 04/02/2024 Other Reaction(s): Unknown Medications MedicationSigDispense QuantityRefillsLast FilledStart DateEnd DateStatus Blood Glucose Monitoring Suppl (Accu-Chek Guide) w/Device kit 05/02/2023ctive citalopram (CeleXA) 40 MG tablet Take 40 mg by mouth DailyActive Continuous Glucose Personal Financial Counselor (FreeStyle Corey 3 [place]) device USE THREE TIMES DAILY10/27/2023ctive Continuous Glucose Sensor (FreeStyle Corey 3 Sensor) [facility] [place] 03/30/2024ctive furosemide (Lasix) 40 MG tablet 1 tab(s), Oral, Daily, # 90 tab(s), 3 Refill(s), Pharmacy: [facility], TAKE 1 TABLET EVERY DAY, 152.4, cm, 03/29/23 14:44:00 EDT, Height 07/30/2023ctive glipiZIDE (Glucotrol) 10 MG tablet 1 tab(s), PO, Daily, # 90 tab(s), 3 Refill(s), patient has supply at home (Rx), 152.4, cm, 02/27/2412:58:00 EDT, Height, 115, kg, 02/27/24 13:04:00 EDT, Weight Hzdamn6202/27/2024ctive Accu-Chek Guide test strip 10/15/2023ctive indapamide (Lozol) 2.5 MG tablet 1 (one) time each day at the same timeActive Lantus SoloStar 100 UNIT/ML pen See Instructions, Instructions: INJECT 34 UNITS UNDER THE SKIN ONCE DAILY, # 45 mL, 3 Refill(s), patient has supply at home (Rx), 152.4, cm, 12/07/23 8:51:00 EDT, Height, 113.4, kg, 12/07/23 8:58:00 EDT, Weight Lngyez5912/07/2023ctive meloxicam (Mobic) 7.5 MG tablet 1 (one) time each day at the same timeActive metFORMIN (Glucophage) 1000 MG tablet 1 tab(s), Oral, BID, # 180 tab(s), 3 Refill(s), Pharmacy: [facility], TAKE 1TABLET TWICE DAILY, 152.4, cm, 03/29/23 14:44:00 EDT, Height, 115.9, kg, 10/25/23 9:54:00 EDT, Weight Ycmhao9111/19/2023ctive montelukast (Singulair) 10 MG tablet 1 tab(s), Oral, qPM, # 90 tab(s), 3 Refill(s), Pharmacy: [facility], TAKE 1 TABLET EVERY EVENING, 152.4, cm, 03/29/23 14:44:00 EDT, Vwmimj0410/15/2023ctive KLOR-CON 20 MEQ ER tablet Take 20 mEq by mouth Daily03/03/2024ctive traMADol (Ultram) 50 MG tablet TAKE 1 TABLET BY MOUTH EVERY 8 HOURS (30 DAY SUPPLY)03/28/2024ctive Active Problems No known active problems Encounters DateTypeDepartmentCare MfswGdprtjwiuhs77/23/2025Telephone [facility] [address] [place] [address] Berry Thacker PA 04/01/2025 11:00 AM EDTOffice Visit [facility] [address] [place] [address] Berry Thacker PA Acute pain of left knee (Primary Dx); Arthritis of left knee04/01/2025amboo flowsheet [facility] [address] [place] [address] Berry Thacker PA 04/01/20255781Ztvmjz13/24/2025bstract [facility] [address] [place] [address] Unallocated, [facility] Mon[facility] Social History Tobacco UseTypesPacks/DayYears UsedDateSmoking Tobacco: NeverSmokeless Tobacco: Never Tobacco Cessation:Counseling Given: Not Answered CommentsUnknownSex and Gender InformationValueDate RecordedSex Assigned at BirthNot on fileLegal XizUawdub10/15/2023 11:01 PM EDTGender IdentityNot on fileSexual OrientationNot on file Last Filed Vital Signs Vital SignReadingTime TakenCommentsBlood Pressure--Pulse--Temperature-- Respiratory Rate--Oxygen Saturation--Inhaled Oxygen Concentration--Umagov729 kg (225 lb)04/02/2024 1:03 PM TJFPbayqr123.5 cm (5' 2 )04/02/2024 1:03 PM EDTBody Mass Index41.151 1:03 PM EDT Plan of Treatment Health MaintenanceDue DateLast DoneCommentsPneumococcal Vaccine: 65+ Years (2 of 2 - PCV)COVID-19 Vaccine (3 - season)2025 09/09/2020, 08/12/2020Influenza Vaccine (#1)2025 Procedures Procedure NamePriorityDate/TimeAssociated DiagnosisCommentsPR ARTHROCENTESIS ASPIR&/INJ MAJOR JT/BURSA W/O [facility]18/22/2025 11:21 AM EDT Arthritis of left knee from Last 3 Months Results * DC ARTHROCENTESIS ASPIR&/INJ MAJOR JT/BURSA W/O US (04/01/2025 [...] Team MemberRelationshipSpecialtyStart DateEnd Date Ben Emerson MD [address] [place], [place] [id number] PCP - GeneralMyrtue Medical Centerly Qzbrxcvo58/23/24
--- OUTSIDE RECORDS SUMMARY | 2025-05-30 16:38 | XMS_ITS | Clinical Summary ---
Author Organization [facility] tem Address [id number] [address] [place] [address] Care Team Providers Care Classroom Technology Technician Name Role Phone Sreedhar Emerson DO Primary Care Provider + [phone] Allergies Active AllergyReactionsCriticalityNoted DateCommentsAtorvastatinOther (See Comments)04/02/2024efuroximeOther (See Comments)04/02/2024iprofloxacinOther (See Comments)04/02/20240518Mheuissrz48/23/2024Ipratropium-Efmrrdcak71/05/2025 Thmjzyjihxyg93/23/2024LisinoprilOther (See Comments)04/02/2024Nitrofurantoin Other (See Comments)04/02/2024enicillinsOther (See Comments)04/02/2024 Vftfadjzggvt05/23/2024Sulfa (Sulfonamide Antibiotics)04/02/2024 Other Reaction(s): Unknown Medications MedicationSigDispense [...] needed for anxiety.02/15/2022 Active Immunizations ImmunizationAdministration DatesNext XciRysv3307/16/2024 Social History Tobacco UseTypesPacks/DayYears UsedDateSmoking Tobacco: NeverSmokeless Tobacco: Never Tobacco Cessation:Counseling Given: Not Answered ChildcareAnswerDate ImlkloihZmqttphutCnbshku05/10/2021mploymentAnswerDate YchqpryxSoksvjychfQerepmv03/10/2021Hunger ScreeningAnswerDate RecordedWithin the past 12 months we worried whether our food would run out before we got money to buy more.Never True07/16/2024Within the past 12 months the food we bought just didn't last and we didn't have money to get more.Never True07/16/2024Purpose - LifeAnswerDate RecordedPurpose and direction in lbftCbddtna68/11/2021 CommentsUnknownSex and Gender InformationValueDate RecordedSex Assigned at Not on fileLegal OmcTqlqbu92/06/2015 11:24 AM EDTGender IdentityNot on file Sexual OrientationNot on file Last Filed Vital Signs Vital SignReadingTime TakenCommentsBlood Crlwoqkb073/64007/16/2024 10:44 AM EST Tqscj723007/16/2024 10:44 AM BVKYiqzxlhnzno65.9 ??C (98.4 ??F)07/16/2024 8:58 AM ESTRespiratory Ubkk222907/16/2024 10:44 AM ESTOxygen Gksnhtpvyg07%07/16/2024 10:44 AM ESTInhaled Oxygen Concentration--Dhsgyv257 kg (266 lb 11.2 oz)07/16/2024 8:58 AM ONVJgludz230.9 cm (5' 1 )07/16/2024 8:58 AM ESTBody Mass Index50.39007/16/2024 8:58 AM EST Plan of Treatment DateTypeDepartmentCare Team (Latest Contact Info)Fcttbxtlxfz28/14/2026 1:00 PM ESTAppointment [facility] [address] [place] [address] 07/02/2025 10:00 AM ESTAppointment [facility] [address] [facility] [place] [address] 07/02/2025 10:15 AM ESTAppointment [facility] [address] [place] [address] 07/02/2025 10:45 AM ESTAppointment [facility] [address] [place] [address] 07/02/2025 11:45 AM ESTAppointment [facility] [address] [facility] [place] [address] Health MaintenanceDue DateLast DoneCommentsDepression Ozctiuwea10/13/1952Zoster (Shingles) Vaccine (1 of 2)09/21/1989Fall Risk Nxlylxbaz24/13/2005RSV ( or age 60+ yrs) (1 - 1-dose 75+ series)09/21/2014COVID-19 Vaccine (3 - 2024- season)504/06/2020, 08/12/2020Influenza Ibzkpxp8802/09/2025Tobacco Pfqahjjxb41DTaP,Tdap and Td Vaccines (2 - Td or Tdap) Medical Devices Not on file Insurance * Guarantor: Carlita Sprague TypeRelation to PatientDate of BirthPhone Billing AddressPersonal/DejmuoYtmq27/13/1941 [facility] [place] [address] Care Teams Team MemberRelationshipSpecialtyStart DateEnd Date Sreedhar Emerson DO [address] [place] [address] PCP - GeneralFamily Medicine07/16/24
--- OUTSIDE RECORDS SUMMARY | 2025-05-30 16:38 | XMS_ITS | Encounter Summary ---
Author Organization [facility] Address [address] [place] [address] Care Team Providers Care Environmental Management Specialist Name Role Phone Unavailable Primary Care Provider Unavailabl e Encounter Details DateTypeDepartmentCare Team (Latest Contact Info)Acmwkrawxmv99/17/2025Orders Only [facility] [address] [place] [address] Paula Ash MA Chronic diastolic heart failure (CMS/HCC) (Primary Dx) Social History Tobacco UseTypesPacks/DayYears UsedDateSmoking Tobacco: NeverSmokeless Tobacco: NeverCommentsUnknownSex and Gender InformationValueDate RecordedSex Assigned at EjaaqXcxohm06/15/2025 4:45 PM ESTLegal TgyEivyzg15/20/2025 1:35 PM EDTGender AhgbezucHmsiui15/15/2025 4:45 PM ESTSexual OrientationHeterosexual or Jzwnuuyi58/15/2025 4:45 PM ESTdocumented as of this encounter Plan of Treatment DateTypeDepartmentCare Team (Latest Contact Info)Rfaczjigbqn94/14/2026 11:00 AM ESTOffice Visit [facility] [address] [place] [address] Chantel Wiley CNP [address] [place] [address] NameTypePriorityAssociated DiagnosesOrder ScheduleBasic metabolic panelLab Routine Chronic diastolic heart failure (CMS/HCC) Expected: 05/27/2025 (Approximate), Expires: 05/27/2026documented as of this encounter Visit Diagnoses Diagnosis Chronic diastolic heart failure (CMS/HCC)- Primary Chronic diastolic heart failure documented in this encounter
--- OUTSIDE RECORDS SUMMARY | 2025-05-30 16:38 | XMS_ITS | Encounter Summary ---
Author Organization [facility] Address [address] [place] [address] Care Team Providers Care Returned Goods Sorter Name Role Phone Unavailable Primary Care Provider Unavailabl e Encounter Details DateTypeDepartmentCare Team (Latest Contact Info)Xipiktpiwqg14/17/2025Telephone [place] [address] [place] [address] Paula Ash MA Social History Tobacco UseTypesPacks/DayYears UsedDateSmoking Tobacco: NeverSmokeless Tobacco: NeverCommentsUnknownSex and Gender InformationValueDate RecordedSex Assigned at DouvhGrhwts82/15/2025 4:45 PM ESTLegal VkuLozdeu85/20/2025 1:35 PM EDTGender FhphqwgcFbrtol81/15/2025 4:45 PM ESTSexual OrientationHeterosexual or Womzypfl03/15/2025 4:45 PM ESTdocumented as of this encounter Miscellaneous Notes * Telephone Encounter - Paula Ash MA - 05/27/2025 4:[address] López call [facility] and have them stop metolazone, BMP in 1 week. Spoke to nurse Cortney at [facility], advised her of Dr. Lópezs recommendation, nurse verbalized understanding and agreed with plan of care. Order for labs faxed to [facility]. documented in this encounter Plan of Treatment DateTypeDepartmentCare Team (Latest Contact Info)Rcitxgsjheh27/14/2026 11:00 AM ESTOffice Visit [facility] [address] [place] [address] Chantel Wiley, TWX OPERATOR [address] [place] [address] documented as of this encounter Visit Diagnoses Not on filedocumented in this encounter
--- OUTSIDE RECORDS SUMMARY | 2025-05-30 16:38 | XMS_ITS | Encounter Summary ---
Author Organization [facility] Address [address] [place] [address] Care Team Providers Care Quality Assurance Lab Technician Name Role Phone Unavailable Primary Care Provider Unavailabl e Reason for Referral * Consultation (Routine) - Pending ReviewSpecialtyDiagnoses / ProceduresReferred By ContactReferred To ContactNeurology Diagnoses Parkinson's disease without dyskinesia, unspecified whether manifestations fluctuate (CMS/HCC) Procedures [place] [facility] 60 MINUTES Favio López MD [address] [place] [address] Phone: tel: fax: [address] [address] Phone: tel: fax: Referral IDStatusReasonStart DateExpiration DateVisits RequestedVisits [id number] Review Specialty Services Required 51 Encounter Details DateTypeDepartmentCare Team (Latest Contact Info)Ovllfoxnoft65/17/2025Orders Only [facility] [address] [place] [address] Frances Dietz MA Parkinson's disease without dyskinesia, unspecified whether manifestations fluctuate (CMS/HCC) (Primary Dx); Benign hypertensive heart disease with heart failure (CMS/HCC) Social History Tobacco UseTypesPacks/DayYears UsedDateSmoking Tobacco: NeverSmokeless Tobacco: NeverCommentsUnknownSex and Gender InformationValueDate RecordedSex Assigned at TtdjkUlvbqx21/15/2025 4:45 PM ESTLegal GvsYbbrsf89/20/2025 1:35 PM EDTGender YbkwqitlBztpjj72/15/2025 4:45 PM ESTSexual OrientationHeterosexual or Naqootji19/15/2025 4:45 PM ESTdocumented as of this encounter Plan of Treatment DateTypeDepartmentCare Team (Latest Contact Info)Gvfatofenms35/14/2026 11:00 AM ESTOffice Visit [facility] [address] [place] [address] Chantel Wiley, AUTOMOTIVE PRODUCT ENGINEER [address] [place] [address] NameTypePriorityAssociated DiagnosesOrder ScheduleBasic metabolic panelLab Routine Benign [...]
--- OUTSIDE RECORDS SUMMARY | 2025-05-30 16:38 | XMS_ITS | Clinical Summary ---
Author Organization [facility] Address [address] [place] [place] [address] Care Team Providers Care Lobby Attendant Name Role Phone Unavailable Primary Care Provider [...] mouth in the morning. On Sunday, Sunday, Uxulom245Active metoprolol succinate XL (Toprol-XL) 25 mg 24 [...] meal. Discontinued Active Problems ProblemNoted DateDiagnosed DateArterial qpbmhgsqtvtio17/12/2025rthritis of left knee05/22/2025sthmatic uvcpiocoty55/12/7677Zlcmcrukire19/12/2025ellulitis 05/22/2025ellulitis of toe05/22/2025hronic kidney xlolmgg9605/22/2025Decreased muscle tone05/22/2025Dependent edema05/22/20251266Syxdou96/12/2025Facial laceration 05/22/2025Generalized anxiety fcokngsc55/12/2025Genu varum05/22/2025History of breast gbrtvb0205/22/2025History of UTI05/22/20250351Bkcqrgpdqncbcz15/12/2025Insect bite wound05/22/2025Intention lquagl3405/22/2025Irritable bowel dyqtkyof92/12/2025 Knee pain05/22/2025Low back pain05/22/2025OAB (overactive bladder)05/22/2025 Peripheral nerve kmoskmk2205/22/2025Physical ilhyyxkhyanmrb48/12/2025Pressure injury of sacral region of back05/22/2025Quadriceps nmfufwra48/12/2025Rash 05/22/2025Shortness of hjtrql4505/22/2025Spinal stenosis of lumbar region 05/22/2025Tinea pedis05/22/2025Urinary ubhbwxreh67/12/2025Varicose veins of unspecified lower extremity with ulcer of ankle05/22/2025ute kidney injury 02/16/2025Stage 3b chronic kidney prtfkfi3202/16/20258332Ksocjmv15/05/2025losed fracture of left proximal bhsvfcg1802/13/2025General ekbyfut9502/13/2025Hypertension 02/13/2025Vitamin D nasktpzfvc78/05/1375Rogc38/05/2025Diabetes mellitus 11/28/2023 Encounters DateTypeDepartmentCare RczsVfadtxnuezn21/17/2025 1:40 PM ESTOffice Visit [facility] [address] [place] [facility] [place] [address] Favio López MD Stage 3b chronic kidney disease (CMS/HCC) (Primary Dx); Chronic diastolic heart failure (CMS/HCC); Parkinson's disease without dyskinesia or fluctuating manifestations (CMS/HCC) 05/27/2025Telephone [facility] [address] [place] [facility] [place] [address] Paula Ash MA 05/27/2025Orders Only [facility] [address] [place] [facility] [place] [address] Paula Ash MA Chronic diastolic heart failure (CMS/HCC) (Primary Dx)05/27/2025Orders Only [facility] [address] [place] [facility] [place] [address] Frances Dietz MA Parkinson's disease without dyskinesia, unspecified whether manifestations fluctuate (CMS/HCC) (Primary Dx); Benign hypertensive heart disease with heart failure (CMS/HCC)from Last 3 Months Family History RelationNameStatusCommentsFatherDeceasedMotherDeceased Social History Tobacco UseTypesPacks/DayYears UsedDateSmoking Tobacco: NeverSmokeless Tobacco: Never Tobacco Cessation:Counseling Given: Not Answered CommentsUnknownSex and Gender InformationValueDate RecordedSex Assigned at XpxxxXzcgss86/15/2025 4:45 PM ESTLegal UaaNiwget28/20/2025 1:35 PM EDTGender OehojpluKuvqid38/15/2025 4:45 PM ESTSexual OrientationHeterosexual or Straight 05/25/2025 4:45 PM EST Last Filed Vital Signs Vital SignReadingTime TakenCommentsBlood Gndwhfvs22/5205/27/2025 1:41 PM EST Unrps985705/27/2025 1:41 PM ESTTemperature--Respiratory Rate--Oxygen Kcjpnogcrl66% 05/27/2025 1:41 PM ESTInhaled Oxygen Concentration--Ybvixw804 kg (227 lb) 05/27/2025 1:41 PM ZYKIgshef557.5 cm (5' 2 )05/27/2025 1:41 PM ESTBody Mass Index41.5205/27/2025 1:41 PM EST Plan of Treatment DateTypeDepartmentCare Team (Latest Contact Info)Vuwhzvjqtdz82/14/2026 11:00 AM ESTOffice Visit [facility] [address] [place] [address] Chantel Wiley, SCRIPT WRITER [address] [place] [address] Health MaintenanceDue DateLast DoneCommentsDiabetes: Hemoglobin A1C1939 Medicare Annual Wellness (AWV)1939Diabetes: Retinopathy Screening 09/21/1949Depression Rkauhbnpk89/13/1952Diabetes: Urine Protein Screening 09/21/1958Zoster Vaccines (1 of 2)09/21/1989Fall Risk Xmqcisaso19/13/2005 Pneumococcal Vaccine: 50+ Years (2 of 2 - PCV)COVID-19 Vaccine (3 - season)504/06/2020, 08/12/2020Influenza Vaccine (#1)2025dult Rlzbbdj01/05/063517/10/2024HIB VaccinesAged OutNo longer eligible based on patient's [...] Sprague TypeRelation to PatientDate of BirthPhone Billing AddressPersonal/RjvvfwEbpf95/13/1941 [facility] [place] [address] [place] [address]
[2025-05-30 16:51] LABS: Hematocrit 37.9 % (36.0-48.0); Hemoglobin 12.8 g/dL (12.0-16.0); Immature Granulocytes Abs Auto 0.03 10^3/uL (0.00-0.03); Immature Granulocytes Pct Auto 0.5 % (0.0-0.5); Lymphocytes Absolute Auto 1.9 10^3/uL (1.2-3.8); Mean Corpuscular HGB Conc 33.8 g/dL (29.9-35.2); Mean Corpuscular Hemoglobin 29.8 pg (26.7-34.0); Mean Corpuscular Volume 88.3 fL (81.0-99.0); Platelet Count 174 10^3/uL (150-450); Red Blood Count 4.29 10^6/uL (4.20-5.40); White Blood Count 6.6 10^3/uL (4.0-11.0)
[2025-05-30 17:18] LABS: Anion Gap 12.3; Calcium 10.7 mg/dL (8.5-10.1); Carbon Dioxide 36.3 mmol/L (21.0-32.0); Chloride 91 mmol/L (98-107); Estimated GFR (African America 24 (>=60 mL/min/1.73m^2); Estimated GFR (Non-African Ame 20 (>=60 mL/min/1.73m^2); Glucose 163 mg/dL (74-106); Potassium 3.6 mmol/L (3.5-5.1); Sodium 136 mmol/L (136-145)
[2025-05-30 17:24] LABS: Blood Urea Nitrogen 91.0 mg/dL (7.0-18.0)
[2025-05-30] MEDS: 0.9 % SODIUM CHLORIDE 1,000 ML 100 ML IV (17:51)
[2025-05-30 18:18] LABS: TSH W/ REFLEX FT4 4.652 uIU/mL (0.358-3.740)
--- NOTE | 2025-05-30 18:34 | PM.HP ---
HPI H&P: HPI History of Present Illness Chief complaint: dehydration at the [facility]. Narrative: This is An 84-year-old woman who was sent to the emergency room today from her [facility] due to concerns about dehydration. Lab work had been done at the [facility] recently showing her BUN was 93 and her creatinine was 2.81. The ER doctor told me that the ECF did give the patient some IV fluids. Today the BUN did improve a little bit to 91 and the creatinine improved a lot to 2.32. Looking back at past labs it seems like the patient's BUN normally runs between 50 and 60 and her creatinine normally runs at about 2.5. The patient was hospitalized from May 12 through May 19 with clay. During that time documents from the hospitalists taking care of her then show that she had a negative fluid balance of about 11 L. She was discharged on Lasix 40 mg twice daily and metolazone 2.5 mg 3 times a week. Her beta-che dose had been reduced from metoprolol to tartrate 12.5 mg 3 times a day to 12.5 mg once a day. Glipizide had been stopped. She had been put on long-acting and short acting insulin. Looking back to when the patient first came to the hospital in February with a proximal humerus fracture she was on indapamide 2.5 mg every day and Lasix 40 mg 1 time a day. When I see the patient in the ER in room 8 she has a resoundingly negative review of symptoms. She told me that she had been eating and drinking fine. She said that she was able to mobil[facility]. The patient's daughter came into the room. The patient says that at first at the [facility] they were putting a limit on how much water she can drink. But then they stopped that limit and they stopped the patient's Lasix. The patient has not been eating very much. That goes all the way back to in February when she fractured her proximal humerus but over the last few days the daughter would go into the [facility] facility, as well as other family members, to assist her with all of the meals and the patient was basically not eating any food or drinking any liquids. This was despite them coaxing her to do that a lot. They said that over the last few days she was spending a lot of time sleeping. They admit that she has a very high pain tolerance. She is not normally the type of person to complain. I reviewed the CT scan images that were taken today and compared them to his CT scan from her previous hospital stay. Back on the previous hospital stay she had moderately large bilateral pleural effusions that took up about 25 to 33% of the lung space in her chest, and on the CT scan today these are gone. There is just a tiny trivial trace of a pleural effusion, so the diuretics have worked really well. She does seem to have moderate amount of constipation in the rectum and sigmoid colon but not massively large fecal impaction. In the ER today her temperature was low at only 91.8 on rectal thermometer. Therefore blood cultures were ordered and a urinalysis and a urine culture were ordered. On my review of the chest x-ray and the visible part of her lungs on the CT scan I see no evidence of pneumonia. The patient does not seem to have any clinical evidence of active infection. However if she had symptoms of infection I am not sure that she would vocalize them. Both the nurses at the hospital here and the patient's family member say that her temperature was low when she was in the hospital last time. She has a history of extensive anasarca and pleural effusions which were rather large bilaterally in early May that caused acute hypoxic respiratory failure. She also had low albumin. She had diastolic dysfunction congestive heart failure on an echocardiogram from 03/05 where her ejection fraction was normal but the tube test technician did describe grade 2 diastolic dysfunction and mild to moderate tricuspid regurgitation. She has diabetes mellitus type 2 with long-term use of insulin with recent hemoglobin A1c back in February of 7.2. She has functional impairment being confined to a wheelchair and a bed and has not really walked since she had the proximal humerus fracture back in February. She had deep vein thrombosis on venous Doppler ultrasound of her LEFT lower extremity in the past that was thought to be mostly chronic but she was started on Eliquis 2.5 mg twice daily. In the past she was described as having chronic kidney disease stage III which then approached stage IV with diuresis in the past her baseline creatinine was 1.8-2.5 with a GFR in the 20-30 range. On a CODE STATUS discussion on 05/14/[address] Joy Carrillo... her CODE STATUS was moved to a DNR CCA. Opioid HPI Opioid Management Most Recent Pain and Opioid Data: Last Pain Scale 5 05/19/25, 11:00 Last Pain Intensity 0 05/18/25, 11:46 Last ORT Total Score 0 05/11/25, 18:03 Last ORT Risk Category Low Risk 05/11/25, 18:03 Review of Systems ROS Narrative A 10 point review of systems is attempted, but not able to be completed as patient really does not verbalize any complaints. [facility] Medical History (Updated 05/30/25 @ 18:45 by DEX PROCTOR) Impaired mobility and ADLs ?Z74.09 - Other reduced mobility (ICD-10) ?Z78.9 - Other specified health status (ICD-10) Anxiety ?F41.9 - Anxiety disorder, unspecified (ICD-10) Hypertension ?I10 - Essential (primary) hypertension (ICD-10) Diabetes mellitus ?E11.9 - Type 2 diabetes mellitus without complications (ICD-10) BMI 45.0-49.9, adult ?Z68.42 - Body mass index [BMI] 45.0-49.9, adult (ICD-10) Closed left humeral fracture ?S42.302A - Unspecified fracture of shaft of humerus, left arm, initial encounter for closed fracture (ICD-10) Acute kidney injury ?N17.9 - Acute kidney failure, unspecified (ICD-10) Acute congestive heart failure ?I50.9 - Heart failure, unspecified (ICD-10) Edema ?R60.9 - Edema, unspecified (ICD-10) B12 deficiency ?E53.8 - Deficiency of other specified B group vitamins (ICD-10) Acute kidney injury ?N17.9 - Acute kidney failure, unspecified (ICD-10) Vitamin D deficiency ?E55.9 - Vitamin D deficiency, unspecified (ICD-10) CKD stage 3b, GFR 30-44 ml/min ?N18.32 - Chronic kidney disease, stage 3b (ICD-10) Morbidly obese ?E66.01 - Morbid (severe) obesity due to excess calories (ICD-10) Skin cancer ?C44.90 - Unspecified malignant neoplasm of skin, unspecified (ICD-10) Surgical History Hx of fusion of cervical spine ?Z98.1 - Arthrodesis status (ICD-10) Hx of cholecystectomy ?Z90.49 - Acquired absence of other specified parts of digestive tract (ICD-10) 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 Smoking status: Never smoker Non-prescribed substance use: denies use Known occupational exposures/hazards: No Highest level of school completed/degree received: 12th grade, no diploma Are you now , , , , never or living with a partner: In a typical week, how many times do you talk on the telephone with family, friends, or neighbors: 3 or more times per week How often do you get together with friends or relatives: 3 or more times per week Little interest or pleasure in doing things: not at all Feeling down, depressed, or hopeless: not at all Feel stressed/tense/nervous/anxious/difficulty sleeping: not at all Do you think of yourself as: straight/heterosexual Gender Identity: male Meds Home Medications and Allergies Home Medications ?Medication ?Instructions ?Recorded ?Confirmed ?Type psyllium husk (bulk) 100 % powder 2.6 ea PO QD 02/16/25 05/30/25 History citalopram 10 mg tablet (Celexa) 10 mg PO DAILY #30 tabs 02/20/25 05/30/25 Rx cyanocobalamin (vitamin B-12) 1,000 mcg IM Q30D #0 mL 02/20/25 05/30/25 Rx 1,000 mcg/mL injection solution docusate sodium 100 mg capsule 100 mg PO BID PRN Constipation #0 02/20/25 05/30/25 Rx caps insulin aspart U-100 100 unit/mL 2 - 10 unit (0.02 - 0.1 mL) subcut 02/20/25 05/30/25 Rx (3 mL) subcutaneous pen (Novolog ACHS #0 mL FlexPen U-100 Insulin aspart) sennosides 8.6 mg-docusate sodium 1 tab PO QD PRN Constipation #0 02/20/25 05/30/25 Rx 50 mg tablet (Senna Plus) tabs tamsulosin 0.4 mg capsule (Flomax) 0.4 mg PO DAILY #30 caps 02/20/25 05/30/25 Rx alprazolam 0.25 mg tablet 0.25 mg PO BID 05/11/25 05/30/25 History blood-glucose sensor (FreeStyle 05/11/25 05/11/25 History Corey 3 Sensor device) nystatin 100,000 unit/gram topical 1 applic topical BID 05/11/25 05/30/25 History powder potassium chloride 20 mEq 20 meq PO .QD 05/11/25 05/30/25 History tablet,extended release(part/cryst) apixaban 5 mg tablet (Eliquis) 2.5 mg (1/2 x 5 mg) PO BID 30 days 05/19/25 05/30/25 Rx #30 tabs metoprolol tartrate 25 mg tablet 12.5 mg (1/2 x 25 mg) PO DAILY #0 05/19/25 05/30/25 Rx tabs acetaminophen 325 mg tablet 325 mg PO Q4H 05/30/25 05/30/25 History calcium 600 mg (as 1 tab PO Q12H 05/30/25 05/30/25 History carbonate)-vitamin D3 10 mcg (400 unit) tablet cholecalciferol (vitamin D3) 25 1,000 unit PO QDAY 05/30/25 05/30/25 History mcg (1,000 unit) chewable tablet (VitaJoy Daily D) furosemide 40 mg tablet 20 mg PO BID 05/30/25 05/30/25 History insulin glargine 100 unit/mL (3 18 unit subcut HS 05/30/25 05/30/25 History mL) subcutaneous pen (Lantus Solostar U-100 Insulin) melatonin 3 mg capsule 3 mg PO HS 05/30/25 05/30/25 History nystatin 100,000 unit/gram topical 1 applic topical BID 05/30/25 05/30/25 History powder peg 400-propylene glycol 0.4 %-0.3 2 drp ophthalmic (eye) Q8H 05/30/25 05/30/25 History % eye drops (Systane (propylene glycol)) potassium chloride 10 mEq 10 meq PO .qhs 05/30/25 05/30/25 History tablet,extended release (Klor-Con) Allergies Allergy/AdvReac Type Severity Reaction Status Date / Time Penicillins Allergy Mild Unknown Verified 05/30/25 17:55 cefuroxime Allergy Unknown Verified 05/30/25 17:55 ciprofloxacin (From Cipro) Allergy Unknown Verified 05/30/25 17:55 lisinopril Allergy Unknown Verified 05/30/25 17:55 nitrofurantoin Allergy Unknown Verified 05/30/25 17:55 Sulfa (Sulfonamide Allergy Unknown Verified 05/30/25 17:55 Antibiotics) Exam Narrative Exam Narrative: Seen in ER room #8 she is sitting upright on a cot. Looking around her head she actually looks younger than stated age. Neurologic: She is really only oriented to self. Not really place or time. She cannot converse about recent or remote symptoms with any accuracy. Psychiatric: She does have a flattened affect. She lets her family members to all of the talking. Eyes: EOMI. No conjunctival injection. Neck: No thyromegaly or lymph nodes that I can appreciate. Mouth: Mucosal membranes are dry. Tongue is in the midline. Skin: Her skin is cool to touch. I do not see any systemic rashes. No mottling. Lower extremities: She actually has some wrinkling of the skin from her knees down to her ankles bilaterally so that edema that was there previously is much improved. There are healing areas where she is to have blisters that were probably draining and oozing and seeping. None of them are draining or oozing or seeping now. Pulmonary: Clear to auscultation throughout. No wheezing. No rhonchi. No crackles. Cardiac: She does have mild bradycardia on the monitor at about 55 bpm. No murmurs are heard to auscultation. GI: Bowel sounds are somewhat hypoactive. No peritoneal tenderness to palpation. Constitutional Vital Signs, click to edit/add: Last Vital Signs Temp 91.8 F L 05/30/25 17:15 Pulse 52 L 05/30/25 17:40 Resp 26 H 05/30/25 17:40 BP 115/60 05/30/25 17:51 Pulse Ox 98 05/30/25 17:40 O2 Del Method Room Air 05/30/25 16:06 Results Labs Labs: Short CBC 05/30/25 Range/Units 16:39 WBC 6.6 (4.0-11.0) 10^3/uL Hgb 12.8 (12.0-16.0) g/dL Hct 37.9 (36.0-48.0) % Plt Count 174 (150-450) 10^3/uL BMP 05/30/25 16:39 Sodium 136 Potassium 3.6 Chloride 91 L Carbon Dioxide 36.3 H BUN 91.0 H* Creatinine 2.32 H Glucose 163 H Calcium 10.7 H Assessment and Plan Assessment and Plan (1) Dehydration: (2) Uremic encephalopathy: (3) Hypothermia: Qualifiers: Encounter type: initial encounter Qualified Code(s): T68.XXXA - Hypothermia, initial encounter (4) Diabetes mellitus with insulin therapy: (5) Toxic encephalopathy: Plan Assessment: Dehydration, causing: Uremia, causing: Acute toxic encephalopathy/uremic encephalopathy. Incidental finding of hypothermia. Etiology is not clear. Unnaturally infection needs to be ruled out. Diabetes mellitus on insulin therapy. Chronic kidney disease ranging from stage III to stage IV in the past. Decreased mobility requiring extended care facility level care. Plan: Hospital admission with inpatient status. Gently rehydrate overnight with D5 half-normal saline at 70 mL an hour. Hold furosemide that she was on in the past. Hold metolazone that she was on in the past. Recheck BMP and CBC daily. In the morning check hemoglobin A1c. In the morning also check a cortisol level. Accu-Cheks AC and at bedtime with sliding scale insulin. Check daily weights. Nursing staff will likely need to assist the patient with all of her meals and encouraged her to eat. Checking albumin and prealbumin in the morning to look for severe protein calorie malnutrition. Check daily weight. Use telemetry given the bradycardia. Hold her metoprolol tartrate 25 mg daily given the bradycardia. DVT prophylaxis is accomplished with her home Eliquis 2.5 mg twice daily.
[2025-05-30 18:57] LABS: Glucose Urine UA NEGATIVE (NEGATIVE)
[2025-05-30 19:09] LABS: Cast Seen? NONE SEEN #/LPF (NONE SEEN); Crystals Seen? None Seen #/HPF (None Seen); Urine Culture Indicated NO
[2025-05-30] MEDS: DEXTROSE 5 %-0.45 % SOD CHLORD 1,000 ML 70 ML IV (21:35)
[2025-05-30] MEDS: APIXABAN 5 MG TABLET 2.5 MG PO (21:37)
[2025-05-30] MEDS: NYSTATIN 15 GM POWDER 1 APPLIC TOPICAL (21:37)
[2025-05-31] VITALS (29 sets, daily range): BP systolic 104–130; BP diastolic 52–80; PULSE 81–95; TEMP 35.4–36.4; O2SAT 91–99
[2025-05-31 02:33] LABS: ABG PCO2 36.2 mmHg (35.0-45.0); Allen Test POSITIVE (POSITIVE); HCO3 ABG 36.0 mmol/L (22.0-26.0); Liters per Minute 2; O2 Mode NC; Oxygen Saturation ABG 99.6 %; PO2 ABG 115.0 mmHg (80.0-100.0); Puncture Site RR
--- NOTE | 2025-05-31 03:01 | PM.EN ---
Event Note Event Note: Remote night hospitalist coverage Nurse notified me that pt is having increase confusion and tremor. unable to focus, discoordiantion. Able to answer few questions but unable to engage in any meaningful conversation. I logged into system and reviewed her labs, notes, etc. Pt is well known to me from previous encounter. I spoke with her nurse Laisha and nurse rody Dubon I suspect that her neurological symptoms are related to toxic encephalopathy. I ordered NS bolus. ABG: PH 7.6, Bicarb 36. Mixed resp and metabolic alkalosis 2nd to encephalopathy causing tachypnea and volume contraction Ordered Ct head r/o any bleed or infarct or edema. I also ordered Imepenem IV in case she has sepsis although her WBC is normal, UA and CXR are negative. I called her son Eliazar and discussed her condition and status. I informed him that Carlita may require HD therefore I need to transfer her to [facility]. Eliazar is in agreement to transfer her. I spoke with nurse tile layer supervisor Ashley at [facility] and requested an ICU bed. I called and spoke with my colleague Dr Krause at [facility]. He accepted to admit pt under his name to ICU. I will pass on info to day hospitalist Dr Lewis after 7 AM
--- NOTE | 2025-05-31 03:09 | PC.NURSE ---
2349: (05/30) This nurse in room to reassess pt, pt is disoriented. Pt is having ridged uncoordinated movements. Blood sugar is 158. Nurse notified Dr. Carrillo of change in status. 2351; Dr. Carrillo states I will look 0057; Nurse re-messages Dr. Carrillo about change in mental status and overall appearance and mentation. 0101: Dr. Carrillo no orders at this time. This RN still in room with pt, pt is still disoriented and having uncoordinated movements. pt has a sluggish response bilateral eyes when reassessing 0117-This RN inquires about a transfer. 0139- Nursing Supervision notifies Dr. Carrillo of change of status of pt see new orders ; Dr. Carrillo okay with starting IV in left arm for pt to get IV fluids.. This nurse notified son of change of status.
[2025-05-31] MEDS: IMIPENEM/CILASTATIN SODIUM 250 MG in 0.9 % SODIUM CHLORIDE 100 ML 200 MG IV (03:46)
[2025-05-31] MEDS: 0.9 % SODIUM CHLORIDE 1,000 ML 500 ML IV (03:47)
--- NOTE | 2025-05-31 14:06 | PM.DS1 ---
DS: Providers Provider Date of admission: 05/30/25 18:59 Primary care physician: JESSICA STOCK Admitting clinician: DEX PROCTOR Attending physician on admission: DEX PROCTOR Consults: 05/30/25 Consult to Dietitian Routine Reason for consultation: decrease intake Has provider been notified: Yes 05/30/25 18:33 Physical Therapy Eval and Treat Routine Reason for consultation: not ambulating Has provider been notified: No Attending physician on discharge: Joy Carrillo Discharging clinician: Joy Carrillo Anticipated date of discharge: 05/31/25 DS: Diagnosis Discharge Diagnosis (1) Dehydration: (2) Uremic encephalopathy: (3) Hypothermia: Qualifiers: Encounter type: initial encounter Qualified Code(s): T68.XXXA - Hypothermia, initial encounter (4) Diabetes mellitus with insulin therapy: (5) Toxic encephalopathy: Plan Patient was admitted with dehydration and elevated BUN. In the nighttime she had decreased neurologic responsiveness so she was transferred to [facility]. DS: Summary Hospital Course Hospital Course: This is an 80-year-old woman who has been at a [facility] facility on diuretics for massive anasarca and edema and heart failure with preserved ejection fraction who had been found to have an elevated BUN up to 93. Diuretics have been stopped at the [facility] facility and the report was that they had even placed an IV to give her IV fluids, but then she was brought to the emergency room on Sunday, May 30, 2025. The plan was to admit the patient overnight with gentle hydration and daily BMP checks, and then careful reintroduction of diuretics depending on how her renal status progressed. The patient has been nonambulatory for 4 months now after falling and breaking her proximal humerus back in the month of February. She basically has been confined to the hospital or [facility] facility ever since. 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 The on-call physician covering the film processing shift supervisor, Dr. Carrillo, was contacted by the nursing staff. An arterial blood gas was done that shows a pH high at 7.605, which is expected given her contraction alkalosis, but her pCO2 is normal at 36.2 and her pO2 is actually a bit high at 115. Her bicarb is also a bit high at 36, which is expected. A decision was made in the overnight hours to transfer the patient to [facility]. The early report today is that at [facility] the patient's numerous family members adamantly refused to have the patient get dialysis if it should come to that, but there was a finding of a significantly elevated ammonia level, and the patient does not seem to have had that problem before and has no testing in the past year to suggest liver disorder. Status at Discharge Functional status at discharge: bed bound Overall status at discharge: other (Requiring transfer to a higher level of care. ) Time Spent with Patient Time attestation: Total time spent providing and/or coordinating discharge services: 1 minute. Exam Narrative Exam Narrative: Physical examination was not performed because the patient was transferred to [facility] before my shift started today. Constitutional Vital Signs, click to edit/add: Last Vital Signs Temp 97.1 F L 05/31/25 03:54 Pulse 91 H 05/31/25 04:00 Resp 15 05/31/25 03:50 BP 130/80 05/31/25 03:05 Pulse Ox 98 05/31/25 03:40 O2 Del Method Nasal Cannula 05/31/25 00:00 O2 Flow Rate 2 05/31/25 00:00 DS: Data Data Completed and Pending Labs on day of discharge: Labs from last 24 hours 05/31/25 05/30/25 05/30/25 02:24 23:50 22:05 WBC RBC Hgb Hct MCV MCH MCHC RDW Plt Count MPV Neut % (Auto) Lymph % (Auto) Mora % (Auto) Eos % (Auto) Baso % (Auto) Neut # (Auto) Lymph # (Auto) Mora # (Auto) Eos # (Auto) Baso # (Auto) Abs Immat Gran (auto) Imm/Tot Granulo (auto) Puncture Site Rr ABG pH 7.605 H* ABG pCO2 36.2 ABG pO2 115.0 H ABG HCO3 36.0 H ABG O2 Saturation 99.6 ABG Base Excess 14.5 H Sb Test Positive O2 Liters/Min 2 Sodium Potassium Chloride Carbon Dioxide Anion Gap BUN Creatinine Est GFR ( Amer) Est GFR (Non-Af Amer) BUN/Creatinine Ratio Glucose Calcium Troponin I High Sens Free T4 TSH & Free T4 Interp Urine Color Urine Clarity Urine pH Ur Specific [place] Urine Protein Urine Glucose (UA) Urine Ketones Urine Occult Blood Urine Nitrite Urine Bilirubin Urine Urobilinogen Ur Leukocyte Esterase Urine RBC Urine WBC Ur Squamous Epith Cells Urine Crystals Urine Bacteria Urine Casts Urine Mucus Ur Culture Indicated? POC Glucose 158 H 186 H 05/30/25 05/30/25 18:32 16:39 WBC 6.6 RBC 4.29 Hgb 12.8 Hct 37.9 MCV 88.3 MCH 29.8 MCHC 33.8 RDW 14.9 Plt Count 174 MPV 9.8 Neut % (Auto) 58.5 Lymph % (Auto) 28.4 Mora % (Auto) 10.0 Eos % (Auto) 1.7 Baso % (Auto) 0.9 Neut # (Auto) 3.9 Lymph # (Auto) 1.9 Mora # (Auto) 0.7 Eos # (Auto) 0.1 Baso # (Auto) 0.1 Abs Immat Gran (auto) 0.03 Imm/Tot Granulo (auto) 0.5 Puncture Site ABG pH ABG pCO2 ABG pO2 ABG HCO3 ABG O2 Saturation ABG Base Excess Sb Test O2 Liters/Min Sodium 136 Potassium 3.6 Chloride 91 L Carbon Dioxide 36.3 H Anion Gap 12.3 BUN 91.0 H* Creatinine 2.32 H Est GFR ( Amer) 24 L Est GFR (Non-Af Amer) 20 L BUN/Creatinine Ratio 39.2 Glucose 163 H Calcium 10.7 H Troponin I High Sens 33.0 Free T4 1.25 TSH & Free T4 Interp 4.652 H Urine Color Lt. yellow Urine Clarity Clear Urine pH 7.0 Ur Specific [place] 1.010 Urine Protein Trace Urine Glucose (UA) Negative Urine Ketones Negative Urine Occult Blood Negative Urine Nitrite Negative Urine Bilirubin Negative Urine Urobilinogen 0.2 Ur Leukocyte Esterase Negative Urine RBC None seen Urine WBC 0-2 A Ur Squamous Epith Cells Rare Urine Crystals None seen Urine Bacteria None seen Urine Casts None seen Urine Mucus None seen Ur Culture Indicated? No POC Glucose Discharge Plan Discharge Disposition: Xfer Acute Care Hospital Condition: Fair Discharge Date/Time: 05/31/25 05:25
== END 2025-05-31 05:25 | disposition short-term general hospital (02) | DRG 640 ==
LOC: ER 18:34 → MS 19:04
PROVIDERS: Internal Medicine; Admitting Provider Hospitalist; Emergency Provider Emergency Medicine; PCP Family Medicine; Visit Provider Hospitalist
DX: E86.0 Dehydration (principal); G92.8 Other toxic encephalopathy; R68.0 Hypothermia, not associated with low environmental temperature; R25.1 Tremor, unspecified; R41.0 Disorientation, unspecified; I11.0 Hypertensive heart disease with heart failure; E11.22 Type 2 diabetes mellitus with diabetic chronic kidney disease; N18.32 Chronic kidney disease, stage 3b; F41.9 Anxiety disorder, unspecified; R79.89 Other specified abnormal findings of blood chemistry; Z79.4 Long term (current) use of insulin; Z79.01 Long term (current) use of anticoagulants; Z79.899 Other long term (current) drug therapy
CPT/HCPCS: 36415; 36600; 51702; 70450; 71045; 74176; 80048; 81001; 82042; 82533; 82805; 82948; 83036; 84100; 84134; 84439; 84443; 84484; 85025; 86140; 87040; 93005; 99285; J0743